=== PATIENT | female | born 1940 | race Caucasian/White ===

== ENCOUNTER → 2018-03-14 16:34 | Outpatient (CLI) | payer MEDICARE, OTHER, SELFPAY ==
[2017-04-19 11:37] VITALS: BMI 26.3
[2018-03-14 17:33] LABS: Absolute Lymphocyte Count 1.15 X10^3/ul (0.83-4.51); Absolute Neutrophil Count 3.1 X10^3/uL (2.0-7.7); Basophil# 0.03 X10^3/uL; Basophil% 0.6 % (0-1); Eosinophil# 0.11 X10^3/uL; Eosinophils% 2.2 % (0-5); Hematocrit 37.7 % (37-47); Hemoglobin 12.4 g/dl (12.0-15.0); Lymphocyte # 1.15 X10^3/ul (4.0); Lymphocyte % 23.4 % (19-41); Mean Corp Hgb Conc 32.9 g/gl (32-36); Mean Corpuscular Hgb 30.2 pg (27.0-32.0); Mean Platelet Vol. 11.5 fl (6.2-12.0); Monocyte# 0.55 X10^3/uL; Monocyte% 11.2 % (0-10); Neutrophil # 3.07 X10^3/uL (2.7-7.7); Neutrophil % 62.4 % (47-70); POSITIVE COUNT NO; POSITIVE DIFFERENTIAL NO; POSITIVE MORPHOLOGY NO; Platelet Count 125 K/mm3 (150-450); RBC Distribution Width CV 13.4 % (11.6-14.6); RBC Distribution Width SD 44.5 fl (35.1-43.9); White Blood Count 4.9 K/mm3 (4.4-11.0)
[2018-03-14 17:56] LABS: AST(SGOT) 29 U/L (15-37); Alanine Aminotransfer ALT/SGPT 36 U/L (13-56); Albumin, Serum 3.9 g/dL (3.2-5.0); Alkaline Phosphatase 84 U/L (45-117); Anion Gap 8 (5-15); BUN 11 mg/dL (7-18); BUN/Creat Ratio 14.7 RATIO (10-20); Calcium,Total 8.4 mg/dL (8.5-10.1); Chloride 108 mmol/L (98-107); Creatinine, Serum 0.75 mg/dL (0.55-1.02); EST Glomerular Filtration Rate 80 mL/min (>60); Est Glom Filt Rate - Afr Amer 97 mL/min (>60); Globulin 3.8 g/dL (2.2-4.2); Glucose 93 mg/dL (74-106); Protein, Total 7.7 g/dL (6.4-8.2); Sodium Level 140 mmol/L (136-145); Thyroid Stim Hormone (TSH) 2.11 uIU/mL (0.358-3.74)
[2018-03-14 17:57] LABS: Vitamin D,25 Hydroxy 23.1 ng/mL (29.95-100.01)
== END ==
PROVIDERS: Family Provider Family Medicine Geriatric Medicine; PCP Family Medicine Geriatric Medicine; Visit Provider Family Medicine Geriatric Medicine
DX: E11.9 Type 2 diabetes mellitus without complications (principal); E55.9 Vitamin D deficiency, unspecified; I10 Essential (primary) hypertension
CPT/HCPCS: 36415; 80053; 82306; 84443; 85025

== ENCOUNTER → 2018-04-03 14:08 | Outpatient (CLI) | payer MEDICARE, OTHER, SELFPAY ==
[2017-04-19 11:37] VITALS: BMI 26.3
--- NOTE | 2018-04-03 14:12 | BI_ITS ---
MAMMOGRAPHY - BILATERAL SCREENING REASON FOR EXAM: Female, 77 years old. Routine annual screening examination. PERTINENT HISTORY: Non-contributory. TECHNIQUE: Digital bilateral breast christy (3D mammographic acquisition) in the CC and MLO projections. 2-D mediolateral oblique (MLO) and craniocaudad (CC) views of both breasts were obtained. CAD: Full Field Digital Mammography with Computer Added Detection was performed. COMPARISON: Comparison is made with prior study dated January 23, 2017 and January 19, 2016. FINDINGS: Breast Composition: There are scattered areas of fibroglandular density. There are no dominant masses or suspicious calcifications. No other significant abnormalities are identified. There has been no significant change since the prior study. BI/SCREENING MAMM (CAD), BILAT IMPRESSION: Stable bilateral screening mammogram. Yearly follow-up mammogram recommended. (A) ASSESSMENT CATEGORY: BIRADS Category 1: Negative. A letter regarding these results will be sent to the patient by the facility within 30 days. Approximately 10% of breast cancers are not detected by mammography. A normal mammogram should not delay biopsy of a clinically suspicious abnormality. [id number] Electronically Signed: Asher Donato MD at 15:59 EDT Tel [phone], Service support ,
--- NOTE | 2018-04-03 14:40 | BD_ITS ---
STUDY: DUAL ENERGY X-RAY ABSORPTIOMETRY / DXA REASON FOR EXAM: Female, 77 years old. The patient is postmenopausal. Loss of height. TECHNIQUE: Bone Mineral Density (BMD) measurements of lumbar spine and bilateral hips were obtained. COMPARISON: Comparison is made with prior study dated January 19, 2016. FINDINGS: Lumbar Spine (L1-L4): g/cm2 (1.060) / T-score (-0.9) / Z-score (0.9) Findings are suggestive of normal bone density with a low fracture risk. Left Femur Total: g/cm2 (0.940) / T-score (-0.5) / Z-score (1.2) Left Femoral Neck: g/cm2 (0.888) / T-score (-1.1) / Z-score (0.9) Right Femur Total: g/cm2 (0.944) / T-score (-0.5) / Z-score (1.3) Right Femoral Neck: g/cm2 (0.909) / T-score (-0.9) / Z-score (1.0) The T-Scores on the most recent prior examination were: Lumbar Spine (L1-L4): There has been improvement of bone density since the previous examination. Left Femur Total: which represents a worsening of 5.0%. Right Femur Total: which represents an improvement of 0.7%. BD/Dexa Bone Density Study IMPRESSION: The patient is considered osteopenic as outlined below according to World Medardo Organization (WHO) criteria with a low fracture risk. There has been improvement of bone density since the previous examination. Reference Information: The T-score is the number of standard deviations above or below the standard which is normal for young adults at their peak bone mineral density. The World Health Organization (WHO) interprets the T-scores as follows: Above -1 Normal bone density Between -1 and -2.5 Osteopenia Equal to / or below -2.5 Osteoporosis As a practical clinical guideline, osteopenia may be graded as follows: Mild -1 through -1.5 Moderate -1.6 through -2.0 Severe -2.1 through -2.4 The Z-score is the number of standard deviations above or below age-matched controls. A Z-score of less than -1.5 would be considered abnormal. References: 1. NIH Osteoporosis and Related Bone Diseases http://www.osteo.org 2. International Society for Clinical Densitometry http://www.iscd.org 3. National Osteoporosis Foundation http://www.nof.org Electronically Signed: Asher Donato MD at 15:40 EDT Tel [phone], Service support ,
== END ==
PROVIDERS: Family Provider Family Medicine Geriatric Medicine; PCP Family Medicine Geriatric Medicine; Visit Provider Family Medicine Geriatric Medicine
DX: Z78.0 Asymptomatic menopausal state (principal); Z12.31 Encounter for screening mammogram for malignant neoplasm of breast
CPT/HCPCS: 77063; 77067; 77080

== ENCOUNTER 2018-06-07 08:25 | Observation (INO) | payer MEDICARE, OTHER, SELFPAY ==
[2017-04-19 11:37] VITALS: BMI 26.3
[2018-06-07] VITALS (12 sets, daily range): BP systolic 101–125; BP diastolic 58–79; PULSE 12–98; RESP 10–93; TEMP 36.7–37.4; O2SAT 94–96; BMI 28.6; BMI 27.8
--- NOTE | 2018-06-07 08:33 | EKG12_ITS ---
Test Reason : CHEST PAIN Blood Pressure : / mmHG Vent. Rate : 094 BPM Atrial Rate : 094 BPM P-R Int : 156 ms QRS Dur : 122 ms QT Int : 386 ms P-R-T Axes : 055 -63 044 degrees QTc Int : 482 ms Normal sinus rhythm Right bundle branch block Left anterior fascicular block Bifascicular block Abnormal ECG Confirmed by ALONDRA WAHL, LINDA ([id number]), senior technical editor BEN VALENTINO ([id number]) on 06/11/2018 2:24:40 PM Referred By: RU Confirmed By:LINDA CANTU MD
--- NOTE | 2018-06-07 08:33 | RAD_ITS ---
STUDY: X-RAY CHEST REASON FOR EXAM: Female, 77 years old. Chest pain TECHNIQUE: Single AP portable view of the chest. COMPARISON: 04/14/2017 FINDINGS: Subsegmental atelectases in the right and left lung bases. There is no demonstrated pleural abnormality. Normal size heart. Normal mediastinum and raul. Normal visualized pulmonary arteries. There is atherosclerotic calcification of the aortic arch with tortuosity. Normal visualized thoracic spine. There is degenerative osteoarthritis of the bilateral shoulders. There is no demonstrated abnormality of the visualized soft tissue structures of the upper abdomen. RAD/Chest 1 View (Portable) IMPRESSION: Degenerative changes, as described above. No demonstrated acute cardiopulmonary process. Electronically Signed: Meera Luna MD at 9:11 EDT Tel , Service support ,
--- NOTE | 2018-06-07 08:34 | ED.VISSUMM ---
- ER Visit Summary Date of Service: 06/07/18 Chief Complaint: [] Chest pain for a week History of Present Illness: The patient is a 77 F [] retention cardiac stent 1 year ago reports for about a week she has had chest pain left that is similar to the angina that necessitated her stent 1 year ago. Her cardiac condition and all of her general health issues have been very stable he gets chest discomfort has been persistent she was concerned when it did not improve despite the fact taking her medications she came in for evaluation. No fever no cough bowel and bladder habits of normal review systems are negative seen by Dr. Leach in the past Physical Examination: [] Vital signs are within normal range she is resting comfortably in the bed her vital signs are normal she points to the left chest pectoral area, lungs are clear heart tones are normal HEENT exam unremarkable the left chest to palpation is nontender the lungs sound clear the heart tones are regular the monitor shows a sinus rhythm the abdomen is soft nontender upper lower extremity unremarkable pulses symmetric neurologic she is awake alert moving all 4 Test Results: [] Emergency Department Course and Treatment: [] EKG shows a sinus rhythm no acute injury pattern appreciated she has a right bundle branch block and left anterior fascicular block that are old mother the patient's chest x-ray and all labs are generally unremarkable please see those reports on reevaluation is resting comforting the bed spoke with the hospitalist given all the above history of cardiac stent the chest pain will arrange for admission for further management Treatment Plan: [] Disposition: [] Stable admit Impression: [] Chest pain history of CAD cardiac stent This note was generated with [employer] dictation software. It may contain incorrect words, spelling, and punctuation that were not noted in review of the chart prior to signing ED Disposition - Plan for ED Patient: Chief Complaint: Chest Pain Referrals: Gokul Sanchez Chi, MD [Primary Care Provider] -
--- NOTE | 2018-06-07 08:40 | ED.DCSUM_ITS ---
- ER Visit Summary Date of Service: 06/07/18 Chief Complaint: [] Chest pain for a week History of Present Illness: The patient is a 77 F [] retention cardiac stent 1 year ago reports for about a week she has had chest pain left that is similar to the angina that necessitated her stent 1 year ago. Her cardiac condition and all of her general health issues have been very stable he gets chest discomfort has been persistent she was concerned when it did not improve despite the fact taking her medications she came in for evaluation. No fever no cough bowel and bladder habits of normal review systems are negative seen by Dr. Leach in the past Physical Examination: [] Vital signs are within normal range she is resting comfortably in the bed her vital signs are normal she points to the left chest pectoral area, lungs are clear heart tones are normal HEENT exam unremarkable t he left chest to palpation is nontender the lungs sound clear the heart tones are regular the monitor shows a sinus rhythm the abdomen is soft nontender upper lower extremity unremarkable pulses symmetric neurologic she is awake alert moving all 4 Test Results: [] Emergency Department Course and Treatment: [] EKG shows a sinus rhythm no acute injury pattern appreciated she has a right bundle branch block and left anterior fascicular block that are old mother the patient's chest x-ray and all labs are generally unremarkable please see those reports on reevaluation is resting comforting the bed spoke with the hospitalist given all the above history of cardiac stent the chest pain will arrange for admission for further management Treatment Plan: [] Disposition: [] Stable admit Impression: [] Chest pain history of CAD cardiac stent This note was generated with [employer] dictation software. It may contain incorrect words, spelling, and punctuation that were not noted in review of the chart prior to signing ED Disposition - Plan for ED Patient: Chief Complaint: Chest Pain Referrals: Gokul Sanchez Chi, MD [Primary Care Provider] -
[2018-06-07 08:47] LABS: Absolute Lymphocyte Count 0.94 X10^3/ul (0.83-4.51); Absolute Neutrophil Count 6.9 X10^3/uL (2.0-7.7); Basophil# 0.03 X10^3/uL; Basophil% 0.3 % (0-1); Eosinophil# 0.04 X10^3/uL; Eosinophils% 0.4 % (0-5); Hematocrit 36.9 % (37-47); Hemoglobin 12.5 g/dl (12.0-15.0); Lymphocyte # 0.94 X10^3/ul (4.0); Lymphocyte % 10.3 % (19-41); Mean Corp Hgb Conc 33.9 g/gl (32-36); Mean Corpuscular Hgb 30.6 pg (27.0-32.0); Mean Corpuscular Volume 90.2 fL (81-99); Mean Platelet Vol. 10.7 fl (6.2-12.0); Monocyte# 1.12 X10^3/uL; Monocyte% 12.3 % (0-10); Neutrophil # 6.94 X10^3/uL (2.7-7.7); Neutrophil % 76.4 % (47-70); POSITIVE COUNT NO; POSITIVE DIFFERENTIAL NO; POSITIVE MORPHOLOGY NO; Platelet Count 159 K/mm3 (150-450); RBC Distribution Width CV 13.2 % (11.6-14.6); RBC Distribution Width SD 43.4 fl (35.1-43.9); Red Blood Count 4.09 M/mm3 (4.2-5.4); White Blood Count 9.1 K/mm3 (4.4-11.0)
[2018-06-07] MEDS: Clopidogrel Bisulfate 300 MG Tablet 75 MG PO (08:49)
[2018-06-07] MEDS: Aspirin 81 MG TAB.CHEW 324 MG PO (08:49)
--- NOTE | 2018-06-07 08:52 | ED.RN ---
MEDICATIONS GIVEN BY MELISSA Le RN. PER PHYSICIAN VERBAL ORDER, 150 MG PO PLAVIX WAS GIVEN TO PT.
[2018-06-07 09:06] LABS: Anion Gap 9 (5-15); BUN 17 mg/dL (7-18); BUN/Creat Ratio 17.3 RATIO (10-20); Calcium,Total 8.9 mg/dL (8.5-10.1); Chloride 104 mmol/L (98-107); Creatinine, Serum 0.98 mg/dL (0.55-1.02); EST Glomerular Filtration Rate 58 mL/min (>60); Est Glom Filt Rate - Afr Amer 71 mL/min (>60); Estimated Creatinine Clearance 46.43 ml/min; Glucose 150 mg/dL (74-106); Sodium Level 136 mmol/L (136-145)
--- NOTE | 2018-06-07 11:44 | EKG12_ITS ---
Test Reason : Blood Pressure : / mmHG Vent. Rate : 080 BPM Atrial Rate : 080 BPM P-R Int : 168 ms QRS Dur : 122 ms QT Int : 408 ms P-R-T Axes : 053 -60 030 degrees QTc Int : 470 ms Normal sinus rhythm Right bundle branch block Left anterior fascicular block Bifascicular block Abnormal ECG When compared with ECG of 20-APR-2017 06:13, T wave inversion no longer evident in Inferior leads Confirmed by ALONDRA WAHL, LINDA ([id number]), editor publications BEN VALENTINO ([id number]) on 06/11/2018 3:57:21 PM Referred By: RENATA Confirmed By:LINDA CANTU MD
--- NOTE | 2018-06-07 11:48 | STEWCON_ITS ---
Reason For Study: Chest Pain Stress Results Protocol: Cyrus Protocol Maximum Predicted HR: 145 bpm Target HR: 123 bpm% Max imum Predicted HR: 84 % DurationHeart Rate Stage (mm:ss) (bpm) BPCom ment Baseline 88 108/72 5/10 Chest Pain; Definity Diluted 4 ML Given Cyrus Protocol Stage I 3:00 12 0 112/605/10 Chest Pain; Mild Dyspnea Cyrus Protocol Stage II 0:31 12 2 / 5/1 0 Chest Pain; Moderate Dyspnea Recovery 100 108/6 05/10 Chest Pain Stress Duration: 3:31 mm:ss Maximum Stress HR: 122 bpmM ETS: 5 Baseline Echocardiogram Findings The estimated ejection fraction is 65 %. Stress Echo Wall motion Data Resting WMIntermediate WMStress WM Resting Wall Motion Wall Motion Stress No regional wall motion No regional wall motion abnormalities noted. abnormalities noted. EKG Data The baseline ECG displays normal sinus rhythm. The patient exercised according to the regular Cyrus protocol for a total duration of 3:31. The maximum heart rate attained was 134 beats per minute. This was 92% of maximum predicted heart rate. The patient exercised into stage 2 of the Cyrus protocol. During stress, there were no ST or T wave changes noted to suggest ischemia. Interpretation Summary The estimated ejection fraction is 65 %. Normal, adequate, treadmill echocardiogram. Negative for ischemia by EKG and echocardiographic criteria. Patient had baseline 5 out of 10 chest pain prior to testing, which did not worsen during the test. Rare PVCs and ventricular couplets during exercise. Poor exercise capacity for age. Decreased sensitivity due to poor echo windows requiring Definity agent. Recommend clinical correlation or alternative mode of testing if coronary ischemia is strongly suspected. Test terminated due to dyspnea. Final LVEF is 75%. Ordering Physician: Gustavo Molina Referring Physician: Emigdio Ramos Performed By: Jordan Wills RCS
--- NOTE | 2018-06-07 16:36 | CHAPLAIN ---
Type of Pastoral Visit _x__ Initial Visit ___ Follow-up Visit ___ On-call Visit ___ General Patient Visit ___ Spiritual Assessment ___ Family Conference ___ Bereavement ___ Rapid Response ___ Code Blue ___ Other (describe below) Pastoral Care Referral From _x__ Patient ___ Family ___ Nurse ___ Physician ___ Interior Design Instructor ___ Nicker And Breaker ___ Other (describe below) Sacrament/Intervention _x__ Active listening ___ Anointing ___ Restorationist _x__ Bereavement ___ Communion ___ Kirsten exploration ___ _x__ Life review _x__ Prayer ___ Reconciliation ___ Sacrament of Sick ___ Supportive presence ___ Wedding ___ Other (describe below) Pastoral Comments patient tells about recent family and tensions that have caused added stress to life; pt is a devout [employer] and prays for the help of God
--- NOTE | 2018-06-07 17:29 | PCM.HP.STD ---
Problem List (1) Hypertension Status: Chronic Qualifiers: (2) Presence of stent in coronary artery Status: Chronic Comment: PTCA/DACIA to mid LAD w/FFR guidance 04/19/17 (3) Atherosclerotic heart disease of [place] coronary artery without angina pectoris Status: Chronic Qualifiers: Comment: PTCA/DACIA to mid LAD w/FFR guidance 04/19/17 (4) HLD (hyperlipidemia) Status: Chronic Qualifiers: (5) Chest pain on exertion Status: Acute History of Present Illness Date of Admission: 06/07/18 Chief Complaint: Chest Pain The patient is a 77 year old F with a PMH as above presenting with 7 days of non-radiating, left sided chest pain that began after a of a family member. The pain is similar to her previous cardiac pain which bought her a stent 1 year ago, its just not as intense. No lightheadedness or dizziness. No syncope. Exertion does not make the pain worse, and she can have the pain at rest if she moves in a particular fashion. In the ER her EKG was stable and her troponin was negative, but given her previous CAD with 100% occlusion of the RCA and the right system completely dependent on the left, she was admitted for chest pain r/o. 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 (Chronic) PTCA/DACIA to mid LAD w/FFR guidance 04/19/17 HLD (hyperlipidemia) (Chronic) Medical History: Medical History (Last Updated 03/13/18 @ 07:46 by Lalitha Gerard) Hypertension (Chronic) I10 Yari's thyroiditis (Chronic) E06.3 Atherosclerotic heart disease of [place] coronary artery without angina pectoris (Chronic) I25.10 PTCA/DACIA to mid LAD w/FFR guidance 04/19/17 HLD (hyperlipidemia) (Chronic) E78.5 Chest pain on exertion (Acute) R07.9 Osteoporosis M81.0 Allergies No Known Allergies Allergy (Verified 06/07/18 08:29) Home Medications: Ambulatory Orders Medication Instructions Recorded Aspirin [Aspirin, Baby] 81 mg PO DAILY@0800 10/23/13 Losartan Potassium [Cozaar] 100 mg PO DAILY 10/23/13 Simvastatin [Zocor] 40 mg PO QHS 10/23/13 Alendronate Sodium [Fosamax] 70 mg PO HAYES 04/18/17 Clopidogrel Bisulfate [Plavix] 75 mg PO DAILY 04/18/17 Multivitamins,Ther W-Minerals 1 tab PO DAILY 04/19/17 [Multivitamin With Minerals] metoprolol tartrate 25 mg tablet 25 mg PO BID #180 tab 11/10/17 ferrous sulfate 325 mg (65 mg 325 mg PO DAILY tab 03/13/18 iron) tablet levothyroxine 25 mcg tablet 25 mcg PO QDAY 03/13/18 Triamcinolone 0.025% Cream 1 applic TOPICAL BID 06/07/18 [Kenalog] Surgical History: Surgical History (Last Reviewed 03/27/18 @ 11:00 by Deepthi Tinajero) Presence of stent in coronary artery (Chronic) Onset Date: ~04/19/17 Z95.5 PTCA/DACIA to mid LAD w/FFR guidance 04/19/17 Postsurgical percutaneous transluminal coronary angioplasty (PTCA) status Onset Date: ~04/19/17 Z98.61 PTCA/DACIA to mid LAD w/FFR guidance 04/19/17 History of total hysterectomy Z90.710 Surgical History: hysterectomy - in Oct for fibroids and bladder prolapse, - Smoking Status: Never smoker Alcohol: None Drugs: None - *Family History Maternal Family History: Family History (Last Updated 03/27/18 @ 11:01 by Deepthi Tinajero) Mother Hypertension Heart disease Brother Cancer History Items: - - her mother when the pt was only 12YO of HTN and CHF Paternal Family History: Family History (Last Updated 03/27/18 @ 11:01 by Deepthi Tinajero) Mother Hypertension Heart disease Brother Cancer History Items: - - her father of some type of mouth cancer Sibling Family History: Family History (Last Updated 03/27/18 @ 11:01 by Deepthi Tinajero) Mother Hypertension Heart disease Brother Cancer History Items: - - She has a brother who was at the age of 50 with lung cancer and she has a sister who is still alive with rheumatoid arthritis and many other health problems. Review of Systems Constitutional: Denies: Chills, Fever, Weight Change HEENT: Denies: Head Aches, Sinus Congestion, Sinus Drainage Cardiovascular: Reports: Chest Pain. Denies: Chest Pressure, Chest Tightness, Edema, Heaviness, Palpitations, Syncope Respiratory: Denies: Cough, Shortness of breath at rest, Sputum production Gastrointestinal: Denies: Abdominal Pain, Nausea, Vomiting Genitourinary: Denies: Dysuria Musculoskeletal: Denies: Joint Pain, Joint Tenderness Skin: Denies: Rash, Wounds Neurological: Denies: Numbness, Tingling, Focal weakness Psychiatric: Denies: Anxiety, Depression Hematologic/ Lymphatic: Denies: Easy Bruising, Easy Bleeding VTE Information - Inpt Only VTE Present on Admission: No - Physical Exam General: Alert, Oriented x3, Cooperative, No apparent distress HEENT: Atraumatic, PERRLA, EOMI, Normocephalic Oral: Moist Mucosa Neck: Supple, No JVD Lungs: Clear to auscultation, Normal air movement, No rhonchi, No wheeze, No rales Cardiovascular: Regular rate, Regular Rhythm, Normal S1, Normal S2, No murmurs Abdomen: Soft, Non Tender, Non-Distended, No Hepato-splenomegaly Extremities: No edema, Capillary Refill Less than 3 Seconds Skin: No rashes, No breakdown Musculoskeletal: No Tenderness to Palpation of Joints or Extremities Neurological: Neuro grossly intact, Sensory exam intact to light touch and pain Psych/Mental Status: Normal Affect, Appropriate Vital Signs Temp Pulse Resp BP Pulse Ox 99.3 F H 96 16 104/58 L 94 06/07/18 17:00 06/07/18 17:00 06/07/18 17:00 06/07/18 17:00 06/07/18 17:00 Oxygen Delivery Method Room Air Weight: 172 lb 6.424 oz Body Mass Index (BMI) 27.8 Laboratory Tests Past 24 Hrs 06/07/18 06/07/18 06/07/18 08:30 08:30 12:00 WBC 9.1 RBC 4.09 L Hgb 12.5 Hct 36.9 L MCV 90.2 MCH 30.6 MCHC 33.9 RDW 13.2 RDW Differential 43.4 Plt Count 159 MPV 10.7 Immature Gran % (Auto) 0.300 Neut % (Auto) 76.4 H Lymph % (Auto) 10.3 L Creek % (Auto) 12.3 H Eos % (Auto) 0.4 Baso % (Auto) 0.3 Absolute Neuts (auto) 6.9 Absolute Lymphs (auto) 0.94 Total Counted Not Reportable Sodium 136 Potassium 4.0 Chloride 104 Carbon Dioxide 23.0 Anion Gap 9 BUN 17 Creatinine 0.98 Estim Creat Clear Calc 46.43 Est GFR (MDRD) Af Amer 71 Est GFR (MDRD) Non-Af 58 L BUN/Creatinine Ratio 17.3 Glucose 150 H Calcium 8.9 Troponin I < 0.015 < 0.015 06/07/18 14:35 WBC RBC Hgb Hct MCV MCH MCHC RDW RDW Differential Plt Count MPV Immature Gran % (Auto) Neut % (Auto) Lymph % (Auto) Creek % (Auto) Eos % (Auto) Baso % (Auto) Absolute Neuts (auto) Absolute Lymphs (auto) Total Counted Sodium Potassium Chloride Carbon Dioxide Anion Gap BUN Creatinine Estim Creat Clear Calc Est GFR (MDRD) Af Amer Est GFR (MDRD) Non-Af BUN/Creatinine Ratio Glucose Calcium Troponin I < 0.015 Assessment/Plan All Active Problems (Last Updated 03/13/18 @ 07:46 by Lalitha Gerard) Chest pain on exertion (Acute) 1. Chest pain/CAD s/p Stent/HTN - Stress echo today was technically difficult and had suboptimal echo windows - C/s to cardiology for possible cath in the am - Troponin neg x 2 - EKG with bifascicular block - No SOB, Wells score is 0-3 - c/w ASA and plavix - c/w statin - C/w losartan and metoprolol 2. Hypothyroidism - stable - c/w synthroid DVT: Heparin Diet: Cardiac Code Visit OBSV E&M: 41188 Initial observation care L3
--- NOTE | 2018-06-07 20:18 | CON.PCM_ITS ---
Problem List (1) Chest pain on exertion Status: Acute (2) Atherosclerotic heart disease of [place] coronary artery without angina pectoris Status: Chronic Qualifiers: Comment: PTCA/DACIA to mid LAD w/FFR guidance 04/19/17 (3) Presence of stent in coronary artery Status: Chronic Comment: PTCA/DACIA to mid LAD w/FFR guidance 04/19/17 (4) HLD (hyperlipidemia) Status: Chronic Qualifiers: (5) Hypertension Status: Chronic Qualifiers: Reason for Consult Date of Consultation: 06/07/18 History of Present Illness: The patient is a 77 year old white female with a past cardiovascular history wh ich is included underlying CAD, status post LAD PCI, hyperlipidemia, and hypertension who is referred for evaluation of ongoing chest discomfort with request for consideration for further evaluation with diagnostic cardiac catheterization. The patient states that for some time now she has been having left-sided chest discomfort. She notes that usually stays within her left chest area. It does not necessarily radiate out of her left chest. It may wax and wane somewhat with deep inspiration. It is not necessarily associated with ongoing nausea, emesis, or diaphoresis. She has denied episodes of palpitations, near syncope or syncope. She notes because of her ongoing discomfort in her previous cardiovascular history she presented to the hospital for further evaluation. This demonstrated negative cardiac enzymes. Her ECG demonstrated sinus rhythm with a left axis deviation, a right bundle branch block pattern, and a left anterior fascicular block. She did undergo evaluation with a stress echocardiogram. She was able to exercise on a Cyrus protocol for approximately 3 minutes and 30 seconds achieving 92% predicted maximal heart rate with a report of continued chest discomfort, no obvious ECG changes, and no definitive echocardiographic changes although the study was read as having decreased sensitivity due to poor echocardiographic windows quiring IV contrast enhancement. Her overall LVEF did appear to improve. There was a recommendation for its iteration of alternative diagnostic testing if concerns of coronary artery disease/ischemia persisted. Based upon her ongoing symptoms she was referred for cardiovascular consultation for consideration for diagnostic cardiac catheterization as no other etiology thus far has been present to explain her symptoms. She states that her chest discomfort does represent to some degree discomfort she had prior to her previous diagnosis and subsequent LAD PCI. She denies any orthopnea or PND or peripheral pitting edema. She has not undergone any other additional cardiovascular testing. [] Past Medical History Allergies/Adverse Reactions: Allergies aspartame Allergy (Verified 10/04/18 18:53) Food Allergy Home Medications: Ambulatory Orders Medication Instructions Recorded Aspirin [Aspirin, Baby] 81 mg PO DAILY@0800 10/23/13 Losartan Potassium [Cozaar] 100 mg PO DAILY 10/23/13 Simvastatin [Zocor] 40 mg PO QHS 10/23/13 Alendronate Sodium [Fosamax] 70 mg PO HAYES 04/18/17 Clopidogrel Bisulfate [Plavix] 75 mg PO DAILY 04/18/17 Multivitamins,Ther W-Minerals 1 tab PO DAILY 04/19/17 [Multivitamin With Minerals] metoprolol tartrate 25 mg tablet 25 mg PO BID #180 tab 11/10/17 ferrous sulfate 325 mg (65 mg 325 mg PO DAILY tab 03/13/18 iron) tablet levothyroxine 25 mcg tablet 25 mcg PO QDAY 03/13/18 Triamcinolone 0.025% Cream 1 applic TOPICAL BID 06/07/18 [Kenalog] Past Medical History (Chronic Problems): Chronic Problems (Last Updated 03/13/18 @ 07:46 by Lalitha Gerard) Hypertension (Chronic) Presence of stent in coronary artery (Chronic ~04/19/17) PTCA/DACIA to mid LAD w/FFR guidance 04/19/17 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 (Chronic) PTCA/DACIA to mid LAD w/FFR guidance 04/19/17 HLD (hyperlipidemia) (Chronic) Surgical History: angioplasty, hysterectomy - in Oct for fibroids and bladder prolapse, - - *Family History Maternal Family History: Family History (Last Updated 03/27/18 @ 11:01 by Deepthi Tinajero) Mother Hypertension Heart disease Brother Cancer History Items: - - her mother when the pt was only 12YO of HTN and CHF Paternal Family History: Family History (Last Updated 03/27/18 @ 11:01 by Deepthi Tinajero) Mother Hypertension Heart disease Brother Cancer History Items: - - her father of some type of mouth cancer Sibling Family History: Family History (Last Updated 03/27/18 @ 11:01 by Deepthi Tinajero) Mother Hypertension Heart disease Brother Cancer History Items: - - She has a brother who was at the age of 50 with lung cancer and she has a sister who is still alive with rheumatoid arthritis and many other health problems. Lives: Spouse/ Significant Other Smoking Status: Never smoker Alcohol: None Drugs: None Review of Systems - Review of Systems General: Denies: Fever, Night Sweats, Fatigue Cardiovascular: Reports: Chest Discomfort, Chest Discomfort at Rest, Chest Discomfort with Exertion. Denies: Shortness of Breath, Orthopnea, PND, Peripheral Edema, Palpitations, Lightheadedness, Dizziness, Near Syncope, Syncope Respiratory: Denies: Cough, Sputum Production, Hemoptysis Gastrointestinal: Denies: Hematemesis, Hematochezia, Melena Genitourinary: Denies: Dysuria, Hematuria Skin: Denies: Rash Subjectve: This is a 77-year-old white female who appears to be resting comfortably at the moment in no acute distress. Objective: Vital Signs Temp Pulse Resp BP Pulse Ox 99.3 F H 97 16 104/58 L 94 06/07/18 17:00 06/07/18 19:00 06/07/18 17:00 06/07/18 17:00 06/07/18 17:00 Oxygen Delivery Method Room Air Weight: 172 lb 6.424 oz Body Mass Index (BMI) 27.8 Intake and Output for Last 24 Hours 06/05/18 06/06/18 06/07/18 23:59 23:59 23:59 Intake Total 360 / 360 Balance 360 / 360 General: Awake, Alert, Oriented x 3, Cooperative, No Acute Distress HEENT: Atraumatic, Normocephalic, PERRL, EOMI, Sclera Non Icteric Oral: Moist Mucosa Neck: Supple, Good ROM, No JVD Lungs: Clear to auscultation Cardiovascular: Regular Rhythm, Normal S1, Normal S2 Murmur Murmur: Grade 2/6, Mid Systolic, LLSB, LVOT, Sternal Notch Vascular: Normal Femoral Pulses Abdomen: Bowel Sounds Present, Soft, Non Tender Extremities: No Cyanosis, No Clubbing, No edema Neurological: No Focal Motor or Sensory Deficit Psych/Mental Status: Appropriate, Normal Affect 06/07/18 08:30: WBC 9.1, RBC 4.09 L, Hgb 12.5, Hct 36.9 L, MCV 90.2, MCH 30.6, MCHC 33.9, RDW 13.2, RDW Differential 43.4, Plt Count 159, MPV 10.7, Immature Gran % (Auto) 0.300, Neut % (Auto) 76.4 H, Lymph % (Auto) 10.3 L, [place] % (Auto) 12.3 H, Eos % (Auto) 0.4, Baso % (Auto) 0.3, Absolute Neuts (auto) 6.9, Total Counted Not Reportable 06/07/18 08:30: Sodium 136, Potassium 4.0, Chloride 104, Carbon Dioxide 23.0, Anion Gap 9, BUN 17, Creatinine 0.98, Est GFR (MDRD) Af Amer 71, Est GFR (MDRD) Non-Af 58 L, BUN/Creatinine Ratio 17.3, Glucose 150 H, Calcium 8.9, Troponin I < 0.015 06/07/18 12:00: Troponin I < 0.015 06/07/18 14:35: Troponin I < 0.015 Rhythm: Sinus rhythm EKG: As noted above ECHO: 04/07/2017: Left ventricular regional wall motion abnormalities today's inferior basilar hypokinesis); LVEF 55%; mild mitral annular calcification with mild mitral valve stenosis and trivial MR; trivial TR; mild aortic valve stenosis; trivial TX; calcified aortic root Stress Test: As noted above Cardiac Cath: 04/19/2017: Normal left ventricular end-diastolic pressure; normal right heart pressures; normal pulmonary hemodynamics; no intracardiac shunting; preserved left ventricular systolic function with mild hypokinesis of the inferior basilar segment with overall LVEF of 65%; mild to moderate aortic valve calcification with aortic valve demonstrating sclerosis with no hemodynamically significant appearing stenosis; mild mitral annular calcification; coronary artery disease with the left main having distal 10-25% stenosis, the LAD having moderate calcification with eccentric 75% stenosis, the diagonal branch #1 having a ostial eccentric 75% stenosis, the LCx having mild luminal irregularities, and the RCA being occluded with proximal moderate calcification with the distal vessel filling from left to right collateral flow PCI: 04/19/2017: Successful PTCA/DACIA of the mid LAD X-ray: Preliminary evaluation: No acute cardiopulmonary disease process appreciated Assessment/Plan 1. Chest pain The patient continues with chest discomfort. It appears to be somewhat atypical, however, she states it is somewhat similar to discomfort she had prior to her diagnosis of CAD and subsequent LAD PCI. Her cardiovascular evaluation has been negative for evidence of acute coronary syndrome/HI. Her stress echocardiogram is as described above. Based upon the patient's ongoing symptoms/concerns, her diminished quality stress echocardiogram, no other obvious etiology to explain her symptoms, it was felt reasonable that she undergo reevaluation with cardiac catheterization laboratory. Depending upon the findings she may or may not need further cardiac versus noncardiac evaluation. In the interim she will continue cardiovascular medical management. 2. CAD status post LAD PCI She states she has been taking her medications. Again she has ongoing symptoms that are yet explained. She believes there are similar to previous symptoms. Her stress echocardiogram has demonstrated concerns of diminished quality. Thus she will proceed with further evaluation with diagnostic cardiac catheterization and depending upon the findings she may need further cardiac or noncardiac evaluation. 3. Hyperlipidemia She will continue lipid-lowering therapy. 4. Hypertension She will continue medical management with adjustment as needed. Comment: The above was discussed with the patient, her spouse, and Dr. Molina. This note was generated with [employer] dictation software. It may contain incorrect words, spelling, and punctuation that were not noted in checking the note before signing.
[2018-06-07] MEDS: Metoprolol Tartrate 25 MG Tablet PO (22:24)
[2018-06-07] MEDS: Heparin Injection (Vial) 5,000 UNIT/ML VIAL 5000 UNIT SC (22:25)
[2018-06-07] MEDS: Atorvastatin Calcium 20 MG Tablet PO (22:25)
[2018-06-08] VITALS (16 sets, daily range): BP systolic 93–115; BP diastolic 47–70; PULSE 67–83; RESP 14–18; TEMP 36.7–37; O2SAT 92–96
--- NOTE | 2018-06-08 05:55 | EKG12_ITS ---
Test Reason : AM EKG Blood Pressure : / mmHG Vent. Rate : 078 BPM Atrial Rate : 078 BPM P-R Int : 164 ms QRS Dur : 130 ms QT Int : 426 ms P-R-T Axes : -06 -64 031 degrees QTc Int : 485 ms Normal sinus rhythm Right bundle branch block Left anterior fascicular block Bifascicular block Abnormal ECG When compared with ECG of 07-JUN-2018 11:53, MANUAL COMPARISON REQUIRED, DATA IS UNCONFIRMED Confirmed by ALONDRA WAHL, LINDA ([id number]), assignment editor BEN VALENTINO ([id number]) on 06/13/2018 3:42:26 PM Referred By: JG Confirmed By:LINDA CANTU MD
[2018-06-08 06:18] LABS: Absolute Lymphocyte Count 1.18 X10^3/ul (0.83-4.51); Absolute Neutrophil Count 4.2 X10^3/uL (2.0-7.7); Basophil# 0.02 X10^3/uL; Basophil% 0.3 % (0-1); Eosinophil# 0.09 X10^3/uL; Eosinophils% 1.4 % (0-5); Hematocrit 34.4 % (37-47); Hemoglobin 11.6 g/dl (12.0-15.0); Lymphocyte # 1.18 X10^3/ul (4.0); Lymphocyte % 18.9 % (19-41); Mean Corp Hgb Conc 33.7 g/gl (32-36); Mean Corpuscular Hgb 30.3 pg (27.0-32.0); Mean Corpuscular Volume 89.8 fL (81-99); Mean Platelet Vol. 11.3 fl (6.2-12.0); Monocyte# 0.77 X10^3/uL; Monocyte% 12.3 % (0-10); Neutrophil # 4.15 X10^3/uL (2.7-7.7); Neutrophil % 66.6 % (47-70); Platelet Count 163 K/mm3 (150-450); Red Blood Count 3.83 M/mm3 (4.2-5.4); White Blood Count 6.2 K/mm3 (4.4-11.0)
[2018-06-08 06:20] LABS: POSITIVE COUNT NO; POSITIVE DIFFERENTIAL NO; POSITIVE MORPHOLOGY NO
[2018-06-08 06:29] LABS: International Normalized Ratio 1.2; Prothrombin Time (Protime)PT. 15.3 SECONDS (11.7-14.9)
[2018-06-08 06:30] LABS: Partial Thromboplast Time 29.6 Seconds (24.1-36.2)
[2018-06-08 06:34] LABS: Anion Gap 7 (5-15); BUN 17 mg/dL (7-18); BUN/Creat Ratio 19.8 RATIO (10-20); Calcium,Total 8.2 mg/dL (8.5-10.1); Chloride 104 mmol/L (98-107); Creatinine, Serum 0.86 mg/dL (0.55-1.02); EST Glomerular Filtration Rate 68 mL/min (>60); Est Glom Filt Rate - Afr Amer 83 mL/min (>60); Estimated Creatinine Clearance 52.91 ml/min; Glucose 115 mg/dL (74-106); Potassium 3.8 mmol/L (3.5-5.1); Sodium Level 135 mmol/L (136-145)
[2018-06-08] MEDS: Losartan Potassium 100 MG Tablet PO (06:48)
[2018-06-08] MEDS: Levothyroxine 25 MCG TABLET PO (06:48)
[2018-06-08] MEDS: Aspirin 81 MG TAB.CHEW PO (06:48)
[2018-06-08] MEDS: 0.9% Normal Saline 1,000 ML 15 ML IV (06:48)
[2018-06-08] MEDS: Clopidogrel Bisulfate 75 MG Tablet PO (06:48)
[2018-06-08] MEDS: Metoprolol Tartrate 25 MG Tablet PO (06:49)
[2018-06-08 06:58] LABS: Bacteria 0 SEEN /hpf (None Seen); Mucous, Urine 0 SEEN /hpf (<or=2+); Red Blood Cells-Urine 0 SEEN /hpf (0-5)
[2018-06-08 07:18] LABS: Color, Urine Yellow (Yellow); Glucose, Dipstick Normal (Normal); Ketone-Dipstick Negative (Negative); Leukocyte Esterase-Dipstick 500 /ul (Negative); Nitrite-Dipstick Negative (Negative); Occult Blood-Urine Negative /ul (Negative); Protein-Dipstick Negative (Negative); Specific Gravity, Urine 1.015 (1.002-1.030); Urine Bilirubin Dipstick Negative (Negative); Urine Clarity Clear (Clear); Urine Urobilinogen 1 mg/dl (Normal)
[2018-06-08 07:50] LABS: Squamous Epithelial Cells - UA 0-5 SEEN /hpf (5-10); White Blood Cells 5-10 SEEN /hpf (0-5)
--- NOTE | 2018-06-08 08:27 | PN.CARD_ITS ---
Subjectve: The patient is now status post diagnostic cardiac catheterization. She has no new acute complaints. In brief, her LAD stent is patent. She did not require additional revascularization therapy. Objective: Vital Signs Temp Pulse Resp BP Pulse Ox 98.2 F 82 18 95/64 93 06/08/18 06:44 06/08/18 06:49 06/08/18 06:44 06/08/18 06:44 06/08/18 06:44 Oxygen Delivery Method Room Air Weight: 172 lb 6.424 oz Body Mass Index (BMI) 27.8 Intake and Output for Last 24 Hours 06/06/18 06/07/18 06/08/18 23:59 23:59 23:59 Intake Total 360 / 360 Balance 360 / 360 General: Awake, Alert, Oriented x 3, Cooperative, No Acute Distress HEENT: Atraumatic, Normocephalic, PERRL, EOMI, Sclera Non Icteric Oral: Moist Mucosa Neck: Supple, Good ROM, No JVD Lungs: Clear to auscultation Cardiovascular: Regular Rhythm, Normal S1, Normal S2 Murmur Murmur: Grade 2/6, Mid Systolic, LLSB, LVOT, Sternal Notch Vascular: Normal Femoral Pulses Abdomen: Bowel Sounds Present, Soft, Non Tender Extremities: No Cyanosis, No Clubbing, No edema Neurological: No Focal Motor or Sensory Deficit Psych/Mental Status: Appropriate, Normal Affect 06/07/18 08:30: WBC 9.1, RBC 4.09 L, Hgb 12.5, Hct 36.9 L, MCV 90.2, MCH 30.6, MCHC 33.9, RDW 13.2, RDW Differential 43.4, Plt Count 159, MPV 10.7, Immature Gran % (Auto) 0.300, Neut % (Auto) 76.4 H, Lymph % (Auto) 10.3 L, [place] % (Auto) 12.3 H, Eos % (Auto) 0.4, Baso % (Auto) 0.3, Absolute Neuts (auto) 6.9, Total Counted Not Reportable 06/07/18 08:30: Sodium 136, Potassium 4.0, Chloride 104, Carbon Dioxide 23.0, Anion Gap 9, BUN 17, Creatinine 0.98, Est GFR (MDRD) Af Amer 71, Est GFR (MDRD) Non-Af 58 L, BUN/Creatinine Ratio 17.3, Glucose 150 H, Calcium 8.9, Troponin I < 0.015 06/07/18 12:00: Troponin I < 0.015 06/07/18 14:35: Troponin I < 0.015 06/08/18 05:20: Urine Color Yellow, Urine Clarity Clear, Urine pH 6.0, Ur Specific [place] 1.015, Urine Protein Negative, Urine Glucose (UA) Normal, Urine Ketones Negative, Urine Occult Blood Negative, Urine Nitrite Negative, Urine Bilirubin Negative, Urine Urobilinogen 1 H, Ur Leukocyte Esterase 500 H, Urine RBC 0 SEEN, Urine WBC 5-10 SEEN 06/08/18 05:40: WBC 6.2, RBC 3.83 L, Hgb 11.6 L, Hct 34.4 L, MCV 89.8, MCH 30.3, MCHC 33.7, RDW 13.0, RDW Differential 42.0, Plt Count 163, MPV 11.3, Immature Gran % (Auto) 0.500, Neut % (Auto) 66.6, Lymph % (Auto) 18.9 L, [place] % (Auto) 12.3 H, Eos % (Auto) 1.4, Baso % (Auto) 0.3, Absolute Neuts (auto) 4.2, Total Counted Not Reportable 06/08/18 05:40: PT 15.3 H, INR 1.2, APTT 29.6 06/08/18 05:40: Sodium 135 L, Potassium 3.8, Chloride 104, Carbon Dioxide 24.0, Anion Gap 7, BUN 17, Creatinine 0.86, Est GFR (MDRD) Af Amer 83, Est GFR (MDRD) Non-Af 68, BUN/Creatinine Ratio 19.8, Glucose 115 H, Calcium 8.2 L Rhythm: Sinus rhythm Cardiac Cath: Please see official report PCI: Medical Necessity - Tobacco Use Smoking Status: Never smoker Assessment/Plan 1. Chest pain The patient continues with chest discomfort. It appears to be somewhat atypical, however, she states it is somewhat similar to discomfort she had prior to her diagnosis of CAD and subsequent LAD PCI. Her cardiovascular evaluation has been negative for evidence of acute coronary syndrome/SD. Her stress echocardiogram is as previously described. Her diagnostic cardiac catheterization demonstrates her LAD stent to be patent. Otherwise her coronary anatomy appeared to be similar to her previous [facility] diagnostic cardiac catheterization of 04/19/2018. 2. CAD status post LAD PCI The patient will continue risk factor modification and medical management. 3. Hyperlipidemia She will continue lipid-lowering therapy. 4. Hypertension She will continue medical management with adjustment as needed. For all, the patient will need to continue medical therapy. She will need to continue outpatient cardiovascular follow-up. It was not felt she required additional cardiac diagnostic studies or therapeutic intervention at this time. She should be considered for further non-CAD evaluation of her chest discomfort. Comment: The above was discussed with the patient and her spouse. This note was generated with [employer] dictation software. It may contain incorrect words, spelling, and punctuation that were not noted in checking the note before signing.
[2018-06-08] MEDS: Ferrous Sulfate 325 MG Tablet PO (09:27)
--- NOTE | 2018-06-08 09:27 | DCINST_ITS ---
You will use the following diet at home:: Cardiac Your food should be the consistency of: Regular Your liquids should be the consistency of: Regular/Thin Discharge Activity: No Restrictions Call your doctor if you observe: Shortness of breath, Dizziness, Fainting spells, Chest pain, Increased palpitations (irregular heartbeat) Allergies/Adverse Reactions: Allergies aspartame Allergy (Verified 06/07/18 18:53) Food Allergy Medications to take at Discharge Aspirin [Aspirin, Baby] 81 mg PO DAILY@0800 10/23/13 Losartan Potassium [Cozaar] 100 mg PO DAILY 10/23/13 Simvastatin [Zocor] 40 mg PO QHS 10/23/13 Alendronate Sodium [Fosamax] 70 mg PO HAYES 04/18/17 Clopidogrel Bisulfate [Plavix] 75 mg PO DAILY 04/18/17 Multivitamins,Ther W-Minerals [Multivitamin With Minerals] 1 tab PO DAILY 04/19/17 metoprolol tartrate 25 mg tablet 25 mg PO BID #180 tab 11/10/17 ferrous sulfate 325 mg (65 mg iron) tablet 325 mg PO DAILY tab 03/13/18 levothyroxine 25 mcg tablet 25 mcg PO QDAY 03/13/18 Triamcinolone 0.025% Cream [Kenalog] 1 applic TOPICAL BID 06/07/18 Primary Care Physician: Gokul Sanchez Chi, MD [Primary Care Provider] - Please follow up with your Primary Care Physician in: in 3-5 days Test Results: Test results from this visit will be discussed in further detail at your follow- up appointment, if applicable.
--- NOTE | 2018-06-08 09:27 | PCM.DC.SUM ---
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 She did not require additional revascularization therapy., Stress test - Interpretation Summary The estimated ejection fraction is 65 %. Normal, adequate, treadmill echocardiogram. Negative for ischemia by EKG and echocardiographic criteria. Patient had baseline 5 out of 10 chest pain prior to testing, which did not worsen during the test. Rare PVCs and ventricular couplets during exercise. Poor exercise capacity for age. Decreased sensitivity due to poor echo windows requiring Definity agent. Recommend clinical correlation or alternative mode of testing if coronary ischemia is strongly suspected. Test terminated due to dyspnea. Final LVEF is 75%. Summary of Care Provided: HPI: The patient is a 77 year old F with a PMH as above presenting with 7 days of non-radiating, left sided chest pain that began after a of a family member. The pain is similar to her previous cardiac pain which bought her a stent 1 year ago, its just not as intense. No lightheadedness or dizziness. No syncope. Exertion does not make the pain worse, and she can have the pain at rest if she moves in a particular fashion. In the ER her EKG was stable and her troponin was negative, but given her previous CAD with 100% occlusion of the RCA and the right system completely dependent on the left, she was admitted for chest pain r/o. Vital Signs - 24 hr Temp Pulse Resp BP Pulse Ox 06/08/18 09:15 98.2 F 73 17 93/63 93 06/08/18 08:45 98.2 F 67 14 94/53 L 92 06/08/18 08:28 98.3 F 71 16 95/63 93 06/08/18 06:49 82 06/08/18 06:44 98.2 F 82 18 95/64 93 06/08/18 04:15 98.6 F 83 16 115/70 95 06/08/18 03:00 81 06/07/18 23:00 90 06/07/18 22:24 93 101/65 06/07/18 22:18 99.4 F H 93 16 101/65 94 06/07/18 19:00 97 06/07/18 17:00 99.3 F H 96 16 104/58 L 94 06/07/18 14:10 97 06/07/18 12:17 87 06/07/18 11:50 98.1 F 88 16 118/71 96 06/07/18 10:03 12 L 93 H 108/79 06/07/18 09:32 88 10 L 103/69 94 General: Alert, Oriented x3, Cooperative, No apparent distress HEENT: Atraumatic, PERRLA, EOMI, Normocephalic Oral: Moist Mucosa Neck: Supple, No JVD Lungs: Clear to auscultation, Normal air movement, No rhonchi, No wheeze, No rales Cardiovascular: Regular rate, Regular Rhythm, Normal S1, Normal S2, No murmurs Abdomen: Soft, Non Tender, Non-Distended, No Hepato-splenomegaly Extremities: No edema, Capillary Refill Less than 3 Seconds Skin: No rashes, No breakdown Musculoskeletal: No Tenderness to Palpation of Joints or Extremities Neurological: Neuro grossly intact, Sensory exam intact to light touch and pain Psych/Mental Status: Normal Affect, Appropriate Hospital Course: 1. Chest Pain/CAD sp Stent - Given her h/o cath last year and her atypical presentation, she was admitted for chest pain r/o. Troponins were negative but the exercise stress echo did not have great windows for perfect visualization so she was maintained overnight and underwent a cardiac cath on the morning of discharge which demonstrated a patent LAD stent. This was crucial as her RCA is 100% occluded so all cardiac blood flow is dependent on the left system. This am she states that her pain is resolved. Her Wells score is a 0 so the likelihood of a PE is negligible. Plan will be to discharge today with PCP f/u. No medication changes were made and no new medications were added. Discharge Activity: No Restrictions Call your doctor if your incision/area has: Sudden Increased Bleeding, Increased Pain/ Swelling, Increased Redness, Swelling at the incision site Call your doctor if you observe: Shortness of breath, Dizziness, Fainting spells, Chest pain, Increased palpitations (irregular heartbeat) Home Medications: Medications to take at Discharge Aspirin [Aspirin, Baby] 81 mg PO DAILY@0800 10/23/13 Losartan Potassium [Cozaar] 100 mg PO DAILY 10/23/13 Simvastatin [Zocor] 40 mg PO QHS 10/23/13 Alendronate Sodium [Fosamax] 70 mg PO HAYES 04/18/17 Clopidogrel Bisulfate [Plavix] 75 mg PO DAILY 04/18/17 Multivitamins,Ther W-Minerals [Multivitamin With Minerals] 1 tab PO DAILY 04/19/17 metoprolol tartrate 25 mg tablet 25 mg PO BID #180 tab 11/10/17 ferrous sulfate 325 mg (65 mg iron) tablet 325 mg PO DAILY tab 03/13/18 levothyroxine 25 mcg tablet 25 mcg PO QDAY 03/13/18 Triamcinolone 0.025% Cream [Kenalog] 1 applic TOPICAL BID 06/07/18 Primary Care Physician: Gokul Sanchez Chi, MD [Primary Care Provider] - Please follow up with your Primary Care Physician in: in 3-5 days Disposition: Home Minutes spent on discharge:: 35 Patient Condition:: Good Medical Necessity - Tobacco Use Smoking Status: Never smoker Meaningful Use Info Meaningful Use Diagnoses (Choose all that apply): None applicable Code Visit OBSV E&M: 62719 Observation care discharge
--- NOTE | 2018-06-08 17:42 | CL.D_ITS ---
Patient Name: ROEL WILLINGHAM Study Date: 06/08/2018 Performing: Gera Leach MD Ht: 66.14 inches 168 cm : 1940 Wt: 171.96 lbs 78 kg Age: 77 Gender: female BSA: 1.88 PROCEDURE(S) PERFORMED OD35-RCG/COR/LV CLINICAL PROFILE AND INDICATIONS Indications: Worsening Angina, Suspected CAD Heart Failure: None Stress/Imaging Stress Echocardiogram: Yes Result: Negative (diminished quality study)Stress Echoc ardiogram: Negative (diminished quality study) CAD Presentations: Other: chest pain (ongoing: otherwise unexplained) CONCLUSIONS Elevated Left Ventricular End Diastolic Pressure Normal LV size, wall motion,and systolic function LVEF: by LV gram 65 % [place] Multivessel CAD (LAD stent: patent) Aortic Valve Calcification- Mild to moderate Mitral Valve Annular Calcification Mild annular calcification RECOMMENDATIONS Risk factor modification Medical therapy DESCRIPTION OF PROCEDURE The patient arrived to the procedure lab. The risks and benefits of the procedure as well as a full d escription of our services here and current unavailability of surgical backup were fully explained to the patient and/or their significant other prior to the catheterization. The Timeout was completed, verifying the correct patient and procedure. The patient's procedural site was prepped and draped in the usual fashion. Local anesthetic was given subcutaneously to right groin region with Lidocaine 2%. Using a modified Seldinger technique, arterial access was obtained via the right femoral artery, a 4 Fr sheath was inserted Left Coronary Artery selective angiography was performed in multiple views us ing a 4 Fr. JL5 catheter. Right Coronary Artery selective angiography was then performed in multiple views using a 4 Fr. 3DRC catheter. Left Ventriculography was performed in PACK projection using a 4 Fr . Pigtail catheter. LV to AO pullback pressures were then recorded. CORONARY ANGIOGRAPHY DOMINANCE: Right Dominant LEFT HEART ASSESSMENT Left Ventricular Ejection Fraction: by LV Gram 65 % Normal LV wall motion Elevated Left Ventricular End Diastolic Pressure LVEDP: 16 mmHg LEFT MAIN: Mild calcification, Distal: Eccentric: 10-25 % Stenosis LEFT ANTERIOR DECENDING ARTERY: PROX LAD: Moderate calcification, Diffuse: Eccentric: 25 % Stenosis, Previously placed stent is paten t DIAGONAL 1: Ostial - Eccentric: Hazy: 75 % Stenosis (small caliber / tortuous vessel) CIRCUMFLEX ARTERY: Mild luminal irregularities RIGHT CORONARY ARTERY: OSTIAL RCA: is occluded PROX RCA: Moderate calcification DISTAL RCA: filling from left to right collateral flow COLLATERAL FLOW: Collateral flow from Left to Right VALVE FINDINGS: Aortic Valve Calcification - mild to moderate Mitral Valve Annular Calcification Mild AORTIC ROOT: Angiographically normal COMPLICATIONS No Complications PROCEDURE MEDICATIONS Versed 0.5 mg IV Versed 0.5 mg IV Oxygen: 2 L/min via nasal cannula IV Bolus: .9 NaCl 250 ml total 06/08/2018 07:56:49 SUMMARY OF HEMODYNAMIC DATA Time AIR REST ECG 07:16:03 AO 91/65 (79) SA 07:43:10 LV 121/-9, 16 07:53:33 LV 118/-11, 13 07:53:39 LV 114/-7, 18 07:54:37 LV 123/-7, 15 07:54:44 LVp 117/-16, 19 07:54:49 AOp 108/58 (79) 07:54:54 Signed By Gera Leach MD On 06/08/2018 08:14:17 Gera Leach MD
== END 2018-06-08 09:24 | disposition home or self-care (01) ==
LOC: ED 09:05 → PCU 10:58
PROVIDERS: Internal Medicine Cardiovascular Disease; Admitting Provider Family Medicine; Emergency Provider Emergency Medicine; Family Provider Family Medicine Geriatric Medicine; PCP Family Medicine Geriatric Medicine; Visit Provider Family Medicine
DX: R07.89 Other chest pain (principal); I25.10 Atherosclerotic heart disease of native coronary artery without angina pectoris; E78.5 Hyperlipidemia, unspecified; I10 Essential (primary) hypertension; Z23 Encounter for immunization; Z95.5 Presence of coronary angioplasty implant and graft; Z79.899 Other long term (current) drug therapy; Z79.02 Long term (current) use of antithrombotics/antiplatelets; Z79.82 Long term (current) use of aspirin; I45.2 Bifascicular block; E06.3 Autoimmune thyroiditis; I70.0 Atherosclerosis of aorta
CPT/HCPCS: 36415; 71045; 80048; 81001; 84484; 85025; 85610; 85730; 93005; 93017; 93350; 93458; 96372; 99152; 99153; 99218; 99283; G0008; J7030; Q9957; 90686; A4216; C1769; C1894; C8928; G0378; Q9967

== ENCOUNTER → 2018-09-12 12:40 | Outpatient (CLI) | payer MEDICARE, SELFPAY ==
[2017-04-19 11:37] VITALS: BMI 26.3
[2018-09-12 13:17] LABS: Absolute Lymphocyte Count 1.36 X10^3/ul (0.83-4.51); Absolute Neutrophil Count 4.7 X10^3/uL (2.0-7.7); Basophil# 0.04 X10^3/uL; Basophil% 0.6 % (0-1); Eosinophil# 0.07 X10^3/uL; Eosinophils% 1.1 % (0-5); Hemoglobin 12.8 g/dl (12.0-15.0); Lymphocyte # 1.36 X10^3/ul (4.0); Lymphocyte % 20.5 % (19-41); Mean Corpuscular Hgb 28.8 pg (27.0-32.0); Mean Corpuscular Volume 90.1 fL (81-99); Mean Platelet Vol. 11.4 fl (6.2-12.0); Monocyte# 0.43 X10^3/uL; Monocyte% 6.5 % (0-10); Neutrophil # 4.71 X10^3/uL (2.7-7.7); Neutrophil % 70.8 % (47-70); Platelet Count 200 K/mm3 (150-450); RBC Distribution Width CV 14.3 % (11.6-14.6); RBC Distribution Width SD 46.9 fl (35.1-43.9); Red Blood Count 4.44 M/mm3 (4.2-5.4); White Blood Count 6.6 K/mm3 (4.4-11.0)
[2018-09-12 13:21] LABS: POSITIVE COUNT NO; POSITIVE DIFFERENTIAL NO; POSITIVE MORPHOLOGY NO
[2018-09-12 14:00] LABS: BUN 12 mg/dL (7-18); Creatinine, Serum 0.82 mg/dL (0.55-1.02); EST Glomerular Filtration Rate 73 mL/min (>60); Glucose 87 mg/dL (74-106)
[2018-09-12 14:01] LABS: ALB/GLOB Ratio 0.9 RATIO (0.9-2.4); AST(SGOT) 23 U/L (15-37); Alanine Aminotransfer ALT/SGPT 30 U/L (13-56); Alkaline Phosphatase 86 U/L (45-117); Anion Gap 7 (5-15); BUN/Creat Ratio 14.7 RATIO (10-20); Calcium,Total 8.7 mg/dL (8.5-10.1); Chloride 108 mmol/L (98-107); Est Glom Filt Rate - Afr Amer 88 mL/min (>60); Globulin 4.4 g/dL (2.2-4.2); Potassium 4.4 mmol/L (3.5-5.1); Protein, Total 8.4 g/dL (6.4-8.2); Sodium Level 139 mmol/L (136-145); Thyroid Stim Hormone (TSH) 2.06 uIU/mL (0.358-3.74); Vitamin D,25 Hydroxy 27.6 ng/mL (29.95-100.01)
== END ==
PROVIDERS: Family Provider Family Medicine Geriatric Medicine; PCP Family Medicine Geriatric Medicine; Visit Provider Family Medicine Geriatric Medicine
DX: E11.9 Type 2 diabetes mellitus without complications (principal); E55.9 Vitamin D deficiency, unspecified; I10 Essential (primary) hypertension
CPT/HCPCS: 36415; 80053; 82306; 84443; 85025

== ENCOUNTER → 2018-09-18 16:01 | Outpatient (CLI) | payer MEDICARE, OTHER, SELFPAY ==
[2017-04-19 11:37] VITALS: BMI 26.3
[2018-06-07 11:51] VITALS: BMI 27.8
--- NOTE | 2018-09-18 17:02 | LES_PTH ---
PATIENT: ROEL WILLINGHAM LOC: [facility] U#:[id number] AGE/SX: 85/F ROOM: RE09/18/[address]: Dr. Gokul Sanchez MD : 1940 BED: DIS: SPEC #: [id number] RECD: 09/18/18 17:02 STATUS: DIANERico BRIDGES #: [id number] FLAVIO: 09/18/18 17:[address]: Gokul Sanchez Chi DEPT: SURGICAL PATHOLOGY RECD BY: Rick Rivas Tissues: Skin of chest Procedures: Surgery Specimen Level IV HEADER OPERATION: Not noted PRE-OP DIAGNOSIS: L98.9 TISSUE SUBMITTED: Right upper chest MICROSCOPIC DIAGNOSIS Right upper chest lesion, shave biopsy: Basal cell carcinoma. SJ:deandra 09/20/18 COMMENT Case has been reviewed in consultation with Dr. Cedeño who concurs with the above diagnosis. IDC:AM MICROSCOPIC DESCRIPTION Slides are reviewed. GROSS DESCRIPTION Received in fixative is one container labeled with the patient's name and designated chest. The specimen consists of a shave biopsy of yuen-white skin measuring 0.5 x 0.2 x 0.1 cm. The entire specimen is submitted in one cassette. / SJ:rg 09/19/18 TC:0 CPT: 91761 ADDENDUM ADDENDUM ADDENDUM ADDENDUM 09/21/2018 15:33 ADDENDUM 09/21/2018 15:33 ADDENDUM 09/21/2018 15:33 ADDENDUM 09/21/2018 15:33 ADDENDUM 09/21/2018 15:33 Carcinoma extends to the deep margins of this shave biopsy. This case was reviewed and diagnosis discussed with Dr. Sanchez on 09/21/18.
== END ==
PROVIDERS: Family Provider Family Medicine Geriatric Medicine; PCP Family Medicine Geriatric Medicine; Visit Provider Family Medicine Geriatric Medicine
DX: L98.9 Disorder of the skin and subcutaneous tissue, unspecified (principal)
CPT/HCPCS: 88305

== ENCOUNTER 2018-12-20 07:02 | Day surgery (SDC) | payer MEDICARE, OTHER, SELFPAY ==
[2017-04-19 11:37] VITALS: BMI 26.3
[2018-12-10 08:31] VITALS: BMI 28.0
--- NOTE | 2018-12-13 10:35 | HP_ITS ---
Intake Vital Signs 12/10/18 Body Mass Index (BMI) 28.0 Intake Visit Reasons: Recheck Perianal Lesion & Discuss C-Scope Senior [employer] Required: No Is patient in pain?: No Allergies aspartame Allergy (Verified 12/10/18 08:29) Food Allergy Medications Aspirin [Aspirin, Baby] 81 mg PO DAILY@0800 10/23/13 [History Confirmed 12/10/18] Losartan Potassium [Cozaar] 100 mg PO DAILY 10/23/13 [History Confirmed 12/10/18] Simvastatin [Zocor] 40 mg PO QHS 10/23/13 [History Confirmed 12/10/18] Alendronate Sodium [Fosamax] 70 mg PO HAYES 04/18/17 [History Confirmed 12/10/18] Clopidogrel Bisulfate [Plavix] 75 mg PO DAILY 04/18/17 [History Confirmed 12/10/18] Multivitamins,Ther W-Minerals [Multivitamin With Minerals] 1 tab PO DAILY 04/19/17 [History Confirmed 12/10/18] levothyroxine 25 mcg tablet 25 mcg PO QDAY 03/13/18 [History Confirmed 12/10/18] metoprolol tartrate 25 mg tablet 25 mg PO DAILY #90 tab 11/20/18 [Rx Confirmed 12/10/18] calcium carbonate 500 mg calcium (1,250 mg) tablet 500 mg PO BID tab 12/10/18 [History Confirmed 12/10/18] PFSH Medical History Hypertension (Chronic) Yari's thyroiditis (Chronic) Atherosclerotic heart disease of [place] coronary artery without angina pectoris (Chronic) HLD (hyperlipidemia) (Chronic) Chest pain on exertion (Acute) Osteoporosis (Chronic) Surgical History Presence of stent in coronary artery (Chronic ~04/19/17) Postsurgical percutaneous transluminal coronary angioplasty (PTCA) status (Chronic ~04/19/17) History of partial thyroidectomy (Resolved ~1969) History of total hysterectomy (Resolved) Family History Mother , Age 34 Hypertension Heart disease Brother Cancer Father Cancer tongue Social History Smoking Status: Never smoker alcohol intake: never substance use type: does not use caffeine: No HPI HPI HPI: ROEL WILLINGHAM, is a 78 F who presents to the office today for HPI HPI Surgical H&P: Yes HPI: ROEL WILLINGHAM, is a 78 F who presents to the office today for follow-up for perianal lesion, possible lichen as well as hard stools. Patient states for the last 3 months she has had large hard stools and may have some bleeding about 1-2 times a week due to possible questionable tearing with the large bowel movement. Patient states she is currently taking stool softeners but tries not to take them daily. In April 13, 2017 patient did have a cardiac stent placed and has been on aspirin and Plavix since then. Patient denies pain with normal bowel movements and denies any itching. Patient's last colonoscopy was in 2011 which she states was negative. Patient denies any family history of colon cancer. ROS General General: No weight change or fatigue Gastro Gastrointestinal: No abdominal pain, No nausea or vomiting, No diarrhea, Yes constipation, No acid reflux, No hemorrhoids, No ulcers, No gallbladder problem, No black,tarry stools Exam Const General: cooperative, comfortable, no acute distress Resp Effort & Inspection: normal respiratory effort Cardio Rate: regular rate GI Inspection: non-distended Palpation: soft, no guarding, nontender Other: GENESIS: Perianal skin appears like lichen about the same as previous. No masses appreciated on exam, no gross blood, normal sphincter tone Assessment & Plan Problems 1. Hard stool R19.5 2. Perianal lesion K62.9 Plan Recommend continuing stool softeners, also recommended checking amount of fiber in her diet. To give the patient a list of high-fiber foods. I have discussed the above with the patient. Okay to stay on aspirin and Plavix as she had a heart stent in April 2017 patient is aware we will plan only do smaller biopsies and if she would need a larger biopsy she may need to come back after she has been off Plavix. I have offered the patient colonoscopy for evaluation for the perianal lesion/irritation to rule out any inflammatory disease. I have explained the risks/benefits of the procedure and described the procedure. I have discussed the risks with the patient, including but not limited to: infection, bleeding, perforation of the GI tract requiring emergency surgery, inability to complete the procedure, injury to any internal organs, complications of anesthesia, etc. - the patient understands and agrees to proceed. I have answered all the patient's questions to the patient's satisfaction and the patient has no further questions. The patient has been given instructions for the colon cleansing preparation. 1 day of clears, MiraLAX Dulcolax split prep. Orly Heck M.D. Pager: [phone] [facility] [address] [place] [address], [address] [place] [address] Office: [phone] Plan Detail Follow Up We will schedule colonoscopy. Coding Level of Care Code Off vis,est,level 3 Diagnoses Hard stool R19.5 Perianal lesion K62.9 Addendum: 12/20/2018 8:12 AM Patient seen and examined no changes noted.
[2018-12-20] VITALS (7 sets, daily range): BP systolic 95–115; BP diastolic 62–77; PULSE 66–72; RESP 16; TEMP 36.2–36.6; O2SAT 92–97; BMI 27.2
--- NOTE | 2018-12-20 | COLBX_PTH ---
PATIENT: ROEL WILLINGHAM LOC: EN U#:[id number] AGE/SX: 78/F ROOM: RE12/20/[address]: Dr. Orly Heck MD : 1940 BED: DIS: 12/20/2018 SPEC #: [id number] RECD: 12/20/18 14:24 STATUS: KAL REJohnnie #: [id number] FLAVIO: 12/20/18 00:[address]: Orly Heck DEPT: SURGICAL PATHOLOGY RECD BY: Ifeanyi Plaza ENTERED: 12/20/18 14:24 SP TYPE: COLON BX OTHR DR: Dr. Gokul Sanchez MD Tissues: Cecum, NOS Procedures: Surgery Specimen Level IV HEADER OPERATION: Colonoscopy (MAC) PRE-OP DIAGNOSIS: Hard stools, perianal lesion TISSUE SUBMITTED: Cecal nodularity biopsies MICROSCOPIC DIAGNOSIS Cecal nodularity, biopsy: Fragments of colonic mucosa with prominent lymphoid aggregates, favor benign. Negative for malignancy. SJ:deandra 12/21/18 MICROSCOPIC DESCRIPTION Slides are reviewed. GROSS DESCRIPTION Received in fixative is one container labeled with the patient's name and designated cecal nodularity biopsy. The specimen consists of two irregular fragments of light yuen soft tissue that in aggregate measure 0.6 x 0.1 x 0.1 cm. The specimen is totally submitted in one cassette. / ANNALISA:deandra 12/20/18 TC:5 CPT: 82832
--- NOTE | 2018-12-20 08:52 | OP.ENDO_ITS ---
12/20/2018 Gokul Sanchez MD [address] [place] [address] Re : Colonoscopy procedure for Kassidy Chin Dear Dr. Sanchez This procedure was performed on December. My impressions and recommendations are as follows: Impressions : - Lichen like perianal skin changes. found on perianal exam. - Diverticulosis in the sigmoid colon. - The examination was otherwise normal on direct and retroflexion views. - mild nodular mucosa in cecum, biopsy taken for histology. Recommendations : - Discharge patient to home. - Repeat colonoscopy in 10 years for screening purposes- depending on overall health at that time. - Continue present medications. My findings are described in the full procedure note, which is enclosed. If I can be of further assistance, please feel free to contact me at Doctor phone number(s): , Work: . Sincerely, MD Orly Jeong MD 12/20/2018 8:51:36 AM This report has been signed electronically.
== END 2018-12-20 09:35 | disposition home or self-care (01) ==
LOC: EN 07:02 → AC 07:04
PROVIDERS: Family Provider Family Medicine Geriatric Medicine; PCP Family Medicine Geriatric Medicine; Referring Provider Surgery; Visit Provider Surgery
PROC: 0DJD8ZZ Inspection of Lower Intestinal Tract, Via Natural or Artificial Opening Endoscopic (ICD-10-PCS; CPT 45378; principal; 2018-12-20 08:10)
DX: K57.30 Diverticulosis of large intestine without perforation or abscess without bleeding (principal); D12.0 Benign neoplasm of cecum; K62.89 Other specified diseases of anus and rectum; R19.5 Other fecal abnormalities; I10 Essential (primary) hypertension; I45.10 Unspecified right bundle-branch block; E06.3 Autoimmune thyroiditis; I25.10 Atherosclerotic heart disease of native coronary artery without angina pectoris; E78.5 Hyperlipidemia, unspecified; M18.0 Bilateral primary osteoarthritis of first carpometacarpal joints; Z95.5 Presence of coronary angioplasty implant and graft; Z79.01 Long term (current) use of anticoagulants; Z79.82 Long term (current) use of aspirin; Z79.899 Other long term (current) drug therapy
CPT/HCPCS: 45380; 88305; J7120

== ENCOUNTER → 2019-01-21 09:04 | Outpatient (CLI) | payer MEDICARE, OTHER, SELFPAY ==
[2017-04-19 11:37] VITALS: BMI 26.3
[2018-12-20 07:23] VITALS: BMI 27.2
[2019-01-21 10:53] LABS: AST(SGOT) 29 U/L (15-37); Alanine Aminotransfer ALT/SGPT 34 U/L (13-56); Albumin, Serum 3.8 g/dL (3.2-5.0); Alkaline Phosphatase 70 U/L (45-117); Bilirubin, Direct 0.18 mg/dL (0.00-0.30); Cholesterol 102 mg/dL (200); Globulin 4.4 g/dL (2.2-4.2); High Density Lipoprotein 25 mg/dL; Protein, Total 8.2 g/dL (6.4-8.2); Triglycerides 120 mg/dL; Very Low Density Lipoprotein 24 mg/dL (5-40)
== END ==
PROVIDERS: Family Provider Family Medicine Geriatric Medicine; PCP Family Medicine Geriatric Medicine; Referring Provider Nurse Practitioner Family; Visit Provider Nurse Practitioner Family
DX: I25.10 Atherosclerotic heart disease of native coronary artery without angina pectoris (principal); I10 Essential (primary) hypertension; E78.5 Hyperlipidemia, unspecified
CPT/HCPCS: 36415; 80061; 80076

== ENCOUNTER → 2019-03-19 09:01 | Outpatient (CLI) | payer MEDICARE, OTHER, SELFPAY ==
[2017-04-19 11:37] VITALS: BMI 26.3
[2018-12-20 07:23] VITALS: BMI 27.2
[2019-03-19 12:49] LABS: Absolute Lymphocyte Count 0.97 X10^3/uL (0.83-4.51); Absolute Neutrophil Count 4.1 X10^3/uL (2.0-7.7); Basophil# 0.05 X10^3/uL; Basophil% 0.9 % (0-1); Eosinophil# 0.11 X10^3/uL; Eosinophils% 1.9 % (0-5); Hematocrit 40.2 % (37-47); Lymphocyte # 0.97 X10^3/ul (4.0); Lymphocyte % 16.5 % (19-41); Mean Corp Hgb Conc 32.3 g/dL (32-36); Mean Corpuscular Hgb 29.5 pg (27.0-32.0); Mean Corpuscular Volume 91.4 fL (81-99); Mean Platelet Vol. 12.7 fl (6.2-12.0); Monocyte# 0.63 X10^3/uL; Monocyte% 10.7 % (0-10); NRBC Flagged by Analyzer 0 % (0-5); Neutrophil # 4.08 X10^3/uL (2.7-7.7); Neutrophil % 69.5 % (47-70); Platelet Count 166 K/mm3 (150-450); RBC Distribution Width CV 14.5 % (11.6-14.6); RBC Distribution Width SD 48.5 fl (35.1-43.9); White Blood Count 5.9 K/mm3 (4.4-11.0)
[2019-03-19 13:27] LABS: AST(SGOT) 31 U/L (15-37); Alanine Aminotransfer ALT/SGPT 39 U/L (13-56); Albumin, Serum 3.9 g/dL (3.2-5.0); Alkaline Phosphatase 78 U/L (45-117); Anion Gap 6 (5-15); BUN 15 mg/dL (7-18); BUN/Creat Ratio 16.8 RATIO (10-20); Calcium,Total 8.7 mg/dL (8.5-10.1); Chloride 106 mmol/L (98-107); Creatinine, Serum 0.89 mg/dL (0.55-1.02); EST Glomerular Filtration Rate 65 mL/min (>60); Est Glom Filt Rate - Afr Amer 79 mL/min (>60); Globulin 3.9 g/dL (2.2-4.2); Glucose 101 mg/dL (74-106); Potassium 4.4 mmol/L (3.5-5.1); Protein, Total 7.8 g/dL (6.4-8.2); Sodium Level 139 mmol/L (136-145); Thyroid Stim Hormone (TSH) 2.66 uIU/mL (0.358-3.74)
== END ==
PROVIDERS: Family Provider Family Medicine Geriatric Medicine; PCP Family Medicine Geriatric Medicine; Visit Provider Family Medicine Geriatric Medicine
DX: I10 Essential (primary) hypertension (principal); E55.9 Vitamin D deficiency, unspecified
CPT/HCPCS: 36415; 80053; 82306; 84443; 85025

== ENCOUNTER → 2019-04-08 09:41 | Outpatient (CLI) | payer MEDICARE, OTHER, SELFPAY ==
[2017-04-19 11:37] VITALS: BMI 26.3
[2018-12-20 07:23] VITALS: BMI 27.2
--- NOTE | 2019-04-08 09:45 | BI_ITS ---
MAMMOGRAPHY - BILATERAL SCREENING REASON FOR EXAM: Female, 78 years old. Routine annual screening examination. PERTINENT HISTORY: Non-contributory. TECHNIQUE: Digital bilateral breast arlette (3D mammographic acquisition) in the CC and MLO projections. 2-D mediolateral oblique (MLO) and craniocaudad (CC) views of both breasts were obtained. CAD: Full Field Digital Mammography with Computer Added Detection was performed. COMPARISON: Comparison is made with prior examination dated April 03, 2014 and January 23, 2017. FINDINGS: Breast Composition: There are scattered areas of fibroglandular density. There are no dominant masses or suspicious calcifications. No other significant abnormalities are identified. There has been no significant change since the prior study. BI/SCREEN MAMM (CAD) W/ARLETTE BILAT IMPRESSION: Stable bilateral screening mammogram. Yearly follow-up mammogram recommended. (A) ASSESSMENT CATEGORY: BIRADS Category 1: Negative. A letter regarding these results will be sent to the patient by the facility within 30 days. Approximately 10% of breast cancers are not detected by mammography. A normal mammogram should not delay biopsy of a clinically suspicious abnormality. [id number] Electronically Signed: Asher Donato, at 11:02 EDT , Service support ,
== END ==
PROVIDERS: Family Provider Family Medicine Geriatric Medicine; PCP Family Medicine Geriatric Medicine; Referring Provider Obstetrics & Gynecology; Visit Provider Obstetrics & Gynecology
DX: Z12.31 Encounter for screening mammogram for malignant neoplasm of breast (principal)
CPT/HCPCS: 77063; 77067

== ENCOUNTER → 2019-06-04 16:55 | Outpatient (CLI) | payer MEDICARE, OTHER, SELFPAY ==
[2017-04-19 11:37] VITALS: BMI 26.3
[2018-12-20 07:23] VITALS: BMI 27.2
--- NOTE | 2019-06-04 17:00 | RAD_ITS ---
STUDY: X-RAY - LUMBAR SPINE REASON FOR EXAM: Female, 78 years old. Low back pain. TECHNIQUE: 3 view(s) of the lumbar spine were obtained. COMPARISON: None FINDINGS: Normal lumbar lordosis. There is no substantial scoliosis. There is a normal alignment of the vertebrae. There is multilevel endplate spondylosis of the lumbar vertebrae. There is multi-level degenerative disc disease with multi-level disc space narrowing. There is no demonstrated fracture. There is atherosclerotic calcification of the abdominal aorta without a demonstrated aneurysm. RAD/Lumbar Spine 2 or 3 Views IMPRESSION: Degenerative changes of the spine, as detailed above. Electronically Signed: Elia Chauhan MD at 18:26 EDT , Service support ,
== END ==
PROVIDERS: Family Provider Family Medicine Geriatric Medicine; PCP Family Medicine Geriatric Medicine; Referring Provider Family Medicine Geriatric Medicine; Visit Provider Family Medicine Geriatric Medicine
DX: M47.896 Other spondylosis, lumbar region (principal); M51.36 Other intervertebral disc degeneration, lumbar region; M48.061 Spinal stenosis, lumbar region without neurogenic claudication
CPT/HCPCS: 72100

== ENCOUNTER 2019-07-17 13:00 | Outpatient (RCR) | payer MEDICARE, OTHER, SELFPAY ==
[2017-04-19 11:37] VITALS: BMI 26.3
[2018-12-20 07:23] VITALS: BMI 27.2
[2019-06-28 10:39] VITALS: BMI 27.6
--- NOTE | 2019-07-01 16:21 | HP.PTEVAL ---
Patient's Visit Information ROEL WILLINGHAM is a 78 year old F referred to Physical Therapy by Gokul Sanchez MD with a diagnosis of LUMBAR DISC LESION. Date of Evaluation: 07/01/19 Physical Therapist: Kiah Gallardo PT, Cert MDT - Visit Plan Frequency: 2x /Week Duration: 2-4 Weeks Plan: POSTURE CORRECTION/STRENGTHENING, INSTRUCTION IN APPROPRIATE BODY MECHANICS AND ACTIVITY MODIFICATIONS. DLS STARTING WITH A NEUTRAL SPINE PROGRESSING ROM TOLERATED. KARO LE ROM, STRETCHING AND STRENGTHENING. HEP INSTRUCTION. - Subjective Findings: GOES BY [employer]. Work/Leisure: RETIRED. Disability: NO. Present symptoms: RIGHT LOW BACK PAIN. NO LE SX'S. Present since: JUN 01 2019. Pain Scale: WORST 3/10, LEAST 0/10. Currently: 0/10. Commenced as a result of: NO APPARENT REASON. Symptoms at onset: RIGHT LOW BACK. Worse: STANDING. Better: PRENISONE AND MUSCLE RELAXERS (SOME BY INJECTION). Disturbed sleep: NO. Previous history/Previous treatment: UNREMARKABLE. Coughing/sneezing/straining: NEGATIVE. Gait: NORMAL. Difficulty initiating urinatin: NO. Accidents: NO. Unexplained weight loss: NO. Imaging: RECENT LUMBAR X-RAY - Normal lumbar lordosis. There is no substantial scoliosis. There is a normal alignment of the vertebrae. There is multilevel endplate spondylosis of the lumbar vertebrae. There is. multi-level degenerative disc disease with multi-level disc space. narrowing. There is no demonstrated fracture. OTHER: STATES THAT BEFORE ONSET SHE WAS BUSY THAN NORMAL WITH HER SON VISITING FROM OUT OF STATES. - Objective Sitting/Standing Posture: FAIR. Lordosis: REDUCED. Lateral shift: NO. Relevant shift: N/A. Active Correction of posture: NE. Other Observations: INDEP GAIT AND TRANSFERS. Motor deficit: KARO LE'S 5/5 WITH MMT'ING EXCEPT HIPS 4/5. Sensory deficit: NO. ROM deficit: KARO LE'S WFL. Reflexes: 2/3 KARO LE'S. Dural Signs: NEGATIVE KAOR LE'S. Lumbar mvmt loss: flex - NIL. ext - BRUCE. R SG - MOD. L SG - MOD. Core strength: POOR. Palpation: NO ACUTE TENDERNESS. OTHER: DECREASED HEALTHY BACK KNOWLEDGE - Goals Goal 1:: DECREASE C/O LOW BACK PAIN Goal Time Frame: 4-6 Weeks Goal 2:: IMPROVE STANDING FUNCTION Goal Time Frame: 4-6 Weeks Goal 3:: INSTRUCT IN PROPHYLAXIS Goal Time Frame: 4-6 Weeks - Rehabilitation Potential Rehabilitation Potential: Fair - Anticipated Interventions Patient/Client Instruction: Educate patient on: Condition, Plan of Care, Risk Factors, Benefits of Fitness Program For the Purpose of:: To improve self management Therapeutic Exercise to Include: Strength training, Body mechanics, Postural training, Dynamic Lumbar Stabilization For the Purpose of:: To decrease pain, To improve muscle performance and motor function, To increase tolerance to activity/condition/position, To improve ability of physical actions for home/community/work/leisure Thank you for the opportunity to evaluate your patient. For Medicare and Medicare HMO plans, please review the plan of care and approve it. It will need to be FAXED BACK to us at [phone] for Medicare purposes. For Medicare only, by signing this I certify the plan of care. Please let me know if there are questions or concerns regarding this plan of care. Physician Signature: Date:
--- NOTE | 2019-07-17 13:40 | HP.PTDCSUM ---
HP - PT D/C Summary It has been my pleasure to treat ROEL WILLINGHAM under orders from Gokul Sanchez MD, for the diagnosis of LUMBAR DISC LESION for a total of 5 visit(s). Discharge Date: Please see the following information for a summary of their discharge status. - Subjective Subjective: PATIENT REPORTS SHE DOESN'T HAVE ANY PAIN ANYMORE AND SHE IS REALLY THANKFUL FOR THAT. PATIENT IS EXPRESSING APPRECIATION FOR THE HELP SHE HAS BEEN GIVEN. - Overall Improvement % Improvement: 100 - Objective Objective/Function: ALL GOALS MET. PATIENT IS PAINFREE AND INDEP WITH A HEP. UPON EXAM TODAY: KARO LE'S 5/5 WITH MMT'ING EXCEPT HIPS 4/5. Sensory deficit: NO. ROM deficit: KARO LE'S WFL. Dural Signs: NEGATIVE KARO LE'S. Lumbar mvmt loss: flex - NIL. ext - BRUCE. R SG - MOD. L SG - MOD. NO C/O PAIN WITH TESTING. CORE STRENGTH IS STILL POOR SHE IS TOLERATING THE EX'S WELL AND ABLE TO PERFORM CORRECTLY - Goals Goal 1:: DECREASE C/O LOW BACK PAIN Goal Progress: Goal Met Goal 2:: IMPROVE STANDING FUNCTION Goal Progress: Goal Met Goal 3:: INSTRUCT IN PROPHYLAXIS Goal Progress: Goal Met - Plan Plan: D/C TO INDEP HEP. PATIENT IS AGREEABLE - D/C Information If there are questions or concerns regarding this patient's physical therapy, please feel free to call me at [phone]. Thank you for the referral of this patient. Sincerely, Kiah Gallardo, PT, Cert MDT
== END 2019-07-17 19:00 | disposition home or self-care (01) ==
LOC: PT 13:00
PROVIDERS: Family Provider Family Medicine Geriatric Medicine; PCP Family Medicine Geriatric Medicine; Visit Provider Family Medicine Geriatric Medicine
DX: M51.86 Other intervertebral disc disorders, lumbar region (principal)
CPT/HCPCS: 97110; 97161; 97530

== ENCOUNTER → 2019-09-17 10:57 | Outpatient (CLI) | payer MEDICARE, OTHER, SELFPAY ==
[2017-04-19 11:37] VITALS: BMI 26.3
[2019-06-28 10:39] VITALS: BMI 27.6
[2019-09-17 12:51] LABS: Absolute Lymphocyte Count 1.04 X10^3/uL (0.83-4.51); Absolute Neutrophil Count 3.6 X10^3/uL (2.0-7.7); Basophil# 0.04 X10^3/uL; Basophil% 0.7 % (0-1); Eosinophils% 1.9 % (0-5); Hematocrit 41.3 % (37-47); Hemoglobin 13.3 g/dL (12.0-15.0); Lymphocyte # 1.04 X10^3/ul (4.0); Lymphocyte % 19.5 % (19-41); Mean Corp Hgb Conc 32.2 g/dL (32-36); Mean Corpuscular Hgb 30.3 pg (27.0-32.0); Mean Corpuscular Volume 94.1 fL (81-99); Mean Platelet Vol. 12.6 fl (6.2-12.0); Monocyte# 0.54 X10^3/uL; Monocyte% 10.1 % (0-10); NRBC Flagged by Analyzer 0 % (0-5); Neutrophil # 3.59 X10^3/uL (2.7-7.7); Neutrophil % 67.2 % (47-70); Platelet Count 170 K/mm3 (150-450); RBC Distribution Width CV 13.2 % (11.6-14.6); RBC Distribution Width SD 45.5 fl (35.1-43.9); Red Blood Count 4.39 M/mm3 (4.2-5.4); White Blood Count 5.3 K/mm3 (4.4-11.0)
[2019-09-17 13:01] LABS: Vitamin D,25 Hydroxy 34.5 ng/mL (29.95-100.01)
[2019-09-17 13:03] LABS: ALB/GLOB Ratio 0.8 RATIO (0.9-2.4); AST(SGOT) 64 U/L (15-37); Alanine Aminotransfer ALT/SGPT 72 U/L (13-56); Albumin, Serum 3.7 g/dL (3.2-5.0); Alkaline Phosphatase 104 U/L (45-117); Anion Gap 6 (5-15); BUN 13 mg/dL (7-18); BUN/Creat Ratio 13.5 RATIO (10-20); Calcium,Total 9.1 mg/dL (8.5-10.1); Chloride 105 mmol/L (98-107); Creatinine, Serum 0.96 mg/dL (0.55-1.02); EST Glomerular Filtration Rate 60 mL/min (>60); Est Glom Filt Rate - Afr Amer 72 mL/min (>60); Globulin 4.8 g/dL (2.2-4.2); Glucose 158 mg/dL (74-106); Potassium 4.2 mmol/L (3.5-5.1); Protein, Total 8.5 g/dL (6.4-8.2); Sodium Level 137 mmol/L (136-145); Thyroid Stim Hormone (TSH) 2.55 uIU/mL (0.358-3.74)
== END ==
PROVIDERS: Family Provider Family Medicine Geriatric Medicine; PCP Family Medicine Geriatric Medicine; Visit Provider Family Medicine Geriatric Medicine
DX: E11.9 Type 2 diabetes mellitus without complications (principal); E55.9 Vitamin D deficiency, unspecified; I10 Essential (primary) hypertension
CPT/HCPCS: 36415; 80053; 82306; 84443; 85025

== ENCOUNTER → 2019-10-01 11:54 | Outpatient (CLI) | payer MEDICARE, OTHER, SELFPAY ==
[2017-04-19 11:37] VITALS: BMI 26.3
[2019-06-28 10:39] VITALS: BMI 27.6
[2019-10-01 12:29] LABS: Absolute Lymphocyte Count 1.16 X10^3/uL (0.83-4.51); Absolute Neutrophil Count 4.1 X10^3/uL (2.0-7.7); Basophil# 0.04 X10^3/uL; Basophil% 0.7 % (0-1); Eosinophil# 0.13 X10^3/uL; Eosinophils% 2.2 % (0-5); Hematocrit 39.9 % (37-47); Hemoglobin 12.8 g/dL (12.0-15.0); Lymphocyte # 1.16 X10^3/ul (4.0); Lymphocyte % 19.5 % (19-41); Mean Corp Hgb Conc 32.1 g/dL (32-36); Mean Corpuscular Hgb 29.5 pg (27.0-32.0); Mean Corpuscular Volume 91.9 fL (81-99); Mean Platelet Vol. 11.6 fl (6.2-12.0); Monocyte# 0.55 X10^3/uL; Monocyte% 9.2 % (0-10); NRBC Flagged by Analyzer 0 % (0-5); Neutrophil # 4.05 X10^3/uL (2.7-7.7); Neutrophil % 67.9 % (47-70); Platelet Count 182 K/mm3 (150-450); RBC Distribution Width CV 13.2 % (11.6-14.6); RBC Distribution Width SD 44.9 fl (35.1-43.9); Red Blood Count 4.34 M/mm3 (4.2-5.4)
== END ==
PROVIDERS: PCP Family Medicine Geriatric Medicine; Visit Provider Family Medicine Geriatric Medicine
DX: K92.1 Melena (principal)
CPT/HCPCS: 36415; 82274; 85025

== ENCOUNTER → 2020-03-24 11:07 | Outpatient (CLI) | payer MEDICARE, OTHER, SELFPAY ==
[2017-04-19 11:37] VITALS: BMI 26.3
[2020-02-12 08:37] VITALS: BMI 25.7
[2020-03-24 12:44] LABS: Absolute Neutrophil Count 3.6 X10^3/uL (2.0-7.7); Basophil# 0.04 X10^3/uL; Basophil% 0.7 % (0-1); Eosinophil# 0.14 X10^3/uL; Eosinophils% 2.5 % (0-5); Hemoglobin 12.5 g/dL (12.0-15.0); Lymphocyte % 22.9 % (19-41); Mean Corp Hgb Conc 32.1 g/dL (32-36); Mean Corpuscular Hgb 30.3 pg (27.0-32.0); Mean Corpuscular Volume 94.4 fL (81-99); Monocyte# 0.56 X10^3/uL; Monocyte% 9.9 % (0-10); NRBC Flagged by Analyzer 0 % (0-5); Neutrophil # 3.61 X10^3/uL (2.7-7.7); Neutrophil % 63.6 % (47-70); Platelet Count 153 K/mm3 (150-450); RBC Distribution Width CV 13.7 % (11.6-14.6); Red Blood Count 4.13 M/mm3 (4.2-5.4); White Blood Count 5.7 K/mm3 (4.4-11.0)
[2020-03-24 12:58] LABS: ALB/GLOB Ratio 0.5 RATIO (0.9-2.4); AST(SGOT) 68 U/L (15-37); Alanine Aminotransfer ALT/SGPT 57 U/L (13-56); Albumin, Serum 3.3 g/dL (3.2-5.0); Alkaline Phosphatase 156 U/L (45-117); Anion Gap 3 (5-15); BUN 13 mg/dL (7-18); BUN/Creat Ratio 15.3 RATIO (10-20); Calcium,Total 8.6 mg/dL (8.5-10.1); Chloride 106 mmol/L (98-107); Creatinine, Serum 0.85 mg/dL (0.55-1.02); EST Glomerular Filtration Rate 69 mL/min (>60); Est Glom Filt Rate - Afr Amer 83 mL/min (>60); Globulin 6.2 g/dL (2.2-4.2); Glucose 114 mg/dL (74-106); Potassium 4.3 mmol/L (3.5-5.1); Protein, Total 9.5 g/dL (6.4-8.2); Sodium Level 138 mmol/L (136-145); Thyroid Stim Hormone (TSH) 2.56 uIU/mL (0.358-3.74)
[2020-03-25 13:41] LABS: Vitamin D,25 Hydroxy 34.6 ng/mL
== END ==
PROVIDERS: PCP Family Medicine Geriatric Medicine; Visit Provider Family Medicine Geriatric Medicine
DX: E11.9 Type 2 diabetes mellitus without complications (principal); E55.9 Vitamin D deficiency, unspecified; I11.0 Hypertensive heart disease with heart failure
CPT/HCPCS: 36415; 80053; 82306; 84443; 85025

== ENCOUNTER → 2020-04-04 09:24 | Outpatient (CLI) | payer MEDICARE, OTHER, SELFPAY ==
[2017-04-19 11:37] VITALS: BMI 26.3
[2020-02-12 08:37] VITALS: BMI 25.7
--- NOTE | 2020-04-04 09:28 | US_ITS ---
STUDY: ABDOMINAL ULTRASOUND - RIGHT UPPER QUADRANT REASON FOR VISIT: Female, 79 years old. Elevated liver enzymes TECHNIQUE: Ultrasound evaluation of the right upper quadrant was performed with real-time and static britton-scale imaging. TECHNICAL QUALITY: Adequate. COMPARISON: None. FINDINGS: Liver: The liver measures 16.2 cm. There is elevated echogenicity of the liver. The bile ducts are within normal limits. There is hepatic color flow. The direction of portal flow is hepatopetal. There is no demonstrated mass lesion. Gallbladder: Normal distended gallbladder. The gallbladder wall measures 2.5 mm. There is a negative sonographic Rodrigues''s sign. There is no pericholecystic fluid. There are multiple gallstones Common Bile Duct (C.B.D.): The common bile duct measures 5 mm. Pancreas: Normal head of the pancreas with nonvisualization of the tail. There is normal echogenicity of the pancreas. There is no demonstrated pancreatic mass or cyst. Right Kidney: Normal size of the right kidney. The right kidney measures 11.7 x 5.0 x 5.0 cm. Normal renal cortex. The right cortex measures 2.1 cm. There is no demonstrated renal mass or cyst. There is no right hydronephrosis. US/Abdomen Limited IMPRESSION: Hepatic steatosis. Hepatology referral is advised. Electronically Signed: Kathryn Stephenson, at 18:50 EDT Tel , Service support ,
== END ==
PROVIDERS: PCP Family Medicine Geriatric Medicine; Visit Provider Family Medicine Geriatric Medicine
DX: R74.8 Abnormal levels of other serum enzymes (principal); K76.0 Fatty (change of) liver, not elsewhere classified
CPT/HCPCS: 76705

== ENCOUNTER → 2020-05-19 | Outpatient (CLI) | payer MEDICARE, OTHER, SELFPAY ==
[2017-04-19 11:37] VITALS: BMI 26.3
[2020-02-12 08:37] VITALS: BMI 25.7
--- NOTE | 2020-05-19 14:30 | VUL_PTH ---
PATIENT: ROEL WILLINGHAM [facility] U#:[id number] AGE/SX: 79/F ROOM: RE05/19/[address]: Dr. Mike Shah MD : 1940 BED: DIS: 05/19/2020 SPEC #: [id number] RECD: 05/20/20 11:33 STATUS: KAL REJohnnie #: [id number] FLAVIO: 05/19/20 14:[address]: Mike Shah DEPT: SURGICAL PATHOLOGY RECD BY: Brigido Lu ENTERED: 05/20/20 11:34 SP TYPE: VULVA BX OTHR DR: Dr. Gokul Sanchez MD Tissues: Vulva, NOS Procedures: Surgery Specimen Level IV HEADER OPERATION: Left vulvar biopsy PRE-OP DIAGNOSIS: N90.4 TISSUE SUBMITTED: Left vulvar biopsy MICROSCOPIC DIAGNOSIS Left vulva, biopsy: Hyperkeratosis Superficial dermal chronic inflammation with mild hyalinization. See comment. AM:deandra 05/21/20 COMMENT The findings are suggestive of lichen sclerosus. Clinical correlation is suggested. Reference is made to the patient's previous vulvar biopsy from 2013 ([id number]) in which changes of lichen sclerosus were identified. Case has been reviewed in consultation with Dr. Bray who concurs with the above diagnosis. IDC:ANNALISA MICROSCOPIC DESCRIPTION Slides are reviewed. GROSS DESCRIPTION Received in fixative is one container labeled with the patient's name and designated left vulvar biopsy. The specimen consists of a punch biopsy of yuen-white skin measuring 0.2 cm in diameter and 0.2 cm in length. The specimen is totally submitted in one cassette. / ANNALISA:deandra 05/20/20 TC:3 CPT: 85406
== END | disposition home or self-care (01) ==
LOC: LABSPEC 05-20 09:25
PROVIDERS: PCP Family Medicine Geriatric Medicine; Visit Provider Obstetrics & Gynecology
DX: N90.4 Leukoplakia of vulva (principal)
CPT/HCPCS: 88305

== ENCOUNTER → 2020-09-22 10:48 | Outpatient (CLI) | payer MEDICARE, OTHER, SELFPAY ==
[2017-04-19 11:37] VITALS: BMI 26.3
[2020-02-12 08:37] VITALS: BMI 25.7
[2020-09-22 12:48] LABS: Absolute Lymphocyte Count 1.68 X10^3/uL (0.83-4.51); Absolute Neutrophil Count 3.2 X10^3/uL (2.0-7.7); Basophil# 0.05 X10^3/uL; Basophil% 0.9 % (0-1); Eosinophils% 1.8 % (0-5); Hematocrit 40.9 % (37-47); Hemoglobin 13.4 g/dL (12.0-15.0); Lymphocyte # 1.68 X10^3/ul (4.0); Lymphocyte % 29.4 % (19-41); Mean Corp Hgb Conc 32.8 g/dL (32-36); Mean Corpuscular Hgb 30.2 pg (27.0-32.0); Mean Corpuscular Volume 92.1 fL (81-99); Monocyte% 10.5 % (0-10); NRBC Flagged by Analyzer 0 % (0-5); Neutrophil # 3.24 X10^3/uL (2.7-7.7); Neutrophil % 56.7 % (47-70); Platelet Count 130 K/mm3 (150-450); RBC Distribution Width CV 13.4 % (11.6-14.6); RBC Distribution Width SD 45.2 fl (35.1-43.9); Red Blood Count 4.44 M/mm3 (4.2-5.4); White Blood Count 5.7 K/mm3 (4.4-11.0)
[2020-09-22 13:26] LABS: ALB/GLOB Ratio 0.8 RATIO (0.9-2.4); AST(SGOT) 29 U/L (15-37); Alanine Aminotransfer ALT/SGPT 28 U/L (13-56); Albumin, Serum 3.8 g/dL (3.2-5.0); Alkaline Phosphatase 104 U/L (45-117); Anion Gap 5 (5-15); BUN 14 mg/dL (7-18); Chloride 105 mmol/L (98-107); Creatinine, Serum 0.87 mg/dL (0.55-1.02); EST Glomerular Filtration Rate 67 mL/min (>60); Est Glom Filt Rate - Afr Amer 81 mL/min (>60); Globulin 4.6 g/dL (2.2-4.2); Glucose 116 mg/dL (74-106); Protein, Total 8.4 g/dL (6.4-8.2); Sodium Level 138 mmol/L (136-145); Thyroid Stim Hormone (TSH) 5.16 uIU/mL (0.358-3.74)
== END ==
PROVIDERS: PCP Family Medicine Geriatric Medicine; Visit Provider Family Medicine Geriatric Medicine
DX: I10 Essential (primary) hypertension (principal); E11.9 Type 2 diabetes mellitus without complications; E55.9 Vitamin D deficiency, unspecified
CPT/HCPCS: 36415; 80053; 82306; 84443; 85025

== ENCOUNTER → 2020-09-28 07:52 | Outpatient (CLI) | payer MEDICARE, OTHER, SELFPAY ==
[2017-04-19 11:37] VITALS: BMI 26.3
[2020-02-12 08:37] VITALS: BMI 25.7
--- NOTE | 2020-09-28 07:54 | US_ITS ---
STUDY: ABDOMINAL ULTRASOUND - RIGHT UPPER QUADRANT REASON FOR VISIT: Female, 80 years old fatty liver TECHNIQUE: Ultrasound evaluation of the right upper quadrant was performed with real-time and static britton-scale imaging. TECHNICAL QUALITY: Adequate. COMPARISON: Comparison is made with prior study dated 04/04/2020. FINDINGS: Liver: The liver measures 17.4 cm. There is increased echogenicity consistent with fatty infiltration. The bile ducts are within normal limits. There is hepatic color flow. The direction of portal flow is hepatopetal. There is no demonstrated mass lesion. Gallbladder: Normal distended gallbladder. The gallbladder wall measures 3 mm. There is a negative sonographic Rodrigues''s sign. There is no pericholecystic fluid. There are multiple echogenic structures within the gallbladder, consistent with multiple gallstones. Sludge is seen within the gallbladder lumen. Common Bile Duct (C.B.D.): The common bile duct measures 5 mm. Pancreas: Normal size of the head, body and tail of the pancreas. There is normal echogenicity of the pancreas. There is no demonstrated pancreatic mass or cyst. Right Kidney: Normal size of the right kidney. The right kidney measures 11.4 cm x 6.2 cm x 4.9 cm. Normal renal cortex. The right cortex measures 1.4 cm. There is no demonstrated renal mass or cyst. There is no right hydronephrosis. IMPRESSION: Fatty infiltration of the liver. Gallstones and sludge within the gallbladder lumen. Electronically Signed: Asher Donato MD at 12:33 EST , Service support , STUDY: ABDOMINAL ULTRASOUND - ELASTOGRAPHY REASON FOR VISIT: Female, 80 years old. Fatty infiltration of the liver. TECHNIQUE: Liver stiffness measurements were obtained on a [employer] Hargreaves 85 ultrasound machine using a CA 1-7 probe following the SRU guidelines. 3 measurements were obtained using a 2-D-SWE method. The IQR/M was 16% suggesting a quality data set. TECHNICAL QUALITY: Adequate. COMPARISON: Comparison is made with prior examination done earlier today. FINDINGS: Liver: Fatty infiltration liver. Median liver stiffness measured 7.6 kPa. US/Abdomen Limited IMPRESSION: Liver stiffness measures 7.6 kPa compatible with F2 -- F 3 Metavir score. Electronically Signed: Asher Donato MD at 12:35 EST , Service support ,
== END ==
PROVIDERS: PCP Family Medicine Geriatric Medicine; Referring Provider Family Medicine Geriatric Medicine; Visit Provider Family Medicine Geriatric Medicine
DX: K76.0 Fatty (change of) liver, not elsewhere classified (principal)
CPT/HCPCS: 76705; 76981

== ENCOUNTER → 2020-11-11 10:26 | Outpatient (CLI) | payer MEDICARE, OTHER, SELFPAY ==
[2017-04-19 11:37] VITALS: BMI 26.3
[2020-02-12 08:37] VITALS: BMI 25.7
[2020-11-11 12:05] LABS: Thyroid Stim Hormone (TSH) 1.91 uIU/mL (0.358-3.74)
== END ==
PROVIDERS: PCP Family Medicine Geriatric Medicine; Visit Provider Family Medicine Geriatric Medicine
DX: E03.9 Hypothyroidism, unspecified (principal)
CPT/HCPCS: 36415; 84443

== ENCOUNTER → 2020-12-01 08:55 | Outpatient (CLI) | payer MEDICARE, OTHER, SELFPAY ==
[2017-04-19 11:37] VITALS: BMI 26.3
[2020-11-11 11:02] VITALS: BMI 26.5
--- NOTE | 2020-12-01 08:58 | AAVD_ITS ---
Reason For Study: Abdominal bruit Aorta Measurements Aorta Doppler Measurements Proximal aorta measures1.67 x 1.69cm. in cross- Peak systolic flow velocities within the proximal sectional axis. aorta measure 88.8 cm/sec. Proximal aorta measures1.65cm. in longitudinal Peak systolic flow velocities within the mid aorta axis. measure 116.2 cm/sec. Mid aorta measures1.61 x 1.61cm. in cross- Peak systolic flow velocities within the distal sectional axis. aorta measure 110.7 cm/sec. Mid aorta measures1.59cm. in longitudinal axis. Distal aorta measures1.61 x 1.57cm. in cross- sectional axis. Distal aorta measures1.58cm. in longitudinal axis. Left Iliac Artery Left iliac artery measures 1.30 x 1.25 cm. in the cross-sectional axis. Left iliac artery measures 1.37 cm. in the longitudinal axis. Peak systolic velocity in the left iliac artery measures 64.4 cm/sec. Right Iliac Artery Right iliac artery measures 1.22 x 1.25 cm. in the cross-sectional axis. Right iliac artery measures 1.20 cm. in the longitudinal axis. Peak systolic velocity in the right iliac artery measures 57.8 cm/sec. Procedure Aorta IVC Iliac vasculature or bypass grafts 06906. Exam performed in department. VL/Abd Aortic/IVC Duplex scan Interpretation Summary No aortoiliac stenosis or aneurysm. Ordering Physician: Gera eLach Referring Physician: Gokul Sanchez Chi Performed By: Cailin Mcfarland RVT
--- NOTE | 2020-12-01 08:58 | ECHOCS_ITS ---
Reason For Study: CAD/ASHD Procedure This was a 2D Doppler, Color Flow transthoracic echocardiogram. The study was technically difficult. Contrast injection was performed. Exam performed in department. Left Ventricle Normal LV size. Left ventricular systolic function is normal. The estimated ejection fraction is 65 %. No evidence for diastolic dysfunction. No regional wall motion abnormalities noted. Right Ventricle Normal RV size. Normal systolic function. Atria Normal left atrium. Normal right atrium. No doppler evidence for ASD. Mitral Valve There is mild mitral annular calcification. Mild diffuse mitral valve thickening. Mild mitral valve stenosis. Trivial mitral valve insufficiency. Tricuspid Valve Normal tricuspid valve. Trivial tricuspid valve insufficiency. Unable to estimate RV systolic pressure/pulmonary artery pressure due to technically difficult study. Aortic Valve Trisinus/trileaflet aortic valve. Mild diffuse aortic valve thickening. Moderate diffuse aortic valve calcification. Moderate aortic stenosis. Pulmonic Valve The pulmonic valve is not well visualized. Great Vessels Mildly dilated aortic root. Pericardium/Pleural No pericardial effusion. Medication 22 gauge I.V. with prn adaptor inserted into right arm. Diluted definity 2.5ml given slow IV push to enhance endocardial definition. MMode/2D Measurements & Calculations LVIDd: 3.8 cm IVSd: 1.3 cm LVOT diam: 2.0 cm LVIDs: 2.3 cm LVPWd: 1.2 cm RVDd: 3.0 cm FS: 39.5 % LVOT area: 3.1 cm2 Ao root diam: 4.2 cm LAV(MOD-bp): 49.7 ml LA A4 area: 17.2 cm2 LA dimension: 3.2 cm LAV(MOD-bp) Indexed: 27.1 ml/m2 LAV(MOD-sp2): 47.6 ml LAV(MOD-sp4): 49.7 ml RA A4 area: 10.9 cm2 Time Measurements MV dec time: 0.31 sec Doppler Measurements & Calculations MV E max johnny: 83.1 cm/sec Lat Peak E' Johnny: 7.0 cm/sec Med Peak E' Johnny: 4.7 cm/sec MV A max johnny: 109.4 cm/sec E/E' lat: 11.8 E/E' med: 17.6 MV E/A: 0.76 MV V2 max: 105.0 cm/sec MV P1/2t max johnny: 89.6 cm/sec Ao V2 max: 251.0 cm/sec MV max P.4 mmHg MV P1/2t: 105.0 msec Ao max P.2 mmHg MV V2 mean: 57.0 cm/sec MV dec slope: 249.9 cm/sec2 Ao V2 mean: 179.3 cm/sec MV mean P.5 mmHg Ao mean P.3 mmHg MV V2 VTI: 31.3 cm MVA(P1/2t): 2.1 cm2 Ao V2 VTI: 59.8 cm MVA(VTI): 1.8 cm2 ITALO(I,D): 0.93 cm2 ITALO(V,D): 0.94 cm2 LV V1 max: 77.0 cm/sec SV(LVOT): 55.4 ml PA V2 max: 71.3 cm/sec LV V1 max P.4 mmHg LV V1 mean P.99 mmHg LV V1 mean: 45.5 cm/sec LV V1 VTI: 18.0 cm ECHO/Echo Complete W/ Contrast Interpretation Summary The study was technically difficult. Contrast injection was performed. Left ventricular systolic function is normal. The estimated ejection fraction is 65 %. There is mild mitral annular calcification. Mild diffuse mitral valve thickening. Mild mitral valve stenosis. Trivial mitral valve insufficiency. Trivial tricuspid valve insufficiency. Moderate aortic stenosis. Mildly dilated aortic root. Unable to estimate RV systolic pressure/pulmonary artery pressure due to techni antonieta difficult study. No evidence for diastolic dysfunction. Ordering Physician: Gera Leach Referring Physician: Gokul Sanchez Chi Performed By: Jordan Wills RCS
== END ==
PROVIDERS: PCP Family Medicine Geriatric Medicine; Referring Provider Internal Medicine Cardiovascular Disease; Visit Provider Internal Medicine Cardiovascular Disease
DX: I25.10 Atherosclerotic heart disease of native coronary artery without angina pectoris (principal); I35.0 Nonrheumatic aortic (valve) stenosis; I10 Essential (primary) hypertension; E78.5 Hyperlipidemia, unspecified; R09.89 Other specified symptoms and signs involving the circulatory and respiratory systems; Z95.5 Presence of coronary angioplasty implant and graft
CPT/HCPCS: 93306; 93978; Q9957; A4216; C8929

== ENCOUNTER → 2021-03-30 09:40 | Outpatient (CLI) | payer MEDICARE, OTHER, SELFPAY ==
[2017-04-19 11:37] VITALS: BMI 26.3
[2020-11-11 11:02] VITALS: BMI 26.5
[2021-03-30 12:35] LABS: Absolute Lymphocyte Count 1.22 X10^3/uL (0.83-4.51); Absolute Neutrophil Count 2.9 X10^3/uL (2.0-7.7); Basophil# 0.05 X10^3/uL; Basophil% 1.1 % (0-1); Eosinophil# 0.08 X10^3/uL; Eosinophils% 1.7 % (0-5); Hematocrit 41.1 % (37-47); Hemoglobin 13.4 g/dL (12.0-15.0); Lymphocyte # 1.22 X10^3/ul (0.83-4.51); Lymphocyte % 26.1 % (19-41); Mean Corp Hgb Conc 32.6 g/dL (32-36); Mean Corpuscular Hgb 29.7 pg (27.0-32.0); Mean Corpuscular Volume 91.1 fL (81-99); Mean Platelet Vol. 12.6 fl (6.2-12.0); Monocyte# 0.43 X10^3/uL; Monocyte% 9.2 % (0-10); NRBC Flagged by Analyzer 0 % (0-5); Neutrophil # 2.88 X10^3/uL (2.7-7.7); Neutrophil % 61.5 % (47-70); Platelet Count 141 K/mm3 (150-450); RBC Distribution Width CV 13.2 % (11.6-14.6); RBC Distribution Width SD 44.3 fl (35.1-43.9); Red Blood Count 4.51 M/mm3 (4.2-5.4); White Blood Count 4.7 K/mm3 (4.4-11.0)
[2021-03-30 13:25] LABS: AST(SGOT) 26 U/L (15-37); Alanine Aminotransfer ALT/SGPT 33 U/L (13-56); Albumin, Serum 3.8 g/dL (3.2-5.0); Alkaline Phosphatase 98 U/L (45-117); Anion Gap 8 (5-15); BUN 14 mg/dL (7-18); BUN/Creat Ratio 17.1 RATIO (10-20); Calcium,Total 8.8 mg/dL (8.5-10.1); Chloride 106 mmol/L (98-107); Creatinine, Serum 0.82 mg/dL (0.55-1.02); EST Glomerular Filtration Rate 72 mL/min (>60); Est Glom Filt Rate - Afr Amer 87 mL/min (>60); Globulin 3.9 g/dL (2.2-4.2); Glucose 125 mg/dL (74-106); Potassium 4.2 mmol/L (3.5-5.1); Protein, Total 7.7 g/dL (6.4-8.2); Sodium Level 139 mmol/L (136-145); Thyroid Stim Hormone (TSH) 2.02 uIU/mL (0.358-3.74)
== END ==
PROVIDERS: PCP Family Medicine Geriatric Medicine; Visit Provider Family Medicine Geriatric Medicine
DX: E11.9 Type 2 diabetes mellitus without complications (principal); E55.9 Vitamin D deficiency, unspecified; I10 Essential (primary) hypertension
CPT/HCPCS: 36415; 80053; 82306; 84443; 85025

== ENCOUNTER → 2021-04-08 14:57 | Outpatient (CLI) | payer MEDICARE, OTHER, SELFPAY ==
[2017-04-19 11:37] VITALS: BMI 26.3
[2020-11-11 11:02] VITALS: BMI 26.5
--- NOTE | 2021-04-08 15:00 | BI_ITS ---
MAMMOGRAPHY - BILATERAL SCREENING REASON FOR EXAM: Female, 80 years old. Routine annual screening examination. PERTINENT HISTORY: Screening TECHNIQUE: Digital bilateral breast arlette (3D mammographic acquisition) in the CC and MLO projections. 2-D mediolateral oblique (MLO) and craniocaudad (CC) views of both breasts were obtained. CAD: Full Field Digital Mammography with Computer Added Detection was performed. COMPARISON: Previous mammogram obtained on 04/08/2019 FINDINGS: Breast Composition: Scattered There are no dominant masses or suspicious calcifications. No other significant abnormalities are identified. BI/SCRN MAMM (CAD)W/ARLETTE BILAT IMPRESSION: Stable bilateral screening mammogram. Yearly follow-up mammogram recommended. (A) ASSESSMENT CATEGORY: BIRADS Category 1: Negative. A letter regarding these results will be sent to the patient by the facility within 30 days. BR1 Approximately 10% of breast cancers are not detected by mammography. A normal mammogram should not delay biopsy of a clinically suspicious abnormality. [id number] Electronically Signed: Mike Lehman DO at 13:32 EDT Tel , Service support ,
== END ==
PROVIDERS: PCP Family Medicine Geriatric Medicine; Visit Provider Obstetrics & Gynecology
DX: Z12.31 Encounter for screening mammogram for malignant neoplasm of breast (principal)
CPT/HCPCS: 77063; 77067

== ENCOUNTER 2021-09-28 10:03 | Outpatient (CLI) | payer MEDICARE, OTHER, SELFPAY ==
[2017-04-19 11:37] VITALS: BMI 26.3
[2021-09-28 11:06] LABS: Absolute Lymphocyte Count 0.97 X10^3/uL (0.83-4.51); Absolute Neutrophil Count 2.2 X10^3/uL (2.0-7.7); Basophil# 0.02 X10^3/uL; Basophil% 0.5 % (0-1); Eosinophil# 0.13 X10^3/uL; Eosinophils% 3.4 % (0-5); Hematocrit 37.1 % (37-47); Hemoglobin 12.4 g/dL (12.0-15.0); Lymphocyte # 0.97 X10^3/ul (0.83-4.51); Lymphocyte % 25.4 % (19-41); Mean Corp Hgb Conc 33.4 g/dL (32-36); Mean Corpuscular Hgb 29.7 pg (27.0-32.0); Mean Platelet Vol. 11.1 fl (6.2-12.0); Monocyte% 13.1 % (0-10); NRBC Flagged by Analyzer 0 % (0-5); Neutrophil # 2.19 X10^3/uL (2.7-7.7); Neutrophil % 57.3 % (47-70); Platelet Count 147 K/mm3 (150-450); RBC Distribution Width CV 13.9 % (11.6-14.6); RBC Distribution Width SD 44.9 fl (35.1-43.9); Red Blood Count 4.17 M/mm3 (4.2-5.4); White Blood Count 3.8 K/mm3 (4.4-11.0)
[2021-09-28 11:40] LABS: Vitamin D,25 Hydroxy 41.9 ng/mL
[2021-09-28 11:48] LABS: ALB/GLOB Ratio 0.6 RATIO (0.9-2.4); AST(SGOT) 53 U/L (15-37); Alanine Aminotransfer ALT/SGPT 56 U/L (13-56); Albumin, Serum 3.5 g/dL (3.2-5.0); Alkaline Phosphatase 110 U/L (45-117); Anion Gap 8 (5-15); BUN 22 mg/dL (7-18); BUN/Creat Ratio 22.1 RATIO (10-20); Calcium,Total 8.5 mg/dL (8.5-10.1); Chloride 106 mmol/L (98-107); EST Glomerular Filtration Rate 57 mL/min (>60); Est Glom Filt Rate - Afr Amer 69 mL/min (>60); Globulin 5.4 g/dL (2.2-4.2); Glucose 108 mg/dL (74-106); Protein, Total 8.9 g/dL (6.4-8.2); Sodium Level 138 mmol/L (136-145); Thyroid Stim Hormone (TSH) 2.61 uIU/mL (0.358-3.74)
== END 2021-09-28 23:59 | disposition short-term general hospital (02) ==
PROVIDERS: PCP Family Medicine Geriatric Medicine; Visit Provider Family Medicine Geriatric Medicine
DX: I10 Essential (primary) hypertension (principal); E11.9 Type 2 diabetes mellitus without complications; E55.9 Vitamin D deficiency, unspecified
CPT/HCPCS: 36415; 80053; 82306; 84443; 85025

== ENCOUNTER → 2022-01-24 | Outpatient (CLI) | payer MEDICARE, OTHER, SELFPAY ==
[2017-04-19 11:37] VITALS: BMI 26.3
== END | disposition home or self-care (01) ==
LOC: LABSPEC 15:28
PROVIDERS: PCP Family Medicine Geriatric Medicine; Visit Provider Family Medicine Geriatric Medicine
DX: N39.0 Urinary tract infection, site not specified (principal)
CPT/HCPCS: 87077; 87086; 87088; 87186

== ENCOUNTER → 2022-02-17 | Outpatient (CLI) | payer MEDICARE, OTHER, SELFPAY ==
[2017-04-19 11:37] VITALS: BMI 26.3
[2022-02-17 16:25] LABS: M R Staph aureus DNA By PCR Negative (Negative); Probe Check PASS; Staph aureus DNA By PCR NEGATIVE (Negative)
== END | disposition home or self-care (01) ==
LOC: LABSPEC 14:49
PROVIDERS: PCP Family Medicine Geriatric Medicine; Visit Provider Family Medicine Geriatric Medicine
DX: B37.3 Candidiasis of vulva and vagina (principal)
CPT/HCPCS: 87070; 87077; 87186; 87205; 87640

== ENCOUNTER → 2022-03-30 | Outpatient (CLI) | payer MEDICARE, OTHER, SELFPAY ==
[2017-04-19 11:37] VITALS: BMI 26.3
--- NOTE | 2022-03-30 13:57 | ECHOCS_ITS ---
Reason For Study: Murmur Procedure This was a 2D Doppler, Color Flow transthoracic echocardiogram. The study was technically difficult. Contrast injection was performed. Exam performed in department. Left Ventricle Normal LV size. Left ventricular systolic function is normal. The estimated ejection fraction is 65 %. No evidence for diastolic dysfunction. No regional wall motion abnormalities noted. Right Ventricle Normal RV size. Normal systolic function. Atria Normal left atrium. Normal right atrium. No doppler evidence for ASD. Mitral Valve There is mild mitral annular calcification. Extension of the mitral annular calcification on base of the posterior mitral valve leaflet. Mild mitral valve stenosis. Trivial mitral valve insufficiency. Tricuspid Valve Normal tricuspid valve. Trivial tricuspid valve insufficiency. Unable to estimate RV systolic pressure due to insufficient tricuspid regurgitant envelope. Aortic Valve Trisinus/trileaflet aortic valve. Moderate diffuse aortic valve calcification. Moderate aortic stenosis. Pulmonic Valve The pulmonic valve is not well visualized. Trivial pulmonic valve insufficiency. Great Vessels Borderline enlarged aortic root. Calcified aortic root. Pericardium/Pleural No pericardial effusion. Medication 22 gauge I.V. with prn adaptor inserted into right arm. Diluted definity 2ml given slow IV push to enhance endocardial definition. MMode/2D Measurements & Calculations LVIDd: 3.6 cm IVSd: 1.4 cm LVOT diam: 2.0 cm LVIDs: 2.2 cm LVPWd: 0.85 cm RVDd: 3.1 cm FS: 39.4 % LVOT area: 3.3 cm2 Ao root diam: 3.7 cm LAV(MOD-bp): 42.5 ml LVAd ap4: 29.3 cm2 LAV(MOD-bp) Indexed: 24.4 ml/m2 LVLd ap4: 8.0 cm LAV(MOD-sp2): 49.7 ml EDV(MOD-sp4): 84.6 ml LAV(MOD-sp4): 35.0 ml EDV(sp4-el): 90.3 ml LVAs ap4: 13.9 cm2 LVLs ap4: 6.0 cm ESV(MOD-sp4): 26.1 ml ESV(sp4-el): 27.4 ml EF(MOD-sp4): 69.2 % EF(sp4-el): 69.7 % LVAd ap2: 26.6 cm2 SV(MOD-sp4): 58.5 ml SV(MOD-sp2): 45.2 ml LVLd ap2: 7.6 cm EDV(MOD-sp2): 75.9 ml EDV(sp2-el): 79.3 ml LVAs ap2: 16.0 cm2 LVLs ap2: 6.8 cm ESV(MOD-sp2): 30.7 ml ESV(sp2-el): 31.7 ml EF(MOD-sp2): 59.6 % SV(sp4-el): 62.9 ml LA dimension(2D): 3.5 cm LA A4 area: 14.4 cm2 RA A4 area: 10.3 cm2 Time Measurements MV dec time: 0.40 sec Doppler Measurements & Calculations MV E max johnny: 84.4 cm/sec Lat Peak E' Johnny: 8.5 cm/sec Med Peak E' Johnny: 7.3 cm/sec MV A max johnny: 104.4 cm/sec E/E' lat: 10.0 E/E' med: 11.5 MV E/A: 0.81 MV V2 max: 98.5 cm/sec MV P1/2t max johnny: 77.9 cm/sec Ao V2 max: 277.3 cm/sec MV max P.9 mmHg MV P1/2t: 106.9 msec Ao max P.8 mmHg MV V2 mean: 55.6 cm/sec Ao V2 mean: 205.3 cm/sec MV mean P.4 mmHg MV dec slope: 213.3 cm/sec2 Ao mean P.4 mmHg MV V2 VTI: 37.6 cm MVA(P1/2t): 2.1 cm2 Ao V2 VTI: 60.1 cm MVA(VTI): 1.4 cm2 ITALO(I,D): 0.89 cm2 ITALO(V,D): 1.0 cm2 LV V1 max: 86.4 cm/sec SV(LVOT): 53.3 ml PA V2 max: 74.8 cm/sec LV V1 max P.0 mmHg LV V1 mean P.3 mmHg LV V1 mean: 53.8 cm/sec LV V1 VTI: 16.2 cm ECHO/Echo Complete W/ Contrast Interpretation Summary The study was technically difficult. Contrast injection was performed. Left ventricular systolic function is normal. The estimated ejection fraction is 65 %. There is mild mitral annular calcification. Extension of the mitral annular calcification on base of the posterior mitral v alve leaflet. Mild mitral valve stenosis. Trivial mitral valve insufficiency. Trivial tricuspid valve insufficiency. Moderate aortic stenosis. Trivial pulmonic valve insufficiency. Borderline enlarged aortic root. Calcified aortic root. Unable to estimate RV systolic pressure due to insufficient tricuspid regurgita nt envelope. No evidence for diastolic dysfunction. Ordering Physician: Lalitha Ruiz/Gera Leach Referring Physician: Gokul Sanchez Chi Performed By: Maude Nunez, TJ
== END | disposition home or self-care (01) ==
LOC: CVS 13:55
PROVIDERS: PCP Family Medicine Geriatric Medicine; Referring Provider Physician Assistant Medical; Visit Provider Physician Assistant Medical
DX: I25.10 Atherosclerotic heart disease of native coronary artery without angina pectoris (principal); R01.1 Cardiac murmur, unspecified
CPT/HCPCS: 93306; Q9957; A4216; C8929

== ENCOUNTER → 2022-04-21 | Outpatient (CLI) | payer MEDICARE, OTHER, SELFPAY ==
[2017-04-19 11:37] VITALS: BMI 26.3
[2022-04-21 12:37] LABS: Absolute Lymphocyte Count 1.04 X10^3/uL (0.83-4.51); Absolute Neutrophil Count 3.8 X10^3/uL (2.0-7.7); Basophil# 0.05 X10^3/uL; Basophil% 0.9 % (0-1); Eosinophil# 0.11 X10^3/uL; Eosinophils% 1.9 % (0-5); Hematocrit 35.5 % (37-47); Hemoglobin 11.7 g/dL (12.0-15.0); Lymphocyte # 1.04 X10^3/ul (0.83-4.51); Lymphocyte % 18.4 % (19-41); Mean Corpuscular Hgb 30.1 pg (27.0-32.0); Mean Corpuscular Volume 91.3 fL (81-99); Mean Platelet Vol. 11.8 fl (6.2-12.0); Monocyte# 0.62 X10^3/uL; NRBC Flagged by Analyzer 0 % (0-5); Neutrophil % 67.3 % (47-70); Platelet Count 203 K/mm3 (150-450); RBC Distribution Width CV 15.7 % (11.6-14.6); RBC Distribution Width SD 51.6 fl (35.1-43.9); Red Blood Count 3.89 M/mm3 (4.2-5.4); White Blood Count 5.7 K/mm3 (4.4-11.0)
[2022-04-21 12:48] LABS: Vitamin D,25 Hydroxy 42.5 ng/mL
[2022-04-21 13:02] LABS: ALB/GLOB Ratio 0.4 RATIO (0.9-2.4); AST(SGOT) 162 U/L (15-37); Alanine Aminotransfer ALT/SGPT 81 U/L (13-56); Albumin, Serum 2.9 g/dL (3.2-5.0); Alkaline Phosphatase 461 U/L (45-117); Anion Gap 4 (5-15); BUN 16 mg/dL (7-18); BUN/Creat Ratio 13.4 RATIO (10-20); Calcium,Total 8.9 mg/dL (8.5-10.1); Chloride 107 mmol/L (98-107); Creatinine, Serum 1.19 mg/dL (0.55-1.02); EST Glomerular Filtration Rate 46 mL/min (>60); Est Glom Filt Rate - Afr Amer 56 mL/min (>60); Globulin 6.8 g/dL (2.2-4.2); Glucose 110 mg/dL (74-106); Potassium 4.3 mmol/L (3.5-5.1); Protein, Total 9.7 g/dL (6.4-8.2); Sodium Level 137 mmol/L (136-145); Thyroid Stim Hormone (TSH) 1.39 uIU/mL (0.358-3.74)
== END | disposition home or self-care (01) ==
LOC: POLAB3 10:20
PROVIDERS: PCP Family Medicine Geriatric Medicine; Visit Provider Family Medicine Geriatric Medicine
DX: E55.9 Vitamin D deficiency, unspecified (principal); I10 Essential (primary) hypertension
CPT/HCPCS: 36415; 80053; 82306; 84443; 85025

== ENCOUNTER → 2022-04-28 | Outpatient (CLI) | payer MEDICARE, OTHER, SELFPAY ==
[2017-04-19 11:37] VITALS: BMI 26.3
[2022-04-28 16:55] LABS: Absolute Lymphocyte Count 0.96 X10^3/uL (0.83-4.51); Absolute Neutrophil Count 4.7 X10^3/uL (2.0-7.7); Basophil# 0.04 X10^3/uL; Basophil% 0.6 % (0-1); Eosinophil# 0.07 X10^3/uL; Eosinophils% 1.1 % (0-5); Hematocrit 33.7 % (37-47); Hemoglobin 11.1 g/dL (12.0-15.0); Lymphocyte # 0.96 X10^3/ul (0.83-4.51); Lymphocyte % 14.9 % (19-41); Mean Corp Hgb Conc 32.9 g/dL (32-36); Mean Corpuscular Hgb 29.9 pg (27.0-32.0); Mean Corpuscular Volume 90.8 fL (81-99); Mean Platelet Vol. 12.9 fl (6.2-12.0); Monocyte# 0.67 X10^3/uL; Monocyte% 10.4 % (0-10); NRBC Flagged by Analyzer 0 % (0-5); Neutrophil # 4.67 X10^3/uL (2.7-7.7); Neutrophil % 72.5 % (47-70); Platelet Count 182 K/mm3 (150-450); RBC Distribution Width CV 15.5 % (11.6-14.6); RBC Distribution Width SD 50.9 fl (35.1-43.9); Red Blood Count 3.71 M/mm3 (4.2-5.4); White Blood Count 6.4 K/mm3 (4.4-11.0)
[2022-04-28 17:14] LABS: ALB/GLOB Ratio 0.4 RATIO (0.9-2.4); AST(SGOT) 212 U/L (15-37); Alanine Aminotransfer ALT/SGPT 92 U/L (13-56); Albumin, Serum 2.8 g/dL (3.2-5.0); Alkaline Phosphatase 522 U/L (45-117); Anion Gap 5 (5-15); BUN 26 mg/dL (7-18); BUN/Creat Ratio 19.4 RATIO (10-20); Calcium,Total 8.4 mg/dL (8.5-10.1); Chloride 106 mmol/L (98-107); Creatinine, Serum 1.34 mg/dL (0.55-1.02); EST Glomerular Filtration Rate 41 mL/min (>60); Est Glom Filt Rate - Afr Amer 49 mL/min (>60); Glucose 110 mg/dL (74-106); Potassium 4.1 mmol/L (3.5-5.1); Protein, Total 9.8 g/dL (6.4-8.2); Sodium Level 136 mmol/L (136-145)
[2022-04-29 11:25] LABS: Hepatitis B Surface Antibody Non-Reactive; Hepatitis C Antibody Non-Reactive (Nonreactive)
[2022-04-30 07:32] LABS: Hepatitis A AB, Total Positive (Negative)
== END | disposition home or self-care (01) ==
LOC: POLAB3 14:21
PROVIDERS: PCP Family Medicine Geriatric Medicine; Visit Provider Family Medicine Geriatric Medicine
DX: R74.8 Abnormal levels of other serum enzymes (principal)
CPT/HCPCS: 36415; 80053; 85025; 86706; 86708; 86803

== ENCOUNTER → 2022-05-06 | Outpatient (CLI) | payer MEDICARE, OTHER, SELFPAY ==
[2017-04-19 11:37] VITALS: BMI 26.3
--- NOTE | 2022-05-06 08:03 | US_ITS ---
STUDY: ABDOMINAL ULTRASOUND - RIGHT UPPER QUADRANT REASON FOR VISIT: Female, 81 years old ABN ENZYMES TECHNIQUE: Ultrasound evaluation of the right upper quadrant was performed with real-time and static britton-scale imaging. TECHNICAL QUALITY: Adequate. COMPARISON: Comparison is made with prior study dated 03/28/2021. FINDINGS: Liver: The liver measures 16.8 cm. There is increased echogenicity consistent with fatty infiltration. The bile ducts are within normal limits. There is hepatic color flow. The direction of portal flow is hepatopetal. There is no demonstrated mass lesion. Gallbladder: Normal distended gallbladder. The gallbladder wall measures 2.0 mm. There is a negative sonographic Rodrigues''s sign. There is no pericholecystic fluid. There are multiple echogenic structures within the gallbladder, consistent with multiple gallstones. Common Bile Duct (C.B.D.): The common bile duct measures 6.9 mm. Pancreas: Normal size of the head, body and tail of the pancreas. There is normal echogenicity of the pancreas. There is no demonstrated pancreatic mass or cyst. Right Kidney: Normal size of the right kidney. The right kidney measures 11.8 cm x 6 cm x 4.3 cm. Normal renal cortex. The right cortex measures 1.1 cm. There is no demonstrated renal mass or cyst. There is no right hydronephrosis. US/Abdomen Limited IMPRESSION: Diffuse fatty infiltration of the liver. Multiple gallstones. Electronically Signed: Asher Donato MD at 12:32 EDT ,
--- NOTE | 2022-05-06 08:34 | BI_ITS ---
MAMMOGRAPHY - BILATERAL SCREENING REASON FOR EXAM: Female, 81 years old. Routine annual screening examination. PERTINENT HISTORY: Non-contributory. TECHNIQUE: Digital bilateral breast arlette (3D mammographic acquisition) in the CC and MLO projections. 2-D mediolateral oblique (MLO) and craniocaudad (CC) views of both breasts were obtained. CAD: Full Field Digital Mammography with Computer Added Detection was performed. COMPARISON: Comparison is made with prior study dated 04/08/2021 and 04/08/2019. FINDINGS: Breast Composition: There are scattered areas of fibroglandular density. There are no dominant masses or suspicious calcifications. Stable bilateral secretory calcifications. Stable small left axillary lymph node. No other significant abnormalities are identified. There has been no significant change since the prior study. BI/SCRN MAMM (CAD)W/ARLETTE BILAT IMPRESSION: Stable bilateral screening mammogram. Yearly follow-up mammogram recommended. (A) ASSESSMENT CATEGORY: BIRADS Category 2: Benign. A letter regarding these results will be sent to the patient by the facility within 30 days. Approximately 10% of breast cancers are not detected by mammography. A normal mammogram should not delay biopsy of a clinically suspicious abnormality. [id number] Electronically Signed: Asher Donato MD at 10:44 EDT ,
== END | disposition home or self-care (01) ==
LOC: US 08:01
PROVIDERS: PCP Family Medicine Geriatric Medicine; Referring Provider Family Medicine Geriatric Medicine; Visit Provider Family Medicine Geriatric Medicine
DX: Z12.31 Encounter for screening mammogram for malignant neoplasm of breast (principal); R74.8 Abnormal levels of other serum enzymes
CPT/HCPCS: 76705; 77063; 77067

== ENCOUNTER → 2022-05-10 | Outpatient (CLI) | payer MEDICARE, OTHER, SELFPAY ==
[2017-04-19 11:37] VITALS: BMI 26.3
[2022-05-10 17:28] LABS: ALB/GLOB Ratio 0.4 RATIO (0.9-2.4); AST(SGOT) 179 U/L (15-37); Alanine Aminotransfer ALT/SGPT 84 U/L (13-56); Albumin, Serum 2.8 g/dL (3.2-5.0); Alkaline Phosphatase 505 U/L (45-117); Anion Gap 8 (5-15); BUN 18 mg/dL (7-18); Calcium,Total 8.6 mg/dL (8.5-10.1); Chloride 102 mmol/L (98-107); Creatinine, Serum 0.95 mg/dL (0.55-1.02); EST Glomerular Filtration Rate 60 mL/min (>60); Est Glom Filt Rate - Afr Amer 73 mL/min (>60); Glucose 84 mg/dL (74-106); Potassium 4.4 mmol/L (3.5-5.1); Protein, Total 9.8 g/dL (6.4-8.2); Sodium Level 135 mmol/L (136-145)
[2022-05-12 16:31] LABS: Hepatitis A IgM Antibody Negative (Negative)
== END | disposition home or self-care (01) ==
LOC: POLAB3 13:31
PROVIDERS: PCP Family Medicine Geriatric Medicine; Visit Provider Family Medicine Geriatric Medicine
DX: R74.8 Abnormal levels of other serum enzymes (principal)
CPT/HCPCS: 36415; 80053; 86709

== ENCOUNTER → 2022-05-12 | Outpatient (CLI) | payer MEDICARE, OTHER, SELFPAY ==
[2017-04-19 11:37] VITALS: BMI 26.3
--- NOTE | 2022-05-12 07:21 | US_ITS ---
STUDY: ABDOMINAL ULTRASOUND - ELASTOGRAPHY REASON FOR VISIT: Female, 81 years old. Fatty infiltration of the liver. TECHNIQUE: Liver stiffness measurements were obtained on a [employer] RS 85 ultrasound machine using a CA 1-7 probe following the SRU guidelines. 3 measurements were obtained using a 2-D-SWE method. The IQR/M was 15% suggesting a quality data set. TECHNICAL QUALITY: Adequate. COMPARISON: Comparison is made with prior sonogram dated 05/06/2022. FINDINGS: Liver: Fatty infiltration of the liver. Median liver stiffness measured 14 kPa. US/Elastography Parenchyma/Organ IMPRESSION: Liver stiffness measures 14 kPa compatible with F3-F4 (Moderate to severe liver fibrosis) Metavir score. Electronically Signed: Asher Donato MD at 13:30 EDT ,
== END | disposition home or self-care (01) ==
PROVIDERS: PCP Family Medicine Geriatric Medicine; Referring Provider Family Medicine Geriatric Medicine; Visit Provider Family Medicine Geriatric Medicine
DX: K76.0 Fatty (change of) liver, not elsewhere classified (principal)
CPT/HCPCS: 76981

== ENCOUNTER → 2022-05-19 | Outpatient (CLI) | payer MEDICARE, OTHER, SELFPAY ==
[2017-04-19 11:37] VITALS: BMI 26.3
[2022-05-19 17:32] LABS: ALB/GLOB Ratio 0.4 RATIO (0.9-2.4); AST(SGOT) 146 U/L (15-37); Alanine Aminotransfer ALT/SGPT 74 U/L (13-56); Albumin, Serum 2.7 g/dL (3.2-5.0); Alkaline Phosphatase 472 U/L (45-117); Anion Gap 8 (5-15); BUN 15 mg/dL (7-18); BUN/Creat Ratio 14.9 RATIO (10-20); Calcium,Total 8.5 mg/dL (8.5-10.1); Chloride 104 mmol/L (98-107); Creatinine, Serum 1.01 mg/dL (0.55-1.02); EST Glomerular Filtration Rate 56 mL/min (>60); Est Glom Filt Rate - Afr Amer 68 mL/min (>60); Globulin 7.1 g/dL (2.2-4.2); Glucose 86 mg/dL (74-106); Potassium 4.2 mmol/L (3.5-5.1); Protein, Total 9.8 g/dL (6.4-8.2); Sodium Level 135 mmol/L (136-145)
== END | disposition home or self-care (01) ==
LOC: POLAB3 13:26
PROVIDERS: PCP Family Medicine Geriatric Medicine; Visit Provider Family Medicine Geriatric Medicine
DX: K76.9 Liver disease, unspecified (principal)
CPT/HCPCS: 36415; 80053

== ENCOUNTER → 2022-05-23 | Outpatient (CLI) | payer MEDICARE, OTHER, SELFPAY ==
[2017-04-19 11:37] VITALS: BMI 26.3
[2022-05-23 11:30] LABS: Absolute Lymphocyte Count 0.74 X10^3/uL (0.83-4.51); Absolute Neutrophil Count 3.5 X10^3/uL (2.0-7.7); Basophil# 0.06 X10^3/uL; Basophil% 1.2 % (0-1); Eosinophil# 0.08 X10^3/uL; Eosinophils% 1.6 % (0-5); Hematocrit 33.6 % (37-47); Hemoglobin 10.9 g/dL (12.0-15.0); Lymphocyte # 0.74 X10^3/ul (0.83-4.51); Lymphocyte % 15.2 % (19-41); Mean Corp Hgb Conc 32.4 g/dL (32-36); Mean Corpuscular Volume 95.5 fL (81-99); Mean Platelet Vol. 11.6 fl (6.2-12.0); Monocyte# 0.45 X10^3/uL; Monocyte% 9.2 % (0-10); NRBC Flagged by Analyzer 0 % (0-5); Neutrophil # 3.52 X10^3/uL (2.7-7.7); Neutrophil % 72.4 % (47-70); Platelet Count 233 K/mm3 (150-450); RBC Distribution Width CV 16.3 % (11.6-14.6); RBC Distribution Width SD 58.2 fl (35.1-43.9); Red Blood Count 3.52 M/mm3 (4.2-5.4); White Blood Count 4.9 K/mm3 (4.4-11.0)
== END | disposition home or self-care (01) ==
LOC: POLAB3 10:50
PROVIDERS: PCP Family Medicine Geriatric Medicine; Visit Provider Family Medicine Geriatric Medicine
DX: D64.9 Anemia, unspecified (principal)
CPT/HCPCS: 36415; 85025

== ENCOUNTER → 2022-05-24 | Outpatient (CLI) | payer MEDICARE, OTHER, SELFPAY ==
[2017-04-19 11:37] VITALS: BMI 26.3
--- NOTE | 2022-05-24 08:25 | CT_ITS ---
INDICATION: ABN LEVELS OF SERUM ENZYMES EXAMINATION: CT ABDOMEN AND PELVIS WITH CONTRAST - CT Abdomen And Pelvis W/ Contrast Injection TECHNIQUE: Helically acquired images were obtained of the abdomen and pelvis following IV contrast. A radiation dose optimization technique was used for this scan. IV Contrast dosage and agent: 100 mL of ISOVUE-300. Oral contrast: Oral contrast was administered.. COMPARISON: None. FINDINGS: LOWER CHEST: Lung bases are clear. No cardiomegaly or pericardial effusion. LIVER: Homogeneous. No focal mass. GALLBLADDER AND BILIARY TREE: Multiple layering calcified gallstones. Mild gallbladder distension, mild thickening of the gallbladder wall is visualized. No evidence of pericholecystic fluid is seen. No intra- or extrahepatic biliary ductal dilation. PANCREAS: No focal cystic or solid mass. SPLEEN: Normal size without focal cystic or solid mass. ADRENAL GLANDS: No nodules. KIDNEYS AND URETERS: Normal renal size and position. No hydronephrosis. PERITONEUM: Subtle fluid visualized in the left lateral pelvis. BOWEL: Small type I hiatus hernia is seen. Abundance of stool is visualized in the large bowel. Focal areas of for small bowel wall thickening visualized but no evidence of stranding of the adjacent fat planes. No evidence of acute appendicitis. No stomach or bowel distension. No focal inflammatory change. LYMPH NODES: Scattered peritoneal lymphadenopathy visualized, most prominently retroperitoneal. Well-circumscribed low-attenuation masses visualized in the hilum of the liver seen on axial series 2 image 29, coronal series 601 image 52 measuring 4.3 x 2.4 x 2.4 cm VESSELS: Atherosclerotic calcifications visualized in the abdominal vessels, no evidence of aneurysmal dilatation or arterial dissection is seen. URINARY BLADDER: Unremarkable. REPRODUCTIVE ORGANS: No pelvic masses. ABDOMINAL WALL: No discrete abdominal or pelvic wall hernia. BONES: Exaggeration of the lordosis of the columns of the lumbar spine is seen. Extensive degenerative changes visualized in the facet joints, Degenerative bone changes visualized, a focal sclerotic area is visualized along the left posterolateral aspect of the T11 vertebral body adjacent to the pedicle, demonstrates circumferential sclerosis best visualized on coronal series [address]/Abdomen/Pelvis WITH Contrast IMPRESSION: Distended gallbladder with multiple stones but no evidence of acute cholecystitis. No evidence of hepatic masses is seen. Scattered peritoneal and retroperitoneal lymphadenopathy. 4.3 cm lymph node/mass is visualized in the hilum of the liver. Electronically Signed: Bashir Estrada MD at 9:48 EDT ,
[2022-05-24 12:38] LABS: ALB/GLOB Ratio 0.4 RATIO (0.9-2.4); AST(SGOT) 159 U/L (15-37); Alanine Aminotransfer ALT/SGPT 67 U/L (13-56); Albumin, Serum 2.8 g/dL (3.2-5.0); Alkaline Phosphatase 532 U/L (45-117); Anion Gap 9 (5-15); BUN 15 mg/dL (7-18); Calcium,Total 9.1 mg/dL (8.5-10.1); Chloride 102 mmol/L (98-107); Creatinine, Serum 0.94 mg/dL (0.55-1.02); EST Glomerular Filtration Rate 61 mL/min (>60); Est Glom Filt Rate - Afr Amer 74 mL/min (>60); Globulin 7.2 g/dL (2.2-4.2); Glucose 105 mg/dL (74-106); Potassium 4.4 mmol/L (3.5-5.1); Sodium Level 134 mmol/L (136-145)
== END | disposition home or self-care (01) ==
LOC: CT 08:21
PROVIDERS: PCP Family Medicine Geriatric Medicine; Referring Provider Family Medicine Geriatric Medicine; Visit Provider Family Medicine Geriatric Medicine
DX: K80.20 Calculus of gallbladder without cholecystitis without obstruction (principal); R16.0 Hepatomegaly, not elsewhere classified; R59.0 Localized enlarged lymph nodes; R74.8 Abnormal levels of other serum enzymes
CPT/HCPCS: 36415; 74177; 80053; Q9967

== ENCOUNTER → 2022-06-07 | Outpatient (CLI) | payer MEDICARE, OTHER, SELFPAY ==
[2017-04-19 11:37] VITALS: BMI 26.3
--- NOTE | 2022-06-07 06:55 | MRI_ITS ---
HISTORY: ABDOMINAL MASS/LEG WEAKNESS. TECHNIQUE: Multiplanar and multisequence MR images of the brain were obtained before and after the intravenous administration of 13 mL Clariscan. 662 images. COMPARISON: None. FINDINGS: BRAIN PARENCHYMA: No enhancing mass in the brain parenchyma. Very mildly increased T2 FLAIR signal in the bilateral periventricular white matter. No abnormal focus of restricted diffusion. No acute intracranial hemorrhage identified. CSF SPACES: Mild generalized volume loss. No significant midline shift or other mass effect.No extra-axial fluid collection. VASCULAR SYSTEM: Major intracranial flow voids are maintained. PARANASAL SINUSES AND MASTOID AIR CELLS: No significant air fluid levels. ORBITS: Symmetric contents. MRI/Brain W/WO Contrast IMPRESSION: No evidence for enhancing intracranial mass. Mild involutional and chronic white matter changes. No evidence for acute infarct. Electronically Signed: Gerda Crockett MD at 9:43 EDT ,
--- NOTE | 2022-06-07 06:55 | MRI_ITS ---
STUDY: MRI ABDOMEN WITH AND WITHOUT CONTRAST REASON FOR EXAM: Female, 81 years old. ABDOMINAL MASS, follow-up to CT. TECHNIQUE: Standardized fat and water weighted pulse sequences were obtained in all 3 orthogonal planes post contrast administration. IV Clariscan 13ml was administered for the contrast portion of the examination. COMPARISON: CT of the chest dated 02/13/2015, CT of the abdomen dated 05/24/2022 and PET/CT dated 06/01/2022 FINDINGS: The visualized lung bases are unremarkable. The visualized portions of the heart are within normal limits. Motion artifact degrades anatomic detail. Normal liver. There are gallstones within the gallbladder. Normal spleen. Normal pancreas. There is a 1.8 x 2.2 cm lymph node within the portal caval space that has not significantly increased in size since February 2015. Normal bilateral adrenal glands. Normal right kidney. There is a stable left extrarenal pelvis. There is a small hiatal hernia. Normal small intestine. Normal colon. There is non-visualization of the appendix. Normal abdominal aorta. Normal inferior vena cava. Normal retroperitoneum. Normal abdominal wall. There are diffuse degenerative changes of the visualized lumbar spine. MRI/MRI Abd WITH and W/O Contrast IMPRESSION: Cholelithiasis. Hiatal hernia. Enlarged right upper quadrant lymph node, grossly stable since February 2015. Degenerative changes of the lumbar spine. Electronically Signed: Ingrid Siddiqi MD at 9:33 EDT ,
== END | disposition home or self-care (01) ==
LOC: MRI 06:55
PROVIDERS: PCP Family Medicine Geriatric Medicine; Referring Provider Internal Medicine Medical Oncology; Visit Provider Internal Medicine Medical Oncology
DX: R19.00 Intra-abdominal and pelvic swelling, mass and lump, unspecified site (principal); K80.20 Calculus of gallbladder without cholecystitis without obstruction; K44.9 Diaphragmatic hernia without obstruction or gangrene; M51.36 Other intervertebral disc degeneration, lumbar region; M62.81 Muscle weakness (generalized)
CPT/HCPCS: 70553; 74183; A9575; J7050; A4216

== ENCOUNTER → 2022-06-08 | Outpatient (CLI) | payer MEDICARE, OTHER, SELFPAY ==
[2017-04-19 11:37] VITALS: BMI 26.3
[2022-06-08 17:57] LABS: ALB/GLOB Ratio 0.4 RATIO (0.9-2.4); AST(SGOT) 118 U/L (15-37); Alanine Aminotransfer ALT/SGPT 54 U/L (13-56); Albumin, Serum 2.7 g/dL (3.2-5.0); Alkaline Phosphatase 449 U/L (45-117); Anion Gap 7 (5-15); BUN 18 mg/dL (7-18); Calcium,Total 8.6 mg/dL (8.5-10.1); Chloride 106 mmol/L (98-107); EST Glomerular Filtration Rate 64 mL/min (>60); Est Glom Filt Rate - Afr Amer 78 mL/min (>60); Globulin 6.8 g/dL (2.2-4.2); Glucose 114 mg/dL (74-106); Potassium 3.8 mmol/L (3.5-5.1); Protein, Total 9.5 g/dL (6.4-8.2); Sodium Level 137 mmol/L (136-145)
[2022-06-09 10:35] LABS: GGTP 613 U/L (5-55)
== END | disposition home or self-care (01) ==
LOC: POLAB3 16:29
PROVIDERS: Internal Medicine Medical Oncology; PCP Family Medicine Geriatric Medicine; Visit Provider Family Medicine Geriatric Medicine
DX: R74.8 Abnormal levels of other serum enzymes (principal)
CPT/HCPCS: 36415; 80053; 82977

== ENCOUNTER → 2022-06-28 | Outpatient (CLI) | payer MEDICARE, OTHER, SELFPAY ==
[2017-04-19 11:37] VITALS: BMI 26.3
--- NOTE | 2022-06-28 10:13 | NM_ITS ---
CLINICAL: 81-year-old female with history of unexplained weight loss, liver mass formation. WHOLE BODY 99m Tc MDP RADIONUCLIDE BONE SCINTIGRAPHY COMPARISON: FDG PET/CT study dated 06/01/2022 FINDINGS: Following the intravenous administration of 20.5 mCi of 99m Tc MDP, whole body bone images reveal: 1. Enhanced tracer concentration is defined in the lower cervical spine posteriorly on the left, the 11th thoracic vertebra posteriorly on the left, the 12th thoracic vertebra posteriorly on the right, acromioclavicular and sternoclavicular compartments of both shoulders, the bilateral posterior sacrum, knees bilaterally, the right ankle articulation, the right hip. 2. The remaining skeletal structures are scintigraphically unremarkable the bilateral renal images and urinary bladder activity identified. The left kidney collecting system is prominent in size. Normal tracheal Facilitated radiopharmaceutical is noted in the greater lesser trochanteric aspects of the bilateral proximal femurs consistent with trochanteric bursitis and/or periostitis. NM/Bone Scan Whole Body IMPRESSION: 1. The increase in tracer concentration defined in the cervical and thoracic spine, the sacrum, both shoulders, the knees bilaterally, the right ankle and left hip consistent with the presence of degenerative arthrosis. 2. There is no definitive scintigraphic evidence of skeletal metastatic disease on the current examination. Electronically Signed: Casey Bunn, at 21:52 EDT ,
== END | disposition home or self-care (01) ==
LOC: NM 10:08
PROVIDERS: PCP Family Medicine Geriatric Medicine; Referring Provider Family Medicine Geriatric Medicine; Visit Provider Family Medicine Geriatric Medicine
DX: R74.8 Abnormal levels of other serum enzymes (principal)
CPT/HCPCS: 78306; A9503

== ENCOUNTER → 2022-07-14 | Outpatient (CLI) | payer MEDICARE, OTHER, SELFPAY ==
[2017-04-19 11:37] VITALS: BMI 26.3
--- NOTE | 2022-07-14 09:38 | NM_ITS ---
CLINICAL: 82-year-old female with history of abdominal pain. RADIONUCLIDE HEPATOBILIARY SCINTIGRAPHY COMPARISON: CT of the abdomen-pelvis 05/24/2022 FINDINGS: Following the intravenous administration of 5.3 mCi of 99m Tc Mebrofenin, hepatobiliary images reveal: 1. Relatively homogeneous radiopharmaceutical concentration is noted by a normal sized liver. No parenchymal defects are identified. 2. Gallbladder activity is not identified during 90 minutes of sequential imaging. 3. Small intestinal tract is observed at 75 minutes post radiopharmaceutical administration. 4. Washout of the radiopharmaceutical by the hepatic parenchyma appears qualitatively delayed. NM/Hepatobilliary Img w/Pharm Int IMPRESSION: 1. ABNORMAL 99m Tc Mebrofenin hepatobiliary imaging examination. A. Nonvisualization of the gallbladder at 90 minutes post radiopharmaceutical administration in the nonacute setting is consistent with a high probability of chronic cholecystitis in patients with intermediate to high pretest probabilities of hepatobiliary disease and who have fasted for more than 4 and less than 24 hours. (Jyothi et al, Nucl Med [employer] Press pg. 35, 1980). Electronically Signed: Casey Bunn, at 21:10 EST ,
== END | disposition home or self-care (01) ==
LOC: NM 09:37
PROVIDERS: PCP Family Medicine Geriatric Medicine; Visit Provider Family Medicine Geriatric Medicine
DX: K80.20 Calculus of gallbladder without cholecystitis without obstruction (principal)
CPT/HCPCS: 78227; A9537; J2805

== ENCOUNTER 2022-08-26 07:01 | Day surgery (SDC) | payer MEDICARE, OTHER, SELFPAY ==
[2017-04-19 11:37] VITALS: BMI 26.3
[2022-08-26] VITALS (7 sets, daily range): BP systolic 74–97; BP diastolic 48–70; PULSE 68–82; RESP 12–18; TEMP 36.4–36.9; O2SAT 94–96; BMI 21.9
--- NOTE | 2022-08-26 | GASB_PTH ---
PATIENT: ROEL WILLINGHAM LOC: EN U#:[id number] AGE/SX: 82/F ROOM: RE08/26/[address]: Dr. Werner Gilliam MD : 1940 BED: DIS: 08/26/2022 SPEC #: [id number] RECD: 08/26/22 14:01 STATUS: KAL REJohnnie #: [id number] FLAVIO: 08/26/22 00:[address]: Werner Gilliam DEPT: SURGICAL PATHOLOGY RECD BY: Ifeanyi Plaza ENTERED: 08/26/22 14:02 SP TYPE: Gastric Bx OTHR DR: Dr. Gokul Sanchez MD Tissues: A - Gastric mucous membrane B - Esophageal mucous membrane Procedures: Special Stain Group II Surgery Specimen Level IV Alcian Blue/PAS (control) HEADER OPERATION: EGD ([facility] [place]) with biopsies PRE-OP DIAGNOSIS: Abnormal biliary HIDA scan TISSUE SUBMITTED: A ? Antrum biopsy for H. pylori and path, B ? Distal esophagus biopsy MICROSCOPIC DIAGNOSIS A. Antrum, biopsy: Moderate to marked chronic active gastritis. See comment. B. Distal esophagus, biopsy: Fragments of gastroesophageal mucosa with chronic inflammation. Intestinal metaplasia (goblet cell metaplasia) not identified. See comment. SJ:rg 08/30/2022 COMMENT A. The results of immunohistochemistry for Helicobacter pylori will be reported separately ([id number]). B. Alcian blue/PAS stain with matched control is used in the evaluation of the specimen. MICROSCOPIC DESCRIPTION Slides are reviewed. GROSS DESCRIPTION A - Received in fixative is one container labeled with the patient's name and designated antrum biopsy. The specimen consists of one irregular fragment of light yuen soft tissue that measures 0.4 x 0.3 x 0.1 cm. The specimen is totally submitted in one cassette. B - Received in fixative is one container labeled with the patient's name and designated distal esophagus biopsy. The specimen consists of multiple irregular fragments of light yuen soft tissue that in aggregate measure 1 x 0.3 x 0.1 cm. The specimen is totally submitted in one cassette. / Prashanth 08/26/2022 TC:3 CPT: 83597 x2, 82220
--- NOTE | 2022-08-26 07:25 | HP.PCM_ITS ---
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 Is patient in pain?: No Allergies aspartame Allergy (Verified 08/02/22 13:55) Food Allergy Medications aspirin 81 mg chewable tablet 81 mg PO DAILY@0800 10/23/13 [History Confirmed 08/02/22] alendronate 70 mg tablet 70 mg PO HAYES OSTEOPOROSIS 04/18/17 [History Confirmed 08/02/22] calcium carbonate 500 mg calcium (1,250 mg) tablet (Calcium 500) 500 mg PO DAILY PRN SUPPLEMENT 06/28/19 [History Confirmed 08/02/22] ferrous gluconate 236 mg (27 mg iron) tablet 236 mg PO QWEEK 11/11/20 [History Confirmed 08/02/22] levothyroxine 50 mcg tablet 50 mcg PO DAILY 11/11/20 [History Confirmed 08/02/22] multivitamin 1 tab PO QWEEK 11/11/20 [History Confirmed 08/02/22] omega-3 fatty acids 1,000 mg capsule (Fish Oil Concentrate) 1,000 mg PO DAILY 11/11/20 [History Confirmed 08/02/22] metoprolol tartrate 25 mg tablet 25 mg PO DAILY BP #90 tabs 01/18/22 [Rx Confirmed 08/02/22] mecobalamin (vitamin B12) 1,000 mcg disintegrating tablet,sublingual 1,500 mcg sublingual DAILY 05/27/22 [History Confirmed 08/02/22] losartan 50 mg tablet 100 mg PO QHS BP 08/02/22 [History] PFS Medical History?(Updated 08/02/22 @ 13:52 by Cesia Bernard) Atherosclerotic heart disease of [place] coronary artery without angina pectoris Basal cell carcinoma (BCC) Chest pain on exertion Essential hypertension Gall stones Yari's thyroiditis Hepatic fibrosis HLD (hyperlipidemia) Liver mass Non-alcoholic fatty liver disease Non-rheumatic mitral valve stenosis Nonrheumatic aortic (valve) stenosis Osteoporosis Retroperitoneal lymphadenopathy Surgical History? History of partial thyroidectomy (~1970) History of total hysterectomy Postsurgical percutaneous transluminal coronary angioplasty (PTCA) status (~04/19/17) Presence of stent in coronary artery (~04/19/17) Family History? Mother?? ,? Age 34 Hypertension Heart diseaseBrother Cancer ?? ? lung ?? ?Father Cancer ?? ? tongue Social History? Smoking Status:? Never smoker alcohol intake:? never substance use type:? does not use caffeine:? No HPI HPI HPI: Patient is a very complicated 82-year-old female is being referred by Dr. Gokul Sanchez for surgical consultation regarding an abnormal hepatobiliary scan.? A written copy of my surgical consult and recommendations will return to him.? The patient was seen by oncologist Dr. Adrián Moss May 31, 2022 because of an abdominal mass.? She had had a CT scan on May 24, 2022 showing upper abdominal and periportal mass associated with liver function test abnormalities.? PET and CT was requested and referred for further evaluation.? Her laboratory as of May 31, 2022 showed a white blood cell count of 5.2 with a hemoglobin 10.9 and hematocrit of 33.7 and a platelet count of 197,000.? Iron level was 53 with a TIBC of 256 and a ferritin of 357.? Total bilirubin was 1.1.? It is of note that on June 08, 2022 total bilirubin was 1.1 and AST was slightly elevated 118 and ALT was 54 and alkaline phosphatase was elevated at 449 total protein was 9.5 which is elevated albumin is 2.7 which is low globulin is elevated at 6.8.? IgG is elevated at 4068 and IgA is 253 and IgM is elevated at 573.? Free kappa LC, quant is 236.5 elevated, free lambda LC, quant elevated at 135.2, free kappa/lambda ratio is 1.75 which is elevated.? A PET CT scan of June 01, 2022 demonstrated focal localized uptake within the left ventricle.? No obvious malignancy identified however it is stated that a well differentiated primary and or metastatic hepatic neoplasm may have false results on PET/CT.? As of June 07, 2022 an MRI with and without contrast demonstrates cholelithiasis and hiatal hernia and enlarged right upper quadrant lymph node felt to be stable since February 2015 and degenerative changes of the lumbar spine.? Brain CT showed no intracranial mass.? The reason for the patient's hypergammaglobulinemia acute but unspecified in etiology not clear with follow- up laboratory recommended at 3 months.? Similarly the right upper quadrant mass is indeterminate.? On July 14, 2022 she had a hepatobiliary scan.? Normal- sized liver.? Gallbladder activity is not identified.? Small intestine deserves a 75 minutes.? Findings are felt to be consistent with chronic cholecystitis. Patient states that she has had a long-term chronic iron deficiency anemia.? This is not a new finding.? The patient states that several months ago she simply had a diminishment in appetite and according to both the patient and her she has dropped back to eating approximately half the volume.? It is of note though that this is not secondary to pain.? She has no abdominal complaints whatsoever.? No epigastric pain no burping or belching no cramping no bright red blood per rectum or melena no right upper quadrant pain no back pain. The patient's previously had a colonoscopy per Dr. Heck on December 20, 2018.? There was some slight nodularity of the cecum which was biopsied and simply showed some prominent lymphoid aggregates favor benign. ROS General General: Yes weight change; No appetite, fatigue, colon cancer, breast cancer or weakness Additional Details: weight loss approx 40lbs in 6 months HEENT HEENT: No difficulty swallowing, eye injury, eye surgery, swollen glands or hoarseness Endo Endocrine: Yes thyroid disease; No diabetes mellitus, thyroid cancer, Hair loss, heat intolerance or cold intolerance Skin Skin: No rash or changing moles Breast Breast: No left breast lump, right breast lump, nipple discharge, breast pain, abnormal mammogram, abnormal US or breast enlargement Musc Musculoskeletal: No back problems, arthritis, rheumatoid arthritis, gout or joint pain Cardio Cardiovascular: Yes heart disease, high blood pressure and heart stent; No murmur, pacemaker, atrial fibrillation, heart attack, palpitations, shortness of breat with exertion or chest pain Resp Respiratory: No shortness of breath, No sleep apnea, No cough, No COPD, No asthma, No emphysema and No wheezing Gastro Gastrointestinal: No abdominal pain, No nausea or vomiting, No diarrhea, No constipation, No blood in stool, No acid reflux, No hemorrhoids, No ulcers, Yes gallbladder problem and No black,tarry stools [place] Hematologic: Yes blood thinners, No blood disorders, No bleeding, Yes anemia and No blood clots Neuro Neurologic: No weakness Exam Const General: cooperative, comfortable and no acute distress Nutritional Appearance: average body habitus [facility] Head: normal to inspection Eyes General: appearance normal, both eyes and all related structures Neck Neck: normal visual inspection Chest Chest palpation & inspection: normal inspection of the chest Resp Effort & Inspection: normal respiratory effort Auscultation: clear to auscultation bilaterally Cardio Rate: regular rate Rhythm: regular rhythm GI Inspection: normal to inspection Palpation: soft and no hepatosplenomegaly Skin General: no rashes or lesions noted Neuro General: patient alert, patient awake and patient oriented x3 Extrem General: no calf tenderness Psych Appearance: grossly normal Assessment and Plan Assessment and Plan (1) Abnormal biliary HIDA scan: ?Status:?Acute ?Plan: I have had the opportunity to discuss this patient's care with Dr. Adrián Moss.? The standout features include the hypergammaglobulinemia and abnormal liver function tests.? The patient has had weight loss secondary to simple loss of appetite of undetermined etiology.? Whether the patient has primary liver disease driving the process is not clear. Although the patient has nonfilling of the gallbladder on hepatobiliary scan she is not demonstrating any chronic or acute gallbladder symptoms.? Moreover she does have a mass or lymph node based upon MRI in the portal area adjacent to the gallbladder which could significantly complicate surgical treatment. I do not believe that the patient's gallbladder gallstones or abnormal imaging explains her 40 pound weight loss.? I am more concerned about her liver function tests and hypergammaglobulinemia. I do recommend that the patient a esophagogastroduodenoscopy to assess whether there is some primary gastric source that is diminishing her appetite.? I will defer whether she would benefit from additional liver studies with possible liver biopsy to Dr. Sanchez and Dr Moss At this time the patient and her are aware that I am not anticipating proceeding with surgical treatment of her gallbladder at least not until further investigation as to a potential source for her weight loss continues to be pursued.? It is not likely that an asymptomatic gallbladder would be driving this process. The patient states actually that since she was seen in the office that she is been eating better. Perhaps from encouragement from her . She denies any changes in her health or wellness. She states that she thinks she has gained a pound or 2. We will proceed with the upper endoscopy as scheduled. Copy: Dr. Gokul Sanchez and Dr. Adrián Gilliam M.D., F.A.C.S
[2022-08-26] MEDS: Lactated Ringers 1,000 ML 15 ML IV (07:47)
--- NOTE | 2022-08-26 08:30 | IMM_PTH ---
PATIENT: ROEL WILLINGHAM LOC: EN U#:[id number] AGE/SX: 82/F ROOM: RE08/26/[address]: Dr. Werner Gilliam MD : 1940 BED: DIS: 08/26/2022 SPEC #: [id number] RECD: 08/26/22 14:21 STATUS: KAL REQ #: [id number] FLAVIO: 08/26/22 08:[address]: Werner Gilliam DEPT: IMMUNOHISTOCHEMISTRY RECD BY: Arlene Barajas ENTERED: 08/26/22 14:22 SP TYPE: IMMUNO OTHR DR: Dr. Gokul Sanchez MD Tissues: A - Stomach, NOS Procedures: H Pylori (initial) PHYSICIAN & INSTITUTION [place] [id number] SPECIMEN INFORMATION: Tissue Source: A ? Antrum biopsy Clinical Info: Abnormal biliary HIDA scan Specimen Number: [id number] CPT code: 16920 METHODOLOGY: Deparaffinized sections of prefer/formalin-fixed tissue or PAP/DQ stained slides are incubated with monoclonal/polyclonal antibodies/oligonucleotide probes. Localization is made via biotin free immunoperoxidase method. Appropriate controls are performed and reacted as expected. Results on target cell population are indicated in the following table: RESULTS: ANTIBODY / CLONE RESULT Block A H Pylori (polyclonal) negative These tests were developed and their performance characteristics determined by [facility]. They may not have been cleared or approved by the U.S. Food and Drug Administration. The FDA has determined that such clearance or approval is not necessary. The above immunohistochemical/dualISH markers are ordered and reviewed by the Pathologist. INTERPRETATION: A. Antrum, biopsy: Negative for Helicobacter pylori organisms. SJ:deandra 08/30/2022
--- NOTE | 2022-08-26 09:02 | OP.EGD_ITS ---
Patient Name: Kassidy Chin Procedure Date: 08/26/2022 8:41 AM Date of : 1940 Age: 82 Procedure: Upper GI endoscopy Indications: Weight loss Providers: Werner Gilliam MD Medicines: See the Anesthesia note for documentation of the administered medications Complications: No immediate complications. Procedure: Pre-Anesthesia Assessment: - Prior to the procedure, a History and Physical was performed, and patient medications and allergies were reviewed. The patient's tolerance of previous anesthesia was also reviewed. The risks and benefits of the procedure and the sedation options and risks were discussed with the patient. All questions were answered, and informed consent was obtained. Prior Anticoagulants: The patient has taken no previous anticoagulant or antiplatelet agents. ASA Grade Assessment: II - A patient with mild systemic disease. After reviewing the risks and benefits, the patient was deemed in satisfactory condition to undergo the procedure. After obtaining informed consent, the endoscope was passed under direct vision. Throughout the procedure, the patient's blood pressure, pulse, and oxygen saturations were monitored continuously. The Endoscope was introduced through the mouth, and advanced to the second part of duodenum. The upper GI endoscopy was accomplished without difficulty. The patient tolerated the procedure well. Scope In: 8:50:13 AM Scope Out: 8:56:26 AM Total Procedure Duration Time 0 hours 6 minutes 13 seconds Findings: Esophagitis with no bleeding was found 40 cm from the incisors. Biopsies were taken with a cold forceps for histology. A small hiatal hernia was present. Diffuse mildly erythematous mucosa without bleeding was found in the gastric antrum. Biopsies were taken with a cold forceps for histology. The examined duodenum was normal. Impression: - Reflux esophagitis. Biopsied. Very minimal changes - Small hiatal hernia. - Erythematous mucosa in the antrum. Biopsied. - Normal examined duodenum. Recommendation: - Discharge patient to home. - Resume previous diet. - Continue present medications. - Telephone my office for pathology results in 1 week. Findings to explain weight loss and loss of appetite however by patient report her appetite and weight both improving Procedure Code(s): --- Professional --- 07400, Esophagogastroduodenoscopy, flexible, transoral; with biopsy, single or multiple Diagnosis Code(s): --- Professional --- K21.0, Gastro-esophageal reflux disease with esophagitis K44.9, Diaphragmatic hernia without obstruction or gangrene K31.89, Other diseases of stomach and duodenum R63.4, Abnormal weight loss CPT copyright 2017 [employer]. All rights reserved. The codes documented in this report are preliminary and upon barrel raiser review may be revised to meet current compliance requirements. Werner Gilliam MD 08/26/2022 9:02:29 AM This report has been signed electronically. Number of Addenda: 0 Note Initiated On: 08/26/2022 8:41 AM
--- NOTE | 2022-08-26 09:02 | OP.CCLET_ITS ---
08/26/2022 Gokul Sanchez MD [id number] [place] [address] Re : Upper GI endoscopy procedure for Kassidy Chin Dear Dr. Sanchez This procedure was performed on Friday, August 26, 2022. My impressions and recommendations are as follows: Impressions : - Reflux esophagitis. Biopsied. Very minimal changes - Small hiatal hernia. - Erythematous mucosa in the antrum. Biopsied. - Normal examined duodenum. Recommendations : - Discharge patient to home. - Resume previous diet. - Continue present medications. - Telephone my office for pathology results in 1 week. Findings to explain weight loss and loss of appetite however by patient report her appetite and weight both improving My findings are described in the full procedure note, which is enclosed. If I can be of further assistance, please feel free to contact me at Doctor phone number(s): Work: . Sincerely, Werner Gilliam MD 08/26/2022 9:02:29 AM This report has been signed electronically.
== END 2022-08-26 10:03 | disposition home or self-care (01) ==
LOC: EN 07:04 → AC 07:05
PROVIDERS: PCP Family Medicine Geriatric Medicine; Referring Provider Family Medicine Geriatric Medicine; Visit Provider Surgery
PROC: 0DJ08ZZ Inspection of Upper Intestinal Tract, Via Natural or Artificial Opening Endoscopic (ICD-10-PCS; CPT 43235; principal; 2022-08-26 08:25)
DX: K21.00 Gastro-esophageal reflux disease with esophagitis, without bleeding (principal); K44.9 Diaphragmatic hernia without obstruction or gangrene; K29.50 Unspecified chronic gastritis without bleeding; K31.89 Other diseases of stomach and duodenum; K76.0 Fatty (change of) liver, not elsewhere classified; D89.2 Hypergammaglobulinemia, unspecified; R63.4 Abnormal weight loss; I25.10 Atherosclerotic heart disease of native coronary artery without angina pectoris; I34.2 Nonrheumatic mitral (valve) stenosis; I35.0 Nonrheumatic aortic (valve) stenosis; I10 Essential (primary) hypertension; E78.5 Hyperlipidemia, unspecified; E06.3 Autoimmune thyroiditis; E03.9 Hypothyroidism, unspecified; M81.0 Age-related osteoporosis without current pathological fracture; Z68.21 Body mass index [BMI] 21.0-21.9, adult; Z95.5 Presence of coronary angioplasty implant and graft; Z79.82 Long term (current) use of aspirin; Z79.899 Other long term (current) drug therapy
CPT/HCPCS: 43239; 88305; 88313; 88342; J7120; J2405

== ENCOUNTER → 2022-08-31 | Outpatient (CLI) | payer MEDICARE, OTHER, SELFPAY ==
[2017-04-19 11:37] VITALS: BMI 26.3
[2022-08-31 16:32] LABS: Absolute Lymphocyte Count 1.39 X10^3/uL (0.83-4.51); Absolute Neutrophil Count 3.8 X10^3/uL (2.0-7.7); Basophil# 0.07 X10^3/uL; Basophil% 1.2 % (0-1); Eosinophil# 0.09 X10^3/uL; Eosinophils% 1.5 % (0-5); Hemoglobin 10.7 g/dL (12.0-15.0); Lymphocyte # 1.39 X10^3/ul (0.83-4.51); Mean Corp Hgb Conc 33.4 g/dL (32-36); Mean Corpuscular Hgb 31.8 pg (27.0-32.0); Monocyte# 0.66 X10^3/uL; Monocyte% 10.9 % (0-10); NRBC Flagged by Analyzer 0 % (0-5); Neutrophil # 3.77 X10^3/uL (2.7-7.7); Neutrophil % 62.2 % (47-70); Platelet Count 225 K/mm3 (150-450); RBC Distribution Width CV 15.2 % (11.6-14.6); RBC Distribution Width SD 52.8 fl (35.1-43.9); RET-HE 32.5 pg (30-35); Red Blood Count 3.37 M/mm3 (4.2-5.4); White Blood Count 6.1 K/mm3 (4.4-11.0)
[2022-08-31 16:38] LABS: Erythrocyte Sedimentation Rate 61 mm/hr (0-30)
[2022-08-31 17:00] LABS: ALB/GLOB Ratio 0.3 RATIO (0.9-2.4); AST(SGOT) 139 U/L (15-37); Alanine Aminotransfer ALT/SGPT 69 U/L (13-56); Albumin, Serum 2.6 g/dL (3.2-5.0); Alkaline Phosphatase 526 U/L (45-117); Anion Gap 4 (5-15); BUN 25 mg/dL (7-18); BUN/Creat Ratio 24.5 RATIO (10-20); Calcium,Total 8.4 mg/dL (8.5-10.1); Chloride 104 mmol/L (98-107); Creatinine, Serum 1.02 mg/dL (0.55-1.02); EST Glomerular Filtration Rate 55 mL/min (>60); Est Glom Filt Rate - Afr Amer 67 mL/min (>60); Globulin 7.6 g/dL (2.2-4.2); Glucose 113 mg/dL (74-106); LDH 167 U/L (84-246); Potassium 4.5 mmol/L (3.5-5.1); Protein, Total 10.2 g/dL (6.4-8.2); Sodium Level 134 mmol/L (136-145)
[2022-09-02 16:08] LABS: Albumin 2.8 g/dL (2.9-4.4); Alpha-1-Globulins 0.4 g/dL (0.0-0.4); Alpha-2-Globulins 0.9 g/dL (0.4-1.0); Free Kappa Light Chains 318.8 mg/L (3.3-19.4); Gamma Globulin 4.4 g/dL (0.4-1.8); Immunoglobulin A 299 mg/dL (64-422); Immunoglobulin G 4661 mg/dL (586-1602); Immunoglobulin M 604 mg/dL (26-217); PROEL- TOTAL PROTEIN 9.6 g/dL (6.0-8.5)
== END | disposition home or self-care (01) ==
LOC: LAB 16:02
PROVIDERS: PCP Family Medicine Geriatric Medicine; Visit Provider Internal Medicine Medical Oncology
DX: R94.5 Abnormal results of liver function studies (principal); D89.2 Hypergammaglobulinemia, unspecified
CPT/HCPCS: 36415; 80053; 82784; 83615; 83883; 84165; 85025; 85045; 85652; 86334

== ENCOUNTER → 2022-09-19 | Outpatient (CLI) | payer MEDICARE, OTHER, SELFPAY ==
[2017-04-19 11:37] VITALS: BMI 26.3
--- NOTE | 2022-09-19 08:50 | ECHOD_ITS ---
Reason For Study: MURMUR Procedure This was a 2D Doppler, Color Flow transthoracic echocardiogram. The exam was of adequate technical quality. Exam performed in department. Left Ventricle Normal LV size. Sigmoid septum. Left ventricular systolic function is normal. The estimated ejection fraction is 65 %. Diastolic function is indeterminate. No regional wall motion abnormalities noted. Right Ventricle Normal RV size. Normal systolic function. Atria The left atrium is mildly enlarged. Normal right atrium. No doppler evidence for ASD. Mitral Valve There is mild mitral annular calcification. Extension of the mitral annular calcification onto the base of the posterior mitral valve leaflet. The mitral valve chordae are thickened and/or calcified. Mild-Moderate mitral valve stenosis. Trivial mitral valve insufficiency. Tricuspid Valve Normal tricuspid valve. Trivial tricuspid valve insufficiency. Unable to estimate RV systolic pressure due to insufficient tricuspid regurgitant envelope. Aortic Valve Trisinus/trileaflet aortic valve. Severe focal aortic valve calcification. Moderate to severe calcific aortic valve stenosis. Pulmonic Valve The pulmonic valve is not well visualized. Pericardium/Pleural No pericardial effusion. MMode/2D Measurements & Calculations RVDd: 3.2 cm LVOT diam: 2.0 cm LAV(MOD-sp4): 55.9 ml LVOT area: 3.1 cm2 LVAd ap4: 21.1 cm2 SV(MOD-sp4): 30.3 ml SV(sp4-el): 34.9 ml LVLd ap4: 7.3 cm EDV(MOD-sp4): 47.9 ml EDV(sp4-el): 51.8 ml LVAs ap4: 11.1 cm2 LVLs ap4: 6.2 cm ESV(MOD-sp4): 17.6 ml ESV(sp4-el): 16.9 ml EF(MOD-sp4): 63.3 % EF(sp4-el): 67.4 % LA A4 area: 18.0 cm2 RA A4 area: 9.3 cm2 Time Measurements MV dec time: 0.20 sec Doppler Measurements & Calculations MV E max johnny: 70.7 cm/sec Lat Peak E' Johnny: 8.5 cm/sec Med Peak E' Johnny: 5.0 cm/sec MV A max johnny: 112.4 cm/sec E/E' lat: 8.3 E/E' med: 14.0 MV E/A: 0.63 MV V2 max: 115.5 cm/sec Ao V2 max: 288.1 cm/sec MV max P.3 mmHg MV dec slope: 351.3 cm/sec2 Ao max P.3 mmHg MV V2 mean: 65.2 cm/sec Ao V2 mean: 217.3 cm/sec MV mean P.0 mmHg Ao mean P.0 mmHg MV V2 VTI: 37.5 cm Ao V2 VTI: 62.6 cm AV (velocity ratio): 0.20 MVA(VTI): 1.0 cm2 ITALO(I,D): 0.62 cm2 ITALO(V,D): 0.86 cm2 LV V1 max: 80.7 cm/sec SV(LVOT): 38.6 ml LV V1 max P.6 mmHg LV V1 mean P.6 mmHg LV V1 mean: 58.9 cm/sec LV V1 VTI: 12.6 cm ECHO/Echo Complete Interpretation Summary Left ventricular systolic function is normal. The estimated ejection fraction is 65 %. Sigmoid septum. The left atrium is mildly enlarged. There is mild mitral annular calcification. Extension of the mitral annular calcification onto the base of the posterior mi tral valve leaflet. The mitral valve chordae are thickened and/or calcified. Mild-Moderate mitral valve stenosis. Trivial mitral valve insufficiency. Trivial tricuspid valve insufficiency. Moderate to severe calcific aortic valve stenosis. Unable to estimate RV systolic pressure due to insufficient tricuspid regurgita nt envelope. Diastolic function is indeterminate. Ordering Physician: Lalitha Ruiz Referring Physician: Gokul Sanchez Chi Performed By: Norma Moss RCS
== END | disposition home or self-care (01) ==
LOC: CVS 08:48
PROVIDERS: PCP Family Medicine Geriatric Medicine; Visit Provider Physician Assistant Medical
DX: R01.1 Cardiac murmur, unspecified (principal); I25.10 Atherosclerotic heart disease of native coronary artery without angina pectoris; I35.0 Nonrheumatic aortic (valve) stenosis
CPT/HCPCS: 93306

== ENCOUNTER → 2022-10-20 | Outpatient (CLI) | payer MEDICARE, OTHER, SELFPAY ==
[2017-04-19 11:37] VITALS: BMI 26.3
[2022-10-20 12:33] LABS: Absolute Lymphocyte Count 0.81 X10^3/uL (0.83-4.51); Absolute Neutrophil Count 2.8 X10^3/uL (2.0-7.7); Basophil# 0.04 X10^3/uL; Eosinophil# 0.05 X10^3/uL; Eosinophils% 1.2 % (0-5); Hematocrit 31.5 % (37-47); Hemoglobin 10.2 g/dL (12.0-15.0); Lymphocyte # 0.81 X10^3/ul (0.83-4.51); Lymphocyte % 19.7 % (19-41); Mean Corp Hgb Conc 32.4 g/dL (32-36); Mean Corpuscular Hgb 30.5 pg (27.0-32.0); Mean Corpuscular Volume 94.3 fL (81-99); Mean Platelet Vol. 12.3 fl (6.2-12.0); Monocyte# 0.36 X10^3/uL; Monocyte% 8.8 % (0-10); NRBC Flagged by Analyzer 0 % (0-5); Neutrophil # 2.82 X10^3/uL (2.7-7.7); Neutrophil % 68.6 % (47-70); Platelet Count 151 K/mm3 (150-450); RBC Distribution Width CV 15.9 % (11.6-14.6); RBC Distribution Width SD 55.2 fl (35.1-43.9); Red Blood Count 3.34 M/mm3 (4.2-5.4); White Blood Count 4.1 K/mm3 (4.4-11.0)
[2022-10-20 12:59] LABS: Vitamin D,25 Hydroxy 41.8 ng/mL
[2022-10-20 13:18] LABS: ALB/GLOB Ratio 0.3 RATIO (0.9-2.4); AST(SGOT) 136 U/L (15-37); Alanine Aminotransfer ALT/SGPT 76 U/L (13-56); Albumin, Serum 2.3 g/dL (3.2-5.0); Alkaline Phosphatase 514 U/L (45-117); Anion Gap 6 (5-15); BUN 20 mg/dL (7-18); BUN/Creat Ratio 23.8 RATIO (10-20); Calcium,Total 8.4 mg/dL (8.5-10.1); Chloride 106 mmol/L (98-107); Creatinine, Serum 0.84 mg/dL (0.55-1.02); EST Glomerular Filtration Rate 69 mL/min (>60); Est Glom Filt Rate - Afr Amer 84 mL/min (>60); Globulin 7.7 g/dL (2.2-4.2); Glucose 146 mg/dL (74-106); Potassium 4.1 mmol/L (3.5-5.1); Sodium Level 137 mmol/L (136-145); Thyroid Stim Hormone (TSH) 1.98 uIU/mL (0.358-3.74)
== END | disposition home or self-care (01) ==
LOC: POLAB3 10:41
PROVIDERS: PCP Family Medicine Geriatric Medicine; Visit Provider Family Medicine Geriatric Medicine
DX: E55.9 Vitamin D deficiency, unspecified (principal); E11.9 Type 2 diabetes mellitus without complications; I10 Essential (primary) hypertension
CPT/HCPCS: 36415; 80053; 82306; 84443; 85025

== ENCOUNTER 2022-11-08 08:45 | Day surgery (SDC) | payer MEDICARE, OTHER, SELFPAY ==
[2017-04-19 11:37] VITALS: BMI 26.3
[2022-11-02 09:32] LABS: International Normalized Ratio 1.2
[2022-11-07 08:56] VITALS: BMI 21.6
--- NOTE | 2022-11-07 17:39 | PCM.HP.BLA ---
History and Physical Date of Admission: 11/08/22 [facility] [address] [place], [place] [address] Name:KASSIDY ROMEO : 1940 Age/Sex:? 82/F HPI HPI History of Present Illness Details: Kassidy Chin is an 82-year-old white female who presents today for outpatient cardiovascular follow-up regarding her history of underlying CAD status post PTCA/DACIA (Promus Synergy stent) to the mid LAD in April 2017 superimposed on hyperlipidemia and hypertension.? She also has a history of moderate aortic stenosis. She has lost 30 lbs since last year.? She was evaluated for possible cancer, all her test were negative. She tries to ride her bike twice a day for 30 minutes at a time.? At time of her last visit she stated she had been doing well from a cardiovascular standpoint with no acute cardiovascular symptoms and/or adverse events. However, since the patient's last evaluation she apparently has become concerned of exertional chest discomfort, exertional dyspnea, as well as progressive fatigue. She describes no obvious orthopnea or PND or peripheral pitting edema. There has been no near-syncope or syncope. She had been asked undergo further evaluation of her cardiac anatomy and physiology with a transthoracic echocardiogram. The results are noted below. Intake Vital Signs ? 03/09/2209:36 09/07/2312:57 09/12/2309:03 Height 5 ft 6 in 5 ft 6 in 5 ft 6 in Weight: ? ? 134 lb BMI ? ? 21.6 BP ? ? 108/67 Blood Pressure Location ? ? Lt brachial Position ? ? Sitting Respiration ? ? 18 Pulse ? ? 58 L Pulse Source ? ? Monitor Pulse Oximetry (%) ? ? 96 Intake Visit Reasons:?6 M FU [place] Blower Required: No Is patient in pain?: No Allergies aspartame Allergy (Verified 09/12/22 10:03) Food Allergy Medications aspirin 81 mg chewable tablet 81 mg PO DAILY@0800 10/23/13 [History Confirmed 09/12/22] alendronate 70 mg tablet 70 mg PO HAYES OSTEOPOROSIS 04/18/17 [History Confirmed 09/12/22] calcium carbonate 500 mg calcium (1,250 mg) tablet (Calcium 500) 500 mg PO DAILY PRN SUPPLEMENT 06/28/19 [History Confirmed 09/12/22] ferrous gluconate 236 mg (27 mg iron) tablet 236 mg PO TUTH 11/11/20 [History Confirmed 09/12/22] levothyroxine 50 mcg tablet 50 mcg PO DAILY 11/11/20 [History Confirmed 09/12/22] multivitamin 1 tab PO QWEEK 11/11/20 [History Confirmed 09/12/22] omega-3 fatty acids 1,000 mg capsule (Fish Oil Concentrate) 1,000 mg PO DAILY 11/11/20 [History Confirmed 09/12/22] metoprolol tartrate 25 mg tablet 25 mg PO DAILY BP #90 tabs 01/18/22 [Rx Confirmed 09/12/22] losartan 50 mg tablet 100 mg PO QHS BP 08/02/22 [History Confirmed 09/12/22] omeprazole 20 mg capsule,delayed release 20 mg PO DAILY #90 caps 08/30/22 [Rx Confirmed 09/12/22] PFSH Medical History? Atherosclerotic heart disease of [place] coronary artery without angina pectoris Basal cell carcinoma (BCC) Cardiology follow-up encounter Chest pain on exertion Essential hypertension Gall stones Yari's thyroiditis Hepatic fibrosis History of echocardiogram History of stress test HLD (hyperlipidemia) Liver mass Low iron Non-alcoholic fatty liver disease Non-rheumatic mitral valve stenosis Non-smoker Nonrheumatic aortic (valve) stenosis Osteoporosis Retroperitoneal lymphadenopathy Thyroid disease Wears contact lenses Wears dentures Wears glasses Surgical History? History of cardiac catheterization History of partial thyroidectomy (~1970) History of total hysterectomy Postsurgical percutaneous transluminal coronary angioplasty (PTCA) status (~04/19/17) Presence of stent in coronary artery (~04/19/17) Family History? Mother?? ,? Age 34 Hypertension Heart diseaseBrother Cancer ?? ? lung ?? ?Father Cancer ?? ? tongue Social History? Smoking Status:? Never smoker alcohol intake:? never substance use type:? does not use caffeine:? No ROS Const Const: Negative for fatigue, weakness, headache(s), frequent falls, excessive sweating, weight gain or weight loss Eyes Eyes: Negative for blind spots, loss of peripheral vision, transient loss of vision, blurry vision, change in vision or double vision ENT ENT: Negative for headache(s), dizziness, tinnitus, Nosebleed/epistaxis or balance problems Cardio Chest Pain: No Palpitations: No Edema: None Muscle aches with walking: None Resp Respiratory: Negative for SOB with activity, SOB at rest, SOB orthopnea\SOB lying down or Cough GI GI: Negative nausea, vomiting, heartburn, bloating, vomiting blood/hematemesis, bright, red blood in stools or black,tarry stools : Negative for hematuria Musc Musc: Negative for muscle aches/ myalgia, muscle weakness, joint pain or balance problems Skin Skin: Negative rash or wounds Neuro Neuro: Negative for dizziness, lightheadedness, near syncope, syncope, orthostatic symptoms, frequent falls, headache(s), weakness, confusion, memory loss, restless legs, blurry vision or double vision [place] Hematologic/Lymphatic: Negative for easy bleeding or easy bruising Endo Endo: Negative for fatigue, cold intolerance, heat intolerance or excessive sweating Psych Psych: Negative for anxiety or depression Allergy Allergy/Immunology: Negative for rash Cardiology Exam Const Appearance: cooperative, healthy appearing, comfortable, no acute distress, well developed and well groomed Nutritional Appearance: overweight Orientation: alert, awake and oriented x3 Head Head: normal to inspection, normocephalic and atraumatic Ears: hearing grossly normal bilaterally Nose: external nose normal Face and Sinus: face symmetric Eyes Eyelids: eyelids normal Conjunctivae: conjunctivae normal Pupils: PERRL EOM: EOM intact bilaterally Neck Neck: normal visual inspection and full ROM Carotids: normal carotid upstroke Chest Chest inspection: normal inspection of the chest, symmetric chest movement and normal respiratory effort Auscultation: Bilateral: Clear to Auscultation Cardio Palpation: normal PMI Rate: regular rate Rhythm: regular rhythm Heart sounds: S1 normal, S2 normal and murmur Murmur: Grade 2/6, soft, mid systolic, LLSB, LVOT and sternal notch GI GI: normal to inspection, soft, bowel sounds present and abdominal bruit Neuro General: patient alert, patient awake, patient oriented x3 and moves all extremities Skin Skin: no rashes or lesions noted Extremities Pulses: Normal: Right Radial Pulse and Left Radial Pulse Lower Extremity Edema: None: Bilateral Psych Psychological: normal affect Supplemental Info Supplemental Information Echocardiogram 03/30/2022: Left ventricular systolic function is normal. The estimated ejection fraction is 65 %. There is mild mitral annular calcification. Extension of the mitral annular calcification on base of the posterior mitral valve leaflet. Mild mitral valve stenosis. Trivial mitral valve insufficiency. Trivial tricuspid valve insufficiency. Moderate aortic stenosis. Trivial pulmonic valve insufficiency. Borderline enlarged aortic root. Calcified aortic root. Unable to estimate RV systolic pressure due to insufficient tricuspid regurgitant envelope. No evidence for diastolic dysfunction. Echocardiogram: 12-01-2020 Interpretation Summary The study was technically difficult. Contrast injection was performed. ? Left ventricular systolic function is normal. The estimated ejection fraction is 65 %. There is mild mitral annular calcification. Mild diffuse mitral valve thickening. Mild mitral valve stenosis. Trivial mitral valve insufficiency. Trivial tricuspid valve insufficiency. Moderate aortic stenosis. Mildly dilated aortic root. Unable to estimate RV systolic pressure/pulmonary artery pressure due to technically difficult study. No evidence for diastolic dysfunction. ? Exercise stress test from May 2017 was a technically adequate exercise tolerance test with peak excess ECG with continued right IVCD pattern with no obvious ECG changes, rare PVC during exercise, and decreased functional capacity. Stress echo: 06/07/2018 Interpretation Summary The estimated ejection fraction is 65 %. Normal, adequate, treadmill echocardiogram. Negative for ischemia by EKG and echocardiographic criteria. Patient had baseline 5 out of 10 chest pain prior to testing, which did not worsen during the test. Rare PVCs and ventricular couplets during exercise. Poor exercise capacity for age. Decreased sensitivity due to poor echo windows requiring Definity agent. Recommend clinical correlation or alternative mode of testing if coronary ischemia is strongly suspected. Test terminated due to dyspnea. Final LVEF is 75%. Heart catheterization from June 2018 LV ejection fraction of 65%, normal LV wall motion, LVEDP of 16 mmHg, left main with mild calcification and 10-25% stenosis, proximal LAD with moderate calcification and 25% stenosis with previous placed stent as patent, diagonal 1 with 75% stenosis (small caliber/tortuous vessel), LCx with mild luminal irregularities, ostial RCA as occluded, proximal RCA with moderate calcification, distal RCA filling from left to right collateral flow, mild to moderate aortic valve calcification, mild mitral valve annular calcification, and aortic root as angiographically normal. PCI: 04-19-2017 Mid LAD: DACIA: 3.0x16 Promus Synergy stent Aortoiliac ultrasound: 12-01-2020 Interpretation Summary No aortoiliac stenosis or aneurysm. ? Labs: ?? ? LDL Cholesterol 53 mg/dL (0-130) ?? ? HDL Cholesterol 25 mg/dL (40-) L ?? ? Triglycerides 120 mg/dL (-199) ?? ? VLDL Cholesterol 24 mg/dL (5-40) Diagnostics: ?? ? Electrocardiogram ? Echocardiogram ? Stress Echocardiogram ? Stress Test NM ? Stress Test ? Cardiac Catheterization ? Abdomen US ? Chest X-Ray ? Pulmonary: ?? ? No Data to Display Assessment and Plan Assessment and Plan (1) Atherosclerotic heart disease of [place] coronary artery without angina pectoris: ?Status:?Chronic ?Qualifiers: ?[place] vs. transplanted heart:?[place] heart? Qualified Code(s):?I25.10 - Atherosclerotic heart disease of [place] coronary artery without angina pectoris ?Comment: PTCA/DACIA to mid LAD w/FFR guidance 04/19/17 ?Plan: Based upon her concerns/symptoms there would be concern of possible progression of underlying CAD. She will continue with her aspirin, losartan and metoprolol.? She is also on a high dose of statin.? This is managed by primary care doctor. She will proceed with additional noninvasive and invasive studies as deemed appropriate. (2) Presence of stent in coronary artery: ?Status:?Chronic ?Comment: PTCA/DACIA to mid LAD w/FFR guidance 04/19/17 (3) Nonrheumatic aortic (valve) stenosis: ?Status:?Acute ?Plan: Patient does have moderate aortic stenosis.? Will repeat this prior to her next OV to evaluate stability. (4) Non-rheumatic mitral valve stenosis: ?Status:?Acute (5) HLD (hyperlipidemia): ?Status:?Chronic ?Qualifiers: ?Hyperlipidemia type:?unspecified? Qualified Code(s):?E78.5 - Hyperlipidemia, unspecified ?Plan: This is managed by primary care doctor.? She will continue with high high intensity statin. (6) Essential hypertension: ?Status:?Chronic ?Plan: Controlled on current medications will not make any adjustments. ? ? ? Orders: Orders Echo Complete 05/05/23 I25.10 - Atherosclerotic heart disease of [place] coronary artery without angina pectoris, I35.0 - Nonrheumatic aortic (valve) stenosis ? Plan Details Additional Comments: Thank you for allowing me to participate in the care of your patient.? Please don't hesitate to call if any issues arise. This note was generated using a voice recognition system and there may be incorrect words, spelling or punctuation that were not noted when reviewing the office note prior to saving. Follow Up: ? ? 09/12/22 (Keep as is) Coding Level of Care Code Off vis,est,level 3 Diagnoses Atherosclerotic heart disease of [place] coronary artery without angina pectoris? I25.10 ? ? ? [place] vs. transplanted heart: [place] heart Presence of stent in coronary artery? Z95.5 Nonrheumatic aortic (valve) stenosis? I35.0 Non-rheumatic mitral valve stenosis? I34.2 HLD (hyperlipidemia)? E78.5 ? ? ? Hyperlipidemia type: unspecified Essential hypertension? I10 Coding Level of Care Code Off vis,est,level 3 Diagnoses Atherosclerotic heart disease of [place] coronary artery without angina pectoris? I25.10 ? ? ? [place] vs. transplanted heart: [place] heart Presence of stent in coronary artery? Z95.5 Nonrheumatic aortic (valve) stenosis? I35.0 Non-rheumatic mitral valve stenosis? I34.2 HLD (hyperlipidemia)? E78.5 ? ? ? Hyperlipidemia type: unspecified Essential hypertension? I10 cc: Gokul Sanchez MD ~ Assessment & Plan Addt'l Comments Addendum: 11-08-2022 I have examined the patient the following changes are noted: The patient has undergone further evaluation with a transthoracic echocardiogram. This was performed on 09-19-2022. The results are noted below. Reason For Study: MURMUR Procedure This was a 2D Doppler, Color Flow transthoracic echocardiogram. The exam was of adequate technical quality. Exam performed in department. Left Ventricle Normal LV size. Sigmoid septum. Left ventricular systolic function is normal. The estimated ejection fraction is 65 %. Diastolic function is indeterminate. No regional wall motion abnormalities noted. Right Ventricle Normal RV size. Normal systolic function. Atria The left atrium is mildly enlarged. Normal right atrium. No doppler evidence for ASD. Mitral Valve There is mild mitral annular calcification. Extension of the mitral annular calcification onto the base of the posterior mitral valve leaflet. The mitral valve chordae are thickened and/or calcified. Mild-Moderate mitral valve stenosis. Trivial mitral valve insufficiency. Tricuspid Valve Normal tricuspid valve. Trivial tricuspid valve insufficiency. Unable to estimate RV systolic pressure due to insufficient tricuspid regurgitant envelope. Aortic Valve Trisinus/trileaflet aortic valve. Severe focal aortic valve calcification. Moderate to severe calcific aortic valve stenosis. Pulmonic Valve The pulmonic valve is not well visualized. Pericardium/Pleural No pericardial effusion. MMode/2D Measurements & Calculations RVDd: 3.2 cm? LVOT diam: 2.0 cm ? LAV(MOD-sp4): 55.9 ml ? LVOT area: 3.1 cm2 ? LVAd ap4: 21.1 cm2? SV(MOD-sp4): 30.3 ml? SV(sp4-el): 34.9 ml LVLd ap4: 7.3 cm EDV(MOD-sp4): 47.9 ml EDV(sp4-el): 51.8 ml LVAs ap4: 11.1 cm2 LVLs ap4: 6.2 cm ESV(MOD-sp4): 17.6 ml ESV(sp4-el): 16.9 ml EF(MOD-sp4): 63.3 % EF(sp4-el): 67.4 % ? LA A4 area: 18.0 cm2? RA A4 area: 9.3 cm2 Time Measurements MV dec time: 0.20 sec Doppler Measurements & Calculations MV E max johnny: 70.7 cm/sec? Lat Peak E' Johnny: 8.5 cm/sec? ? ? Med Peak E' Johnny: 5.0 cm/sec MV A max johnny: 112.4 cm/sec ? ? ? E/E' lat: 8.3? E/E' med: 14.0 MV E/A: 0.63 ? MV V2 max: 115.5 cm/sec ? Ao V2 max: 288.1 cm/sec MV max P.3 mmHg? MV dec slope: 351.3 cm/sec2? ? ? Ao max P.3 mmHg MV V2 mean: 65.2 cm/sec ? Ao V2 mean: 217.3 cm/sec MV mean P.0 mmHg? Ao mean P.0 mmHg MV V2 VTI: 37.5 cm? Ao V2 VTI: 62.6 cm ? AV (velocity ratio): 0.20 MVA(VTI): 1.0 cm2 ? ITALO(I,D): 0.62 cm2 ? ITALO(V,D): 0.86 cm2 ? LV V1 max: 80.7 cm/sec ? SV(LVOT): 38.6 ml LV V1 max P.6 mmHg LV V1 mean P.6 mmHg LV V1 mean: 58.9 cm/sec LV V1 VTI: 12.6 cm ECHO/Echo Complete Interpretation Summary Left ventricular systolic function is normal. The estimated ejection fraction is 65 %. Sigmoid septum. The left atrium is mildly enlarged. There is mild mitral annular calcification. Extension of the mitral annular calcification onto the base of the posterior mitral valve leaflet. The mitral valve chordae are thickened and/or calcified. Mild-Moderate mitral valve stenosis. Trivial mitral valve insufficiency. Trivial tricuspid valve insufficiency. Moderate to severe calcific aortic valve stenosis. Unable to estimate RV systolic pressure due to insufficient tricuspid regurgitant envelope. Diastolic function is indeterminate. Based upon the patient's clinical course and concerns and the results of her transthoracic echocardiogram it was recommended the patient be considered for further evaluation with diagnostic cardiac catheterization. The procedure and risk were discussed with the patient. She was agreeable to this approach. This note was generated using a voice recognition system and there may be incorrect words, spelling or punctuation that were not noted when reviewing the office note prior to saving.
--- NOTE | 2022-11-08 09:00 | RAD_ITS ---
STUDY: X-RAY CHEST REASON FOR EXAM: Female, 82 years old. Chest pain. Precatheterization. TECHNIQUE: Frontal and lateral views of the chest. COMPARISON: June 2018. FINDINGS: Stable hyperinflation. There is no demonstrated pleural abnormality. Normal size heart. Normal mediastinum and raul. Normal visualized pulmonary arteries. Aortic tortuosity with calcification Diffuse moderate thoracic spondylosis with increased kyphosis Normal visualized ribs, clavicles, and shoulders. There is no demonstrated abnormality of the visualized soft tissue structures of the upper abdomen. RAD/Chest PA and Lateral IMPRESSION: Stable cardiomegaly with hyperinflation and no acute or active cardiopulmonary disease. Electronically Signed: Bharathi Abdul, at 9:37 EST ,
[2022-11-08 10:26] LABS: Base Excess -2 mmol/L (-2 to +2); Blood Gas Specimen Type ART; PO2 69 mmHG (75-100); SO2 94 % (95-99); Total Carbon Dioxide 24 mmol/L; pCO2 35.7 mmHg (35-45); pH 7.42 (7.35-7.45)
[2022-11-08 10:45] LABS: Blood Gas Specimen Type VEN; VBG BASE EXCESS -1 mmol/L (-1.0-3.5); VBG Bicarbonate 24 mmol/L (22-26); VBG PO2 37 mmHg (25-40); VBG SO2 69 % (50-70); VBG TCO2 26 mmol/L (23-33); VBG pCO2 41.1 mmHg (41-51); VBG pH 7.38 (7.32-7.42)
[2022-11-08 10:45] LABS: Blood Gas Specimen Type VEN; VBG BASE EXCESS -1 mmol/L (-1.0-3.5); VBG Bicarbonate 24 mmol/L (22-26); VBG PO2 35 mmHg (25-40); VBG SO2 65 % (50-70); VBG TCO2 25 mmol/L (23-33); VBG pCO2 40.8 mmHg (41-51); VBG pH 7.38 (7.32-7.42)
[2022-11-08 10:56] LABS: Blood Gas Specimen Type VEN; VBG BASE EXCESS -1 mmol/L (-1.0-3.5); VBG Bicarbonate 24 mmol/L (22-26); VBG PO2 37 mmHg (25-40); VBG SO2 68 % (50-70); VBG TCO2 26 mmol/L (23-33); VBG pCO2 42.3 mmHg (41-51); VBG pH 7.37 (7.32-7.42)
--- NOTE | 2022-11-08 11:47 | CL.D_ITS ---
Patient Name: ROEL WILLINGHAM Study Date: 11/08/2022 Performing: Gera Leach MD Ht: 66 inches 167.64 cm : 1940 Wt: 134 lbs 60.78 kg Age: 82 Gender: female BSA: 1.69 PROCEDURE(S) PERFORMED [id number])RHC/LHC/COR CLINICAL PROFILE AND INDICATIONS Indications: Suspected CAD, Valvular Disease Heart Failure: None Stress/Imaging Stress/Image Study Performed: No Angina Classification Anginal Classification w/in 2 Weeks: Anginal Equivalent Dyspnea CAD Presentations: Other: chest pain; dyspnea on exertion; fatigue CONCLUSIONS Right heart pressures - Normal Intracardiac shunting: None Normal Left Ventricular End Diastolic Pressure [place] Multivessel CAD LAD: stent: patent Aortic Valve Calcification- Moderate - Severe Aortic Valve Stenosis- Moderate Aortic Root Calcified RECOMMENDATIONS Risk factor modification Medical therapy Surgery consult for coronary revascularization Surgery consult for valvular disease DESCRIPTION OF PROCEDURE The patient arrived to the procedure lab. The risks and benefits of the procedure as well as a full description of our services here and current unavailability of surgical backup were fully explained to the patient and/or their significant other prior to the catheterization. The Timeout was completed, verifying the correct patient and procedure. The patient's procedural site was prepped and draped in the usual fashion. Local anesthetic was given subcutaneously to right brachial region with Lidocaine 2%. Using a modified Seldinger technique, arterial access was obtained via the right radial artery, a 6Fr sheath was inserted. Venous access was obtained via the right brachiocephalic vein, a 7Fr sheath was inserted. A 7Fr thermal dilution catheter was inserted and right heart pressures were recorded, it was then advanced to PA position for cardiac outputs. Thermal dilution cardiac outputs were then recorded. O2 saturations were then obtained. LV to AO pullback pressures were then recorded. The Thermal dilution catheter was then removed. Left Coronary Artery selective angiography was performed in multiple views using a 5 Fr. 4.0 Sharon catheter. DATE PITTER Right Coronary Artery selective angiography was then performed in multiple views using a 6 Fr. JR 4 catheter.The arterial sheath was pulled and a TR Band was applied for hemostasis. The venous sheath was then pulled and manual compression applied until hemostasis achieved CORONARY ANGIOGRAPHY DOMINANCE: Right Dominant LEFT HEART ASSESSMENT Left Ventricular Ejection Fraction: Not assessed Normal Left Ventricular End Diastolic Pressure LVEDP: 9 mmHg RIGHT HEART ASSESSMENT Thermal CO: 4 Thermal CI: 2.37 PW: 9/7 5 PA: 19/6 12 RV: 20/0 4 RA: 5/5 3 PVR: 140 SVR: 1460 Aortic Valve Area: 0.92 Aortic Valve Index: 0.55 Aortic Valve Mean Gradient: [id number] Right Heart pressures - normal Intracardiac shunting: None LEFT MAIN: Moderate calcification, Mild luminal irregularities, distal: eccentric: 25 % Stenosis LEFT ANTERIOR DESCENDING ARTERY: PROX LAD: Previously placed stent is patent with mild luminal irregularities MID LAD: Mild luminal irregularities CIRCUMFLEX ARTERY: Mild luminal irregularities less than 30% RIGHT CORONARY ARTERY: Severe calcification mid to distal RCA: filling from left to right collateral flow OSTIAL RCA: is occluded PROX RCA: fills faintling from bridging collaterals DISTAL RCA: filling from left to right collateral flow VALVE FINDINGS: Aortic Valve Calcification - moderate - severe Aortic Valve Stenosis - moderate AORTIC ROOT: Calcified COMPLICATIONS No Complications PROCEDURE MEDICATIONS Versed 1 mg IV Fentanyl 50 mcg IV SUMMARY OF HEMODYNAMIC DATA Time AIR REST ECG 09:37:32 RA 5/5 (3) SV 10:37:32 RV 20/0, 4 10:38:01 PW 9/7 (5) PV 10:38:23 PA 19/6 (12) PA 10:38:41 LV 116/-1, 7 10:46:51 PW 14/10 (6) 10:46:51 LV 117/1, 9 10:46:58 PW 8/6 (6) 10:46:58 LVp 114/1, 8 10:47:55 AOp 105/18 (68) 10:48:00 PA 18/6 (11) 10:49:00 RV 20/1, 5 10:49:12 RA 7/6 (4) 10:49:27 AO 104/53 (76) SA 10:52:43 Valve Area (c P-P/ms Time AIR REST Aortic 0.92 17.8 mn/322 ms 9.0 pk/322 ms 10:47:55 Type SV CO (l/m) CI (l/m/ HR Time AIR REST Thermal 42.10 4.00 2.37 95 09:37:32 Label % O2 Pres/Loc Time AIR REST PA 65 PA 10:54:24 AO 93 PV 10:54:37 SVC 67 10:54:56 RA 68 SV 10:55:05 Signed By Gera Leach MD On 11/08/2022 11:46:28 Gera Leach MD
== END 2022-11-08 14:00 | disposition home or self-care (01) ==
LOC: CLSP 08:46
PROVIDERS: Physician Assistant Medical; PCP Family Medicine Geriatric Medicine; Referring Provider Internal Medicine Cardiovascular Disease; Visit Provider Internal Medicine Cardiovascular Disease
DX: I25.118 Atherosclerotic heart disease of native coronary artery with other forms of angina pectoris (principal); R53.83 Other fatigue; R06.09 Other forms of dyspnea; I35.0 Nonrheumatic aortic (valve) stenosis; I10 Essential (primary) hypertension; K76.0 Fatty (change of) liver, not elsewhere classified; Z95.5 Presence of coronary angioplasty implant and graft; Z79.82 Long term (current) use of aspirin; Z79.899 Other long term (current) drug therapy
CPT/HCPCS: 36415; 71046; 82803; 85610; 93005; 93456; 99152; 99153; J7040; C1751; C1769; C1887; C1894; Q9967

== ENCOUNTER → 2023-01-05 | Outpatient (CLI) | payer MEDICARE, OTHER, SELFPAY ==
[2017-04-19 11:37] VITALS: BMI 26.3
--- NOTE | 2023-01-05 15:20 | RAD_ITS ---
STUDY: X-RAY - LEFT KNEE REASON FOR EXAM: Female, 82 years old. PAIN TECHNIQUE: 3 view(s) of the knee. COMPARISON: None. FINDINGS: Normal visualized distal femur. Normal visualized proximal tibia and fibula. Normal proximal tibiofibular articulation. Narrowed medial femorotibial compartment. Normal lateral femorotibial compartment. Normal patellofemoral articulation. The soft tissue structures are unremarkable. RAD/Knee 3 Views IMPRESSION: Mild degenerative changes. No acute fracture or other significant bony pathology. Electronically Signed: Adrian Liao MD at 22:32 EDT ,
--- NOTE | 2023-01-05 15:20 | RAD_ITS ---
STUDY: X-RAY - RIGHT KNEE REASON FOR EXAM: Female, 82 years old. PAIN TECHNIQUE: 3 view(s) of the knee. COMPARISON: None. FINDINGS: Normal visualized distal femur. Normal visualized proximal tibia and fibula. Normal proximal tibiofibular articulation. Severely narrowed medial femorotibial compartment. Valgus deformity Normal lateral femorotibial compartment. Narrowed patellofemoral articulation. The soft tissue structures are unremarkable. RAD/Knee 3 Views IMPRESSION: Moderate to advanced osteoarthritic changes Electronically Signed: Adrian Liao MD at 22:33 EDT ,
[2023-01-05 16:36] LABS: Absolute Lymphocyte Count 1.24 X10^3/uL (0.83-4.51); Absolute Neutrophil Count 3.5 X10^3/uL (2.0-7.7); Basophil# 0.02 X10^3/uL; Basophil% 0.4 % (0-1); Eosinophil# 0.05 X10^3/uL; Eosinophils% 0.9 % (0-5); Hematocrit 34.5 % (37-47); Hemoglobin 10.7 g/dL (12.0-15.0); Lymphocyte # 1.24 X10^3/ul (0.83-4.51); Lymphocyte % 23.2 % (19-41); Mean Corpuscular Hgb 27.9 pg (27.0-32.0); Mean Corpuscular Volume 90.1 fL (81-99); Mean Platelet Vol. 12.1 fl (6.2-12.0); Monocyte# 0.48 X10^3/uL; NRBC Flagged by Analyzer 0 % (0-5); Neutrophil # 3.53 X10^3/uL (2.7-7.7); Neutrophil % 66.1 % (47-70); Platelet Count 201 K/mm3 (150-450); RBC Distribution Width CV 17.4 % (11.6-14.6); RBC Distribution Width SD 57.4 fl (35.1-43.9); Red Blood Count 3.83 M/mm3 (4.2-5.4); White Blood Count 5.3 K/mm3 (4.4-11.0)
[2023-01-05 16:50] LABS: Erythrocyte Sedimentation Rate 74 mm/hr (0-30)
[2023-01-05 18:00] LABS: ALB/GLOB Ratio 0.3 RATIO (0.9-2.4); AST(SGOT) 87 U/L (15-37); Alanine Aminotransfer ALT/SGPT 35 U/L (13-56); Albumin, Serum 2.3 g/dL (3.2-5.0); Alkaline Phosphatase 312 U/L (45-117); Anion Gap 6 (5-15); BUN 18 mg/dL (7-18); BUN/Creat Ratio 18.8 RATIO (10-20); Calcium,Total 8.5 mg/dL (8.5-10.1); Chloride 105 mmol/L (98-107); Creatinine, Serum 0.96 mg/dL (0.55-1.02); EST Glomerular Filtration Rate 60 mL/min (>60); Est Glom Filt Rate - Afr Amer 72 mL/min (>60); Glucose 130 mg/dL (74-106); Potassium 4.2 mmol/L (3.5-5.1); Protein, Total 10.3 g/dL (6.4-8.2); Sodium Level 136 mmol/L (136-145)
[2023-01-09 13:08] LABS: ANTINUCLEAR ANTIBODIES DIRECT Positive (Negative)
== END | disposition home or self-care (01) ==
LOC: RAD 15:17
PROVIDERS: PCP Family Medicine Geriatric Medicine; Referring Provider Family Medicine Geriatric Medicine; Visit Provider Family Medicine Geriatric Medicine
DX: M17.0 Bilateral primary osteoarthritis of knee (principal); R22.0 Localized swelling, mass and lump, head
CPT/HCPCS: 36415; 73562; 80053; 85025; 85652; 86038; 86140; 86431

== ENCOUNTER → 2023-01-09 | Outpatient (CLI) | payer MEDICARE, OTHER, SELFPAY ==
[2017-04-19 11:37] VITALS: BMI 26.3
[2023-01-09 14:49] LABS: Probe Check PASS; Specimen Processing Control PASS
== END | disposition home or self-care (01) ==
LOC: PSN 08:10
PROVIDERS: PCP Family Medicine Geriatric Medicine; Referring Provider Family Medicine Geriatric Medicine; Visit Provider Family Medicine Geriatric Medicine
DX: R68.83 Chills (without fever) (principal)
CPT/HCPCS: 87635; 87804; 87807; C9803; U0003; U0005

== ENCOUNTER → 2023-01-10 | Outpatient (CLI) | payer MEDICARE, OTHER, SELFPAY ==
[2017-04-19 11:37] VITALS: BMI 26.3
[2023-01-12 15:09] LABS: PROEL- A/G Ratio 0.4 (0.7-1.7); PROEL- Albumin 2.6 g/dL (2.9-4.4); PROEL- Alpha-1 Globulin 0.4 g/dL (0.0-0.4); PROEL- Alpha-2 Globulin 0.9 g/dL (0.4-1.0); PROEL- Beta Globulin 1.1 g/dL (0.7-1.3); PROEL- Gamma Globulin 4.3 g/dL (0.4-1.8); PROEL- Globulin, Total 6.8 g/dL (2.2-3.9); PROEL- TOTAL PROTEIN 9.4 g/dL (6.0-8.5)
== END | disposition home or self-care (01) ==
PROVIDERS: PCP Family Medicine Geriatric Medicine; Visit Provider Family Medicine Geriatric Medicine
DX: Z01.89 Encounter for other specified special examinations (principal); E87.1 Hypo-osmolality and hyponatremia
CPT/HCPCS: 36415; 84165

== ENCOUNTER → 2023-01-12 | Outpatient (CLI) | payer MEDICARE, OTHER, SELFPAY ==
[2017-04-19 11:37] VITALS: BMI 26.3
[2023-01-12 10:22] LABS: International Normalized Ratio 1.2; Prothrombin Time (Protime)PT. 15.2 SECONDS (11.7-14.9)
[2023-01-12 10:47] LABS: GGTP 339 U/L (5-55); LDH 206 U/L (84-246)
[2023-01-13 14:09] LABS: Anti-Mitochondrial AB <20.0 Units (0.0-20.0); Anti-Smooth Muscle ABS 182 Units (0-19); IgG, Quant 3758 mg/dL (586-1602); Immunoglobulin G, Subclass 1 2863 mg/dL (248-810); Immunoglobulin G, Subclass 2 82 mg/dL (130-555); Immunoglobulin G, Subclass 3 159 mg/dL (15-102); Immunoglobulin G, Subclass 4 19 mg/dL (2-96)
== END | disposition home or self-care (01) ==
PROVIDERS: PCP Family Medicine Geriatric Medicine; Visit Provider Nurse Practitioner Adult Health
DX: K74.00 Hepatic fibrosis, unspecified (principal); E78.5 Hyperlipidemia, unspecified; I35.0 Nonrheumatic aortic (valve) stenosis
CPT/HCPCS: 36415; 82784; 82787; 82977; 83516; 83615; 85610

== ENCOUNTER → 2023-02-13 | Outpatient (CLI) | payer MEDICARE, OTHER, SELFPAY ==
[2017-04-19 11:37] VITALS: BMI 26.3
[2023-02-13] VITALS (11 sets, daily range): BP systolic 96–137; BP diastolic 60–91; PULSE 71–85; RESP 10–21; TEMP 36.2; O2SAT 94–100; BMI 21.4
--- NOTE | 2023-02-13 | LIVB_PTH ---
PATIENT: ROEL WILLINGHAM LOC: [place] U#:[id number] AGE/SX: 82/F ROOM: RE02/13/[address]: EMILIA Thompson : 1940 BED: DIS: 02/13/2023 SPEC #: [id number] RECD: 02/13/23 10:30 STATUS: KAL REJohnnie #: [id number] FLAVIO: 02/13/23 00:[address]: Kathia Rainey NP DEPT: SURGICAL PATHOLOGY RECD BY: Brigido Lu ENTERED: 02/13/23 12:04 SP TYPE: LIVER BX OTHR DR: Dr. Gokul Sanchez MD Tissues: Liver, NOS Procedures: PAS with Diastase (control) Trichrome (control) Special Stain Group II PAS Stain (control) Surgery Specimen Level V Retic (control) Iron Stain (control) HEADER OPERATION: Liver biopsy PRE-OP DIAGNOSIS: Liver fibrosis TISSUE SUBMITTED: Liver 18-gauge x3 MICROSCOPIC DIAGNOSIS Liver, core biopsy: Consistent with cirrhosis. See microscopic description and comment. SJ:deandra 02/14/2023 COMMENT Correlation with clinical, radiologic, laboratory findings and appropriate follow up are necessary. MICROSCOPIC DESCRIPTION Slides are reviewed. The specimen shows liver parenchymal tissue with distortion of normal lobular architecture into multiple nodules divided by fibrous septae. Hepatocytes in the nodules show reactive changes. Significant fatty changes are not seen. Mild chronic inflammation is noted in the nodules. Fibrous septae shows moderate to marked chronic inflammatory cell infiltrate consisting of lymphocytes and plasma cells. Interface inflammation is also noted. Reticulin and trichrome stains highlight the fibrous septae in between the hepatocyte nodules. Iron stain shows absent iron. PAS stain with and without diastase do not show any abnormal accumulation of protein. All stains are performed with appropriate matched controls. GROSS DESCRIPTION Received is one container labeled with the patient's name and not further designated. The specimen consists of multiple elongated fragments of yuen soft tissue that in aggregate measure 1.0 x 0.5 x 0.1 cm. The specimen is totally submitted in one cassette. / ANNALISA:deandra 02/13/2023 TC:5 CPT: 14574, 04663 x5
--- NOTE | 2023-02-13 08:58 | CT_ITS ---
PROCEDURE: CT DIRECTED CORE LIVER BIOPSY INDICATION: Female, 82 years old. Liver Fibrosis PHYSICIAN: Dr. Kinga Angulo CONSENT: Written informed consent was obtained having explained the risks, benefits and alternatives in detail with the patient who accepted the risks and agreed to proceed. Laboratory review and clinical assessment was performed. CONSCIOUS SEDATION PROTOCOL: The Drugs used were: 2 mg Versed, IV., and 50 mcg Fentanyl, IV. The sedation time was: 18 minutes. Conscious sedation was started at 10:03 AM and terminated at 10:21 AM. The conscious sedation protocol was independently monitored. RADIATION DOSAGE (If Supplied By Facility): CTDIvol = ( 15.5 ) mGy, DLP = ( 240.64 ) mGycm Individualized dose optimization techniques were used for this CT. TECHNIQUE: Using CT image guidance with image documentation, a suitable location in the left lobe of the liver was identified. Using an anterior approach, puncture of the liver was uneventful with an 18-gauge core needle system. 3, 18-gauge core samples were obtained, and submitted in formalin to the pathologist for further assessment. Followup CT scan revealed no distinct sequelae. CT/Biopsy/Inj or Needle Placement IMPRESSION: 1. CT directed core needle biopsy of the liver, using CT image guidance with image documentation as described. 2. Conscious Sedation protocol utilized with independent monitoring. Electronically Signed: Asher Donato MD at 11:04 EDT ,
[2023-02-13 09:08] LABS: Platelet Count 137 K/mm3 (150-450)
[2023-02-13 09:15] LABS: Partial Thromboplast Time 31.2 Seconds (24.1-36.2)
[2023-02-13 09:20] LABS: International Normalized Ratio 1.2; Prothrombin Time (Protime)PT. 15.1 SECONDS (11.7-14.9)
[2023-02-13] MEDS: Midazolam 2 MG/2 ML Syringe IV ×2 (10:03→10:15)
[2023-02-13] MEDS: fentaNYL 100 MCG/2 ML Ampul IV ×2 (10:05→10:17)
[2023-02-13] MEDS: Lidocaine 2% (20 ml mdv) 20 ML Vial INFILT (10:15)
== END | disposition home or self-care (01) ==
PROVIDERS: PCP Family Medicine Geriatric Medicine; Referring Provider Nurse Practitioner Adult Health; Visit Provider Nurse Practitioner Adult Health
DX: Z01.818 Encounter for other preprocedural examination (principal); K74.60 Unspecified cirrhosis of liver; K74.00 Hepatic fibrosis, unspecified
CPT/HCPCS: 47000; 36415; 77012; 85049; 85610; 85730; 88307; 88313; 99156; J7050; A4216

== ENCOUNTER → 2023-03-28 | Outpatient (CLI) | payer MEDICARE, OTHER, SELFPAY ==
[2017-04-19 11:37] VITALS: BMI 26.3
[2023-03-28 10:13] LABS: Absolute Lymphocyte Count 1.35 X10^3/uL (0.83-4.51); Absolute Neutrophil Count 7.2 X10^3/uL (2.0-7.7); Basophil# 0.05 X10^3/uL; Basophil% 0.5 % (0-1); Eosinophil# 0.07 X10^3/uL; Eosinophils% 0.7 % (0-5); Hematocrit 36.8 % (37-47); Hemoglobin 11.6 g/dL (12.0-15.0); Lymphocyte # 1.35 X10^3/ul (0.83-4.51); Lymphocyte % 14.1 % (19-41); Mean Corp Hgb Conc 31.5 g/dL (32-36); Mean Corpuscular Hgb 28.2 pg (27.0-32.0); Mean Corpuscular Volume 89.5 fL (81-99); Mean Platelet Vol. 11.6 fl (6.2-12.0); Monocyte# 0.67 X10^3/uL; NRBC Flagged by Analyzer 0 % (0-5); Neutrophil # 7.21 X10^3/uL (2.7-7.7); Neutrophil % 75.4 % (47-70); Platelet Count 153 K/mm3 (150-450); RBC Distribution Width CV 17.2 % (11.6-14.6); RBC Distribution Width SD 56.3 fl (35.1-43.9); Red Blood Count 4.11 M/mm3 (4.2-5.4); White Blood Count 9.6 K/mm3 (4.4-11.0)
[2023-03-28 11:01] LABS: ALB/GLOB Ratio 0.4 RATIO (0.9-2.4); AST(SGOT) 42 U/L (15-37); Alanine Aminotransfer ALT/SGPT 47 U/L (13-56); Albumin, Serum 2.4 g/dL (3.2-5.0); Alkaline Phosphatase 272 U/L (45-117); Anion Gap 3 (5-15); BUN 10 mg/dL (7-18); BUN/Creat Ratio 13.6 RATIO (10-20); Chloride 108 mmol/L (98-107); Creatinine, Serum 0.74 mg/dL (0.55-1.02); EST Glomerular Filtration Rate 80 mL/min (>60); Est Glom Filt Rate - Afr Amer 97 mL/min (>60); Globulin 5.6 g/dL (2.2-4.2); Glucose 115 mg/dL (74-106); Potassium 3.9 mmol/L (3.5-5.1); Sodium Level 137 mmol/L (136-145)
== END | disposition home or self-care (01) ==
PROVIDERS: PCP Family Medicine Geriatric Medicine; Referring Provider Internal Medicine Gastroenterology; Visit Provider Internal Medicine Gastroenterology
DX: K75.4 Autoimmune hepatitis (principal); I25.10 Atherosclerotic heart disease of native coronary artery without angina pectoris
CPT/HCPCS: 36415; 80053; 85025

== ENCOUNTER 2023-04-07 22:53 | Inpatient (IN) | payer MEDICARE, OTHER, SELFPAY ==
[2017-04-19 11:37] VITALS: BMI 26.3
--- NOTE | 2023-04-07 | RAD_ITS ---
INDICATION: fever EXAMINATION/TECHNIQUE: X-RAY - XR Chest 1 View COMPARISON: 11/08/2022 FINDINGS: LINES/DEVICES: None. LUNGS: There is ill-defined groundglass opacity in the right lung base suggesting pneumonia. MEDIASTINUM AND CARDIOVASCULAR STRUCTURES: Cardiac silhouette not enlarged. Central airways and mediastinal contour are unremarkable. BONES AND SOFT TISSUES: Unremarkable. RAD/Chest 1 View (Portable) IMPRESSION: Right lower lobe pneumonia. Electronically Signed: Meera Luna MD at 0:47 EDT ,
[2023-04-07 22:54] VITALS: BP 106/65; PULSE 111; RESP 18; TEMP 38.4; O2SAT 95; BMI 24.3
--- NOTE | 2023-04-07 23:00 | ED.RN ---
1L NS given by EMS via IV.
[2023-04-07] MEDS: 0.9% Normal Saline 1,000 ML 999 ML IV (23:49)
[2023-04-07] MEDS: Acetaminophen 500 MG Tablet 1000 MG PO (23:49)
[2023-04-07 23:50] VITALS: BP 103/64; PULSE 110; RESP 16; O2SAT 94
[2023-04-07 23:57] VITALS: BP 103/64; PULSE 102; RESP 18; TEMP 38.3; O2SAT 94
[2023-04-08] VITALS (26 sets, daily range): BP systolic 72–112; BP diastolic 49–76; PULSE 74–110; RESP 14–24; TEMP 35.7–38.8; O2SAT 93–99; BMI 21.5
[2023-04-08 00:03] LABS: Mucous, Urine 0 SEEN /hpf (<or=2+); Red Blood Cells-Urine 0 SEEN /hpf (0-5); Squamous Epithelial Cells - UA 0 SEEN /hpf (5-10)
[2023-04-08 00:07] LABS: Hematocrit 34.3 % (37-47); Hemoglobin 11.5 g/dL (12.0-15.0); Mean Corp Hgb Conc 33.5 g/dL (32-36); Mean Corpuscular Volume 86.4 fL (81-99); Mean Platelet Vol. 11.6 fl (6.2-12.0); POSITIVE COUNT YES; POSITIVE MORPHOLOGY YES; Platelet Count 125 K/mm3 (150-450); RBC Distribution Width CV 17.3 % (11.6-14.6); RBC Distribution Width SD 54.1 fl (35.1-43.9); Red Blood Count 3.97 M/mm3 (4.2-5.4); White Blood Count 14.7 K/mm3 (4.4-11.0)
[2023-04-08 00:12] LABS: Differential Indicated MANUAL DIFF
[2023-04-08 00:13] LABS: Color, Urine Amber (Yellow); Glucose, Dipstick Normal (Normal); Ketone-Dipstick 5 mg/dl (Negative); Leukocyte Esterase-Dipstick 25 /ul (Negative); Nitrite-Dipstick Positive (Negative); Occult Blood-Urine 25 /ul (Negative); Protein-Dipstick 30 mg/dl (Negative); Urine Clarity Clear (Clear); Urine Urobilinogen 1 mg/dl (Normal)
[2023-04-08 00:18] LABS: Urine Bilirubin Dipstick 1 mg/dL (Negative)
[2023-04-08 00:26] LABS: International Normalized Ratio 1.4; Prothrombin Time (Protime)PT. 17.4 SECONDS (11.7-14.9)
[2023-04-08 00:27] LABS: Lymphocyte 10 % (19-41); Monocyte 3 % (0-10); Neutrophil-Band 9 % (0-5); Neutrophil-Segmented 78 % (47-70); Total Cells Counted 100 (MANUAL DIFF)
[2023-04-08 00:28] LABS: Absolute Lymphocyte Count 1.47 X10^3/uL (0.83-4.51); Absolute Neutrophil Count 12.8 X10^3/uL (2.0-7.7); Lymphocyte # 1.47 X10^3/ul (0.83-4.51); Neutrophil # 12.78 X10^3/uL (2.7-7.7); Platelet Estimate ADEQUATE (ADEQ); Red Cell Morphology NORM C+C NORMAL (NORM C&C)
[2023-04-08 00:29] LABS: Vacuolated Cells 1+
[2023-04-08 00:32] LABS: White Blood Cells 0-5 SEEN /hpf (0-5)
[2023-04-08 00:33] LABS: Bacteria 3+ /hpf (None Seen)
[2023-04-08 00:39] LABS: AST(SGOT) 48 U/L (15-37); Alanine Aminotransfer ALT/SGPT 38 U/L (13-56); Albumin, Serum 1.9 g/dL (3.2-5.0); Alkaline Phosphatase 215 U/L (45-117); Anion Gap 7 (5-15); BUN 13 mg/dL (7-18); BUN/Creat Ratio 14.6 RATIO (10-20); Bilirubin, Direct 0.62 mg/dL (0.00-0.30); Calcium,Total 7.4 mg/dL (8.5-10.1); Chloride 102 mmol/L (98-107); Creatinine, Serum 0.89 mg/dL (0.55-1.02); EST Glomerular Filtration Rate 65 mL/min (>60); Est Glom Filt Rate - Afr Amer 78 mL/min (>60); Estimated Creatinine Clearance 45.37 ml/min; Globulin 5.2 g/dL (2.2-4.2); Glucose 198 mg/dL (74-106); Magnesium 1.6 mg/dL (1.6-2.6); Potassium 4.5 mmol/L (3.5-5.1); Protein, Total 7.1 g/dL (6.4-8.2); Sodium Level 129 mmol/L (136-145); Thyroid Stim Hormone (TSH) 0.97 uIU/mL (0.358-3.74)
[2023-04-08 00:41] LABS: Lactic Acid 2.3 mmol/L (0.4-1.9)
--- NOTE | 2023-04-08 01:23 | EDS_ITS ---
HPI History of Present Illness Chief Complaint: General Illness Informant: patient, spouse/S.O. 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 She states that night into Monday morning she awoke not feeling well and had excessive fatigue and had difficulty walking secondary to it. She states that she felt she had to use the restroom and reports that she had difficulty controlling her urination. Throughout the day on Monday she is persisted with fatigue sleeping multiple hours and having poor appetite. With concern for dehydration based on her symptoms and the fact that she has had persistent fatigue EMS was called and patient was brought in for evaluation [facility] Medical History (Updated 04/08/23 @ 02:[address] Lázaro Carranza, ) Atherosclerotic heart disease of [place] coronary artery without angina pectoris Basal cell carcinoma (BCC) CAD (coronary artery disease) Cardiology follow-up encounter Chest pain on exertion Chronic cholecystitis Essential hypertension Fatty liver Gall stones Yari's thyroiditis Hepatic fibrosis History of echocardiogram History of stress test HLD (hyperlipidemia) Liver mass Loss of appetite Low iron Non-alcoholic fatty liver disease Non-rheumatic mitral valve stenosis Non-smoker Nonrheumatic aortic (valve) stenosis Osteoporosis Retroperitoneal lymphadenopathy Thyroid disease Wears contact lenses Wears dentures Wears glasses Weight loss Home Medications levothyroxine 50 mcg tablet 50 mcg PO DAILY 11/11/20 [History Last Taken Unknown] metoprolol tartrate 25 mg tablet 25 mg PO DAILY BP #90 tabs 12/26/22 [Rx Last Taken Unknown] prednisone 20 mg tablet 20 mg PO DAILY #60 tabs 02/27/23 [Rx Last Taken Unknown] azathioprine 50 mg tablet 50 mg PO DAILY #90 tabs 02/28/23 [Rx Last Taken Unknown] Allergy/AdvReac Type Severity Reaction Status Date / Time aspartame Allergy Food Verified 04/07/23 22:54 Allergy Family History (Reviewed 01/12/23 @ 08:51 by Kathia Rainey EMPLOYEE WELLNESS/FITNESS COORDINATOR, EMPLOYEE WELLNESS/FITNESS COORDINATOR-C) Mother , Age 34 Hypertension Heart disease Brother Cancer lung Father Cancer tongue Surgical History History of cardiac catheterization History of partial thyroidectomy (~1969) History of right and left heart catheterization (LHC) (~11/08/22) History of total hysterectomy Postsurgical percutaneous transluminal coronary angioplasty (PTCA) status (~04/19/17) Presence of stent in coronary artery (~04/19/17) Social History (Reviewed 01/12/23 @ 08:51 by Kathia Rainey EMPLOYEE WELLNESS/FITNESS COORDINATOR, EMPLOYEE WELLNESS/FITNESS COORDINATOR-C) Smoking Status: Never smoker alcohol intake: never substance use type: does not use caffeine: No ROS ROS ED Constitutional Constitutional ED: Reports chills, fever(s) and subjective Eyes Eyes: Denies change in vision ENT ENT ED: Denies sore throat Cardiovascular Cardiovascular: Denies chest pain Respiratory/Chest Respiratory/Chest: Denies cough or dyspnea Gastrointestinal Gastrointestinal: Denies abdominal pain, diarrhea, nausea or vomiting Genitourinary Genitourinary ED: Reports urinary frequency; Denies dysuria Musculoskeletal Musculoskeletal: Reports myalgias Integumentary Denies rash Neurologic Neurologic: Reports weakness; Denies headache(s) Hematologic/Lymphatic Hematologic/Lymphatic: Denies easy bleeding or easy bruising EXAM Physical Exam Const Vital Signs: 04/07/23 22:54 04/07/23 22:57 04/07/23 23:50 Temperature 101.2 F H Temperature Source Oral Pulse Rate 111 H 110 H Respiratory Rate 18 16 Respiratory Effort Normal Non-Labored Respiratory Pattern Normal Blood Pressure 106/65 103/64 Blood Pressure Mean 78 77 Pulse Ox 95 94 Oxygen Delivery Method Room Air Room Air 04/07/23 23:57 04/08/23 00:52 04/08/23 01:00 Temperature 101 F H 100 F H Temperature Source Oral Oral Pulse Rate 102 H 110 H 98 Respiratory Rate 18 20 H 20 H Respiratory Effort Respiratory Pattern Blood Pressure 103/64 106/56 L 100/58 L Blood Pressure Mean 77 72 72 Pulse Ox 94 93 93 Oxygen Delivery Method Room Air Room Air Room Air 04/08/23 01:13 Temperature 100 F H Temperature Source Oral Pulse Rate 95 Respiratory Rate 20 H Respiratory Effort Respiratory Pattern Blood Pressure 95/74 Blood Pressure Mean 81 Pulse Ox 94 Oxygen Delivery Method Room Air Positive well nourished and well developed General Appearance ED: well developed HEENT HEENT Narrative: Mucous membranes are dry and tacky. No secondary changes in the posterior pharynx to suggest infection Eyes PERRL and EOMs intact bilaterally General Eye ED: Negative for scleral icterus Neck supple and no JVD Neck Narrative: No nuchal rigidity or meningeal signs Resp normal respiratory effort and clear to auscultation bilaterally Resp Narrative: No nasal flaring retractions tachypnea or accessory muscle use Cardio regular rhythm Rate: tachycardic and other Other Details: Radial and carotid pulses are plus 2 out of 4 bilaterally are equal and symmetric GI normal to inspection, nondistended, normoactive bowel sounds, non-tender and non-distended GI Narrative: No voluntary guarding or rigidity. No pulsatile mass or fluid wave. No physical exam findings to suggest spontaneous bacterial peritonitis Auscultation: normoactive bowel sounds Palpation: soft Extremity normal to inspection Extremity Narrative: No asymmetric edema no pitting edema negative Homans' sign bilaterally Neuro oriented x3 and CN's II-XII intact bilaterally Sensorium / Orientation: alert Motor Exam: strength 5/5 throughout Psych mental status grossly normal Skin Skin Narrative: Patient has petechial lesions across the bilateral lower legs which family states is chronic in nature MDM MDM MDM Narrative Medical decision making narrative: Patient presented to the ER febrile 101 and was tachycardia consistent with this. Despite the elevated temperature blood pressure was stable at 106/65. Patient had viral-like symptoms with generalized fatigue and muscle ache and sensation of weakness. There was concern for UTI as patient had difficulty controlling her bladder but there was no reported dysuria. Based on differential diagnosis of potential UTI versus viral infection such as COVID or influenza versus pneumonia versus acute kidney injury or severe electrolyte derangement basic blood work was obtained as well as chest x-ray. Chest x-ray showed groundglass opacities concerning for pneumonia in the right lower lung. Patient has not been coughing however and is not hypoxic satting in the mid 90s on room air but is still a possibility for her underlying symptoms. Urine showed +3 bacteria without white cells but with her recent difficulty controlling her bladder this is also a possibility of the cause of her symptoms. Her white count was elevated approximately 15 and she did have lactic acidosis and this coupled with her fever does place her into mild sepsis. Patient was given Tylenol for fever control which did reduce it to 98.6. She was given a total of 3 L of normal saline. The patient reportedly received 1 L by EMS and was given 2 more liters in the ER. Blood cultures and urine cultures were obtained and she was started on Rocephin and Zithromax which will cover both urine and lung. Her COVID and influenza test are negative. At this time she is having improvement of her temperature and reports feeling better but his laboratory studies are concerning for sepsis secondary to UTI and pneumonia medicine was contacted and they do agree to accept the patient at this time. History & Record Review Discussion w/independent historian: EMS personnel, Patient, Family and Significant other Lab Data Attestation: I reviewed the patient's lab results. Labs: Laboratory Results - last 24 hr 04/07/23 04/07/23 23:50 23:58 WBC 14.7 H RBC 3.97 L Hgb 11.5 L Hct 34.3 L MCV 86.4 MCH 29.0 MCHC 33.5 RDW Std Deviation 54.1 H RDW Coeff of Nabil 17.3 H Plt Count 125 L MPV 11.6 Neut % (Auto) Not Reportable Absolute Neuts (auto) 12.8 H Absolute Lymphs (auto) 1.47 Total Counted 100 Neutrophils % (Manual) 78 H Band Neutrophils % 9 H Lymphocytes % (Manual) 10 L Monocytes % (Manual) 3 Toxic Vacuolation 1+ Platelet Estimate ADEQUATE RBC Morphology NORM C+C PT 17.4 H INR 1.4 APTT 28.0 Sodium 129 L Potassium 4.5 Chloride 102 Carbon Dioxide 20.0 L Anion Gap 7 BUN 13 Creatinine 0.89 Estim Creat Clear Calc 45.37 Est GFR (MDRD) Af Amer 78 Est GFR (MDRD) Non-Af 65 BUN/Creatinine Ratio 14.6 Glucose 198 H Lactic Acid 2.3 H* Calcium 7.4 L Magnesium 1.6 Total Bilirubin 1.50 H Direct Bilirubin 0.62 H AST 48 H ALT 38 Alkaline Phosphatase 215 H Total Protein 7.1 Albumin 1.9 L Globulin 5.2 H TSH 0.97 Urine Color Madelyn Urine Clarity Clear Urine pH 5.0 Ur Specific [place] 1.020 Urine Protein 30 H Urine Glucose (UA) Normal Urine Ketones 5 H Urine Occult Blood 25 H Urine Nitrite Positive H Urine Bilirubin 1 H Urine Urobilinogen 1 H Ur Leukocyte Esterase 25 H Urine RBC 0 SEEN Urine WBC 0-5 SEEN Ur Squamous Epith Cells 0 SEEN Urine Bacteria 3+ Urine Mucus 0 SEEN Radiography Diagnostic Testing: Clinical Impression(s) from Imaging Studies Chest X-Ray 04/07/23 00:00 IMPRESSION: Right lower lobe pneumonia. Electronically Signed: Meera Luna MD at 0:47 EDT , Chest x-ray as interpreted by the emergency medicine physician shows groundglass opacities in right lower lung concerning for potential pneumonia Management Discussion w/another healthcare provider: Hospitalist Discharge Plan Dx/Rx/DC Orders Clinical Impression: UTI (urinary tract infection), Pyrexia, Cirrhosis, Hyponatremia, Pneumonia Disposition Disposition: Acute Care Hospital [facility]
--- NOTE | 2023-04-08 01:34 | HP.PCM.HOS_ITS ---
HPI - General General Date of Admission: 04/08/23 HPI Narrative ROEL WILLINGHAM, is a 82 F who presents to the hospital with fevers and chills and feeling weak which started yesterday morning. She fell back onto the bed today because of feeling weak which woke up her necessitating her coming in. Throughout the day yesterday she had increasing weakness and daughter states that she could not get up from the bathroom. She has a slight cough and has been having episodes of feeling febrile with sweats. In the ER she was found to have a right lower lobe pneumonia on chest x-ray but her UA is also appearing contaminated though there is no white blood cells but 3+ bacteria. S he does have a leukocytosis and SIRS criteria with source sepsis. [facility]LY [facility], [facility] Medical History (Updated 04/08/23 @ 02:[address] Lázaro Carranza, ) Atherosclerotic heart disease of [place] coronary artery without angina pectoris Basal cell carcinoma (BCC) CAD (coronary artery disease) Cardiology follow-up encounter Chest pain on exertion Chronic cholecystitis Essential hypertension Fatty liver Gall stones Yari's thyroiditis Hepatic fibrosis History of echocardiogram History of stress test HLD (hyperlipidemia) Liver mass Loss of appetite Low iron Non-alcoholic fatty liver disease Non-rheumatic mitral valve stenosis Non-smoker Nonrheumatic aortic (valve) stenosis Osteoporosis Retroperitoneal lymphadenopathy Thyroid disease Wears contact lenses Wears dentures Wears glasses Weight loss Home Medications levothyroxine 50 mcg tablet 50 mcg PO DAILY 11/11/20 [History Last Taken Unknown] metoprolol tartrate 25 mg tablet 25 mg PO DAILY BP #90 tabs 12/26/22 [Rx Last Taken Unknown] prednisone 20 mg tablet 20 mg PO DAILY #60 tabs 02/27/23 [Rx Last Taken Unknown] azathioprine 50 mg tablet 50 mg PO DAILY #90 tabs 02/28/23 [Rx Last Taken Unknown] Allergy/AdvReac Type Severity Reaction Status Date / Time aspartame Allergy Food Verified 04/07/23 22:54 Allergy Family History Mother , Age 34 Hypertension Heart disease Brother Cancer lung Father Cancer tongue Surgical History History of cardiac catheterization History of partial thyroidectomy (~1969) History of right and left heart catheterization (LHC) (~11/08/22) History of total hysterectomy Postsurgical percutaneous transluminal coronary angioplasty (PTCA) status (~04/19/17) Presence of stent in coronary artery (~04/19/17) Social History Smoking Status: Never smoker alcohol intake: never substance use type: does not use caffeine: No ROS Constitutional Constitutional: Reports chills, fever(s) and weakness; Denies fatigue or malaise Eyes Eyes: Denies blurry vision ENT HEENT: Denies headache(s) or nasal discharge Cardiovascular Cardiovascular: Denies chest pain, dyspnea on exertion or syncope Respiratory/Chest Respiratory/Chest: Reports cough; Denies shortness of breath at rest or shortness of breath with exertion Gastrointestinal Gastrointestinal: Denies constipation, diarrhea, nausea or vomiting Genitourinary Genitourinary: Denies dysuria Neurologic Neurologic: Denies focal weakness, numbness or tremor(s) Psychiatric Psychiatric: Denies anxiety or depression Vital Signs Vital Signs Vital Signs: 04/07/23 22:54 04/07/23 22:57 04/07/23 23:50 Temperature 101.2 F H Temperature Source Oral Pulse Rate 111 H 110 H Respiratory Rate 18 16 Respiratory Effort Normal Non-Labored Respiratory Pattern Normal Blood Pressure 106/65 103/64 Blood Pressure Mean 78 77 Pulse Ox 95 94 Oxygen Delivery Method Room Air Room Air 04/07/23 23:57 04/08/23 00:52 04/08/23 01:00 Temperature 101 F H 100 F H Temperature Source Oral Oral Pulse Rate 102 H 110 H 98 Respiratory Rate 18 20 H 20 H Respiratory Effort Respiratory Pattern Blood Pressure 103/64 106/56 L 100/58 L Blood Pressure Mean 77 72 72 Pulse Ox 94 93 93 Oxygen Delivery Method Room Air Room Air Room Air 04/08/23 01:13 Temperature 100 F H Temperature Source Oral Pulse Rate 95 Respiratory Rate 20 H Respiratory Effort Respiratory Pattern Blood Pressure 95/74 Blood Pressure Mean 81 Pulse Ox 94 Oxygen Delivery Method Room Air Weight Weight: 146 lb 6.191 oz Body Mass Index (BMI) 24.3 Physical Exam Narrative General: Alert, Oriented x3, Cooperative, No apparent distress, diaphoretic HEENT: Atraumatic, PERRLA, EOMI, Normocephalic Oral: Moist Mucosa Neck: Supple, No JVD Lungs: Diminished right base greater than left, Normal air movement, No rhonchi, No wheeze, No rales Cardiovascular: Tachycardic, Regular Rhythm, Normal S1, Normal S2, No murmurs Abdomen: Soft, Non Tender, Non-Distended, No Hepato-splenomegaly Extremities: No edema, Capillary Refill Less than 3 Seconds Skin: No rashes, No breakdown Musculoskeletal: No Tenderness to Palpation of Joints or Extremities Neurological: Cranial nerves II-XII grossly intact, Motor Exam 5/5 strength throughout, Sensory exam intact to light touch and pain Psych/Mental Status: Normal Affect, Appropriate Results Lab / Micro Data 04/08/23 04:35 04/08/23 04:35 Labs: Laboratory Results - last 24 hr 04/07/23 23:50: WBC 14.7 H, RBC 3.97 L, Hgb 11.5 L, Hct 34.3 L, MCV 86.4, MCH 29.0, MCHC 33.5, RDW Std Deviation 54.1 H, RDW Coeff of Nabil 17.3 H, Plt Count 125 L, MPV 11.6, Neut % (Auto) Not Reportable, Absolute Neuts (auto) 12.8 H, Absolute Lymphs (auto) 1.47, Total Counted 100, Neutrophils % (Manual) 78 H, Band Neutrophils % 9 H, Lymphocytes % (Manual) 10 L, Monocytes % (Manual) 3, Toxic Vacuolation 1+, Platelet Estimate ADEQUATE, RBC Morphology NORM C+C, PT 17.4 H, INR 1.4, APTT 28.0, Sodium 129 L, Potassium 4.5, Chloride 102, Carbon Dioxide 20.0 L, Anion Gap 7, BUN 13, Creatinine 0.89, Estim Creat Clear Calc 45 .37, Est GFR (MDRD) Af Amer 78, Est GFR (MDRD) Non-Af 65, BUN/Creatinine Ratio 14.6, Glucose 198 H, Lactic Acid 2.3 H*, Calcium 7.4 L, Magnesium 1.6, Total Bilirubin 1.50 H, Direct Bilirubin 0.62 H, AST 48 H, ALT 38, Alkaline Phosphatase 215 H, Total Protein 7.1, Albumin 1.9 L, Globulin 5.2 H, TSH 0.97 04/07/23 23:58: Urine Color Madelyn, Urine Clarity Clear, Urine pH 5.0, Ur Specific [place] 1.020, Urine Protein 30 H, Urine Glucose (UA) Normal, Urine Ketones 5 H, Urine Occult Blood 25 H, Urine Nitrite Positive H, Urine Bilirubin 1 H, Urine Urobilinogen 1 H, Ur Leukocyte Esterase 25 H, Urine RBC 0 SEEN, Urine WBC 0-5 SEEN, Ur Squamous Epith Cells 0 SEEN, Urine Bacteria 3+, Urine Mucus 0 SEEN Micro: Microbiology 04/07/23 23:58 Nasal Secretion SARS-CoV-2 & FLU Antigen (Rapid) - Final Radiology Impression Chest X-Ray 04/07/23 00:00 IMPRESSION: Right lower lobe pneumonia. Electronically Signed: Meera Luna MD at 0:47 EDT Reading Location ID and State: [facility] / [place] Tel , Service support , Assessment & Plan Assessment/Plan (1) Sepsis: PLAN: Plan 1. Sepsis secondary to UTI and pneumonia ? Continue with Rocephin and azithromycin ? She does have a stage II diastolic dysfunction based on echo from [facility] therefore we will provide her with a lower fluid rate for resuscitation ? Blood, urine, and sputum cultures are pending ? She has multiple SIRS criteria and given that she is a Medicare part A and B, she qualifies for sepsis given the source is either UTI or pneumonia 2. HTN/HLD/CAD status post stent/chronic diastolic CHF ? We will hold her metoprolol given her hypotension 3. Hypothyroidism ? Stable ? Continue with Synthroid 4. Cirrhosis/hypergammaglobulinemia ? Possibly due to fatty liver though she is following up with gastroenterology as an outpatient ? She did have a positive ZACK and RF factor with family history of rheumatoid arthritis she also had a positive hepatitis A antibody and April 2022 ? She does follow with oncology as an outpatient for her hypergammaglobulinemia with unclear etiology at the moment DVT: Heparin Charges/Coding Visit Charges Inpatient E&M: 79503 Init Hosp L3
[2023-04-08] MEDS: Ceftriaxone 1 GM/50 ML BAG IV ×2 (01:38→21:19)
[2023-04-08] MEDS: 0.9% Normal Saline 1,000 ML 999 ML IV (01:43)
--- NOTE | 2023-04-08 01:50 | ED.RN ---
bp 85/55, fluids and antibiotcs infusing. Dr. Carranza notified. Continue with NS bolus and review BP after 500cc have infused.
--- NOTE | 2023-04-08 02:24 | ED.RN ---
son called and left message that patient was being moved to [facility]
[2023-04-08] MEDS: 0.9% Saline Lock 10 ML Syringe IV ×2 (03:29→21:19)
[2023-04-08] MEDS: 0.9% Normal Saline 1,000 ML 100 ML IV ×3 (03:29→21:39)
[2023-04-08 03:58] LABS: Reflex Lactate? Y
[2023-04-08 04:48] LABS: Absolute Lymphocyte Count 0.72 X10^3/uL (0.83-4.51); Absolute Neutrophil Count 8.5 X10^3/uL (2.0-7.7); Basophil# 0.02 X10^3/uL; Basophil% 0.2 % (0-1); Eosinophil# 0.01 X10^3/uL; Eosinophils% 0.1 % (0-5); Hematocrit 30.1 % (37-47); Hemoglobin 9.7 g/dL (12.0-15.0); Lymphocyte # 0.72 X10^3/ul (0.83-4.51); Lymphocyte % 7.2 % (19-41); Mean Corp Hgb Conc 32.2 g/dL (32-36); Mean Corpuscular Hgb 28.3 pg (27.0-32.0); Mean Corpuscular Volume 87.8 fL (81-99); Mean Platelet Vol. 11.2 fl (6.2-12.0); Monocyte# 0.53 X10^3/uL; Monocyte% 5.3 % (0-10); NRBC Flagged by Analyzer 0 % (0-5); Neutrophil # 8.52 X10^3/uL (2.7-7.7); Neutrophil % 85.1 % (47-70); Platelet Count 109 K/mm3 (150-450); RBC Distribution Width CV 17.3 % (11.6-14.6); RBC Distribution Width SD 55.6 fl (35.1-43.9); Red Blood Count 3.43 M/mm3 (4.2-5.4)
[2023-04-08 05:07] LABS: Anion Gap 7 (5-15); BUN 11 mg/dL (7-18); BUN/Creat Ratio 15.1 RATIO (10-20); Calcium,Total 6.8 mg/dL (8.5-10.1); Chloride 108 mmol/L (98-107); Creatinine, Serum 0.73 mg/dL (0.55-1.02); EST Glomerular Filtration Rate 81 mL/min (>60); Est Glom Filt Rate - Afr Amer 99 mL/min (>60); Estimated Creatinine Clearance 43.63 ml/min; Glucose 241 mg/dL (74-106); Potassium 3.3 mmol/L (3.5-5.1); Sodium Level 136 mmol/L (136-145)
[2023-04-08] MEDS: Levothyroxine 50 MCG Tablet PO (05:08)
[2023-04-08 05:11] LABS: Lactic Acid 1.3 mmol/L (0.4-1.9)
[2023-04-08 07:02] LABS: Phosphorus 3.5 mg/dL (2.5-4.9)
[2023-04-08] MEDS: Potassium Chloride Oral Tablet 20 MEQ 40 MEQ PO (07:10)
[2023-04-08] MEDS: azaTHIOprine 50 MG Tablet PO (07:59)
[2023-04-08] MEDS: Heparin Injection (Vial) 5,000 UNIT/ML VIAL 5000 UNIT SC ×2 (08:14→21:38)
--- NOTE | 2023-04-08 08:23 | PN.HOSP_ITS ---
Reason for Visit Reason for Visit: Diagnoses Sepsis, unspecified organism (04/08/23) Subjective Subjective Feels ok. No new complaints. Objective Data Objective Data Vital Signs: Vital Signs Temp Pulse Resp BP Pulse Ox O2 Del Method O2 Flow Rate 36.1 C L 76 20 H 84/51 L 96 Nasal Cannula 2 04/08/23 07:48 04/08/23 07:48 04/08/23 07:48 04/08/23 07:48 04/08/23 07:48 04/08/23 07:48 04/08/23 07:48 Oxygen Flow Rate (L/min) 2 Oxygen Delivery Method Nasal Cannula Weight: 62.5 kg Body Mass Index (BMI) 21.5 Intake & Output: Intake and Output for Last 24 Hours 04/06/23 04/07/23 04/08/23 23:59 23:59 23:59 Intake Total 2335 / 2335 Balance 2335 / 2335 Lab / Micro Data 04/08/23 04:35 04/08/23 04:35 Labs: Laboratory Results - last 24 hr 04/07/23 23:50: WBC 14.7 H, RBC 3.97 L, Hgb 11.5 L, Hct 34.3 L, MCV 86.4, MCH 29.0, MCHC 33.5, RDW Std Deviation 54.1 H, RDW Coeff of Nabil 17.3 H, Plt Count 1 25 L, MPV 11.6, Neut % (Auto) Not Reportable, Absolute Neuts (auto) 12.8 H, Absolute Lymphs (auto) 1.47, Total Counted 100, Neutrophils % (Manual) 78 H, Band Neutrophils % 9 H, Lymphocytes % (Manual) 10 L, Monocytes % (Manual) 3, Toxic Vacuolation 1+, Platelet Estimate ADEQUATE, RBC Morphology NORM C+C, PT 17.4 H, INR 1.4, APTT 28.0, Sodium 129 L, Potassium 4.5, Chloride 102, Carbon Dioxide 20.0 L, Anion Gap 7, BUN 13, Creatinine 0.89, Estim Creat Clear Calc 45.37, Est GFR (MDRD) Af Amer 78, Est GFR (MDRD) Non-Af 65, BUN/Creatinine Ratio 14.6, Glucose 198 H, Lactic Acid 2.3 H*, Calcium 7.4 L, Magnesium 1.6, Total Bilirubin 1.50 H, Direct Bilirubin 0.62 H, AST 48 H, ALT 38, Alkaline Phosphatase 215 H, Total Protein 7.1, Albumin 1.9 L, Globulin 5.2 H, TSH 0.97 04/07/23 23:58: Urine Color Madelyn, Urine Clarity Clear, Urine pH 5.0, Ur Specific [place] 1.020, Urine Protein 30 H, Urine Glucose (UA) Normal, Urine Ketones 5 H, Urine Occult Blood 25 H, Urine Nitrite Positive H, Urine Bilirubin 1 H, Urine Urobilinogen 1 H, Ur Leukocyte Esterase 25 H, Urine RBC 0 SEEN, Urine WBC 0-5 SEEN, Ur Squamous Epith Cells 0 SEEN, Urine Bacteria 3+, Urine Mucus 0 SEEN 04/08/23 04:35: WBC 10.0, RBC 3.43 L, Hgb 9.7 L, Hct 30.1 L, MCV 87.8, MCH 28.3, MCHC 32.2, RDW Std Deviation 55.6 H, RDW Coeff of Nabil 17.3 H, Plt Count 109 L, MPV 11.2, Immature Gran % (Auto) 2.100 H, Neut % (Auto) 85.1 H, Lymph % (Auto) 7.2 L, [place] % (Auto) 5.3, Eos % (Auto) 0.1, Baso % (Auto) 0.2, Absolute Neuts (auto) 8.5 H, Absolute Lymphs (auto) 0.72 L, Nucleated RBC % 0, Sodium 136, Potassium 3.3 L, Chloride 108 H, Carbon Dioxide 21.0, Anion Gap 7, BUN 11, Creatinine 0.73, Estim Creat Clear Calc 43.63, Est GFR (MDRD) Af Amer 99, Est GFR (MDRD) Non-Af 81, BUN/Creatinine Ratio 15.1, Glucose 241 H, Lactic Acid 1.3, Calcium 6.8 L, Phosphorus 3.5, Magnesium 2.0 Micro: Microbiology 04/07/23 23:58 Nasal Secretion SARS-CoV-2 & FLU Antigen (Rapid) - Final Radiography Diagnostic Testing: Radiology Impression Chest X-Ray 04/07/23 00:00 IMPRESSION: Right lower lobe pneumonia. Electronically Signed: Meera Luna MD at 0:47 EDT , Physical Exam Const alert and no apparent distress HEENT head/scalp atraumatic and moist oral mucous membranes Resp Resp Narrative: bibasilar crackles. Cardio regular rate, regular rhythm, S1 normal heart sound and S2 normal heart sound GI normal to inspection, nondistended, normoactive bowel sounds, soft to palpation and non-tender Extremity normal to inspection Neuro Sensorium / Orientation: awake and alert Assessment & Plan Assessment/Plan (1) Sepsis: QUALIFIERS: Sepsis acute organ dysfunction status: without acute organ dysfunction Sepsis type: sepsis due to unspecified organism Qualified Code(s): A41.9 - Sepsis, unspecified organism PLAN: Sepsis secondary pneumonia. Doubt UTI given bland UA (WBCs 0-5) Continue with Rocephin and azithromycin She does have a stage II diastolic dysfunction based on echo from [facility] therefore we will provide her with a lower fluid rate for resuscitation Blood, urine, and sputum cultures are pending. Rapid COVID 19 and influenza negative SIRS upon admission was 3. qSOFA of 1 for SBP <100. PLAN: Plan Chronic conditions: * HTN/HLD/CAD status post stent/chronic diastolic CHF? We will hold her metoprolol given her hypotension * Hypothyroidism? Continue with Synthroid * Cirrhosis/hypergammaglobulinemia? Possibly due to fatty liver though she is following up with gastroenterology as an outpatient? She did have a positive ZACK and RF factor with family history of rheumatoid arthritis she also had a positive hepatitis A antibody and April 2022? 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 )
--- NOTE | 2023-04-08 11:20 | CASEMGMT ---
RN EDDI Face to Face with patient for initial transition planning/care coordination assessment. RN CM introduced self and role at [facility]. Patient lying in bed, alert and oriented, at bedside. Patient willing to participate in assessment and is able to answer all questions appropriately. Care providers, pharmacy, and demographics verified. Patient wishes to discharge home, denies need for home health at this time. Patient states she has no further needs or concerns at this time. CM to follow for discharge planning needs that may arise. PCP: Daniel Specialists: Friend, ELGIN appt Monday Preferred [facility]acy: [facility] Insurance: [facility], [place] Prescription Benefit: yes Living Will/HPOA: yes, Gaurav Herrera LNOK: , son Living Arrangements: Patient lives with in a 1.5 story home with bed and bath on first floor. Patient states she is independent at home. Transportation: self, DME/HHC: Patient has shower chair, raised toilet, walker at home. No previous HHC or SNF. Will monitor for home oxygen, patient prefers [employer] for DME. Disposition Plan: Patient to discharge home with family support and follow-up plans in place. Cailin MAURICIO, RN, CM
[2023-04-08] MEDS: Ondansetron 4 MG/2 ML Vial IV (14:29)
[2023-04-08] MEDS: Acetaminophen 325 MG Tablet 650 MG PO (16:16)
[2023-04-09 03:40] VITALS: BP 123/75; PULSE 86; RESP 17; TEMP 36.8; O2SAT 95
[2023-04-09 03:42] VITALS: BP 123/75; PULSE 86; RESP 17; TEMP 36.8; O2SAT 95
[2023-04-09 05:33] LABS: Absolute Lymphocyte Count 0.52 X10^3/uL (0.83-4.51); Absolute Neutrophil Count 4.6 X10^3/uL (2.0-7.7); Basophil# 0.02 X10^3/uL; Basophil% 0.4 % (0-1); Eosinophil# 0.04 X10^3/uL; Eosinophils% 0.7 % (0-5); Hematocrit 33.6 % (37-47); Hemoglobin 10.5 g/dL (12.0-15.0); Lymphocyte # 0.52 X10^3/ul (0.83-4.51); Lymphocyte % 9.4 % (19-41); Mean Corp Hgb Conc 31.3 g/dL (32-36); Mean Corpuscular Hgb 28.1 pg (27.0-32.0); Mean Corpuscular Volume 89.8 fL (81-99); Mean Platelet Vol. 11.7 fl (6.2-12.0); Monocyte# 0.27 X10^3/uL; Monocyte% 4.9 % (0-10); NRBC Flagged by Analyzer 0 % (0-5); Neutrophil # 4.58 X10^3/uL (2.7-7.7); Neutrophil % 82.8 % (47-70); POSITIVE COUNT YES; POSITIVE DIFFERENTIAL YES; Platelet Count 87 K/mm3 (150-450); RBC Distribution Width CV 17.3 % (11.6-14.6); RBC Distribution Width SD 56.9 fl (35.1-43.9); Red Blood Count 3.74 M/mm3 (4.2-5.4); White Blood Count 5.5 K/mm3 (4.4-11.0)
[2023-04-09 05:39] LABS: Differential Indicated SCAN CRITERIA MET
[2023-04-09] MEDS: Levothyroxine 50 MCG Tablet PO (05:40)
[2023-04-09 06:02] LABS: Anion Gap 5 (5-15); BUN 8 mg/dL (7-18); BUN/Creat Ratio 13.4 RATIO (10-20); Calcium,Total 7.2 mg/dL (8.5-10.1); Chloride 108 mmol/L (98-107); EST Glomerular Filtration Rate 102 mL/min (>60); Est Glom Filt Rate - Afr Amer 124 mL/min (>60); Estimated Creatinine Clearance 43.63 ml/min; Glucose 138 mg/dL (74-106); Potassium 3.8 mmol/L (3.5-5.1); Sodium Level 135 mmol/L (136-145)
[2023-04-09] MEDS: 0.9% Normal Saline 1,000 ML 100 ML IV ×2 (06:19→18:22)
[2023-04-09 06:20] LABS: Differential Comment SCANNED; Platelet Estimate SLT DEC (ADEQ)
--- NOTE | 2023-04-09 08:06 | PN.HOSP_ITS ---
Reason for Visit Reason for Visit: Diagnoses Sepsis, unspecified organism (04/08/23) Subjective Subjective Continued to have fevers yesterday. Feeling better today. Up ambulating to bathroom w/o difficulty. Objective Data Objective Data Vital Signs: Vital Signs Temp Pulse Resp BP Pulse Ox O2 Del Method O2 Flow Rate 36.8 C 86 17 123/75 H 95 Room Air 2 04/09/23 03:42 04/09/23 03:42 04/09/23 03:42 04/09/23 03:42 04/09/23 03:42 04/09/23 07:30 04/08/23 12:00 Oxygen Flow Rate (L/min) 2 Oxygen Delivery Method Room Air Weight: 62.5 kg Body Mass Index (BMI) 21.5 Intake & Output: Intake and Output for Last 24 Hours 04/07/23 04/08/23 04/09/23 23:59 23:59 23:59 Intake Total 4456.66 / 4456.66 866.67 / 866.67 Output Total 280 / 280 Balance 4176.66 / 4176.66 866.67 / 866.67 Lab / Micro Data 04/09/23 05:00 04/09/23 05:00 Labs: Laboratory Results - last 24 hr 04/09/23 05:00: WBC 5.5, RBC 3.74 L, Hgb 10.5 L, Hct 33.6 L, MCV 89.8, MCH 28.1, MCHC 31.3 L, RDW Std Deviation 56.9 H, RDW Coeff of Nabil 17.3 H, Plt Count 87 L, MPV 11.7, Immature Gran % (Auto) 1.800 H, Neut % (Auto) 82.8 H, Lymph % (Auto) 9.4 L, [place] % (Auto) 4.9, Eos % (Auto) 0.7, Baso % (Auto) 0.4, Absolute Neuts (auto) 4.6, Absolute Lymphs (auto) 0.52 L, Nucleated RBC % 0, Differential Comment SCANNED, Platelet Estimate SLT DEC, Sodium 135 L, Potassium 3.8, Chloride 108 H, Carbon Dioxide 22.0, Anion Gap 5, BUN 8, Creatinine 0.60, Estim Creat Clear Calc 43.63, Est GFR (MDRD) Af Amer 124, Est GFR (MDRD) Non-Af 102, BUN/Creatinine Ratio 13.4, Glucose 138 H, Calcium 7.2 L Micro: Microbiology 04/07/23 23:58 Nasal Secretion SARS-CoV-2 & FLU Antigen (Rapid) - Final Physical Exam Const alert and no apparent distress HEENT head/scalp atraumatic and moist oral mucous membranes Resp normal respiratory effort, no retractions and no use of accessory muscles Cardio regular rate, regular rhythm, S1 normal heart sound and S2 normal heart sound GI normal to inspection, nondistended, normoactive bowel sounds, soft to palpation, non-tender and non-distended Extremity normal to inspection Assessment & Plan Assessment/Plan (1) Sepsis: QUALIFIERS: Sepsis acute organ dysfunction status: without acute organ dysfunction Sepsis type: sepsis due to unspecified organism Qualified Code(s): A41.9 - Sepsis, unspecified organism PLAN: Sepsis secondary pneumonia. Doubt UTI given bland UA (WBCs 0-5) Continue with Rocephin and azithromycin She does have a stage II diastolic dysfunction based on echo from [facility] therefore we will provide her with a lower fluid rate for resuscitation Blood, urine, and sputum cultures are pending. Rapid COVID 19 and influenza negative. Check strep and legionella antigens. SIRS upon admission was 3. qSOFA of 1 for SBP <100. PLAN: Plan Chronic conditions: * HTN/HLD/CAD status post stent/chronic diastolic CHF? We will hold her metoprolol given her hypotension * Hypothyroidism? Continue with Synthroid * Cirrhosis/hypergammaglobulinemia? Possibly due to fatty liver though she is following up with gastroenterology as an outpatient? She did have a positive ZACK and RF factor with family history of rheumatoid arthritis she also had a positive hepatitis A antibody and April 2022? 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 Charges/Coding Visit Charges Inpatient E&M: 68724 Subs Hosp L2
[2023-04-09 08:57] VITALS: BP 91/59; PULSE 86; RESP 16; TEMP 36.8; O2SAT 95
[2023-04-09] MEDS: Heparin Injection (Vial) 5,000 UNIT/ML VIAL 5000 UNIT SC ×2 (09:02→22:11)
[2023-04-09] MEDS: azaTHIOprine 50 MG Tablet PO (09:02)
[2023-04-09 14:50] VITALS: BP 104/74; PULSE 94; RESP 16; TEMP 36.2; O2SAT 95
[2023-04-09] MEDS: Acetaminophen 325 MG Tablet 650 MG PO (14:53)
[2023-04-09 21:00] VITALS: BP 121/72; PULSE 96; RESP 18; TEMP 37.2; O2SAT 92
[2023-04-09] MEDS: Ceftriaxone 1 GM/50 ML BAG IV (23:10)
[2023-04-10 03:00] VITALS: BP 118/78; PULSE 92; RESP 16; TEMP 36.8; O2SAT 92
[2023-04-10] MEDS: 0.9% Normal Saline 1,000 ML 100 ML IV (03:04)
[2023-04-10] MEDS: Levothyroxine 50 MCG Tablet PO (04:59)
[2023-04-10 05:16] LABS: Absolute Lymphocyte Count 0.53 X10^3/uL (0.83-4.51); Absolute Neutrophil Count 5.4 X10^3/uL (2.0-7.7); Basophil# 0.02 X10^3/uL; Basophil% 0.3 % (0-1); Eosinophil# 0.05 X10^3/uL; Eosinophils% 0.8 % (0-5); Hematocrit 31.5 % (37-47); Hemoglobin 10.4 g/dL (12.0-15.0); Lymphocyte # 0.53 X10^3/ul (0.83-4.51); Lymphocyte % 8.3 % (19-41); Mean Corpuscular Hgb 28.2 pg (27.0-32.0); Mean Corpuscular Volume 85.4 fL (81-99); Mean Platelet Vol. 10.9 fl (6.2-12.0); Monocyte# 0.33 X10^3/uL; Monocyte% 5.2 % (0-10); NRBC Flagged by Analyzer 0 % (0-5); Neutrophil # 5.36 X10^3/uL (2.7-7.7); Neutrophil % 84.3 % (47-70); POSITIVE DIFFERENTIAL YES; Platelet Count 109 K/mm3 (150-450); RBC Distribution Width CV 17.1 % (11.6-14.6); RBC Distribution Width SD 53.1 fl (35.1-43.9); Red Blood Count 3.69 M/mm3 (4.2-5.4); White Blood Count 6.4 K/mm3 (4.4-11.0)
[2023-04-10 05:24] LABS: Differential Indicated SCAN CRITERIA MET
[2023-04-10 05:44] LABS: Anion Gap 7 (5-15); BUN 9 mg/dL (7-18); BUN/Creat Ratio 16.6 RATIO (10-20); Calcium,Total 7.3 mg/dL (8.5-10.1); Chloride 107 mmol/L (98-107); Creatinine, Serum 0.54 mg/dL (0.55-1.02); EST Glomerular Filtration Rate 115 mL/min (>60); Est Glom Filt Rate - Afr Amer 139 mL/min (>60); Estimated Creatinine Clearance 43.63 ml/min; Glucose 139 mg/dL (74-106); Potassium 3.7 mmol/L (3.5-5.1); Sodium Level 134 mmol/L (136-145)
[2023-04-10 06:48] LABS: Anisocytosis 1+; Platelet Estimate SLT DEC (ADEQ)
[2023-04-10 09:00] VITALS: BP 106/75; PULSE 92; RESP 16; TEMP 36.6; O2SAT 97
[2023-04-10 09:41] VITALS: O2SAT 96
[2023-04-10 09:48] VITALS: O2SAT 97
[2023-04-10] MEDS: Heparin Injection (Vial) 5,000 UNIT/ML VIAL 5000 UNIT SC (10:03)
[2023-04-10] MEDS: 0.9% Saline Lock 10 ML Syringe IV (10:04)
[2023-04-10] MEDS: azaTHIOprine 50 MG Tablet PO (10:04)
[2023-04-10] MEDS: Acetaminophen 325 MG Tablet 650 MG PO (13:40)
[2023-04-10 15:00] VITALS: BP 106/75; PULSE 92; RESP 16; TEMP 36.6; O2SAT 97
--- NOTE | 2023-04-10 15:16 | PCM.DC.SUM ---
Providers Date of Admission: 04/08/23 Date of Discharge: 04/10/23 Primary Care Physician: Dr. Gokul Sanchez MD Reason For Visit: SEPSIS UTI VS PNA Diagnosis Discharge Diagnosis (1) Sepsis: Status: Acute Code(s): A41.9 - Sepsis, unspecified organism Qualifiers: Sepsis type: sepsis due to unspecified organism Sepsis acute organ dysfunction status: without acute organ dysfunction Qualified Code(s): A41.9 - Sepsis, unspecified organism Medications at Discharge Home Medications levothyroxine 50 mcg tablet 50 mcg PO DAILY 11/11/20 metoprolol tartrate 25 mg tablet 25 mg PO DAILY BP #90 tabs 12/26/22 prednisone 20 mg tablet 20 mg PO DAILY #60 tabs 02/27/23 azathioprine 50 mg tablet 50 mg PO DAILY #90 tabs 02/28/23 levofloxacin 750 mg tablet 750 mg PO Q24H #7 tabs 04/10/23 Hospital Course Procedures - (CXR) Summary of Care Provided Minutes Spent on Discharge: 37 Hospital Course: Mrs. Herrera is an 82-year-old white female who presented to the emergency department at [facility] on 04/08/2023 with fevers and chills along with generalized weakness and feeling fatigued that started the day prior to presentation. On the day of presentation she fell back into bed because of feeling so weak at which time she awakened her and told him she needed to come to the emergency department. She became so weak she was not even able to get up to go to the bathroom. Patient reported episodes of feeling febrile with sweats. In the emergency department her chest x-ray showed a right upper lobe pneumonia and her UA was consistent with infection. She did meet criteria for sepsis at the time of admission per Medicare guidelines with SIRS criteria and a source. She was admitted to the medical floor and placed on antibiotics with azithromycin and ceftriaxone. Cultures were obtained prior to admission. Blood cultures were negative. E. coli was found in the urine at greater than 100,000 CFU per mL and was pansensitive. Strep pneumo Legionella antigen was negative however her Legionella antigen was positive. She was maintained on azithromycin and ceftriaxone throughout her hospital course. She was feeling 80% better by the a.m. of 04/10/2023 and we did have physical and Occupational Therapy evaluate the patient. Physical therapy thought that she could have ongoing outpatient physical therapy versus home health care. The patient felt that she would be able to go out of her house and ambulate to go shopping so outpatient physical therapy was prescribed for the patient. Given her urine culture and Legionella diagnosis we felt that Levaquin would be an appropriate antibiotic to complete her course. She was sent with 7 more days which should more than cover her UTI and complete treatment for her Legionella pneumonia. We did discuss the possible source for Legionella pneumonia. She denies any recent travel or exposure to excessive air conditioning. She does not wear CPAP so it is unclear where she picked up Legionella. She is immunosuppressed with azathioprine and prednisone. We will hold her prednisone at discharge until she completes her Levaquin at which time she may reinitiate her prednisone. She will continue her azathioprine. She is to follow-up with her primary care physician within the next 2 weeks. Ambulatory pulse ox was performed prior to discharge and patient was satting at 97% at rest and with exertion on room air patient was discharged home in stable condition on 04/10/2023. Discharge diagnoses: Sepsis E. coli UTI Legionella pneumonia Hyponatremia secondary to Legionella pneumonia Chronic anemia Leukocytosis-resolved CAD Hypothyroidism HEDRICK Aortic valve stenosis Physical Exam Const alert, oriented x3, no apparent distress, no limitations and well nourished Constitutional Narrative: Elderly, white female, sitting up in a chair next to the bed, appears comfortable and nontoxic, very pleasant, watching television General Appearance: cooperative, comfortable, well kempt and well developed Orientation / Consciousness: awake, oriented to person, oriented to place and oriented to time Exam Limitations: no limitations HEENT normocephalic, head/scalp atraumatic and moist oral mucous membranes; Negative for hearing grossly normal bilaterally HEENT Narrative: Mild hearing loss, Mallampati 2, no thrush Eyes PERRL, EOMs intact bilaterally and conjunctivae normal Eyes Narrative: No scleral icterus Neck no lymphadenopathy and supple Neck Narrative: Trachea midline, thyroid enlargement Resp normal respiratory effort, no retractions and no use of accessory muscles Resp Narrative: Coarse breath sounds right base, otherwise clear Auscultation: crackles; Negative for rhonchi or wheezes Cardio regular rate, regular rhythm, S1 normal heart sound, S2 normal heart sound, no rub, no gallops and no clicks; Negative for no murmurs Cardio Narrative: 3 out of 6 systolic murmur loudest at right upper sternal border GI normal to inspection, nondistended, normoactive bowel sounds, soft to palpation and non-tender Extremity no clubbing, cyanosis or edema Extremity Narrative: Pedal pulses are 2+, radial pulses are 2+ Skin no rashes or lesions noted, no wounds, skin turgor normal and no jaundice Neuro oriented x3, CN's II-XII intact bilaterally, moves all extremities and no focal motor deficits Neuro Narrative: Mild generalized weakness noted Speech: speech normal Psych affect normal Psych Narrative: Very pleasant, interacts appropriately Weight / BMI Weight Weight: 62.5 kg Body Mass Index (BMI) 21.5 ABG / Lab / Microbiology Data 04/10/23 04:50 04/10/23 04:50 Laboratory: Laboratory Results - last 24 hr 04/10/23 04:50: WBC 6.4, RBC 3.69 L, Hgb 10.4 L, Hct 31.5 L, MCV 85.4, MCH 28.2, MCHC 33.0 D, RDW Std Deviation 53.1 H, RDW Coeff of Nabil 17.1 H, Plt Count 109 L, MPV 10.9, Immature Gran % (Auto) 1.100 H, Neut % (Auto) 84.3 H, Lymph % (Auto) 8.3 L, [place] % (Auto) 5.2, Eos % (Auto) 0.8, Baso % (Auto) 0.3, Absolute Neuts (auto) 5.4, Absolute Lymphs (auto) 0.53 L, Nucleated RBC % 0, Platelet Estimate SLT DEC, Anisocytosis 1+, Sodium 134 L, Potassium 3.7, Chloride 107, Carbon Dioxide 20.0 L, Anion Gap 7, BUN 9, Creatinine 0.54 L, Estim Creat Clear Calc 43.63, Est GFR (MDRD) Af Amer 139, Est GFR (MDRD) Non-Af 115, BUN/Creatinine Ratio 16.6, Glucose 139 H, Calcium 7.3 L Microbiology: Microbiology 04/08/23 01:35 Blood Culture (Wb) - Right Forearm Blood Culture - Preliminary No growth in 48 hours. 04/08/23 01:30 Blood Culture (Wb) - Anticubital Left Blood Culture - Preliminary No growth in 48 hours. 04/08/23 00:00 Urine, Catheterized Urine Culture - Final Presumptive E. coli 04/09/23 18:20 Urine, Clean Catch Legionella Antigen - Final Legionella Antigen 04/09/23 18:20 Urine, Clean Catch Streptococcus pneumoniae Antigen (M - Final 04/07/23 23:58 Nasal Secretion SARS-CoV-2 & FLU Antigen (Rapid) - Final D/C Instructions Discharge Diet: Low fat / Low cholesterol Discharge Activity: Return to Normal Activity Meaningful Use Info Meaningful Use Diagnoses (Choose all that apply): None applicable Discharge Plan Admission Admit Date/Time: 04/08/23 01:31 Primary Reason for Your Visit: fatigue/Generalized weakness Attending Provider: Mindi Macias Primary Care Provider: Gokul Sanchez Chi Consulting Providers: Gustavo Molina Eric Discharge Orders/Prescriptions Prescriptions: New levofloxacin 750 mg tablet 750 mg PO Q24H Qty: 7 0RF Continued levothyroxine 50 mcg tablet 50 mcg PO DAILY metoprolol tartrate 25 mg tablet 25 mg PO DAILY Qty: 90 3RF azathioprine 50 mg tablet 50 mg PO DAILY Qty: 90 0RF Held prednisone 20 mg tablet 20 mg PO DAILY Qty: 60 2RF Hold Instructions: Until Levaquin is completed Referrals / Follow Up: Gokul Sanchez Chi, MD [Primary Care Provider] - Within 2 Weeks Disposition Disposition (needs filled in before D/C Order can be placed): Home, Self Care Charges/Coding Visit Charges Inpatient E&M: 69092 Disch Hosp >30min
--- NOTE | 2023-04-10 15:29 | CASEMGMT ---
Therapy recommending HHC at discharge. RN CM in to discuss needs at discharge. Patient states she will not be home bound at discharge and would prefer outpatient PT. Hospitalist updated, script received. Patient would like [facility] to schedule appt at [facility]. [facility] called [facility] and scheduled PT appt for 04/12 at 1430. RN CM send order to [facility] and updated discharge plan. Patient had no further questions or concerns.
--- NOTE | 2023-04-10 15:49 | PHA.DC_ITS ---
Pharmacy [facility] Pharm[facility] Service has performed discharge medication reconciliation and counseling for this patient. 1. LEVOFLOXACIN 750MG PO DAILY X 7 DAYS The patient's discharge medication list was reviewed for discrepancies and discrepancies were resolved. The patient was counseled on the following discharge medications and changes in medications for homegoing were reviewed. The Reason for Use, instructions for use, and potential side effects were reviewed for all new medications. The patient's questions regarding all of their medications were answered. The patient was able to verbally demonstrate an understanding of their discharge medications. Patient counseled by cert pharmacy techYuli. Medications at Discharge Home Medications levothyroxine 50 mcg tablet 50 mcg PO DAILY 11/11/20 metoprolol tartrate 25 mg tablet 25 mg PO DAILY BP #90 tabs 12/26/22 prednisone 20 mg tablet 20 mg PO DAILY #60 tabs 02/27/23 azathioprine 50 mg tablet 50 mg PO DAILY #90 tabs 02/28/23 levofloxacin 750 mg tablet 750 mg PO Q24H #7 tabs 04/10/23
--- NOTE | 2023-04-10 15:51 | CHAPLAIN ---
Type of Pastoral Visit _x__ Initial Visit ___ Follow-up Visit ___ On-call Visit ___ General Patient Visit ___ Spiritual Assessment ___ Family Conference ___ Bereavement ___ Rapid Response ___ Code Blue ___ Other (describe below) Pastoral Care Referral From _x__ Patient ___ Family ___ Nurse ___ Physician ___ Entertainment Manager ___ Trials Manager ___ Other (describe below) Sacrament/Intervention _x__ Active listening ___ Anointing ___ Sikhism ___ Bereavement ___ Communion _x__ Kirsten exploration ___ _x__ Life review _x__ Prayer ___ Reconciliation ___ Sacrament of Sick ___ Supportive presence ___ Wedding ___ Other (describe below) Pastoral Comments patient is very welcoming and eager to talk about her kirsten and her family; pt has been 64 years and very active in her christianity; pt goal is to go home today if possible; pt thankful for good care and support; pt welcomes time to talk and prayer
== END 2023-04-10 17:10 | disposition home or self-care (01) | DRG 871 ==
LOC: ED 04-08 01:24 → MS3 04-08 01:37 → PCU 04-08 02:42
PROVIDERS: Admitting Provider Family Medicine; Emergency Provider Emergency Medicine; PCP Family Medicine Geriatric Medicine; Visit Provider Internal Medicine
DX: A41.9 Sepsis, unspecified organism (principal); A48.1 Legionnaires' disease; E87.20 Acidosis, unspecified; E87.1 Hypo-osmolality and hyponatremia; N39.0 Urinary tract infection, site not specified; I50.32 Chronic diastolic (congestive) heart failure; D89.2 Hypergammaglobulinemia, unspecified; B96.20 Unspecified Escherichia coli [E. coli] as the cause of diseases classified elsewhere; I11.0 Hypertensive heart disease with heart failure; E78.5 Hyperlipidemia, unspecified; E06.3 Autoimmune thyroiditis; I25.10 Atherosclerotic heart disease of native coronary artery without angina pectoris; I35.0 Nonrheumatic aortic (valve) stenosis; D64.9 Anemia, unspecified; K75.81 Nonalcoholic steatohepatitis (NASH); Z95.5 Presence of coronary angioplasty implant and graft; Z79.899 Other long term (current) drug therapy
CPT/HCPCS: 36415; 71045; 80048; 80076; 81001; 83605; 83735; 84100; 84443; 85025; 85610; 85730; 87040; 87086; 87088; 87186; 87428; 87449; 97162; 97166; 97802; 99285; J7030; J7050; A4216; J2405

== ENCOUNTER → 2023-04-24 | Outpatient (CLI) | payer MEDICARE, OTHER, SELFPAY ==
[2017-04-19 11:37] VITALS: BMI 26.3
[2023-04-24 12:03] LABS: Absolute Lymphocyte Count 0.77 X10^3/uL (0.83-4.51); Absolute Neutrophil Count 7.9 X10^3/uL (2.0-7.7); Basophil# 0.04 X10^3/uL; Basophil% 0.4 % (0-1); Eosinophil# 0.04 X10^3/uL; Eosinophils% 0.4 % (0-5); Hematocrit 37.4 % (37-47); Lymphocyte # 0.77 X10^3/ul (0.83-4.51); Mean Corp Hgb Conc 32.1 g/dL (32-36); Mean Corpuscular Hgb 28.6 pg (27.0-32.0); Mean Corpuscular Volume 89.3 fL (81-99); Mean Platelet Vol. 12.4 fl (6.2-12.0); Monocyte# 0.64 X10^3/uL; Monocyte% 6.7 % (0-10); NRBC Flagged by Analyzer 0 % (0-5); Neutrophil # 7.94 X10^3/uL (2.7-7.7); Neutrophil % 82.6 % (47-70); Platelet Count 280 K/mm3 (150-450); RBC Distribution Width SD 58.9 fl (35.1-43.9); Red Blood Count 4.19 M/mm3 (4.2-5.4); White Blood Count 9.6 K/mm3 (4.4-11.0)
[2023-04-24 12:20] LABS: Vitamin D,25 Hydroxy 32.2 ng/mL
[2023-04-24 12:29] LABS: ALB/GLOB Ratio 0.5 RATIO (0.9-2.4); AST(SGOT) 81 U/L (15-37); Alanine Aminotransfer ALT/SGPT 70 U/L (13-56); Albumin, Serum 2.8 g/dL (3.2-5.0); Alkaline Phosphatase 667 U/L (45-117); Anion Gap 5 (5-15); BUN 20 mg/dL (7-18); BUN/Creat Ratio 22.4 RATIO (10-20); Calcium,Total 8.8 mg/dL (8.5-10.1); Chloride 102 mmol/L (98-107); Creatinine, Serum 0.89 mg/dL (0.55-1.02); EST Glomerular Filtration Rate 65 mL/min (>60); Est Glom Filt Rate - Afr Amer 78 mL/min (>60); Globulin 5.7 g/dL (2.2-4.2); Glucose 142 mg/dL (74-106); Potassium 4.1 mmol/L (3.5-5.1); Protein, Total 8.5 g/dL (6.4-8.2); Sodium Level 133 mmol/L (136-145); Thyroid Stim Hormone (TSH) 3.24 uIU/mL (0.358-3.74)
== END | disposition home or self-care (01) ==
PROVIDERS: PCP Family Medicine Geriatric Medicine; Visit Provider Family Medicine Geriatric Medicine
DX: E11.65 Type 2 diabetes mellitus with hyperglycemia (principal); I10 Essential (primary) hypertension; E55.9 Vitamin D deficiency, unspecified
CPT/HCPCS: 36415; 80053; 82306; 84443; 85025

== ENCOUNTER 2023-04-25 11:22 | Outpatient (RCR) | payer MEDICARE, OTHER, SELFPAY ==
[2017-04-19 11:37] VITALS: BMI 26.3
[2023-04-25 12:12] LABS: Erythrocyte Sedimentation Rate 44 mm/hr (0-30)
[2023-04-25 12:15] LABS: Absolute Lymphocyte Count 0.49 X10^3/uL (0.83-4.51); Absolute Neutrophil Count 7.7 X10^3/uL (2.0-7.7); Basophil# 0.01 X10^3/uL; Basophil% 0.1 % (0-1); Eosinophil# 0.01 X10^3/uL; Eosinophils% 0.1 % (0-5); Hematocrit 35.3 % (37-47); Hemoglobin 11.5 g/dL (12.0-15.0); Lymphocyte # 0.49 X10^3/ul (0.83-4.51); Lymphocyte % 5.7 % (19-41); Mean Corp Hgb Conc 32.6 g/dL (32-36); Mean Corpuscular Hgb 29.7 pg (27.0-32.0); Mean Corpuscular Volume 91.2 fL (81-99); Mean Platelet Vol. 11.3 fl (6.2-12.0); Monocyte# 0.33 X10^3/uL; Monocyte% 3.8 % (0-10); NRBC Flagged by Analyzer 0 % (0-5); Neutrophil # 7.65 X10^3/uL (2.7-7.7); Neutrophil % 88.7 % (47-70); POSITIVE DIFFERENTIAL YES; Platelet Count 205 K/mm3 (150-450); RBC Distribution Width CV 18.1 % (11.6-14.6); RBC Distribution Width SD 59.7 fl (35.1-43.9); Red Blood Count 3.87 M/mm3 (4.2-5.4); White Blood Count 8.6 K/mm3 (4.4-11.0)
[2023-04-25 12:19] LABS: Differential Indicated SCAN CRITERIA MET
[2023-04-25 12:22] LABS: International Normalized Ratio 1.2; Prothrombin Time (Protime)PT. 15.3 SECONDS (11.7-14.9)
[2023-04-25 12:34] LABS: ALB/GLOB Ratio 0.5 RATIO (0.9-2.4); AST(SGOT) 109 U/L (15-37); Alanine Aminotransfer ALT/SGPT 71 U/L (13-56); Albumin, Serum 2.7 g/dL (3.2-5.0); Alkaline Phosphatase 689 U/L (45-117); Anion Gap 8 (5-15); BUN 16 mg/dL (7-18); BUN/Creat Ratio 19.2 RATIO (10-20); Calcium,Total 8.8 mg/dL (8.5-10.1); Chloride 103 mmol/L (98-107); Creatinine, Serum 0.83 mg/dL (0.55-1.02); EST Glomerular Filtration Rate 70 mL/min (>60); Est Glom Filt Rate - Afr Amer 84 mL/min (>60); Globulin 5.4 g/dL (2.2-4.2); Glucose 200 mg/dL (74-106); LDH 153 U/L (84-246); Potassium 4.4 mmol/L (3.5-5.1); Protein, Total 8.1 g/dL (6.4-8.2); Sodium Level 138 mmol/L (136-145)
[2023-04-25 12:42] LABS: Differential Comment SCANNED
== END 2023-04-25 18:00 | disposition home or self-care (01) ==
LOC: LAB 11:22
PROVIDERS: PCP Family Medicine Geriatric Medicine; Referring Provider Internal Medicine Gastroenterology; Visit Provider Internal Medicine Gastroenterology
DX: K74.00 Hepatic fibrosis, unspecified (principal)
CPT/HCPCS: 36415; 80053; 82140; 83615; 85025; 85610; 85652; 86140

== ENCOUNTER 2023-05-11 15:30 | Outpatient (RCR) | payer MEDICARE, OTHER, SELFPAY ==
[2017-04-19 11:37] VITALS: BMI 26.3
--- NOTE | 2023-04-12 15:31 | HP.PTEVAL ---
Patient's Visit Information Visit Information Visit Information: ROEL WILLINGHAM is a 82 year old F referred to Physical Therapy by Dr. Gokul Sanchez MD with a diagnosis of PNUMONIA ,SEPSIS , WEAKNESS. Date of Evaluation: 04/12/23 Physical Therapist: Raghav Carrasco, PT, Cert MDT, OCS Visit Plan Frequency: 2x /Week Duration: 4 Weeks Plan: PT INTERVETIONS PROGRESSIVE BALANCE PROGRAM ,STRENGTHENING ENDURANCE PROGRAM AND FUNCTIONAL STRENGTHENING Subjective Subjective: This 82 y/o female presents to physical therapy with weakness. Patient went to [facility] on April 07 via ambulance with inability to weak and weakness. Patient was diagnosed with pneumonia ,sepsis and UTI. Patient was hospitalized for 3 days. Prior to admit and developed weakness ambulated with no device. Patient has no pain. Denies paresthesia/tingling -. Patient lives alone. Patient daughter may live with patient . Patient 2 story home no steps . Patient currently stays on 1st floor no steps . Patient has walk in shower with seat and grab bars. Patient is able to dress self and bath. Spouse helps out with cooking and cleaning. Patient has no falls. Patient condition affects QOL and function. SOCIAL: VOCATION: retired Objective Objective: POSTURE: mild forward posture hip/knees flexed GAIT: ambulates with reciprocal pattern slow karri mild forward posture NEURO: denies paresthesia/tingling ,reflexes L3-4,L4-L5 ,L5-S1 1/3 BALANCE: fair + with no device STAIRS: one step at a time with rails MMT: quads/hams 4/5 ,hip flexion ,hip abduction 4-/5 ,ankle 5/5 Balance/Special Test Scores Functional Gait Assessment Score: 14 % Disability: 53.3400 CATSIB Score (Max score 120 seconds): 60 Lower Extremity Functional Score: 27 30 Second Chair Rise Test Seconds: 6 Goals Goal 1:: I with HEP for balance/strengthening. Goal Time Frame: 4-6 Weeks Goal 2:: Patient to improve LFES score by 5-10 points to improve QOL and function Goal Time Frame: 4-6 Weeks Goal 3:: Patient to improve CATSIBE by 5 points to improve balance Goal Time Frame: 4-6 Weeks Goal 4:: Patient to improve functional gait assessment score by 5 points to improve gait Goal Time Frame: 4-6 Weeks Goal 5:: Patient to ambulate with no device community distance Goal Time Frame: 4-6 Weeks Goal 6:: Patient to demonstrate 60% improvement with endurance and function. Goal Time Frame: 4-6 Weeks Rehabilitation Potential Physical Therapy Diagnosis: This patient has multiple comorbities that contribute to weakness with decrease gait ,balance using rollator and decrease endurance thus benefit from skilled PT Rehabilitation Potential: Good Anticipated Interventions Patient/Client Instruction: Educate patient on: Condition and Plan of Care For the Purpose of:: To decrease pain, To improve muscle performance and motor function, To improve ability to perform ADL's, To increase tolerance to activity/condition/position, To improve ability of physical actions for home/community/work/leisure, To improve gait and locomotor functions, To increase flexibility/ROM, To improve endurance, To improve balance, To improve safety with gait and To improve tolerance to ADL's Therapeutic Exercise to Include: Strength training, Endurance training, Balance training and Gait and locomotor training Comment: BLE For the Purpose of:: To improve muscle performance and motor function, To improve ability to perform ADL's, To increase tolerance to activity/condition/position, To improve ability of physical actions for home/community/work/leisure, To improve gait and locomotor functions, To improve endurance, To improve balance, To improve safety with gait and To reduce risk of recurrence Text: Thank you for the opportunity to evaluate your patient. For Medicare and Medicare HMO plans, please review the plan of care and approve it. It will need to be FAXED BACK to us at [phone] for Medicare purposes. For Medicare only, by signing this I certify the plan of care. Please let me know if there are questions or concerns regarding this plan of care. Physician Signature: Date:
--- NOTE | 2023-05-11 15:55 | HP.PTDCSUM ---
Discharge Summary D/C summary: It has been my pleasure to treat ROEL WILLINGHAM referred by Dr. Gokul Sanchez MD, with the diagnosis of PNUEMONIA ,SEPSIS , WEAKNESS for a total of 9 visit(s). Discharge Date: 05/11/23 Please see the following information for a summary of their discharge status. Subjective Subjective: Patient doing well .. ready for d/c . Overall Improvement % Improvement: 90 Objective Objective/Function: Objective: POSTURE: mild forward posture hip/knees flexed GAIT: ambulates with reciprocal pattern slow karri mild forward posture NEURO: denies paresthesia/tingling ,reflexes L3-4,L4-L5 ,L5-S1 1/3 BALANCE: good STAIRS: alternating MMT: quads/hams 4/5 ,hip flexion ,hip abduction 4-/5 ,ankle 5/5 Goals Goal 1:: I with HEP for balance/strengthening. Goal Progress: Goal Met Goal 2:: Patient to improve LFES score by 5-10 points to improve QOL and function Goal Progress: Goal Met Goal 3:: Patient to improve CATSIBE by 5 points to improve balance Goal 4:: Patient to improve functional gait assessment score by 5 points to improve gait Goal Progress: Goal Met Goal 5:: Patient to ambulate with no device community distance Goal Progress: Goal Met Goal 6:: Patient to demonstrate 60% improvement with endurance and function. Goal Progress: Goal Met Plan Plan: D/C D/C Information Discharge Comments: HEP d/c sentence: If there are questions or concerns regarding this patient's physical therapy, please feel free to call me at [phone]. Thank you for the referral of this patient. Sincerely, Raghav Carrasco, PT, Cert MDT, OCS Balance/Gait/Functional tests Balance/Special Test Scores Functional Gait Assessment Score: 30 % Disability: 0 CATSIB Score (Max score 120 seconds): 120 Lower Extremity Functional Score: 68 30 Second Chair Rise Test Seconds: 9 Improvement % Improvement: 90
== END 2023-05-11 19:00 | disposition home or self-care (01) ==
LOC: PT 15:30
PROVIDERS: PCP Family Medicine Geriatric Medicine; Referring Provider Internal Medicine; Visit Provider Family Medicine Geriatric Medicine
DX: A41.9 Sepsis, unspecified organism (principal); J18.9 Pneumonia, unspecified organism; R53.1 Weakness
CPT/HCPCS: 97110; 97162; 97530

== ENCOUNTER → 2023-05-12 | Outpatient (CLI) | payer MEDICARE, OTHER, SELFPAY ==
[2017-04-19 11:37] VITALS: BMI 26.3
[2023-05-12 11:10] LABS: Absolute Lymphocyte Count 0.96 X10^3/uL (0.83-4.51); Absolute Neutrophil Count 7.5 X10^3/uL (2.0-7.7); Basophil# 0.05 X10^3/uL; Basophil% 0.5 % (0-1); Eosinophil# 0.05 X10^3/uL; Eosinophils% 0.5 % (0-5); Hematocrit 37.1 % (37-47); Hemoglobin 11.9 g/dL (12.0-15.0); Lymphocyte # 0.96 X10^3/ul (0.83-4.51); Lymphocyte % 10.3 % (19-41); Mean Corp Hgb Conc 32.1 g/dL (32-36); Mean Corpuscular Hgb 29.2 pg (27.0-32.0); Mean Corpuscular Volume 91.2 fL (81-99); Monocyte# 0.42 X10^3/uL; Monocyte% 4.5 % (0-10); NRBC Flagged by Analyzer 0 % (0-5); Neutrophil # 7.48 X10^3/uL (2.7-7.7); Neutrophil % 80.5 % (47-70); Platelet Count 182 K/mm3 (150-450); RBC Distribution Width CV 18.7 % (11.6-14.6); RBC Distribution Width SD 61.7 fl (35.1-43.9); Red Blood Count 4.07 M/mm3 (4.2-5.4); White Blood Count 9.3 K/mm3 (4.4-11.0)
[2023-05-12 11:32] LABS: ALB/GLOB Ratio 0.5 RATIO (0.9-2.4); AST(SGOT) 98 U/L (15-37); Alanine Aminotransfer ALT/SGPT 99 U/L (13-56); Albumin, Serum 2.6 g/dL (3.2-5.0); Alkaline Phosphatase 642 U/L (45-117); Anion Gap 6 (5-15); BUN 19 mg/dL (7-18); BUN/Creat Ratio 19.9 RATIO (10-20); Calcium,Total 8.6 mg/dL (8.5-10.1); Chloride 102 mmol/L (98-107); Creatinine, Serum 0.96 mg/dL (0.55-1.02); EST Glomerular Filtration Rate 60 mL/min (>60); Est Glom Filt Rate - Afr Amer 72 mL/min (>60); Globulin 5.5 g/dL (2.2-4.2); Glucose 191 mg/dL (74-106); Protein, Total 8.1 g/dL (6.4-8.2); Sodium Level 133 mmol/L (136-145); Thyroid Stim Hormone (TSH) 2.57 uIU/mL (0.358-3.74)
== END | disposition home or self-care (01) ==
LOC: POLAB3 10:46
PROVIDERS: PCP Family Medicine Geriatric Medicine; Visit Provider Family Medicine Geriatric Medicine
DX: E11.65 Type 2 diabetes mellitus with hyperglycemia (principal)
CPT/HCPCS: 36415; 80053; 84443; 85025

== ENCOUNTER → 2023-05-16 | Outpatient (CLI) | payer MEDICARE, OTHER, SELFPAY ==
[2017-04-19 11:37] VITALS: BMI 26.3
--- NOTE | 2023-05-16 08:56 | BI_ITS ---
MAMMOGRAPHY - BILATERAL SCREENING REASON FOR EXAM: Female, 82 years old. Routine annual screening examination. PERTINENT HISTORY: Non-contributory. TECHNIQUE: Digital bilateral breast arlette (3D mammographic acquisition) in the CC and MLO projections. 2-D mediolateral oblique (MLO) and craniocaudad (CC) views of both breasts were obtained. CAD: Full Field Digital Mammography with Computer Added Detection was performed. COMPARISON: Comparison is made with prior study May 06, 2022 and April 08, 2021. FINDINGS: Breast Composition: There are scattered areas of fibroglandular density. There are no dominant masses or suspicious calcifications. Stable bilateral secretory calcifications No other significant abnormalities are identified. There has been no significant change since the prior study. BI/SCRN MAMM (CAD)W/ARLETTE BILAT IMPRESSION: Stable bilateral screening mammogram. Yearly follow-up mammogram recommended. (A) ASSESSMENT CATEGORY: BIRADS Category 2: Benign. A letter regarding these results will be sent to the patient by the facility within 30 days. Approximately 10% of breast cancers are not detected by mammography. A normal mammogram should not delay biopsy of a clinically suspicious abnormality. [id number] Electronically Signed: Asher Donato MD at 10:00 EDT ,
== END | disposition home or self-care (01) ==
LOC: OPBI 08:54
PROVIDERS: PCP Family Medicine Geriatric Medicine; Referring Provider Nurse Practitioner Women's Health; Visit Provider Nurse Practitioner Women's Health
DX: Z12.31 Encounter for screening mammogram for malignant neoplasm of breast (principal)
CPT/HCPCS: 77063; 77067

== ENCOUNTER 2023-05-22 09:47 | Outpatient (RCR) | payer MEDICARE, OTHER, SELFPAY ==
[2017-04-19 11:37] VITALS: BMI 26.3
[2023-05-11 16:24] LABS: Absolute Lymphocyte Count 1.43 X10^3/uL (0.83-4.51); Absolute Neutrophil Count 5.8 X10^3/uL (2.0-7.7); Basophil# 0.05 X10^3/uL; Basophil% 0.6 % (0-1); Eosinophil# 0.09 X10^3/uL; Eosinophils% 1.1 % (0-5); Hemoglobin 11.5 g/dL (12.0-15.0); Lymphocyte # 1.43 X10^3/ul (0.83-4.51); Lymphocyte % 17.5 % (19-41); Mean Corp Hgb Conc 31.1 g/dL (32-36); Mean Corpuscular Hgb 28.3 pg (27.0-32.0); Mean Corpuscular Volume 91.1 fL (81-99); Mean Platelet Vol. 10.5 fl (6.2-12.0); Monocyte# 0.57 X10^3/uL; NRBC Flagged by Analyzer 0 % (0-5); Neutrophil # 5.75 X10^3/uL (2.7-7.7); Neutrophil % 70.5 % (47-70); Platelet Count 176 K/mm3 (150-450); RBC Distribution Width CV 18.6 % (11.6-14.6); RBC Distribution Width SD 61.4 fl (35.1-43.9); Red Blood Count 4.06 M/mm3 (4.2-5.4); White Blood Count 8.2 K/mm3 (4.4-11.0)
[2023-05-11 16:37] LABS: International Normalized Ratio 1.1; Prothrombin Time (Protime)PT. 14.6 SECONDS (11.7-14.9)
[2023-05-11 16:45] LABS: Ammonia < 10.0 umol/L (11-32)
[2023-05-11 16:46] LABS: ALB/GLOB Ratio 0.5 RATIO (0.9-2.4); AST(SGOT) 103 U/L (15-37); Alanine Aminotransfer ALT/SGPT 102 U/L (13-56); Albumin, Serum 2.7 g/dL (3.2-5.0); Alkaline Phosphatase 625 U/L (45-117); Anion Gap 5 (5-15); BUN 21 mg/dL (7-18); Calcium,Total 8.8 mg/dL (8.5-10.1); Chloride 105 mmol/L (98-107); Creatinine, Serum 0.96 mg/dL (0.55-1.02); EST Glomerular Filtration Rate 60 mL/min (>60); Est Glom Filt Rate - Afr Amer 72 mL/min (>60); Globulin 5.4 g/dL (2.2-4.2); Glucose 163 mg/dL (74-106); LDH 154 U/L (84-246); Potassium 3.9 mmol/L (3.5-5.1); Protein, Total 8.1 g/dL (6.4-8.2); Sodium Level 135 mmol/L (136-145)
[2023-05-11 17:02] LABS: Erythrocyte Sedimentation Rate 72 mm/hr (0-30)
[2023-05-22 10:09] LABS: Absolute Lymphocyte Count 0.95 X10^3/uL (0.83-4.51); Absolute Neutrophil Count 7.1 X10^3/uL (2.0-7.7); Basophil# 0.07 X10^3/uL; Basophil% 0.8 % (0-1); Eosinophil# 0.07 X10^3/uL; Eosinophils% 0.8 % (0-5); Hematocrit 35.8 % (37-47); Hemoglobin 11.1 g/dL (12.0-15.0); Lymphocyte # 0.95 X10^3/ul (0.83-4.51); Lymphocyte % 10.5 % (19-41); Mean Corpuscular Volume 93.5 fL (81-99); Mean Platelet Vol. 10.9 fl (6.2-12.0); Monocyte# 0.66 X10^3/uL; Monocyte% 7.3 % (0-10); NRBC Flagged by Analyzer 0 % (0-5); Neutrophil # 7.06 X10^3/uL (2.7-7.7); Neutrophil % 78.4 % (47-70); Platelet Count 172 K/mm3 (150-450); RBC Distribution Width CV 18.5 % (11.6-14.6); RBC Distribution Width SD 63.1 fl (35.1-43.9); Red Blood Count 3.83 M/mm3 (4.2-5.4)
[2023-05-22 10:11] LABS: Erythrocyte Sedimentation Rate 71 mm/hr (0-30)
[2023-05-22 10:17] LABS: International Normalized Ratio 1.1; Prothrombin Time (Protime)PT. 14.2 SECONDS (11.7-14.9)
[2023-05-22 10:50] LABS: ALB/GLOB Ratio 0.5 RATIO (0.9-2.4); AST(SGOT) 80 U/L (15-37); Alanine Aminotransfer ALT/SGPT 78 U/L (13-56); Albumin, Serum 2.7 g/dL (3.2-5.0); Alkaline Phosphatase 531 U/L (45-117); Anion Gap 6 (5-15); BUN 15 mg/dL (7-18); BUN/Creat Ratio 17.6 RATIO (10-20); Calcium,Total 8.5 mg/dL (8.5-10.1); Chloride 105 mmol/L (98-107); Creatinine, Serum 0.85 mg/dL (0.55-1.02); EST Glomerular Filtration Rate 68 mL/min (>60); Est Glom Filt Rate - Afr Amer 83 mL/min (>60); Glucose 255 mg/dL (74-106); LDH 144 U/L (84-246); Protein, Total 7.7 g/dL (6.4-8.2); Sodium Level 138 mmol/L (136-145)
== END 2023-05-22 18:00 | disposition home or self-care (01) ==
LOC: LAB 09:47
PROVIDERS: PCP Family Medicine Geriatric Medicine; Referring Provider Internal Medicine Gastroenterology; Visit Provider Internal Medicine Gastroenterology
DX: K74.00 Hepatic fibrosis, unspecified (principal)
CPT/HCPCS: 36415; 80053; 82140; 83615; 85025; 85610; 85652; 86140

== ENCOUNTER → 2023-06-05 | Outpatient (CLI) | payer MEDICARE, OTHER, SELFPAY ==
[2017-04-19 11:37] VITALS: BMI 26.3
--- NOTE | 2023-06-05 14:54 | MRI_ITS ---
EXAM: MR ABDOMEN WITHOUT INTRAVENOUS CONTRAST, MRCP PROTOCOL CLINICAL INDICATION: Cholestasis, hepatitis and jaundice TECHNIQUE: Multiplanar and multisequence MR images of the abdomen without intravenous contrast obtained with MRCP sequence. Three-dimensional post-processing reconstructions were performed. COMPARISON: MR MRCP dated 06/07/2022 FINDINGS: LOWER THORAX: Normal. No pleural effusion. LIVER: Normal. Normal morphology. GALLBLADDER AND BILE DUCTS: Multiple small stones again noted within the gallbladder. No gallbladder wall thickening or pericholecystic fluid. 4 mm filling defect noted within the distal common bile duct on the coronal T2-weighted series on image 15 indicative of a common bile duct stone. Common bile duct is normal in caliber measuring 5.6 mm in maximum diameter. PANCREAS: Normal. No focal cystic mass. No pancreatic duct dilation. SPLEEN: Normal. Non-enlarged. ADRENALS: Normal. No nodules. KIDNEYS AND URETERS: Stable distended left extrarenal pelvis. Normal renal size and position. No hydronephrosis. STOMACH AND BOWEL: 2.3 cm duodenal diverticulum is noted. INTRAPERITONEAL SPACE: Normal. No ascites or other fluid collection. VASCULATURE: Normal. Abdominal aorta is non-dilated. LYMPH NODES: Stable 2 cm lymph node along the hepatoduodenal ligament. MRI/MRCP Abdomen without Contrast IMPRESSION: 1. 4 mm distal common bile duct stone. 2. Cholelithiasis. Electronically Signed: Dane Rosales MD at 9:21 EDT ,
== END | disposition home or self-care (01) ==
LOC: MRI 14:48
PROVIDERS: PCP Family Medicine Geriatric Medicine; Referring Provider Internal Medicine Gastroenterology; Visit Provider Internal Medicine Gastroenterology
DX: K74.60 Unspecified cirrhosis of liver (principal); K75.4 Autoimmune hepatitis
CPT/HCPCS: 74181

== ENCOUNTER 2023-08-15 10:32 | Day surgery (SDC) | payer MEDICARE, OTHER, SELFPAY ==
[2017-04-19 11:37] VITALS: BMI 26.3
[2023-08-15] VITALS (8 sets, daily range): BP systolic 90–123; BP diastolic 55–79; PULSE 79–85; RESP 12–16; TEMP 36.1–36.6; O2SAT 82–98; BMI 22.3
[2023-08-15] MEDS: Lactated Ringers 1,000 ML 15 ML IV ×2 (11:06→13:04)
--- NOTE | 2023-08-15 11:09 | EKG12_ITS ---
Test Reason : PRE-OP Blood Pressure : / mmHG Vent. Rate : 085 BPM Atrial Rate : 085 BPM P-R Int : 146 ms QRS Dur : 118 ms QT Int : 398 ms P-R-T Axes : 046 -60 024 degrees QTc Int : 473 ms Normal sinus rhythm Left anterior fascicular block Left ventricular hypertrophy with QRS widening Abnormal ECG When compared with ECG of 08-NOV-2022 09:19, Premature atrial complexes are no longer Present Confirmed by ALONDRA WALH, LINDA ([id number]), scientific publications editor MARINA ARGUELLO ([id number]) on 08/23/2023 6:00:42 AM Referred By: Gokul Sanchez Confirmed By:LINDA CANTU MD
--- NOTE | 2023-08-15 11:36 | PCM.HP.BLA ---
History and Physical Date of Admission: 08/15/23 82 F who presents to the office today for WSA established previously for weight loss. ? Colonoscopy 12.20.18 diverticulosis; lichen like perianal skin changes; nodular mucosa of cecum, lymphoid aggregates. ? EGD 08.26.22 esophagitis; small hiatal hernia; duodenitis; gastritis. No path changes PCP workup: CT abd/pel 05.24.22 multiple gallstones with mild distention and wall thickening; small hiatal hernia; large fecal burden; scattered lymphadenopathy; [id number] low-attenuation masses of hepatic hilum WCC established for weight loss and abnormal biochemical/CT findings. ? PET 06.01.22 left ventricular myocardium uptake. ? MRI abd 06.07.22 normal liver; gallstones; stable lymph node 1.8x2.2cm of portal caval space; small hiatal hernia PCP workup: ? HIDA 07.14.22 high probability of chronic cholecystitis. *BGI established 01.12.23 unintentional weight loss of 50lbs over the last year without appetite loss, but notes food doesn?t take as good. Liver biopsy 02.13.23 cirrhosis without significant fatty changes; fibrous septae with moderate/marked chronic inflammatory infiltration of lymphocytes and plasma cells with interface inflammation. Start Azathioprine 50mg QD [facility] [place] hospitalization 04.08.23-8 for sepsis management with pneumonia and UTI. OV 05.22.23 reports she is doing well at this time. Daughter has recently moved into her/their home for long-term support. Reports ? MELD? ESR/CRP plt/INR?? AST-ALT-AP? Ammonia 04.21.22 --? --/--? 203/--??? 162-81-461? FIB4 7, Globulin H6.8, hepatitis A ab +. Vit D25, TSH WNL. ?? --? --/--? 233/--??? 153-67-532? FIB4 6.34, globulin H7.2, B12 H1479, Ridott light chain +, IgG H4068, IgM H573.? IgAE, CA19-9, folate --? 74/34.5 201/1.2 87-35-312? FIB4 5.78, globulin H8, GGT H339, ZACK+, RF +, IgG H3758, IgG1 H2863, IgG2 L82, IgG3 H159, ASM H182, 5nucleotide H26. AMA, IgG4, LDH WNL 03.28.23 --? --/--? 153/--??? 42-47-272? globulin H5.2TPMT WNL, genotype *1 04.25.23 8? 44/22.5 205/1.2 109-36-199 ROS Const Constitutional: Positive for fatigue, weakness and weight change (weight loss); No fever(s), frequent falls or headache(s) ENT ENT: No headache(s) or difficulty swallowing Cardio Cardiology: No leg pain with exertion Gastro GI: No abdominal pain, bloating, change in bowel habits, constipation, diarrhea, heartburn, difficulty swallowing, Vomiting blood/hematemesis, Blood in stool, nausea/dyspepsia or vomiting Musc Musculoskeletal: Positive for muscle weakness; No abnormal gait, joint pain, back pain, joint swelling, muscle cramps, numbness, stiffness, tingling, Arthritis, sciatica, leg pain at night or leg pain with exertion Skin Skin: No dry skin, lesions, itchy eyes or rash Neuro Neurology: Positive for weakness; No abnormal gait, dizziness, frequent falls, headache(s), numbness, tingling, tremor(s), Increased tone in limbs, paralysis or seizures Psych Psychiatric: No anxiety, No depression, No paranoia, No Behavioral Problems, No Compulsive Behavior, No hyperactivity, No inattentiveness, No obsessions/compulsions, No Temper Tantrums and No suicidal ideation Endo Endocrine: Positive for fatigue and weight change (weight loss) Aller/Imm Allergy/Immunologic: No itchy eyes Colton/Lymp Hematologic/Lymphatic: No easy bleeding or easy bruising Exam Const General: cooperative, healthy appearing and comfortable Orientation: alert, awake and oriented x3 HENMT Head: normal to inspection Eyes Sclera: sclerae normal Resp Effort & Inspection: normal respiratory effort GI Inspection: normal to inspection Palpation: soft, no hepatosplenomegaly, no masses and nontender Skin General: no rashes or lesions noted and no jaundice Neuro Speech: speech normal Gait: normal gait Psych Mood: euthymic mood Quality Reporting Tobacco Screening ([facility] 138) Smoking Status: Never smoker Assessment and Plan Assessment and Plan (1) Autoimmune hepatitis: Status: Chronic (2) Cirrhosis: Status: Chronic Plan: 82-year-old with history of fatty liver disease, Yari's thyroiditis, HEDRICK who had worsening LFTs consistent with cholestatic jaundice. Her imaging with MRCP did show a stone in the distal common bile duct. Ultrasound and CT scan did not show any signs of hepatic masses. Antimitochondrial antibody was negative, ANCA negative, anti-smooth muscle positive, ZACK positive. We ordered a liver biopsy and it showed a plasma cells with interface hepatitis along with multiple lymphocytes consistent with autoimmune hepatitis. She was started on prednisone and azathioprine. She is doing well without any side effects of the medicine. She has had some improvement in her LFTs. CBC has been normal. We will have her get repeat labs today. She will be scheduled for an ERCP tomorrow.. She was explained alternatives, risk, benefits including bleeding, infection. She will have an ASA of 3. Medications: Discontinued levofloxacin Discontinued Reason: Order Completed 750 mg PO Q24H 7 tabs 0RF
--- NOTE | 2023-08-15 11:53 | RAD_ITS ---
EXAM: FL FLUOROSCOPY < 1 HOUR CLINICAL INDICATION: ERCP TECHNIQUE: Fluoroscopic images performed in multiple projections. Fluoroscopic guidance was provided by a physician. The fluoroscopy time was 96 seconds. COMPARISON: MRCP of 06/05/2023. FINDINGS: Endoscopy and cannulation were carried out by the referring physician. Common bile duct was cannulated. Common bile duct stent is seen on the last image. Gallstones are seen. A total of 11 fluoroscopic images were obtained. RAD/ERCP Biliary/Pancreas IMPRESSION: ERCP as described above with common bile duct stent placement. Electronically Signed: Bart Cuellar MD at 12:52 EST ,
--- NOTE | 2023-08-15 12:41 | OP.CCLET_ITS ---
08/15/2023 Gokul Sanchez MD [address] [place] [address] Re : ERCP procedure for Kassidy Giuseppe Dear Dr. Sanchez This procedure was performed on Tuesday, August 15, 2023. My impressions and recommendations are as follows: Impressions : - The entire main bile duct was moderately dilated, with a stone causing an obstruction. - Choledocholithiasis was found. Complete removal was accomplished by biliary sphincterotomy and balloon extraction. - A biliary sphincterotomy was performed. - The biliary tree was swept. - The hepatic duct bifurcation was successfully dilated. - One temporary stent was placed into the common bile duct. Recommendations : Consider cholecystectomy My findings are described in the full procedure note, which is enclosed. If I can be of further assistance, please feel free to contact me at . Sincerely, Darwin Newby, 08/15/2023 12:41:07 PM This report has been signed electronically.
--- NOTE | 2023-08-15 12:41 | OP.ERCP_ITS ---
Patient Name: Kassidy Chin Procedure Date: 08/15/2023 11:45 AM Date of : 1940 Age: 83 Procedure: ERCP Indications: Bile duct stone(s) Providers: Darwin Newby DO Medicines: Monitored Anesthesia Care Patient Profile: This is an 83 year old female. Refer to note in patient chart for documentation of history and physical. Patient has symptoms of acute right upper quadrant abdominal pain and acute jaundice. Complications: No immediate complications. Procedure: Pre-Anesthesia Assessment: - Prior to the procedure, a History and Physical was performed, and patient medications and allergies were reviewed. The patient is competent. The risks and benefits of the procedure and the sedation options and risks were discussed with the patient. All questions were answered and informed consent was obtained. Patient identification and proposed procedure were verified by the physician in the pre-procedure area. Mental Status Examination: alert and oriented. Airway Examination: normal oropharyngeal airway and neck mobility. Respiratory Examination: clear to auscultation. CV Examination: normal. Prophylactic Antibiotics: The patient requires prophylactic antibiotics for the planned performance of ERCP in an obstructed bile duct. Prior Anticoagulants: The patient has taken no anticoagulant or antiplatelet agents. ASA Grade Assessment: II - A patient with mild systemic disease. After reviewing the risks and benefits, the patient was deemed in satisfactory condition to undergo the procedure. The anesthesia plan was to use general anesthesia. Immediately prior to administration of medications, the patient was re-assessed for adequacy to receive sedatives. The heart rate, respiratory rate, oxygen saturations, blood pressure, adequacy of pulmonary ventilation, and response to care were monitored throughout the procedure. The physical status of the patient was re-assessed after the procedure. After obtaining informed consent, the scope was passed under direct vision. Throughout the procedure, the patient's blood pressure, pulse, and oxygen saturations were monitored continuously. The Duodenoscope was introduced through the mouth, and advanced to the duodenum and used to inject contrast into the bile duct. The ERCP was accomplished without difficulty. The patient tolerated the procedure well. Scope In: 12:10:16 PM Scope Out: 12:29:17 PM Total Procedure Duration Time 0 hours 19 minutes 1 second Findings: The game programer film was normal. The esophagus was successfully intubated under direct vision. The scope was advanced to a normal major papilla in the descending duodenum without detailed examination of the pharynx, larynx and associated structures, and upper GI tract. The upper GI tract was grossly normal. A straight Roadrunner wire was passed into the biliary tree. The short-nosed traction sphincterotome was passed over the guidewire and the bile duct was then deeply cannulated. Contrast was injected. I personally interpreted the bile duct images. There was brisk flow of contrast through the ducts. Image quality was excellent. Contrast extended to the entire biliary tree. Opacification of the entire opacified area was successful. The maximum diameter of the ducts was 10 mm. The lower third of the main bile duct contained two stones, the largest of which was 6 mm in diameter. The main bile duct was moderately dilated, with a stone causing an obstruction. The largest diameter was 10 mm. A 5 mm biliary sphincterotomy was made with a braided traction (standard) sphincterotome using ERBE electrocautery. The sphincterotomy oozed blood. To discover objects, the biliary tree was swept with a 12 mm balloon starting at the bifurcation. Sludge was swept from the duct. All stones were removed. Dilation of the hepatic duct bifurcation with 5-7-8.5 Fr catheter dilator was successful. One 10 Fr by 5 cm temporary stent was placed 5 cm into the common bile duct. Bile flowed through the stent. The stent was in good position. Impression: - The entire main bile duct was moderately dilated, with a stone causing an obstruction. - Choledocholithiasis was found. Complete removal was accomplished by biliary sphincterotomy and balloon extraction. - A biliary sphincterotomy was performed. - The biliary tree was swept. - The hepatic duct bifurcation was successfully dilated. - One temporary stent was placed into the common bile duct. Recommendation: Consider cholecystectomy Procedure Code(s): --- Professional --- 18477, Endoscopic retrograde cholangiopancreatography (ERCP); with placement of endoscopic stent into biliary or pancreatic duct, including pre- and post-dilation and guide wire passage, when performed, including sphincterotomy, when performed, each stent [id number], Endoscopic retrograde cholangiopancreatography (ERCP); with removal of calculi/debris from biliary/pancreatic duct(s) 94520, 26, Endoscopic catheterization of the biliary ductal system, radiological supervision and interpretation 04265, Unlisted procedure, biliary tract CPT copyright 2021 [employer] [employer]. All rights reserved. The codes documented in this report are preliminary and upon gold leaf gilder review may be revised to meet current compliance requirements. Darwin Newby DO 08/15/2023 12:41:07 PM This report has been signed electronically. Number of Addenda: 0 Note Initiated On: 08/15/2023 11:45 AM
== END 2023-08-15 14:03 | disposition home or self-care (01) ==
LOC: EN 10:32 → AC 10:34
PROVIDERS: PCP Family Medicine Geriatric Medicine; Referring Provider Family Medicine Geriatric Medicine; Visit Provider Internal Medicine Gastroenterology
PROC: (CPT 43260; principal; 2023-08-15 11:10)
DX: K80.51 Calculus of bile duct without cholangitis or cholecystitis with obstruction (principal); K74.60 Unspecified cirrhosis of liver; K75.4 Autoimmune hepatitis; K75.81 Nonalcoholic steatohepatitis (NASH); I25.10 Atherosclerotic heart disease of native coronary artery without angina pectoris; I08.0 Rheumatic disorders of both mitral and aortic valves; I10 Essential (primary) hypertension; E78.5 Hyperlipidemia, unspecified; E06.3 Autoimmune thyroiditis; Z95.5 Presence of coronary angioplasty implant and graft; Z79.82 Long term (current) use of aspirin; Z79.899 Other long term (current) drug therapy
CPT/HCPCS: 43264; 43274; 74330; 76000; 93005; J7120; J2405

== ENCOUNTER 2023-08-30 12:40 | Inpatient (IN) | payer MEDICARE, OTHER, SELFPAY ==
[2017-04-19 11:37] VITALS: BMI 26.3
[2023-08-30] VITALS (9 sets, daily range): BP systolic 84–127; BP diastolic 45–76; PULSE 82–85; RESP 16; TEMP 36.4–36.8; O2SAT 88–98; BMI 23.3; BMI 24.5
--- NOTE | 2023-08-30 14:13 | CT_ITS ---
EXAM: CT ABDOMEN AND PELVIS WITH INTRAVENOUS CONTRAST CLINICAL INDICATION: Epigastric pain. Dropping hemoglobin levels. TECHNIQUE: Helically acquired images were obtained of the abdomen and pelvis with intravenous contrast. This CT exam was performed using one or more of the following dose reduction techniques: automated exposure control, adjustment of the mA and/or kV according to patient size, and/or use of iterative reconstruction technique. CONTRAST: IV 100mL Isovue-300 RADIATION DOSE: CTDIvol = 12.85 mGy, DLP = 636.42 mGy-cm COMPARISON: MRCP of the abdomen without contrast 06/05/2023. MRI abdomen with and without contrast 06/07/2022. Whole body PET/CT fusion scan 06/01/2022. FINDINGS: LOWER THORAX: Prominent hiatal hernia. Lung bases are clear. No cardiomegaly. No significant pericardial effusion. ABDOMEN: LIVER: Mild hepatomegaly measuring 18.4 cm long. GALLBLADDER AND BILE DUCTS: Small multiple calcified gallstones inside dilated gallbladder and suspicious pericholecystic fluid. No intrahepatic or extrahepatic biliary ductal dilatation. PANCREAS: Unremarkable. No focal cystic or solid mass. SPLEEN: Mild splenomegaly measuring at least 14.56 cm long. ADRENALS: Unremarkable. No nodules. KIDNEYS AND URETERS: Unremarkable. Normal renal size and position. No hydronephrosis. STOMACH AND BOWEL: Unremarkable. No stomach or bowel distention. No focal inflammatory change. PELVIS: APPENDIX: Normal. BLADDER: Unremarkable. REPRODUCTIVE: Unremarkable as visualized. No mass. ABDOMEN and PELVIS: INTRAPERITONEAL SPACE: Unremarkable. No ascites or other fluid collection. No free air. BONES/JOINTS: Mild degenerative anterolisthesis of L4 on L5 and L5 on S1 are unchanged. Minimal anterior wedging of T12 superior endplate is presumably from remote injury and unchanged. Sclerotic left posterior T11 vertebral body is unchanged. This is a metabolically active on PET CT fusion scan. SOFT TISSUES: Unremarkable. No discrete abdominal or pelvic wall hernia. VASCULATURE: Tubular calcifications of the splenic artery, celiac artery, SMA, common iliac arteries, external iliac arteries, internal iliac arteries and common femoral arteries. Suspicious 50% stenosis of both renal arteries due to calcified plaques. Abdominal aorta is non-dilated. LYMPH NODES: Unremarkable. No enlarged lymph nodes. CT/Abdomen/Pelvis W IV Cont ONLY IMPRESSION: 1. Abnormal dilated gallbladder containing small calcified gallstones with suspicious pericholecystic fluid. Acute cholecystitis is worrisome. 2. Mild hepatomegaly. 3. Prominent hiatal hernia. 4. Minimal anterior wedging of T12 superior endplate is presumably from remote injury. 5. Benign sclerotic lesion in the left posterior T11 vertebral body. This is not metabolically active on whole body PET/CT fusion scan of 06/01/2022. 6. Mild splenomegaly. Electronically Signed: Shayan Tenorio MD at 15:50 EST ,
--- NOTE | 2023-08-30 14:21 | EDS_ITS ---
HPI History of Present Illness Chief Complaint: Abd Pain Informant: patient Narrative Narrative: Patient presents secondary to upper abdominal pain with internal bleeding. She had an ERCP performed on August [address] Newby. A gallstone was reportedly removed from the duct and a stent was placed. Patient states since that time she has had intermittent dark stools. She is undergoing workup for valve replacement at [facility] in early September. They noted her hemoglobin levels have been dropping. On 29 August her hemoglobin it was 9.0. On the it was 9.5 and on June 21 it was 11.3. [facility] Medical History Abnormal biliary HIDA scan Atherosclerotic heart disease of [place] coronary artery without angina pectoris Basal cell carcinoma (BCC) CAD (coronary artery disease) Cardiology follow-up encounter Chest pain on exertion Chronic cholecystitis Essential hypertension Gall stones Yari's thyroiditis Hepatic fibrosis History of echocardiogram History of stress test HLD (hyperlipidemia) Hyponatremia Liver fibrosis Liver mass Loss of appetite Low iron Non-alcoholic fatty liver disease Non-rheumatic mitral valve stenosis Non-smoker Nonrheumatic aortic (valve) stenosis Osteoporosis Pneumonia Retroperitoneal lymphadenopathy Thyroid disease UTI (urinary tract infection) Wears contact lenses Wears dentures Wears glasses Weight loss Home Medications levothyroxine 50 mcg tablet 50 mcg PO DAILY 11/11/20 [History Last Taken Unknown] metoprolol tartrate 25 mg tablet 25 mg PO DAILY BP #90 tabs 12/26/22 [Rx Last Taken 08/14/23] aspirin 81 mg tablet,delayed release (Adult Low Dose Aspirin) 81 mg PO DAILY 06/05/23 [History Last Taken 08/11/23] ferrous gluconate 236 mg (27 mg iron) tablet 236 mg PO DAILY 06/05/23 [History Last Taken Unknown] azathioprine 75 mg tablet 75 mg PO DAILY #30 tabs 08/23/23 [Rx Last Taken Unknown] dicyclomine 20 mg tablet 20 mg PO TID PRN abdominal pain SPASM #30 tabs 08/23/23 [Rx Last Taken Unknown] prednisone 5 mg tablet 10 mg (2 x 5 mg) PO DAILY #30 tabs 08/23/23 [Rx Last Taken Unknown] ferrous sulfate 325 mg (65 mg iron) tablet (Feosol) 325 mg PO DAILY 08/30/23 [History Last Taken Unknown] Allergy/AdvReac Type Severity Reaction Status Date / Time aspartame Allergy Food Verified 08/30/23 12:41 Allergy Family History Mother , Age 34 Hypertension Heart disease Brother Cancer lung Father Cancer tongue Surgical History History of cardiac catheterization History of colonoscopy History of coronary artery stent placement History of partial thyroidectomy (~1969) History of right and left heart catheterization (LHC) (~11/08/22) History of total hysterectomy Postsurgical percutaneous transluminal coronary angioplasty (PTCA) status (~04/19/17) Presence of stent in coronary artery (~04/19/17) Social History Smoking Status: Never smoker alcohol intake: never substance use type: does not use caffeine: No ROS ROS ED Constitutional Constitutional ED: Denies chills or fever(s) Eyes Eyes: Denies change in vision or discharge from eye(s) ENT ENT ED: Denies discharge from eye(s), rhinorrhea or sore throat Cardiovascular Cardiovascular: Denies chest pain or palpitations Respiratory/Chest Respiratory/Chest: Denies cough or dyspnea Gastrointestinal Gastrointestinal: Reports abdominal pain and melena; Denies diarrhea, nausea or vomiting Genitourinary Genitourinary ED: Denies dysuria Musculoskeletal Musculoskeletal: Denies back pain or extremity pain Integumentary Denies Abrasions or rash Neurologic Neurologic: Denies headache(s) or weakness Psychiatric Psychiatric: Denies anxiety or depression Allergic/Immunologic Allergic/Immunologic ED: Denies lip swelling or urticaria EXAM Physical Exam Const Vital Signs: 08/30/23 12:41 08/30/23 16:05 Temperature 97.5 F L Temperature Source Temporal Pulse Rate 85 Respiratory Rate 16 Blood Pressure 95/69 Blood Pressure Mean 77 Pulse Ox 98 88 Oxygen Delivery Method Room Air Nasal Cannula Oxygen Flow Rate (L/min) 3 Positive well nourished and well developed General Appearance ED: well developed HEENT Reports moist mucous membranes Eyes EOMs intact bilaterally Chest Wall inspection of chest normal and palpation of chest normal Resp normal respiratory effort and clear to auscultation bilaterally Cardio regular rate and regular rhythm GI GI Narrative: Diffuse abdominal tenderness, worse in the right upper quadrant. No guarding or rebound. Active bowel sounds are noted. Extremity normal to inspection Neuro oriented x3 and no sensory deficits noted Sensory Exam: sensory level loss detected Psych mental status grossly normal Skin no rashes or lesions noted MDM MDM MDM Narrative Medical decision making narrative: Blood work from outside facility is reviewed. IV line established. Labwork obtained to evaluate for leukocytosis, anemia, and electrolyte derangement. CT scan with IV contrast obtained of the abdomen and pelvis. Stool guaiac will be obtained. Patient typed and screened. History & Record Review Discussion w/independent historian: Patient and Family Additional record(s) reviewed:: Prior inpatient record, Prior outpatient record, Prior ED visit and Prior labs Lab Data Attestation: I reviewed the patient's lab results. Labs: Laboratory Results - last 24 hr 08/30/23 14:25 WBC 19.7 H RBC 3.69 L Hgb 9.9 L Hct 32.2 L MCV 87.3 MCH 26.8 L MCHC 30.7 L RDW Std Deviation 54.5 H RDW Coeff of Nabil 17.3 H Plt Count 212 MPV 12.1 H Immature Gran % (Auto) 0.900 Neut % (Auto) 91.9 H Lymph % (Auto) 3.2 L [place] % (Auto) 3.8 Eos % (Auto) 0.0 Baso % (Auto) 0.2 Absolute Neuts (auto) 18.1 H Absolute Lymphs (auto) 0.64 L Nucleated RBC % 0 PT 16.8 H INR 1.4 APTT 28.0 Sodium 132 L Potassium 4.6 Chloride 99 Carbon Dioxide 23.0 Anion Gap 10 BUN 18 Creatinine 1.23 H Estim Creat Clear Calc 33.58 Est GFR (MDRD) Af Amer 54 L Est GFR (MDRD) Non-Af 45 L BUN/Creatinine Ratio 14.6 Glucose 291 H Calcium 9.0 Total Bilirubin 1.70 H Direct Bilirubin 0.79 H AST 57 H ALT 38 Alkaline Phosphatase 225 H Total Protein 8.1 Albumin 2.8 L Globulin 5.3 H Lipase 36 Blood Type O POSITIVE Antibody Screen NEGATIVE Radiography Diagnostic Testing: Clinical Impression(s) from Imaging Studies Abdomen/Pelvis CT 08/30/23 14:13 IMPRESSION: 1. Abnormal dilated gallbladder containing small calcified gallstones with suspicious pericholecystic fluid. Acute cholecystitis is worrisome. 2. Mild hepatomegaly. 3. Prominent hiatal hernia. 4. Minimal anterior wedging of T12 superior endplate is presumably from remote injury. 5. Benign sclerotic lesion in the left posterior T11 vertebral body. This is not metabolically active on whole body PET/CT fusion scan of 06/01/2022. 6. Mild splenomegaly. Electronically Signed: Shayan Tenorio MD at 15:50 EST Reading Location ID and State: [facility] / [place] , Service support , Treatment and Re-Evaluation :: Stool guaiac does return positive. No gross blood noted. CBC reveals a white count of 19.7 with 91% neutrophils. Hemoglobin today is 9.9 with hematocrit of 32.2. INR is 1.4. Chemistry studies reveal a sodium of 132 with a creatinine of 1.23. Glucose is 291. Total bilirubin is 1.7 with a direct bilirubin 0.79. AST is 57, ALT 38, alk phos 225. These values are all improving when compared to recent labs. CT scan of the abdomen pelvis with IV contrast obtained. There is abnormal dilated gallbladder containing small calcified gallstones with suspicious pericholecystic fluid. Acute cholecystitis is worrisome. Prominent hiatal hernia noted. Minimal anterior wedging of T12 presumably from a remote injury. After receiving small dose of fentanyl patient's O2 sats did drop. She is stable on nasal cannula alert and talkative. Dr. Chakraborty did present to the emergency room and advised that if this patient needs surgery she would be too high risk and would need to be transferred. I spoke with Dr. Newby as he had recently done an ERCP and a stent. He reviewed her labs as well as her imaging studies. He does feel that he can care for this patient here. He did asked that we get blood cultures and give her a dose of Zosyn. I will also give her a dose of Protonix. I will speak with the hospitalist. Discharge Plan Triage Chief Complaint: Abd Pain ED Provider: Wanda Macias Dx/Rx/DC Orders Clinical Impression: GI bleed, Leukocytosis, Cholecystitis, chronic Prescriptions: No Action levothyroxine 50 mcg tablet 50 mcg PO DAILY aspirin [Adult Low Dose Aspirin] 81 mg tablet,delayed release (DR/EC) 81 mg PO DAILY ferrous gluconate 236 mg (27 mg iron) tablet 236 mg PO DAILY dicyclomine 20 mg tablet 20 mg PO TID PRN (Reason: abdominal pain SPASM) Qty: 30 1RF azathioprine 75 mg tablet 75 mg PO DAILY Qty: 30 2RF prednisone 5 mg tablet 10 mg PO DAILY Qty: 30 2RF Patient Comments: started 10mg last monday Rx Instructions: Take 10 mg, (2 tabs) for 10 days, then 5 mg daily from 09/03/2023 to continue ferrous sulfate [Feosol] 325 mg (65 mg iron) tablet 325 mg PO DAILY metoprolol tartrate 25 mg tablet 25 mg PO DAILY Qty: 90 3RF Primary Care Provider: Gokul Sanchez Chi Referrals: Gokul Sanchez Chi, MD [Primary Care Provider] - Disposition Disposition: Acute Care Hospital [facility]
[2023-08-30 14:42] LABS: Absolute Lymphocyte Count 0.64 X10^3/uL (0.83-4.51); Absolute Neutrophil Count 18.1 X10^3/uL (2.0-7.7); Basophil# 0.04 X10^3/uL; Basophil% 0.2 % (0-1); Hematocrit 32.2 % (37-47); Hemoglobin 9.9 g/dL (12.0-15.0); Lymphocyte # 0.64 X10^3/ul (0.83-4.51); Lymphocyte % 3.2 % (19-41); Mean Corp Hgb Conc 30.7 g/dL (32-36); Mean Corpuscular Hgb 26.8 pg (27.0-32.0); Mean Corpuscular Volume 87.3 fL (81-99); Mean Platelet Vol. 12.1 fl (6.2-12.0); Monocyte# 0.75 X10^3/uL; Monocyte% 3.8 % (0-10); NRBC Flagged by Analyzer 0 % (0-5); Neutrophil # 18.12 X10^3/uL (2.7-7.7); Neutrophil % 91.9 % (47-70); Platelet Count 212 K/mm3 (150-450); RBC Distribution Width CV 17.3 % (11.6-14.6); RBC Distribution Width SD 54.5 fl (35.1-43.9); Red Blood Count 3.69 M/mm3 (4.2-5.4); White Blood Count 19.7 K/mm3 (4.4-11.0)
[2023-08-30 14:53] LABS: International Normalized Ratio 1.4; Prothrombin Time (Protime)PT. 16.8 SECONDS (11.7-14.9)
[2023-08-30 14:55] LABS: AST(SGOT) 57 U/L (15-37); Alanine Aminotransfer ALT/SGPT 38 U/L (13-56); Albumin, Serum 2.8 g/dL (3.2-5.0); Alkaline Phosphatase 225 U/L (45-117); Anion Gap 10 (5-15); BUN 18 mg/dL (7-18); BUN/Creat Ratio 14.6 RATIO (10-20); Bilirubin, Direct 0.79 mg/dL (0.00-0.30); Chloride 99 mmol/L (98-107); Creatinine, Serum 1.23 mg/dL (0.55-1.02); EST Glomerular Filtration Rate 45 mL/min (>60); Est Glom Filt Rate - Afr Amer 54 mL/min (>60); Estimated Creatinine Clearance 33.58 ml/min; Globulin 5.3 g/dL (2.2-4.2); Glucose 291 mg/dL (74-106); Lipase 36 U/L (13-75); Potassium 4.6 mmol/L (3.5-5.1); Protein, Total 8.1 g/dL (6.4-8.2); Sodium Level 132 mmol/L (136-145)
[2023-08-30] MEDS: fentaNYL 100 MCG/2 ML Ampul 25 MCG IV (15:45)
[2023-08-30] MEDS: Ondansetron 4 MG/2 ML Vial IV (15:45)
[2023-08-30] MEDS: 0.9% Normal Saline (1000mL) 1,000 ML 1000 ML IV (15:45)
--- NOTE | 2023-08-30 17:09 | HP.PCM.HOS_ITS ---
HPI - General General Date of Admission: 08/30/23 Date of Service: 08/30/23 Chief Complaint: Abdominal pain, intermittent dark stools. HPI Narrative The patient is an 83 y/o F w/ PMHx: CKD stage II per GFR trending, HFpEF, CAD s/p PCI, Yari's thyroiditis w/ Hypothyroidism, HTN, HLD, NAFLD/Autoimmune hepatitis w/ Cirrhosis (per GI recent MELD 10, Child Hilton A) with recent 08/15/23 evidence choledocholithasis with biliary sphincterotomy and balloon extraction with successful hepatic duct bifurcation with temporary stent placed in the common bile duct who presents to the [facility] ED on 08/30/23 with history of upper epigastric and right upper quadrant abdominal pain worse over the last 24 hours, increased with deep inspiratory effort or any activity where she has to take deep breaths or palpation of that region with no recent fevers or chills but she has reported since her recent ERCP ongoing intermittent dark appearing stools prompting ED presentation. Upon ED evaluation she currently rates her pain 3-4 out of 10 in severity, worse with palpation given she is at rest but at its worst pain can certainly be rated 8-10 out of 10 in severity. She notes the pain is more sharp and severe with palpation but throbbing and aching baseline underlying. Workup in the ED included T97.5, heart 85, BP initially 95/69 however did decrease in the ED down to 85/53 transiently, respiratory rate 16, initially 98% on room air however decreased to 88% on 3 L following fentanyl pain regimen but improved to 97% on room air following this, CBC with WBC 19.7, hemoglobin 9.9, platelets 212 with left shift and lymphopenia, coags with PT 16. 8 otherwise not marked appearing, CMP with sodium 132, BUN/creatinine 18/1.23, glucose 291, T. bili 1.70, T. bili 0.79, AST/ALT is 57/38, alk phos 225, lipase 36, type and cross initiated per ED physician, culture x 2 pending per ED physician, positive stool guaiac, CT abdomen and pelvis with abnormally dilated gallbladder containing small calcified gallstones with suspicious pericholecystic fluid worrisome for acute cholecystitis, mild hepatomegaly, prominent hiatal hernia, minimal anterior wedging T12 superior endplate presumably from remote injury, benign sclerotic lesion the left posterior T11 vertebral body, mild splenomegaly. ED discussed case with Dr. Ramos who noted that patient was not an appropriate surgical candidate but following discussions with hospital service was agreeable to cholecystostomy tube and Dr. Newby who recommended continued antibiotic therapy and treatment of GI bleed. In the ED patient administered Zosyn, Protonix bolus 40 mg IV x 1, Zofran 4 mg IV x 1, maintenance IV fluid, fentanyl 25 mcg IV x 1 and a 1 L normal saline bolus. [facility] Medical History (Updated 08/30/23 @ 19:[address] Nallely Porras MD) (HFpEF) heart failure with preserved ejection fraction Atherosclerotic heart disease of the [place] coronary artery without angina pectoris Autoimmune hepatitis Basal cell carcinoma (BCC) CAD (coronary artery disease) Chronic cholecystitis Essential hypertension Yari's thyroiditis Hepatic fibrosis History of echocardiogram History of stress test HLD (hyperlipidemia) Hypergammaglobulinemia, unspecified Low iron Non-alcoholic fatty liver disease Non-rheumatic mitral valve stenosis Non-smoker Nonrheumatic aortic (valve) stenosis Osteoporosis Thyroid disease Wears contact lenses Wears dentures Wears glasses Weight loss Home Medications levothyroxine 50 mcg tablet 50 mcg PO DAILY 11/11/20 [History Last Taken Unknown] metoprolol tartrate 25 mg tablet 25 mg PO DAILY BP #90 tabs 12/26/22 [Rx Last Taken 08/14/23] aspirin 81 mg tablet,delayed release (Adult Low Dose Aspirin) 81 mg PO DAILY 06/05/23 [History Last Taken 08/11/23] ferrous gluconate 236 mg (27 mg iron) tablet 236 mg PO DAILY 06/05/23 [History Last Taken Unknown] azathioprine 75 mg tablet 75 mg PO DAILY #30 tabs 08/23/23 [Rx Last Taken Unknown] dicyclomine 20 mg tablet 20 mg PO TID PRN abdominal pain SPASM #30 tabs 08/23/23 [Rx Last Taken Unknown] prednisone 5 mg tablet 10 mg (2 x 5 mg) PO DAILY #30 tabs 08/23/23 [Rx Last Taken Unknown] ferrous sulfate 325 mg (65 mg iron) tablet (Feosol) 325 mg PO DAILY 08/30/23 [History Last Taken Unknown] Allergy/AdvReac Type Severity Reaction Status Date / Time aspartame Allergy Food Verified 08/30/23 12:41 Allergy Family History Mother , Age 34 Hypertension Heart disease Brother Cancer lung Father Cancer tongue Surgical History History of cardiac catheterization History of colonoscopy History of coronary artery stent placement History of partial thyroidectomy (~1969) History of right and left heart catheterization (LHC) (~11/08/22) History of total hysterectomy Postsurgical percutaneous transluminal coronary angioplasty (PTCA) status (~04/19/17) Presence of stent in coronary artery (~04/19/17) Social History Smoking Status: Never smoker alcohol intake: never substance use type: does not use caffeine: No ROS ROS Narrative Admission Review of Systems: CONSTITUTIONAL: No weight loss, fever, chills, + weakness or fatigue. HEENT: Eyes: No visual loss, blurred vision, double vision or yellow sclerae. Ears, Nose, Throat: No hearing loss, sneezing, congestion, runny nose or sore throat. SKIN: No rash or itching, lesions, wounds. CARDIOVASCULAR: No chest pain, chest pressure or chest discomfort, palpitations, edema, orthopnea, syncopal events. RESPIRATORY: No shortness of breath, cough or sputum, wheezing, hemoptysis. GASTROINTESTINAL: + anorexia, dark stools, abdominal pain. No nausea, vomiting, diarrhea, BRBPR. GENITOURINARY: No dysuria, frequency, urgency or retention. NEUROLOGICAL: No headache, dizziness, syncope, paralysis, ataxia, numbness or tingling in the extremities, focal weakness, change in bowel or bladder control, seizure. MUSCULOSKELETAL: + muscle, back pain, joint pain or stiffness. HEMATOLOGIC: + anemia, bleeding, easy bruising. LYMPHATICS: No enlarged nodes. No history of splenectomy. PSYCHIATRIC: No history of depression or anxiety. ENDOCRINOLOGIC: No reports of sweating, cold or heat intolerance. No polyuria or polydipsia. ALLERGIES: No history of asthma, hives, eczema or rhinitis. Vital Signs Vital Signs Vital Signs: 08/30/23 12:41 08/30/23 16:05 Temperature 97.5 F L Temperature Source Temporal Pulse Rate 85 Respiratory Rate 16 Blood Pressure 95/69 Blood Pressure Mean 77 Pulse Ox 98 88 Oxygen Delivery Method Room Air Nasal Cannula Oxygen Flow Rate (L/min) 3 Weight Weight: 144 lb 8 oz Body Mass Index (BMI) 23.3 Physical Exam Narrative Physical Examination: General: Awake, alert, oriented x 3 and cooperative, seated upright in the ED bed in no apparent distress, notes pain currently 3-4 to RUQ/epigastric region, primarily with palpation. Skin: Normal color, normal turgor, no icterus, no cyanosis except for occasional abrasion/staged ecchymoses. HEENT: AT/NC, EOMI, PERRLA, dry MM, no carotid bruits or JVD noted. Lungs: Diminished, greater bases, appropriate effort, no rales, ronchi or wheezing. Heart: Regular rate and rhythm; no gallop, rub audible, + significant SM . Abdomen: Soft, discomfort to epigastric and right upper quadrant palpation with rebound noted, no marked distention, mildly hyperactive BS, + HSM. Extremities: No cyanosis, no clubbing, mild peripheral ankle not markedly pitting edema. Neurological: Patient awake, alert, oriented as noted, cognitive function intact; pupils equally reactive to light and accommodation, cranial nerves II- XII grossly normal, moving all 4 extremities, strength moderately to severely globally decreased secondary to acute presentation and underlying comorbidities. Psychiatric: Affect appears flat, fatigued, no acute evidence of depressive or anxiety feelings. Results Lab / Micro Data 08/30/23 14:25 08/30/23 14:25 Labs: Laboratory Results - last 24 hr 08/30/23 14:25: WBC 19.7 H, RBC 3.69 L, Hgb 9.9 L, Hct 32.2 L, MCV 87.3, MCH 26.8 L, MCHC 30.7 L, RDW Std Deviation 54.5 H, RDW Coeff of Nabil 17.3 H, Plt Count 212, MPV 12.1 H, Immature Gran % (Auto) 0.900, Neut % (Auto) 91.9 H, Lymph % (Auto) 3.2 L, [place] % (Auto) 3.8, Eos % (Auto) 0.0, Baso % (Auto) 0.2, Absolute Neuts (auto) 18.1 H, Absolute Lymphs (auto) 0.64 L, Nucleated RBC % 0, PT 16.8 H , INR 1.4, APTT 28.0, Sodium 132 L, Potassium 4.6, Chloride 99, Carbon Dioxide 23.0, Anion Gap 10, BUN 18, Creatinine 1.23 H, Estim Creat Clear Calc 33.58, Est GFR (MDRD) Af Amer 54 L, Est GFR (MDRD) Non-Af 45 L, BUN/Creatinine Ratio 14.6, Glucose 291 H, Calcium 9.0, Total Bilirubin 1.70 H, Direct Bilirubin 0.79 H, AST 57 H, ALT 38, Alkaline Phosphatase 225 H, Total Protein 8.1, Albumin 2.8 L, Globulin 5.3 H, Lipase 36, Blood Type O POSITIVE, Antibody Screen NEGATIVE Micro: Microbiology 08/30/23 15:23 Stool Stool Occult Blood (PRUDENCE) - Final Occult Blood Positive Imagaing Radiology Impression Abdomen/Pelvis CT 08/30/23 14:13 IMPRESSION: 1. Abnormal dilated gallbladder containing small calcified gallstones with suspicious pericholecystic fluid. Acute cholecystitis is worrisome. 2. Mild hepatomegaly. 3. Prominent hiatal hernia. 4. Minimal anterior wedging of T12 superior endplate is presumably from remote injury. 5. Benign sclerotic lesion in the left posterior T11 vertebral body. This is not metabolically active on whole body PET/CT fusion scan of 06/01/2022. 6. Mild splenomegaly. Electronically Signed: Shayan Tenorio MD at 15:50 EST , Assessment & Plan Assessment/Plan (1) GI bleed: (2) Cholecystitis: PLAN: Plan The patient is an 83 y/o F w/ PMHx: CKD stage II per GFR trending, HFpEF, CAD s/p PCI, Yari's thyroiditis w/ Hypothyroidism, HTN, HLD, NAFLD/Autoimmune hepatitis w/ Cirrhosis (per GI recent MELD 10, Child Hilton A) with recent 3 evidence choledocholithasis with biliary sphincterotomy and balloon extraction with successful hepatic duct bifurcation with temporary stent placed in the common bile duct who presents to the [facility] ED on 08/30/23 with history of upper epigastric and right upper quadrant abdominal pain worse over the last 24 hours, increased with deep inspiratory effort or any activity where she has to take deep breaths or palpation of that region with no recent fevers or chills but she has reported since her recent ERCP ongoing intermittent dark appearing stools prompting ED presentation. #1. Acute cholecystitis with recently diagnosed choledocholithiasis status post ERCP with temporary stent placement and removal of stone with hyperbilirubinemia and transaminitis: Will admit to PCU given soft low blood pressures in the ED despite IV fluids, will judiciously continue IV fluids, maintain n.p.o. status, continue IV Protonix drip as noted given concurrent GI bleed status, maintain on IV Zosyn therapy, given significant high risk for any consideration of operative intervention at this point discussed case with radiology and would plan for IR directed cholecystostomy tube in AM, will continue General surgery consultation initiated per ED however with Dr. Paiz who agrees at this time for luis cystostomy tube. #2. Acute on Chronic GI Bleed w/ Acute on Chronic Blood Loss Anemia, chronic iron deficiency anemia: Admission hemoglobin 9.9, decreased from previous 11 baseline with ongoing intermittent dark stools, will obtain serial H&H's, per discussion with GI we will continue Protonix drip and will pulse dose IV octreotide, maintain n.p.o. status with judicious fluids given history and as noted continued on IV Zosyn. Clarifying but once done we will continue patient iron supplementation regimen. Only patient will need repeat ERCP and EGD to assess the sphincterotomy site as this certainly could be the cause of the GI bleed. #3. Acute Renal Insufficiency on CKD stage II per GFR trending: Likely secondary to her acute presentation with likely decreased intake with pain, admission BUN/creatinine 18/1.23, GFR 45, normally stage II based on GFR trending, baseline creatinine normally 0.6-0.9 will judiciously hydrate and continue to trend. #4. 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 Murphy, will continue low-dose prednisone therapy, azathioprine home regimen, if clinically worsens given #1 may necessitate stress dose steroids, GI consulted and following, trend CBC and CMP as noted. #5. Valvular heart disease: Patient with significant aortic valvular heart disease and need of a TAVR which originally was scheduled 09/17/2022 at [facility] however patient this time is not appropriate given presentation and recommended that the office be contacted to delay the surgery until she is clinically cleared from her current presentation as noted. 06/19/2023 with normal LV size, LV systolic function normal, EF 60%, grade 2 LV diastolic dysfunction, mildly dilated left atrial cavity, mild 1+ TR, tricuspid aortic valve with paradoxical low-flow, low gradient moderately severe aortic valve stenosis caused by calcified valve and restricted opening, AV area 0.56 cm? by continuity, VTI. #6. CAD: Status post previous stents, given GI bleed temporally holding aspirin, holding metoprolol given hypotension, not on statin therapy, resume aspirin once cleared per gastroenterology. #7. HFpEF: 06/19/2023 with normal LV size, LV systolic function normal, EF 60%, grade 2 LV diastolic dysfunction, mildly dilated left atrial cavity, mild 1+ TR, tricuspid aortic valve with paradoxical low-flow, low gradient moderately severe aortic valve stenosis caused by calcified valve and restricted opening, AV area 0.56 cm? by continuity, VTI. Will judiciously hydrate given this history, holding aspirin given presentation with GI bleed with resumption once GI clears, holding metoprolol given hypotension with addition once BP improved, not on statin therapy. #8. Hypertension: Upon presentation patient initially significantly hypotensive, improved somewhat with IV fluids in the ED although baseline is low normal, will add back any regimen once cleared proved. #9. History Yari's thyroiditis with hypothyroidism: We will continue patient home levothyroxine regimen. #10. Hyperlipidemia: Not on regimen, defer to outpatient. #11. DVT prophylaxis: SCDs, hold any chemoprophylaxis given presentation as noted. #12. CODE status: Patient HCPOA is her was present and living will is currently in place. Discussed CODE status at length including difference between FULL code, DNR-CCA and DNR-CC status. Following discussions about the differences in these status, requested Full Code status. Advanced Care Planning Face to Face Time: 16 minutes. Charges/Coding Visit Charges Inpatient E&M: 22287 Init Hosp L3 Procedures Hospitalists Procedures: 77900 Advncd Care Plan 30 Min
[2023-08-30] MEDS: 0.9% Normal Saline (1000mL) 1,000 ML 150 ML IV (17:22)
[2023-08-30] MEDS: Pantoprazole Sodium 40 MG in 0.9% Normal Saline (100mL MB+) 100 ML 330 MG IV (17:23)
--- NOTE | 2023-08-30 17:57 | EX.PCM.CON.G ---
HPI Consult Data Date of Consult: 08/30/23 HPI Narrative Reason for Consultation: abdominal pain and anemia HPI Narrative: ROEL WILLINGHAM, is a 83 F who presents with a chief complaint of mild abdominal pain that she has had in the past. But also noted was a decrease in hemoglobin from 11-9. Her last hemoglobin had increased to 9.9. She denies any dark stools or bright red blood per rectum. She denies hematemesis. 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 Her imaging with MRCP did not show any signs of obstruction. Ultrasound and CT scan did not show any signs of hepatic masses. Antimitochondrial antibody was negative, ANCA negative, anti-smooth muscle positive, ZACK positive. We ordered a liver biopsy and it showed a plasma cells with interface hepatitis along with multiple lymphocytes consistent with autoimmune hepatitis. She was started on prednisone and azathioprine. She is doing well without any side effects of the medicine. We ordered an MRI and MRCP along with CT scan abdomen pelvis to screen her for hepatocellular carcinoma. The MRCP had noted a common bile duct stone in her distal common bile duct. She underwent ERCP with sphincterotomy, stone removal and stent placement. She followed up in the clinic approximately 7 days ago. Pt stable since last visit. Has RLQ/RUQ pain mostly at night since ERCP. she describes pain which is intermittent, sometimes at night which wakes her up and more so more on laying on the right side. BM are normal going every other day. Appetite has been okay and is gaining weight. Denies heartburn or swelling. Also does not have any dizziness, confusion. She is also supposed to have TAVR in September for aortic stenosis. Her vital signs have been stable in the ED except for some mild hypotension. Her blood pressure tends to run low secondary to cirrhosis. She is not tachycardic or febrile. Her complete blood count was notable for hemoglobin of 9.9 and a white blood cell count of 18.9 with platelet count of [address] scan of the abdomen pelvis in the ED displayed: 1. Abnormal dilated gallbladder containing small calcified gallstones with suspicious pericholecystic fluid. Acute cholecystitis is worrisome. 2. Mild hepatomegaly. 3. Prominent hiatal hernia. 4. Minimal anterior wedging of T12 superior endplate is presumably from remote injury. 5. Benign sclerotic lesion in the left posterior T11 vertebral body. This is not metabolically active on whole body PET/CT fusion scan of 06/01/2022. 6. Mild splenomegaly. [facility] Medical History Abnormal biliary HIDA scan Atherosclerotic heart disease of [place] coronary artery without angina pectoris Basal cell carcinoma (BCC) CAD (coronary artery disease) Cardiology follow-up encounter Chest pain on exertion Chronic cholecystitis Essential hypertension Gall stones Yari's thyroiditis Hepatic fibrosis History of echocardiogram History of stress test HLD (hyperlipidemia) Hyponatremia Liver fibrosis Liver mass Loss of appetite Low iron Non-alcoholic fatty liver disease Non-rheumatic mitral valve stenosis Non-smoker Nonrheumatic aortic (valve) stenosis Osteoporosis Pneumonia Retroperitoneal lymphadenopathy Thyroid disease UTI (urinary tract infection) Wears contact lenses Wears dentures Wears glasses Weight loss Home Medications levothyroxine 50 mcg tablet 50 mcg PO DAILY 11/11/20 [History Last Taken Unknown] metoprolol tartrate 25 mg tablet 25 mg PO DAILY BP #90 tabs 12/26/22 [Rx Last Taken 08/14/23] aspirin 81 mg tablet,delayed release (Adult Low Dose Aspirin) 81 mg PO DAILY 06/05/23 [History Last Taken 08/11/23] ferrous gluconate 236 mg (27 mg iron) tablet 236 mg PO DAILY 06/05/23 [History Last Taken Unknown] azathioprine 75 mg tablet 75 mg PO DAILY #30 tabs 08/23/23 [Rx Last Taken Unknown] dicyclomine 20 mg tablet 20 mg PO TID PRN abdominal pain SPASM #30 tabs 08/23/23 [Rx Last Taken Unknown] prednisone 5 mg tablet 10 mg (2 x 5 mg) PO DAILY #30 tabs 08/23/23 [Rx Last Taken Unknown] ferrous sulfate 325 mg (65 mg iron) tablet (Feosol) 325 mg PO DAILY 08/30/23 [History Last Taken Unknown] Allergy/AdvReac Type Severity Reaction Status Date / Time aspartame Allergy Food Verified 08/30/23 12:41 Allergy Family History Mother , Age 34 Hypertension Heart disease Brother Cancer lung Father Cancer tongue Surgical History History of cardiac catheterization History of colonoscopy History of coronary artery stent placement History of partial thyroidectomy (~1969) History of right and left heart catheterization (LHC) (~11/08/22) History of total hysterectomy Postsurgical percutaneous transluminal coronary angioplasty (PTCA) status (~04/19/17) Presence of stent in coronary artery (~04/19/17) Social History Smoking Status: Never smoker alcohol intake: never substance use type: does not use caffeine: No ROS Constitutional Constitutional: Reports chills, fever(s) and weakness; Denies fatigue or malaise Eyes Eyes: Denies blurry vision ENT HEENT: Denies headache(s) or nasal discharge Cardiovascular Cardiovascular: Denies chest pain, dyspnea on exertion or syncope Respiratory/Chest Respiratory/Chest: Reports cough; Denies shortness of breath at rest or shortness of breath with exertion Gastrointestinal Gastrointestinal: Denies constipation, diarrhea, nausea or vomiting Genitourinary Genitourinary: Denies dysuria Neurologic Neurologic: Denies focal weakness, numbness or tremor(s) Psychiatric Psychiatric: Denies anxiety or depression Physical Exam Const alert, oriented x3, no apparent distress, no limitations and well nourished Constitutional Narrative: Elderly, white female, sitting up in a chair next to the bed, appears comfortable and nontoxic, very pleasant General Appearance: cooperative, comfortable, well kempt and well developed Orientation / Consciousness: awake, oriented to person, oriented to place and oriented to time Exam Limitations: no limitations HEENT normocephalic, head/scalp atraumatic and moist oral mucous membranes; Negative for hearing grossly normal bilaterally HEENT Narrative: Mild hearing loss, Mallampati 2, no thrush Eyes PERRL, EOMs intact bilaterally and conjunctivae normal Eyes Narrative: No scleral icterus Neck no lymphadenopathy and supple Neck Narrative: Trachea midline, thyroid enlargement Resp normal respiratory effort, no retractions and no use of accessory muscles Resp Narrative: Coarse breath sounds right base, otherwise clear Auscultation: crackles; Negative for rhonchi or wheezes Cardio regular rate, regular rhythm, S1 normal heart sound, S2 normal heart sound, no rub, no gallops and no clicks; Negative for no murmurs Cardio Narrative: 3 out of 6 systolic murmur loudest at right upper sternal border GI normal to inspection, nondistended, normoactive bowel sounds, soft to palpation and non-tender Extremity no clubbing, cyanosis or edema Extremity Narrative: Pedal pulses are 2+, radial pulses are 2+ Skin no rashes or lesions noted, no wounds, skin turgor normal and no jaundice Neuro oriented x3, CN's II-XII intact bilaterally, moves all extremities and no focal motor deficits Neuro Narrative: Mild generalized weakness noted Speech: speech normal Psych affect normal Psych Narrative: Very pleasant, interacts appropriately Lab / Micro Data 08/30/23 14:25 08/30/23 14:25 Labs: Laboratory Results - last 24 hr 08/30/23 14:25: WBC 19.7 H, RBC 3.69 L, Hgb 9.9 L, Hct 32.2 L, MCV 87.3, MCH 26.8 L, MCHC 30.7 L, RDW Std Deviation 54.5 H, RDW Coeff of Nabil 17.3 H, Plt Count 212, MPV 12.1 H, Immature Gran % (Auto) 0.900, Neut % (Auto) 91.9 H, Lymph % (Auto) 3.2 L, [place] % (Auto) 3.8, Eos % (Auto) 0.0, Baso % (Auto) 0.2, Absolute Neuts (auto) 18.1 H, Absolute Lymphs (auto) 0.64 L, Nucleated RBC % 0, PT 16.8 H, INR 1.4, APTT 28.0, Sodium 132 L, Potassium 4.6, Chloride 99, Carbon Dioxide 23.0, Anion Gap 10, BUN 18, Creatinine 1.23 H, Estim Creat Clear Calc 33.58, Est GFR (MDRD) Af Amer 54 L, Est GFR (MDRD) Non-Af 45 L, BUN/Creatinine Ratio 14.6, Glucose 291 H, Calcium 9.0, Total Bilirubin 1.70 H, Direct Bilirubin 0.79 H, AST 57 H, ALT 38, Alkaline Phosphatase 225 H, Total Protein 8.1, Albumin 2.8 L, Globulin 5.3 H, Lipase 36, Blood Type O POSITIVE, Antibody Screen NEGATIVE Micro: Microbiology 08/30/23 15:23 Stool Stool Occult Blood ([facility]UDENCE) - Final Occult Blood Positive Imagaing Radiology Impression Abdomen/Pelvis CT 08/30/23 14:13 IMPRESSION: 1. Abnormal dilated gallbladder containing small calcified gallstones with suspicious pericholecystic fluid. Acute cholecystitis is worrisome. 2. Mild hepatomegaly. 3. Prominent hiatal hernia. 4. Minimal anterior wedging of T12 superior endplate is presumably from remote injury. 5. Benign sclerotic lesion in the left posterior T11 vertebral body. This is not metabolically active on whole body PET/CT fusion scan of 06/01/2022. 6. Mild splenomegaly. Electronically Signed: Shayan Tenorio MD at 15:50 EST , Assessment & Plan Assessment/Plan (1) Cholecystitis, chronic: (2) Leukocytosis: (3) GI bleed: (4) Abnormal magnetic resonance cholangiopancreatography (MRCP): (5) Autoimmune hepatitis: PLAN: Plan 83-year-old with past medical history of Sims and autoimmune hepatitis with cirrhosis currently not showing any signs of decompensation at this time. Her MELD is 10 calculated with her LFTs on this current visit. Her INR is 1.4, platelets are 95,000. She is a child [place] class a at this time. However she may be experiencing acute cholecystitis. Not sure if she is having any signs or symptoms of GI bleeding. There are multiple reasons for her to bleed including portal gastropathy, gastric or esophageal varices, sphincterotomy site from previous ERCP. Recommendation: - Percutaneous cholecystostomy tube - Protonix 40 mg IV every 12 hours - octreotide drip - Continue Zosyn therapy - She will need repeat ERCP and EGD to look at the sphincterotomy site and other causes for presumed GI bleed Charges/Coding Visit Charges Inpatient E&M: 18828 Init Hosp L3
[2023-08-30] MEDS: Piperacil/Tazobactam 3.375 GM in 0.9% Normal Saline (50mL MB+) 50 ML IV (18:25)
[2023-08-30 20:04] LABS: Procalcitonin 1.45 ng/mL (0.00-0.09)
[2023-08-30] MEDS: 0.9% Normal Saline (1000mL) 1,000 ML 100 ML IV (20:31)
[2023-08-30] MEDS: 0.9% Saline Lock 10 ML Syringe IV ×2 (20:31→23:19)
[2023-08-30 20:57] LABS: Hematocrit 26.4 % (37-47); Hemoglobin 8.3 g/dL (12.0-15.0)
[2023-08-30 21:35] LABS: Internal QC Validated? YES +Cl - CLEAR BKGD; Pregnancy, Urine Negative Negative
[2023-08-30] MEDS: Pantoprazole Sodium 80 MG in 0.9% Normal Saline (100mL Bag) 80 ML 10 MG CONT INF (23:17)
[2023-08-30] MEDS: Octreotide 0.5 MG in Dextrose 5%-Water (250mL Bag) 250 ML 12.5 MG CONT INF (23:43)
[2023-08-31] VITALS (34 sets, daily range): BP systolic 81–129; BP diastolic 26–83; PULSE 60–72; RESP 13–26; TEMP 36.5–36.7; O2SAT 88–97; BMI 24.6
[2023-08-31] MEDS: Piperacil/Tazobactam 3.375 GM in 0.9% Normal Saline (50mL MB+) 50 ML IV ×4 (00:01→22:18)
[2023-08-31 00:43] LABS: Hematocrit 24.1 % (37-47); Hemoglobin 7.2 g/dL (12.0-15.0)
--- OUTSIDE RECORDS SUMMARY | 2023-08-31 01:30 | XMS RPT_ITS | CCD ---
Author Name Unknown Address [address] [place] [address] Organization [facility] Care Team Providers Care Dairy Frozen Manager Name Role Phone Katiuska, Lauren Chi Primary Care Provider [phone] ANA VINCENT Referring Unavailable KATIUSKA, LAUREN CHI Primary Care Unavailable COOPERRIDER II, JC Conway Referring Unavailabl e KATIUSKA, LAUREN CHI Primary Care Unavailable KATIUSKA, LAUREN CHI Primary Care Unavailable ANA VINCENT Referring Unavailable COOPERRIDER IIJC Attending Unavailabl e KATIUSKA, LAUREN CHI Primary Care Unavailable Katiuska, Lauren Chi Primary Care Provider SLEIK, KHALED MELOUD Attending Unavailable KATIUSKA, LAUREN CHI Primary Care Unavailable SLEIK, KHALED MELOUD Admitting Unavailable SLEIK, KHALED MELOUD Attending Unavailable KATIUSKA, LAUREN CHI Primary Care Unavailable ANA VINCENT Referring Unavailable LAHORRA, ADRIÁN A Attending Unavailable KATIUSKA, LAUREN CHI Primary Care Unavailable JAGMANTAVONANA L Referring Unavailable KATIUSKA, LAUREN CHI Primary Care Unavailable JAGMANTAVONANA L Referring Unavailable INEMANTAVONANA L Referring Unavailable SLEIK, KHALED MELOUD Attending Unavailable KATIUSKA, LAUREN CHI Primary Care Unavailable JAGMANANA Referring Unavailable LAHORRA, ADRIÁN A Attending Unavailable KATIUSKA, LAUREN CHI Primary Care Unavailable INEMANTAVONANA L Referring Unavailable KATIUSKA, LAUREN CHI Primary Care Unavailable JAGMANTAVONANA L Referring Unavailable KATIUSKA, LAUREN CHI Primary Care Unavailable JAGMANANA L Attending Unavailable KATIUSKA, LAUREN CHI Primary Care Unavailable KATIUSKA, LAUREN CHI Primary Care Unavailable ANA VINCENT L Referring Unavailable Allergies Allergy Classification Reported Allergen(s) Allergy Type Date of Onset Reaction(s) Facility (17 sources) Aspartame; Translations: [ASPARTAME] Drug Allergy 12-18-2018 Unknown [facility] Medications Current Medications Medication Drug Class(es) Dates Sig (Normalized) Sig (Original) benoxinate hydrochloride 4 mg/ml / fluorescein sodium 2.5 mg/ml ophthalmic solution (1 source) Diagnostic Dye Start: 10-05-2022 End: 10-06-2022 fluorescein-benoxin ate 0.25-0.4 % 1 Drop (FLURESS) perflutren lipid microspheres 1.3 mL in NaCl (PF) 0.9% 10 mL injection (DEFINITY) (10 sources) Start: 07-19-2023 End: 10-17-2024 perflutren lipid microspheres 1.3 mL in NaCl (PF) 0.9% 10 mL injection (DEFINITY) Completed/Discontinued Medications Medication Drug Class(es) Dates Sig (Normalized) Sig (Original) alendronic acid 70 mg oral tablet (12 sources) Bisphosphonate Start: 08-20-2021 End: 06-21-2023 alendronate (FOSAMAX) 70 mg tablet aspirin 81 mg chewable tablet (15 sources) Platelet Aggregation Inhibitor, Nonsteroidal Anti-inflammatory Drug take 1 tablet by mouth once daily aspirin 81 mg chewable tablet Take 81 mg by mouth once daily. 0 Active Problems Active Problems Problem Classification Problem Date Documented Da te Episodic/Chronic Blindness and vision defects (3 sources) Bilateral myopia of eyes; Translations: [Myopia, bilateral] Episodic Cataract (1 source) Bilateral senile combined form cataracts of eyes; Translations: [Combined forms of age-related cataract, bilateral] Chronic Congestive heart failure; nonhypertensive (1 source) Chronic diastolic (congestive) heart failure; Translations: [Chronic diastolic heart failure (HCC)] Onset: 08-25-2023 Chronic Coronary atherosclerosis and other heart disease (6 sources) Coronary arteriosclerosis; Translations: [Atherosclerotic heart disease of jamul coronary artery with other forms of angina pectoris] Onset: 06-21-2023 06-21-2023 Chronic Essential hypertension (1 source) Essential (primary) hypertension; Translations: [Primary hypertension] Onset: 08-25-2023 Chronic Heart valve disorders (15 sources) Aortic valve stenosis; Translations: [Nonrheumatic aortic (valve) stenosis] Onset: 11-17-2022 Chronic Hepatitis (2 sources) Autoimmune hepatitis; Translations: [Autoimmune hepatitis] Onset: 06-21-2023 06-21-2023 Chronic Other eye disorders (1 source) Vitreous floaters of left eye; Translations: [Other vitreous opacities, left eye] Chronic Other inflammatory condition of skin (15 sources) Rosacea; Translations: [Rosacea, unspecified] Onset: 07-12-2006 07-12-2006 Chronic Other liver diseases (1 source) Other cirrhosis of liver; Translations: [Other cirrhosis of liver (HCC)] Onset: 06-21-2023 Chronic Other lower respiratory disease (1 source) Dyspnea on exertion; Translations: [Other forms of dyspnea] Episodic Other lower respiratory disease (2 sources) Other forms of dyspnea; Translations: [Dyspnea on exertion] Onset: 11-17-2022 Episodic Lana-; endo-; and myocarditis; cardiomyopathy (except that caused by tuberculosis or sexually transmitted disease) (1 source) Endocarditis, valve unspecified; Translations: [Valvular heart disease] Onset: 07-07-2023 Chronic Thyroid disorders (15 sources) Non-toxic uninodular goiter; Translations: [Nontoxic single thyroid nodule] Onset: 03-13-2015 03-13-2015 Chronic Unclassified (1 source) Aortic Stenosis Onset: 11-23-2022 Past or Other Problems Problem Classification Problem Date Documented Da te Episodic/Chronic Allergic reactions (15 sources) Contact dermatitis; Translations: [Unspecified contact dermatitis, unspecified cause] Onset: 05-09-2006 05-09-2006 Episodic Nonmalignant breast conditions (15 sources) Pain of breast; Translations: [Mastodynia] Onset: 12-21-2010 12-21-2010 Episodic Other inflammatory condition of skin (15 sources) Seborrheic dermatitis; Translations: [Seborrheic dermatitis, unspecified] Onset: 05-09-2006 05-09-2006 Episodic Other skin disorders (15 sources) Vitiligo; Translations: [Vitiligo] Onset: 05-09-2006 05-09-2006 Episodic Other skin disorders (15 sources) Seborrheic keratosis; Translations: [Other seborrheic keratosis] Onset: 05-09-2006 05-09-2006 Episodic Other skin disorders (15 sources) Disorder of pigmentation; Translations: [Disorder of pigmentation, unspecified] Onset: 07-12-2006 07-12-2006 Episodic Other skin disorders (15 sources) Disorder of skin pigmentation; Translations: [Disorder of pigmentation, unspecified] Onset: 07-12-2006 07-12-2006 Episodic Results Test Name Value Interpretation Reference Range Facil ity Vital Signs Date Time Vital Sign Value Performing Clinician Debbie bejarano 06-21-2023 09:40-0400 Body height 167.6 cm Adrián Ramirez MD Work Phone: [facility] 06-21-2023 09:40-0400 Body weight 63.59 kg Adrián Ramirez MD Work Phone: [facility] 06-21-2023 09:40-0400 Diastolic blood pressure 70 mm[Hg] Adrián Ramirez MD Work Phone: [facility] 06-21-2023 09:40-0400 Heart rate 73 /min Adrián Ramirez MD Work Phone: [facility] 06-21-2023 09:40-0400 SaO2% (BldA) [Mass fraction] 97 % Adrián Ramirez MD Work Phone: [facility] 06-21-2023 09:40-0400 Systolic blood pressure 112 mm[Hg] Adrián Ramirez MD Work Phone: [facility] 06-21-2023 09:37-0400 Body height 167.6 cm Ramesh West MD Work Phone: [facility] 06-21-2023 09:37-0400 Body weight 63.59 kg Ramesh West MD Work Phone: [facility] 06-21-2023 09:37-0400 Diastolic blood pressure 70 mm[Hg] Ramesh West MD Work Phone: [facility] 06-21-2023 09:37-0400 Heart rate 73 /min Ramesh West MD Work Phone: [facility] 06-21-2023 09:37-0400 SaO2% (BldA) [Mass fraction] 97 % Ramesh West MD Work Phone: [facility] 06-21-2023 09:37-0400 Systolic blood pressure 112 mm[Hg] Ramesh West MD Work Phone: [facility] 11-23-2022 09:20-0400 Body height 167.6 cm Adrián Ramirez MD Work Phone: [facility] 11-23-2022 09:20-0400 Body weight 61.42 kg Adrián Ramirez MD Work Phone: [facility] 11-23-2022 09:20-0400 Diastolic blood pressure 62 mm[Hg] Adrián Ramirez MD Work Phone: [facility] 11-23-2022 09:20-0400 Heart rate 70 /min Adrián Ramirez MD Work Phone: [facility] 11-23-2022 09:20-0400 SaO2% (BldA) [Mass fraction] 100 % Adrián Ramirez MD Work Phone: [facility] 11-23-2022 09:20-0400 Systolic blood pressure 100 mm[Hg] Adrián Ramirez MD Work Phone: [facility] 11-23-2022 09:16-0400 Body height 167.6 cm Ramesh West MD Work Phone: [facility] 11-23-2022 09:16-0400 Body weight 61.24 kg Ramesh West MD Work Phone: [facility] 11-23-2022 09:16-0400 Diastolic blood pressure 62 mm[Hg] Ramesh West MD Work Phone: [facility] 11-23-2022 09:16-0400 Heart rate 70 /min Ramesh West MD Work Phone: [facility] 11-23-2022 09:16-0400 SaO2% (BldA) [Mass fraction] 100 % Ramesh West MD Work Phone: [facility] 11-23-2022 09:16-0400 Systolic blood pressure 100 mm[Hg] Ramesh West MD Work Phone: [facility] Encounters Encounter Date Encounter Type Care Provider Facility Start: 08-25-2023 End: 08-26-2023 ambulatory ANA VINCENT Facility:[facility] Start: 08-25-2023 End: 08-25-2023 ambulatory ANA VINCENT Facility:[facility] Start: 07-19-2023 Patient encounter procedure Ramesh West MD Work Phone: [facility] Start: 07-19-2023 Telephone encounter Ramesh West MD Work Phone: [facility] Procedures Date Procedure Procedure Detail Performing Clinician Start: 08-25-2023 Antibody screen RAMESH WEST Plan of Treatment Date Care Activity Detail Author Start: 03-19-2029 Urine microalbumin profile DTaP,Tdap,Td Vaccine (2 - Td or Tdap) [facility] Start: 06-21-2026 Diabetes Screening Diabetes Screening [facility] Start: 11-17-2025 DIABETES SCREEN DIABETES SCREEN [facility] Start: 11-17-2025 Diabetes Screening Diabetes Screening [facility] Start: 10-08-2023 End: 07-19-2024 Echocardiography ECHO Cardiology Routine Nonrheumatic aortic valve stenosis Expected: 10/08/2023, Expires: 07/19/2024 [facility] Work Phone: Immunizations Immunization Date Immunization Notes Care Provider Fa farnaz 09-28-2021 influenza virus vacc ine, unspecified formulation Ana Vincent EXECUTIVE VICE PRESIDENT BUSINESS DEVELOPMENT.SOFTWARE DEVELOPMENT SPECIALIST Work Phone: [facility] Payers Date Payer Category Payer Medicare [id number] 2019 Unknown [id number] 2007 Medicare MEDICARE MEDICAR E A AND B [id number] 2007-Present [phone] [place] [address] Medicare [id number] 2007 Medicare [id number] Social History Date Type Detail Facility Tobacco smoking stat us NHIS Never smoked tobacco [facility] Start: 10-05-2022 End: 06-21-2023 Alcohol intake Current non-drinker of alcohol (finding) [facility] Start: 1940 Sex Assigned At Not on file C [facility] Start: 11-23-2022 End: 06-21-2023 History of Social function [facility] Start: 11-23-2022 End: 06-21-2023 Tobacco use panel [facility] National Score (1-10 0), lower number is lower risk 45 [facility] Clinical Notes 10-05-2022 to 08-25-2023 Telephone Encounter - Aan Vincent APRN.CNP - 07/19/2023 3:12 PM ESTTelephone Encounter - Ana Vincent APRN.CNP - 07/19/2023 2:30 PM Ana Poe APRN.WOLF - 07/18/2023 8:11 AM EST Note Date & Type Note Facility 08-25-2023 Note HNO ID: [id number] Author: Ana Vincent APRN.CNP Service: ? Author Type: Nurse Practitioner Type: Progress Notes Filed: 08/25/2023 1:59 PM Note Text: INTERVENTIONAL CARDIOLOGY SERVICE Transcatheter Aortic Valve Replacement Preoperative History AND Physical Exam PRIMARY C[place]: [place] [address] [place] [id number] CARE TEAM: Mlt: Dr. Js Tpaia, Dr. Ramesh West Cardiac Surgeon: Dr. Adrián Ramirez and Dr. Raghav Diaz Patient Info: Kassidy Willingham 1940 83 year old Procedure: Transcatheter Aortic Valve Replacement Diagnosis: Paradoxical Low Flow, Low Gradient Severe Aortic Valve Stenosis Date of Procedure: 09/07/2023 OR #: [id number] CPT Code: 02990 Diagnosis Code: I35.9 HISTORY OF PRESENT ILLNESS: Ms. Willingham is a 83 year old female with a known past medical history significant for HTN, HLD, Yari disease, autoimmune hepatitis, CAD (s/p PCI to LAD AND known [employer]OURCES to RCA), and severe aortic valve stenosis who presents today for a history and physical exam and for patient education in preporation for transcatheter aortic valve replacement. Today, she endorses chest pain and shortness of breath with exertion. Chest pain resolves with rest. She also has noticed progressive fatigue. She denies orthopnea, PND, dizziness, lightheadedness, or lower extremity edema. Subjective Review of Systems Constitutional: Positive for malaise/fatigue. Negative for chills, diaphoresis, fever and weight loss. Respiratory: Positive for shortness of breath. Negative for cough. Cardiovascular: Positive for chest pain (wtih exertion). Negative for palpitations, orthopnea, leg swelling and PND. Gastrointestinal: Negative for abdominal pain, heartburn, nausea and vomiting. Genitourinary: Negative for hematuria. Musculoskeletal: Negative for myalgias. Neurological: Negative for dizziness, tingling, loss of consciousness, weakness and headaches. Endo/Heme/Allergies: Does not bruise/bleed easily. Psychiatric/Behavioral: Negative for depression. 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 PAST SURGICAL HISTORY Procedure Laterality Date COLONOSCOPY FLX DX W/COLLJ SPEC WHEN PFRMD 2006 HYSTERECTOMY HX 2013 LIG/TRNSXJ FLP TUBE ABDL/VAG APPR UNI/BI MAMMO MAMMOGRAM 11/2010 RECHECK FAMILY HISTORY Problem Relation Age of Onset Cancer Father No Ocular Disease No Family History Glaucoma No Family History Detached Retina No Family History Macular Degen No Family History Social History Tobacco Use Smoking status: Never Smokeless tobacco: Never Vaping Use Vaping Use: Never used Substance Use Topics Alcohol use: No Drug use: Never ALLERGIES Allergen Reactions Aspartame Unknown Medications Current Outpatient Medications Medication Sig Dispense Refill Ferrous Sulfate 27 mg iron tab Take 1 tablet by mouth once daily. predniSONE (DELTASONE) 20 mg tablet Take 10 mg by mouth once daily. azaTHIOprine (IMURAN) 50 mg tablet Take 75 mg by mouth once daily. metoprolol tartrate, short acting, (LOPRESSOR) 25 mg tablet Take 25 mg by mouth once daily. levothyroxine (SYNTHROID) 25 mcg tablet Take 25 mcg by mouth daily before breakfast. aspirin 81 mg chewable tablet Take 81 mg by mouth once daily. IRON, FERROUS SULFATE, ORAL Take 100 mg by mouth once daily. (Patient not taking: Reported on 08/25/2023) Current Facility-Administered Medications Medication Dose Route Frequency Provider Last Rate Last Admin perflutren lipid microspheres 1.3 mL in NaCl (PF) 0.9% 10 mL injection (DEFINITY) INTRAVENOUS DIRECTED PRN Ana Vincent APRN.CNP sodium chloride 0.9 % (flush) 10 mL (BD POSIFLUSH) 10 mL INTRAVENOUS DIRECTED PRN Ana Vincent APRN.CNP Objective Physical Examination Vitals:BP 101/63 Pulse 69 Ht 5' 6 (1.68m) Wt 141 lb (64.0kg) SpO2 99% BMI 22.77 kg/(m2). Physical Exam Vitals and nursing note reviewed. Constitutional: Appearance: Normal appearance. She is normal weight. HENT: Head: Normocephalic and atraumatic. Neck: Vascular: No carotid bruit or JVD. Cardiovascular: Rate and Rhythm: Normal rate and regular rhythm. Pulses: Radial pulses are 3+ on the right side. Posterior tibial pulses are 2+ on the right side and 2+ on the left side. Heart sounds: S1 normal and S2 normal. Heart sounds not distant. Murmur heard. Crescendo decrescendo systolic murmur is present with a grade of 3/6. No friction rub. No gallop. No S3 or S4 sounds. Pulmonary: Effort: Pulmonary effort is normal. Breath sounds: Normal breath sounds. Abdominal: Palpations: Abdomen is soft. Musculoskeletal: General: Normal range of motion. Cervical back: Normal range of motion and neck sup (more content not included)... [facility] 07-19-2023 Miscellaneous Notes Patient does not have any restrictions for DAPT after ERCP per Dr. Newby. Pancreatitis is the biggest risk the first week after her ERCP. We will plan for TAVR on 09/07/2023. Discussed plan with patient's daughter and patient. Please schedule patient for TAVR on 09/07/2023 at 7:[address] West. Please schedule patient for PAT with myself on 08/25/23 at 1 pm. - Patient instructed to arrive at 12:30 pm - Will have preop labs drawn in POB lab after her PAT Please arrange for 1 week post op appt, 1 month post op appt and echo. Thank you, Ana Vincent APRN.CNP Spoke with Dr. Newby's RN regarding DAPT after Gallstone surgery. She plans to discuss with Dr. Newby and return phone call. Ana Vincent APRN.CNP I spoke with patient's daughter. We have recommended patient undergo Gallstone Surgery as scheduled on 08/15/23. I had already completed a clearance form last Monday after discussing her case with Dr. West. I will reach out to Dr. Newby's office ([phone]) to determine when patient will be cleared to have DAPT after her surgery. Then we can proceed with TAVR scheduling. Ana Vincent APRN.CNP Daughter Dayanna Tamayo (verbal consent from patient at this time) is calling in regards to possible surgery for TAVR valve. She is asking if it could be done possibly before the Gallstone surgery set on August 152022. Patient and daughter state that they would prefer the TAVR before hand and would be willing to move Gallstone surgery if TAVR could help to lower the risk on the Gallstone surgery. Please advise. [place] LPN documented in this encounter [facility] 07-18-2023 Note HNO ID: [id number] Author: Ana Vincent APRN.CNP Service: ? Author Type: Nurse Practitioner Type: Progress Notes Filed: 07/18/2023 8:13 AM Note Text: MULTI DISCIPLINARY HIGH RISK AVR CARDIAC TEAM Members present: Dr. Tapia, Dr. Ramirez, Dr. Gil, Dr. Diaz, Dr. Mendez, Dr. Muñoz, Dr. West, Bianca Vincent APRN, CNP, Priya Mckee CNP, JANNA Cartwright., JANNA Mckeon, JANNA Pruitt, Lars Roldan CNP, Aniya Haas CNP, Priya Ricardo CNP Presenting Physician: Dr. West PATIENT NAME:Kassidy Willingham DATE: 07/18/2023 Outcome: Kassidy Willingham history and imaging were reviewed by the physicians in attendance. The collaborative recommendation would be to proceed with TAVR procedure. These recommendations will be communicated to the patient by our office. TAVR procedure scheduling will be handled by Cardiothoracic Office. Ana Vincent APRN.CNP 07/18/2023 [facility] 07-18-2023 History of Presen t illness Narrative MULTI DISCIPLINARY HIGH RISK AVR CARDIAC TEAM Members present: Dr. Tapia, Dr. Ramirez, Dr. Gil, Dr. Diaz, Dr. Mendez, Dr. Muñoz, Dr. West, Bianca Vincent APRN, CNP, Priya Mckee CNP, JANNA Cartwright., JANNA Mckeon, JANNA Pruitt, Lars Roldan CNP, Aniya Haas CNP, Priya Ricardo, WOLF Presenting Physician: Dr. West PATIENT NAME:Kassidy Willingham DATE: 07/18/2023 Outcome: Kassidy Willingham history and imaging were reviewed by the physicians in attendance. The collaborative recommendation would be to proceed with TAVR procedure. These recommendations will be communicated to the patient by our office. TAVR procedure scheduling will be handled by Cardiothoracic Office. Ana Vincent APRN.CNP 07/18/2023 documented in this encounter [facility] 06-22-2023 Miscellaneous Notes Spoke with patient about test results. Patient verbalizes understanding. Wanda Garvin LPN Voicemail msg left for patient to return call to [facility] to review test results. Office phone number provided. Wanda Garvin LPN ----- Message from Ana Vincent APRN.SOFTWARE DEVELOPMENT SPECIALIST sent at 06/21/2023 2:14 PM EDT ----- Please call the patient and report lab results revealed normal PT/INR, mild elevation in LFTs as expected with liver disease, stable CBC, and normal kidney function. BNP elevated as expected with valvular disease. Ana Vincent APRN.SOFTWARE DEVELOPMENT SPECIALIST documented in this encounter [facility] 06-21-2023 Note HNO ID: [id number] Author: Ramesh West MD Service: ? Author Type: Physician Type: Progress Notes Filed: 06/21/2023 4:39 PM Note Text: Ramesh West MD Interventional Cardiology [address] [place], [place] [id number] Chief Complaint Patient presents with: Aortic Stenosis: Lo is here for TAVR evaluation. HISTORY OF PRESENT ILLNESS: Ms. Willingham is a 82 year old female seen at the valve clinic today for follow-up and assessment for symptomatic severe aortic stenosis she had returned today for her 6 months follow-up 6 months ago patient has aortic stenosis but she was completely asymptomatic she she was diagnosed with autoimmune hepatitis and liver cirrhosis she is on immunosuppressive therapy since then she has been gaining Weight patient now she experiencing exertional central chest pressure is relieved with rest consistent with angina she is clearly symptomatic with echocardiography shows paradoxical low-flow low gradient severe aortic stenosis peak gradient of 62 mean gradient of 38 with dimensionless index of 0.1 8 aortic valve area of 0.56 cm? 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 PAST SURGICAL HISTORY Procedure Laterality Date COLONOSCOPY FLX DX W/COLLJ SPEC WHEN PFRMD 2006 HYSTERECTOMY HX 2014 LIG/TRNSXJ FLP TUBE ABDL/VAG APPR UNI/BI MAMMO MAMMOGRAM 11/2010 RECHECK FAMILY HISTORY Problem Relation Age of Onset Cancer Father No Ocular Disease No Family History Glaucoma No Family History Detached Retina No Family History Macular Degen No Family History Social History Tobacco Use Smoking status: Never Smokeless tobacco: Never Vaping Use Vaping Use: Never used Substance Use Topics Alcohol use: No Drug use: Never ALLERGIES Allergen Reactions Aspartame Unknown Medications: Current Outpatient Medications Medication Sig Dispense Refill metoprolol tartrate, short acting, (LOPRESSOR) 25 mg tablet levothyroxine (SYNTHROID) 25 mcg tablet Take 25 mcg by mouth daily before breakfast. IRON, FERROUS SULFATE, ORAL Take 100 mg by mouth once daily. aspirin 81 mg chewable tablet Take 81 mg by mouth once daily. No current facility-administered medications for this visit. Review of Systems Constitutional: Negative for chills, diaphoresis, fever, malaise/fatigue and weight loss. HENT: Negative for congestion, ear discharge, ear pain, hearing loss, nosebleeds, sinus pain, sore throat and tinnitus. Eyes: Negative for blurred vision, double vision, photophobia, pain, discharge and redness. Respiratory: Negative for cough, hemoptysis, sputum production, shortness of breath, wheezing and stridor. Cardiovascular: Positive for chest pain. Negative for palpitations, orthopnea, claudication, leg swelling and PND. Gastrointestinal: Negative for abdominal pain, blood in stool, constipation, diarrhea, heartburn, melena, nausea and vomiting. Genitourinary: Negative for dysuria, flank pain, frequency, hematuria and urgency. Musculoskeletal: Negative for back pain, falls, joint pain, myalgias and neck pain. Skin: Negative for itching and rash. Neurological: Negative for dizziness, tingling, tremors, sensory change, speech change, focal weakness, seizures, loss of consciousness, weakness and headaches. Endo/Heme/Allergies: Negative for environmental allergies and polydipsia. Does not bruise/bleed easily. Psychiatric/Behavioral: Negative for depression, hallucinations, memory loss, substance abuse and suicidal ideas. The patient is not nervous/anxious and does not have insomnia. Physical Examination: Vitals:BP 112/70 Pulse 73 Ht 5' 6 [Patient reports[ (1.68m) Wt 140 lb 3.2 oz (63.6kg) SpO2 97% BMI 22.64 kg/(m2). BP w/Orthostatic Vitals Date and Time Orthostatic BP Orthostatic Pulse BP Pulse BP Position BP Site BP Cuff Size 06/21/23 0937 -- -- 112/70 73 Sitting Left Arm Large Adult Last 2 Encounter Wt Readings: Date: Wt: 06/21/2023 140 lb 3.2 oz (63.6 kg) 06/21/2023 140 lb 3.2 oz (63.6 kg) Physical Exam Constitutional: General: She is not in acute distress. Appearance: She is not diaphoretic. HENT: Head: Normocephalic and atraumatic. Right Ear: External ear normal. Left Ear: External ear normal. Nose: Nose normal. Mouth/Throat: Pharynx: Oropharynx is clear. Eyes: General: Right eye: No discharge. Left eye: No discharge. Conjunctiva/sclera: Co (more content not included)... [facility] 06-21-2023 History of Presen t illness Narrative Images from the original note were not included. Ramesh West MD Interventional Cardiology [address] [place] [address] Chief Complaint Patient presents with: Aortic Stenosis: Lo is here for TAVR evaluation. HISTORY OF PRESENT ILLNESS: Ms. Willingham is a 82 year old female seen at the valve clinic today for follow-up and assessment for symptomatic severe aortic stenosis she had returned today for her 6 months follow-up 6 months ago patient has aortic stenosis but she was completely asymptomatic she she was diagnosed with autoimmune hepatitis and liver cirrhosis she is on immunosuppressive therapy since then she has been gaining Weight patient now she experiencing exertional central chest pressure is relieved with rest consistent with angina she is clearly symptomatic with echocardiography shows paradoxical low-flow low gradient severe aortic stenosis peak gradient of 62 mean gradient of 38 with dimensionless index of 0.1 8 aortic valve area of 0.56 cm 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 PAST SURGICAL HISTORY Procedure Laterality Date COLONOSCOPY FLX DX W/COLLJ SPEC WHEN PFRMD 2006 HYSTERECTOMY HX 2014 LIG/TRNSXJ FLP TUBE ABDL/VAG APPR UNI/BI MAMMO MAMMOGRAM 11/2010 RECHECK FAMILY HISTORY Problem Relation Age of Onset Cancer Father No Ocular Disease No Family History Glaucoma No Family History Detached Retina No Family History Macular Degen No Family History Social History Tobacco Use Smoking status: Never Smokeless tobacco: Never Vaping Use Vaping Use: Never used Substance Use Topics Alcohol use: No Drug use: Never ALLERGIES Allergen Reactions Aspartame Unknown Medications: Current Outpatient Medications Medication Sig Dispense Refill metoprolol tartrate, short acting, (LOPRESSOR) 25 mg tablet levothyroxine (SYNTHROID) 25 mcg tablet Take 25 mcg by mouth daily before breakfast. IRON, FERROUS SULFATE, ORAL Take 100 mg by mouth once daily. aspirin 81 mg chewable tablet Take 81 mg by mouth once daily. No current facility-administered medications for this visit. Review of Systems Constitutional: Negative for chills, diaphoresis, fever, malaise/fatigue and weight loss. HENT: Negative for congestion, ear discharge, ear pain, hearing loss, nosebleeds, sinus pain, sore throat and tinnitus. Eyes: Negative for blurred vision, double vision, photophobia, pain, discharge and redness. Respiratory: Negative for cough, hemoptysis, sputum production, shortness of breath, wheezing and stridor. Cardiovascular: Positive for chest pain. Negative for palpitations, orthopnea, claudication, leg swelling and PND. Gastrointestinal: Negative for abdominal pain, blood in stool, constipation, diarrhea, heartburn, melena, nausea and vomiting. Genitourinary: Negative for dysuria, flank pain, frequency, hematuria and urgency. Musculoskeletal: Negative for back pain, falls, joint pain, myalgias and neck pain. Skin: Negative for itching and rash. Neurological: Negative for dizziness, tingling, tremors, sensory change, speech change, focal weakness, seizures, loss of consciousness, weakness and headaches. Endo/Heme/Allergies: Negative for environmental allergies and polydipsia. Does not bruise/bleed easily. Psychiatric/Behavioral: Negative for depression, hallucinations, memory loss, substance abuse and suicidal ideas. The patient is not nervous/anxious and does not have insomnia. Physical Examination: Vitals:BP 112/70 Pulse 73 Ht 5' 6 [Patient reports[ (1.68m) Wt 140 lb 3.2 oz (63.6kg) SpO2 97% BMI 22.64 kg/(m^2). BP w/Orthostatic Vitals Date and Time Orthostatic BP Orthostatic Pulse BP Pulse BP Position BP Site BP Cuff Size 06/21/23 0937 -- -- 112/70 73 Sitting Left Arm Large Adult Last 2 Encounter Wt Readings: Date: Wt: 06/21/2023 140 lb 3.2 oz (63.6 kg) 06/21/2023 140 lb 3.2 oz (63.6 kg) Physical Exam Constitutional: General: She is not in acute distress. Appearance: She is not diaphoretic. HENT: Head: Normocephalic and atraumatic. Right Ear: External ear normal. Left Ear: External ear normal. Nose: Nose normal. Mouth/Throat: Pharynx: Oropharynx is clear. Eyes: General: Right eye: No discharge. Left eye: No discharge. Conjunctiva/sclera: Conjunctivae normal. Pupils: Pupils are equal, round, and reactive to light. Cardiovascular: Rate and Rhythm: Normal rate and regular rhythm. Heart sounds: S1 normal and S2 normal. Murmur heard. No friction rub. No gallop. No S3 or S4 sounds. Pulmonary: Effort: Pulmonary effort is normal. No respiratory distress. Breath sounds: Normal breath sounds. No wheezing or rales. Chest: Chest wall: No tenderness. Musculoskeletal: General: Normal range of motion. Cervical back: Normal range of motion and neck supple. Skin: General: Skin is warm and dry. Neurological: Mental Status: She is alert and oriented to person, place, and time. Psychiatric: Mood and Affect: Mood normal. Thought Content: Thought content normal. Judgment: Judgment normal. Pertinent Labs: CBC: Hemoglobin (g/dL) Date Value 06/21/2023 11.3 Hematocrit (%) Date Value 06/21/2023 35.6 WBC (k/uL) Date Value 06/21/2023 10.23 Platelet Count (k/uL) Date Value 06/21/2023 142 BMP: Glucose (mg/dL) Date Value 06/21/2023 244 Potassium (mmol/L) Date Value 06/21/2023 4.4 Sodium (mmol/L) Date Value 06/21/2023 137 Chloride (mmol/L) Date Value 06/21/2023 102 CO2 (mmol/L) Date Value 06/21/2023 26 Creatinine (mg/dL) Date Value 06/21/2023 0.71 BUN (mg/dL) Date Value 06/21/2023 13 Anion Gap (mmol/L) Date Value 06/21/2023 9 Calcium, Total (mg/dL) Date Value 06/21/2023 9.4 INR: Recent Labs 06/21/23 1105 INR 1.0 Lipid Profile: No results found for: CHOL , HDL , LDL , TG Hemoglobin A1C: No results found for: HGBA1C TSH: No results found for: TSHREFL Prior Cardiac Testing EKG Assessment and Plan: 82 years old female patient with symptomatic low-flow low gradient severe aortic stenosis ASSESSMENT/PLAN: 1. Nonrheumatic aortic valve stenosis - ICD9: 424.1, ICD10: I35.0 (primary diagnosis) Patient echocardiography consistent with low gradient low flow severe aortic stenosis Is clearly become symptomatic with chest pain and angina We can recommend proceeding with transcatheter aortic valve implantation Pros and cons of surgical aortic valve versus catheter-based aortic valve implantation was explained to the patient And benefits alternative this procedure was explained To proceed with TAVR - ECG B/O W INTERP (MED OFFICE) - COMP METABOLIC PANEL - CBC - PROTHROMBIN TIME/PT - NT PRO BNP - CARDIAC PERFUME AND TOILET WATER MAKER ORDER 2. Hepatitis, autoimmune (HCC) - ICD9: 571.42, ICD10: K75.4 Immunosuppressive therapy - COMP METABOLIC PANEL - CBC - PROTHROMBIN TIME/PT - NT PRO BNP 3. Stable angina - ICD9: 413.9, ICD10: I20.89 Angina likely secondary to severe aortic stenosis but says she had prior history of stenting coronary artery disease we will repeat her cardiac catheterization to assess her coronary anatomy - CARDIAC PERFUME AND TOILET WATER MAKER ORDER Ramesh West MD Follow up planning: ONE MONTH Electronically signed by Ramesh West MD on June 21, 2023, 4:32 PM The above note was partially created using a dictation recognition software. A reasonable attempt has been made to correct any errors. Procedure Type: Isolated AVR Perioperative Outcome Estimate % Operative Mortality 10.4% Morbidity & Mortality 13.9% Stroke 1.83% Renal Failure 2.52% Reoperation 6.34% Prolonged Ventilation 5.73% Deep Sternal Wound Infection 0.043% Long Hospital Stay (>14 days) 9.04% Short Hospital Stay (<6 days)* 23.6% Ana Vincent APRN.CNP documented in this encounter [facility] 06-21-2023 Note HNO ID: [id number] Author: Adrián Ramirez MD Service: ? Author Type: Physician Type: Progress Notes Filed: 06/21/2023 11:01 AM Note Text: CARDIOTHORACIC SURGERY CONSULT / HANDP SERVICE DATE: 06/21/2023 SERVICE TIME: 10:47 AM Subjective PRIMARY SERVICE: Cardiothoracic Surgery CHIEF COMPLAINT: symptomatic progressive severe senile calcific paradoxical low flow low gradient aortic stenosis HPI: This is a 82 year old woman known to our clinic who returns to in serial surveillance of severe aortic stenosis. She is now experiencing exertional central chest pressure that is relieved with rest. She describes no radiation of discomfort. She denies exertional dyspnea, but admits to exertional fatigue and exertional limitation. She describes 2 episodes of awakening from sleep with dyspnea and chest pressure. She denies orthopnea. She denies edema, or syncope. Current echo shows progressive severe senile calcific paradoxical low flow low gradient aortic stenosis: AORTIC VALVE There is paradoxical low flow, low gradient, moderately severe aortic valve stenosis caused by calcified valve and restricted opening. There is trace aortic valve regurgitation. Tricuspid aortic valve. There is mild thickening. There is moderate calcification. The peak gradient is 62 mmHg (peak velocity = 394.6 cm/s). The mean gradient is 38 mmHg. The LVOT mean velocity is 55.6 cm/s. The LVOT diameter is 2.0 cm. The aortic VTI is 94.6 cm. The mean velocity in the aortic valve is 294.1 cm/s. The dimensionless valve index is 0.18. AV area is 0.56 cm? (0.33 cm?/m?) by continuity, VTI. The LVOT stroke volume index is 31 ml/m?. - The left ventricle is normal in size. Left ventricular systolic function is normal. EF = 60 ? 5% (2D biplane) Grade II left ventricular diastolic dysfunction. Stroke volume index: 31 - The right ventricle is normal in size. Right ventricular systolic function is normal. - The left atrial cavity is mildly dilated. - Mild 1+ TR. - Compared to study on 11/28/2022, peak velocity and mean gradient across the aortic valve is higher in today's study Left heart performed in 11/2022 showed intact LAD stent and occluded RCA filling via left to right collaterals. Right heart cath showed PA 20/02 Since her last visit with us in 11/2022, she has been diagnosed with autoimmune hepatitis resulting in biopsy confirmed cirrhosis. She has been started on prednisone and azathioprine. She has gained some weight with this therapy. No known history of thrombocytopenia, varices, ascites, etc. 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 PAST SURGICAL HISTORY Procedure Laterality Date COLONOSCOPY FLX DX W/COLLJ SPEC WHEN PFRMD 2006 HYSTERECTOMY HX 2013 LIG/TRNSXJ FLP TUBE ABDL/VAG APPR UNI/BI MAMMO MAMMOGRAM 11/2010 RECHECK FAMILY HISTORY Problem Relation Age of Onset Cancer Father No Ocular Disease No Family History Glaucoma No Family History Detached Retina No Family History Macular Degen No Family History Social History Tobacco Use Smoking status: Never Smokeless tobacco: Never Vaping Use Vaping Use: Never used Substance Use Topics Alcohol use: No Drug use: Never (Not in a hospital admission) metoprolol tartrate, short acting, (LOPRESSOR) 25 mg tablet levothyroxine (SYNTHROID) 25 mcg tablet Take 25 mcg by mouth daily before breakfast. IRON, FERROUS SULFATE, ORAL Take 100 mg by mouth once daily. aspirin 81 mg chewable tablet Take 81 mg by mouth once daily. ALLERGIES Allergen Reactions Aspartame Unknown REVIEW OF SYSTEMS: As above. Objective PHYSICAL EXAM: BP 112/70 (BP Site: Left Arm, BP Position: Sitting, BP Cuff Size: Large Adult) Pulse 73 Ht 5' 6 (1.676 m) Wt 140 lb 3.2 oz (63.6 kg) SpO2 97% BMI 22.63 kg/m? Body surface area is 1.72 meters squared. On examination, she appears well and is breathing comfortably. Vitals signs are BP 112/70 (BP Site: Left Arm, BP Position: Sitting, BP Cuff Size: Large Adult) Pulse 73 Ht 5' 6 (1.676 m) Wt 140 lb 3.2 oz (63.6 kg) SpO2 97% BMI 22.63 kg/m? . There is no JVD. No cervical or supraclavicular adenopathy is palpated. The chest is symmetrical without deformity. Breath sounds are clear bilaterally. The cardiac rhythm is regular. There is a low intensity harsh crescendo decrescendo systolic murmur with late peak, no S2. The carotid, subclavian, and radial pulses are 2+ and equal bilaterally. The abdomen is soft and non-tender. There are no abdominal masses. There is no hepatojugular reflux. There is no pretibial edema. There is no clubbing or cyanosis. STS RISK CALCULATOR: 8-10% STS Calculator Assessment/Plan Kassidy Willingham has symptomatic progressive severe senile calcific paradoxical low flow low gradient aortic stenosis. She has indication for (more content not included)... [facility] 06-21-2023 Note HNO ID: [id number] Author: Ana Vincent APRN.CNP Service: ? Author Type: Nurse Practitioner Type: Progress Notes Filed: 06/21/2023 4:39 PM Note Text: Procedure Type: Isolated AVR Perioperative Outcome Estimate % Operative Mortality 10.4% Morbidity AND Mortality 13.9% Stroke 1.83% Renal Failure 2.52% Reoperation 6.34% Prolonged Ventilation 5.73% Deep Sternal Wound Infection 0.043% Long Hospital Stay (>14 days) 9.04% Short Hospital Stay (<6 days)* 23.6% Ana Vincent APRN.CNP [facility] 06-21-2023 History of Presen t illness Narrative CARDIOTHORACIC SURGERY CONSULT / H&P SERVICE DATE: 06/21/2023 SERVICE TIME: 10:47 AM Subjective PRIMARY SERVICE: Cardiothoracic Surgery CHIEF COMPLAINT: symptomatic progressive severe senile calcific paradoxical low flow low gradient aortic stenosis HPI: This is a 82 year old woman known to our clinic who returns to in serial surveillance of severe aortic stenosis. She is now experiencing exertional central chest pressure that is relieved with rest. She describes no radiation of discomfort. She denies exertional dyspnea, but admits to exertional fatigue and exertional limitation. She describes 2 episodes of awakening from sleep with dyspnea and chest pressure. She denies orthopnea. She denies edema, or syncope. Current echo shows progressive severe senile calcific paradoxical low flow low gradient aortic stenosis: AORTIC VALVE There is paradoxical low flow, low gradient, moderately severe aortic valve stenosis caused by calcified valve and restricted opening. There is trace aortic valve regurgitation. Tricuspid aortic valve. There is mild thickening. There is moderate calcification. The peak gradient is 62 mmHg (peak velocity = 394.6 cm/s). The mean gradient is 38 mmHg. The LVOT mean velocity is 55.6 cm/s. The LVOT diameter is 2.0 cm. The aortic VTI is 94.6 cm. The mean velocity in the aortic valve is 294.1 cm/s. The dimensionless valve index is 0.18. AV area is 0.56 cm (0.33 cm /m ) by continuity, VTI. The LVOT stroke volume index is 31 ml/m . - The left ventricle is normal in size. Left ventricular systolic function is normal. EF = 60 5% (2D biplane) Grade II left ventricular diastolic dysfunction. Stroke volume index: 31 - The right ventricle is normal in size. Right ventricular systolic function is normal. - The left atrial cavity is mildly dilated. - Mild 1+ TR. - Compared to study on 11/28/2022, peak velocity and mean gradient across the aortic valve is higher in today's study Left heart performed in 11/2022 showed intact LAD stent and occluded RCA filling via left to right collaterals. Right heart cath showed PA 19/6 Since her last visit with us in 11/2022, she has been diagnosed with autoimmune hepatitis resulting in biopsy confirmed cirrhosis. She has been started on prednisone and azathioprine. She has gained some weight with this therapy. No known history of thrombocytopenia, varices, ascites, etc. 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 PAST SURGICAL HISTORY Procedure Laterality Date COLONOSCOPY FLX DX W/COLLJ SPEC WHEN PFRMD 2006 HYSTERECTOMY HX 2014 LIG/TRNSXJ FLP TUBE ABDL/VAG APPR UNI/BI MAMMO MAMMOGRAM 11/2010 RECHECK FAMILY HISTORY Problem Relation Age of Onset Cancer Father No Ocular Disease No Family History Glaucoma No Family History Detached Retina No Family History Macular Degen No Family History Social History Tobacco Use Smoking status: Never Smokeless tobacco: Never Vaping Use Vaping Use: Never used Substance Use Topics Alcohol use: No Drug use: Never (Not in a hospital admission) metoprolol tartrate, short acting, (LOPRESSOR) 25 mg tablet levothyroxine (SYNTHROID) 25 mcg tablet Take 25 mcg by mouth daily before breakfast. IRON, FERROUS SULFATE, ORAL Take 100 mg by mouth once daily. aspirin 81 mg chewable tablet Take 81 mg by mouth once daily. ALLERGIES Allergen Reactions Aspartame Unknown REVIEW OF SYSTEMS: As above. Objective PHYSICAL EXAM: BP 112/70 (BP Site: Left Arm, BP Position: Sitting, BP Cuff Size: Large Adult) Pulse 73 Ht 5' 6 (1.676 m) Wt 140 lb 3.2 oz (63.6 kg) SpO2 97% BMI 22.63 kg/m Body surface area is 1.72 meters squared. On examination, she appears well and is breathing comfortably. Vitals signs are BP 112/70 (BP Site: Left Arm, BP Position: Sitting, BP Cuff Size: Large Adult) Pulse 73 Ht 5' 6 (1.676 m) Wt 140 lb 3.2 oz (63.6 kg) SpO2 97% BMI 22.63 kg/m . There is no JVD. No cervical or supraclavicular adenopathy is palpated. The chest is symmetrical without deformity. Breath sounds are clear bilaterally. The cardiac rhythm is regular. There is a low intensity harsh crescendo decrescendo systolic murmur with late peak, no S2. The carotid, subclavian, and radial pulses are 2+ and equal bilaterally. The abdomen is soft and non-tender. There are no abdominal masses. There is no hepatojugular reflux. There is no pretibial edema. There is no clubbing or cyanosis. STS RISK CALCULATOR: 8-10% STS Calculator Assessment/Plan Kassidy Willingham has symptomatic progressive severe senile calcific paradoxical low flow low gradient aortic stenosis. She has indication for AVR.We recommend TAVR. CT shows adequate access. Preop eval to include left heart cath and denatl eval. The risks, benefits, and anticipated outcomes of the procedure; the risks and benefits of the alternatives to the procedure; and the roles and tasks of the personnel to be involved were discussed with the patient and she consents to the procedure and agrees to proceed. SAVR phong be offered as salvage. T The risks, benefits, and anticipated outcomes of the procedure; the risks and benefits of the alternatives to the procedure; and the roles and tasks of the personnel to be involved were discussed with the patient and she consents to the procedure and agrees to proceed. These findings will be communicated back to the requesting provider electronically. SIGNATURE: Adrián Ramirez MD PATIENT NAME: Kassidy Willingham DATE: June 21, 2023 TIME: 10:47 AM PAGER/CONTACT #: [phone] [phone] documented in this encounter [facility] 06-21-2023 Instructions Ana Vincent, EXECUTIVE VICE PRESIDENT BUSINESS DEVELOPMENT.SOFTWARE DEVELOPMENT SPECIALIST - 06/21/2023 10:15 AM EDT Images from the original note were not included. Today, you met with Dr. Ramirez and Dr. West to discuss your aortic valve stenosis and current symptoms We understand you are having shortness of breath, chest pain, and fatigue. We are recommending: Lab Work today. Restart Aspirin 81 mg Cardiac Catheterization with Dr. West to reassess your coronary artery disease. - Cardiac Radio Performer will call you to schedule this procedure. Dental Clearance - Form provided today. Transcatheter Aortic Valve Replacement Overview Transcatheter aortic valve replacement (TAVR) is a minimally invasive procedure to replace a narrowed aortic valve that fails to open properly (aortic valve stenosis). Transcatheter aortic valve replacement is sometimes called transcatheter aortic valve implantation (SUSY). TAVR may be an option for people who are considered at intermediate or high risk of complications from surgical aortic valve replacement. TAVR may also be indicated in certain people who can't undergo open-heart surgery. The decision to treat aortic stenosis with TAVR is made after consultation with a multidisciplinary group of medical and surgical heart specialists who together determine the best treatment option for each individual. TAVR can relieve the signs and symptoms of aortic valve stenosis and may improve survival in people who can't undergo surgery or have a high risk of surgical complications. Why it's done Transcatheter aortic valve replacement (TAVR) is a minimally invasive procedure to replace the aortic valve in people with aortic valve stenosis. Aortic valve stenosis -- or aortic stenosis -- occurs when the heart's aortic valve narrows. This narrowing prevents the valve from opening fully, which obstructs blood flow from your heart into your aorta and onward to the rest of your body. Aortic stenosis can cause chest pain, fainting, fatigue, leg swelling and shortness of breath. It may also lead to heart failure and sudden cardiac . Who benefits most from TAVR TAVR may be an option if you have aortic stenosis that causes signs and symptoms. For instance, people who are candidates for TAVR may include those who are considered at intermediate or high risk of complications from surgical aortic valve replacement. Conditions that may increase the risk of surgical aortic valve replacement include lung disease or kidney disease -- which increase your risk of complications during surgical aortic valve replacement. TAVR may also be an option if you have an existing biological tissue valve that was previously inserted to replace the aortic valve, but it isn't functioning well anymore. Before TAVR, you'll need to be tested and evaluated by a multidisciplinary team of heart valve specialists. Doctors will evaluate your condition to determine the most appropriate treatment. Risks Transcatheter aortic valve replacement (TAVR) carries a risk of complications, which may include: Bleeding Blood vessel complications Problems with the replacement valve, such as the valve slipping out of place or leaking Stroke Heart rhythm abnormalities (arrhythmias) Kidney disease Heart attack Infection How you prepare You may be given certain instructions to prepare for your transcatheter aortic valve replacement (TAVR) procedure. Your treatment team will discuss with you how to prepare for the procedure and what to expect during the procedure. Discuss with your treatment team any questions you may have about the procedure. You may need to have your hair shaved off at the location of your body where the procedure will take place. Food and medications Talk to your doctor about: When you can take your regular medications and whether you can take them before your procedure When you should stop eating or drinking before the procedure Clothing and personal items Your treatment team may recommend that you bring several items to the hospital including: A list of your medications Eyeglasses, hearing aids or dentures Personal care items, such as a brush, comb, toothbrush and shaving equipment Loosefitting, comfortable clothing Items that may help you relax, such as portable music players or books During your procedure, avoid wearing: Jewelry Eyeglasses Contact lenses Dentures Nail liberian Other precautions Talk to your doctor about: Any medications you have brought to the hospital and when you should take medications on the day of the procedure Allergies or reactions you have had to medications What you can expect Transcatheter aortic valve replacement (TAVR) involves replacing your damaged aortic valve with one made from cow or pig heart tissue, also called a biological tissue valve. In some cases, a TAVR biological tissue valve may also be placed in an existing biological tissue valve that is no longer working in order to replace it. Before the procedure You'll be evaluated to make sure you don't have any risk factors that may affect you during the TAVR procedure. You may be given a medication to reduce the risk of infection prior to your procedure. During the procedure Possible catheter access sites in transcatheter aortic valve replacement (TAVR) Transcatheter aortic valve replacement (TAVR) procedure approaches You may receive general anesthesia before the TAVR procedure. A treatment steam bone press tender will give you medication through an intravenous line to prevent blood clots. Your treatment team will monitor your heart function and rhythm, and watch for changes in heart function that may occur. Changes in function can be managed with treatments as needed during the procedure. During TAVR, doctors may access your heart through a blood vessel in your leg. Alternatively, your doctors may conduct the procedure through a tiny incision in your chest, and access your heart through a large artery or through the tip of the bottom left chamber of your heart (left ventricle). Doctors may sometimes use other approaches to access your heart. In TAVR, a hollow tube (catheter) is inserted through the access point. Your doctor uses advanced imaging techniques to guide the catheter through your blood vessels, to your heart and into your aortic valve. Once it's precisely positioned, a balloon is expanded to press the replacement valve into place in the jamul aortic valve. Some valves can expand without the use of a balloon. When your doctor is certain the valve is securely in place, the catheter is withdrawn from your blood vessel or from the incision in your chest. After the procedure You may spend the night in the intensive care unit for monitoring after your procedure. Generally you'll spend about two to five days recovering in the hospital. You'll need to take blood-thinning medications to prevent blood clots after the procedure. Your doctor will discuss with you how long you may need to take these medications. Your doctor will recommend that you take medications before certain dental procedures to prevent certain infections, as you're at higher risk of certain infections with a replacement heart valve. Talk to your doctor about his or her recommendations. Results Transcatheter aortic valve replacement (TAVR) can improve the lives of people with aortic stenosis who can't have surgery or for whom surgery is too risky. In these people, TAVR can reduce the risk of . TAVR may also relieve the signs and symptoms of aortic valve stenosis and improve overall health. Some studies have found that TAVR has similar mortality rates as heart valve surgery in people with aortic stenosis who have an intermediate or high risk of complications from open-heart surgery. You may need to continue taking certain medications after your procedure. Take your medications as prescribed. You'll likely need regular follow-up appointments with your doctor. Let your doctor know if you have any new or worsening signs or symptoms. Your doctor may recommend that you make healthy lifestyle changes, such as eating a heart-healthy diet, exercising regularly, maintaining a healthy weight and avoiding smoking. documented in this encounter [facility] 06-21-2023 Nurse Note CARDIAC REHAB 5 METER WALK TEST SERVICE DATE: 06/21/2023 SERVICE TIME: 9:35am ASSESSMENT: 5.40sec 5.05sec 5.48sec ASSESSMENT: SIGNATURE: Maryan Julio LPN PATIENT NAME: Kassidy Willingham DATE: June 21, 2023 TIME: 9:42 AM PAGER/CONTACT #: [phone] documented in this encounter [facility] 06-21-2023 Nurse Note CARDIAC REHAB 5 METER WALK TEST SERVICE DATE: 06/21/2023 SERVICE TIME: 9:35am ASSESSMENT: 5.40sec 5.05sec 5.48sec SIGNATURE: Maryan Julio LPN PATIENT NAME: Kassidy Willingham DATE: June 21, 2023 TIME: 9:34 AM PAGER/CONTACT #: [phone] documented in this encounter [facility] 12-08-2022 Miscellaneous Notes Spoke with patient about test results and recommendation to have repeat echocardiogram and valve clinic follow up in 6 months. Patient verbalizes understanding and is agreeable. Wanda Garvin LPN ----- Message from Ana Vincent APRN.SOFTWARE DEVELOPMENT SPECIALIST sent at 12/08/2022 2:56 PM EDT ----- Please call the patient and report echo results revealed moderately severe aortic valve stenosis. We are recommending repeat echocardiogram and valve clinic follow up in 6 months. Office will contact patient with appointment information. Thank you, Ana Vincent APRN.SOFTWARE DEVELOPMENT SPECIALIST documented in this encounter [facility] 12-08-2022 Miscellaneous Notes Please schedule patient for echo and valve clinic with Dr. West in 6 months. - Please arrange for echo morning of her valve clinic appointment. Thank you, Ana Vincent APRN.SOFTWARE DEVELOPMENT SPECIALIST documented in this encounter [facility] 11-29-2022 Miscellaneous Notes Yes, pt had echo done yesterday at and is scheduled for echo here in [place] on 12/06. Echo cancelled on 12/06. Pt notified. Gerda Church RN Pt called today wondering about the Echocardiogram scheduled 12/06/22 and if that is the same as the test done at [facility] yesterday. Please let pt know. documented in this encounter [facility] 11-23-2022 Note HNO ID: [id number] Author: Ramesh West MD Service: ? Author Type: Physician Type: Progress Notes Filed: 11/23/2022 4:35 PM Note Text: Ramesh West MD Interventional Cardiology [address] [place] [address] Chief Complaint Patient presents with: Aortic Stenosis: Lo is here for TAVR evaluation. HISTORY OF PRESENT ILLNESS: Ms. Willingham is a 82 year old female seen today for assessment and management of aortic stenosis by the heart team Patient had prior history of coronary artery disease with prior angioplasty of the proximal mid left anterior descending artery in 2016 also history of hyperlipidemia hypertension and history of moderate aortic stenosis Patient has been doing well asymptomatic until about a year ago when she started to have progressive loss of her weight almost 30 pounds patient had extensive work-up everything's came back negative with no evidence or explanation for weight loss Patient had denied any chest pain or shortness of breath she is fatigued and tired with exertion No syncope or presyncope Most recent echocardiography revealed that a peak gradient of 32 and a mean gradient of 23 with aortic valve area of 0.62 Review of the echocardiography the Doppler assessment looks underestimated Normal right sternal border evaluation of the aortic valve was performed Patient denies any chest pain or shortness of breath She is fatigue and she cut back on her physical activity compared to a year ago She did have a significant weight loss without obvious cause after extensive evaluation Cardiac Risk Factors age (male over 45, female over 55), hyperlipidemia, hypertension, family history of CAD 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 PAST SURGICAL HISTORY Procedure Laterality Date COLONOSCOPY FLX DX W/COLLJ SPEC WHEN PFRMD 2006 HYSTERECTOMY HX 2013 LIG/TRNSXJ FLP TUBE ABDL/VAG APPR UNI/BI MAMMO MAMMOGRAM 11/2010 RECHECK FAMILY HISTORY Problem Relation Age of Onset Cancer Father No Ocular Disease No Family History Glaucoma No Family History Detached Retina No Family History Macular Degen No Family History Social History Tobacco Use Smoking status: Never Smokeless tobacco: Never Vaping Use Vaping Use: Never used Substance Use Topics Alcohol use: No Drug use: Never ALLERGIES Allergen Reactions Aspartame Unknown Medications: Current Outpatient Medications Medication Sig Dispense Refill omeprazole (PRILOSEC) 20 mg capsule docosahexaenoic acid/epa (FISH OIL ORAL) Take by mouth. CALCIUM ORAL Take by mouth. metoprolol tartrate, short acting, (LOPRESSOR) 25 mg tablet alendronate (FOSAMAX) 70 mg tablet multivit with calcium,iron,min (WOMEN'S MULTIPLE VITAMINS ORAL) Take by mouth. levothyroxine (SYNTHROID) 25 mcg tablet Take 25 mcg by mouth daily before breakfast. IRON, FERROUS SULFATE, ORAL Take 100 mg by mouth once daily. aspirin 81 mg chewable tablet Take 81 mg by mouth once daily. iv contrast (will be provided with radiology test) CTA ABD/PEL - No IV access, insert saline lock prior to the sedation, infusion, injection for imaging exam. Discontinue saline lock post exam. If Pt. has a central line or IVAD, may access for administration according to line specific nursing protocol. Once exam is complete flush line and de-access according to line specific nursing protocol in the CT contrast administration guidelines link. 1 Each 0 rosuvastatin (CRESTOR) 40 mg tablet (Patient not taking: Reported on 10/05/2022) losartan (COZAAR) 100 mg tablet Take 100 mg by mouth once daily. (Patient not taking: Reported on 11/23/2022) valsartan (DIOVAN) 160 mg tablet Take 160 mg by mouth once daily. (Patient not taking: Reported on 10/05/2022) simvastatin 40 mg ORAL tablet Take 40 mg by mouth daily at bedtime. (Patient not taking: Reported on 10/05/2022) Current Facility-Administered Medications Medication Dose Route Frequency Provider Last Rate Last Admin perflutren lipid microspheres 1.3 mL in NaCl (PF) 0.9% 10 mL injection (DEFINITY) INTRAVENOUS DIRECTED PRN Ana Vincent APRN.WOLF sodium chloride 0.9 % (flush) 10 mL (BD POSIFLUSH) 10 mL INTRAVENOUS DIRECTED PRN Ana Vincent APRN.SOFTWARE DEVELOPMENT SPECIALIST Review of Systems Constitutional: Negative for chills, diaphoresis, fever, malaise/fatigue and weight loss. HENT: Negative for congestion, ear discharge, ear pain, hearing loss, nosebleeds, sinus pain, sore throat and tinnitus. Eyes: Negative for blurred vision, double vision, photophobia, pain, discharge and redness. Respiratory: Negative for cough, hemoptysis, sputum production, shortness of breath, wheezing and stridor. Cardiovascular: Negative for chest pain, palpitations, orthopnea, claudication, leg swelling and PND. Gastrointestinal: Negative for abdominal pain, (more content not included)... [facility] 11-23-2022 History of Presen t illness Narrative Images from the original note were not included. Ramesh West MD Interventional Cardiology [address] [place], [place] [id number] Chief Complaint Patient presents with: Aortic Stenosis: Lo is here for TAVR evaluation. HISTORY OF PRESENT ILLNESS: Ms. Willingham is a 82 year old female seen today for assessment and management of aortic stenosis by the heart team Patient had prior history of coronary artery disease with prior angioplasty of the proximal mid left anterior descending artery in 2017 also history of hyperlipidemia hypertension and history of moderate aortic stenosis Patient has been doing well asymptomatic until about a year ago when she started to have progressive loss of her weight almost 30 pounds patient had extensive work-up everything's came back negative with no evidence or explanation for weight loss Patient had denied any chest pain or shortness of breath she is fatigued and tired with exertion No syncope or presyncope Most recent echocardiography revealed that a peak gradient of 32 and a mean gradient of 23 with aortic valve area of 0.62 Review of the echocardiography the Doppler assessment looks underestimated Normal right sternal border evaluation of the aortic valve was performed Patient denies any chest pain or shortness of breath She is fatigue and she cut back on her physical activity compared to a year ago She did have a significant weight loss without obvious cause after extensive evaluation Cardiac Risk Factors age (male over 45, female over 55), hyperlipidemia, hypertension, family history of CAD 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 PAST SURGICAL HISTORY Procedure Laterality Date COLONOSCOPY FLX DX W/COLLJ SPEC WHEN PFRMD 2005 HYSTERECTOMY HX 2014 LIG/TRNSXJ FLP TUBE ABDL/VAG APPR UNI/BI MAMMO MAMMOGRAM 11/2010 RECHECK FAMILY HISTORY Problem Relation Age of Onset Cancer Father No Ocular Disease No Family History Glaucoma No Family History Detached Retina No Family History Macular Degen No Family History Social History Tobacco Use Smoking status: Never Smokeless tobacco: Never Vaping Use Vaping Use: Never used Substance Use Topics Alcohol use: No Drug use: Never ALLERGIES Allergen Reactions Aspartame Unknown Medications: Current Outpatient Medications Medication Sig Dispense Refill omeprazole (PRILOSEC) 20 mg capsule docosahexaenoic acid/epa (FISH OIL ORAL) Take by mouth. CALCIUM ORAL Take by mouth. metoprolol tartrate, short acting, (LOPRESSOR) 25 mg tablet alendronate (FOSAMAX) 70 mg tablet multivit with calcium,iron,min (WOMEN'S MULTIPLE VITAMINS ORAL) Take by mouth. levothyroxine (SYNTHROID) 25 mcg tablet Take 25 mcg by mouth daily before breakfast. IRON, FERROUS SULFATE, ORAL Take 100 mg by mouth once daily. aspirin 81 mg chewable tablet Take 81 mg by mouth once daily. iv contrast (will be provided with radiology test) CTA ABD/PEL - No IV access, insert saline lock prior to the sedation, infusion, injection for imaging exam. Discontinue saline lock post exam. If Pt. has a central line or IVAD, may access for administration according to line specific nursing protocol. Once exam is complete flush line and de-access according to line specific nursing protocol in the CT contrast administration guidelines link. 1 Each 0 rosuvastatin (CRESTOR) 40 mg tablet (Patient not taking: Reported on 10/05/2022) losartan (COZAAR) 100 mg tablet Take 100 mg by mouth once daily. (Patient not taking: Reported on 11/23/2022) valsartan (DIOVAN) 160 mg tablet Take 160 mg by mouth once daily. (Patient not taking: Reported on 10/05/2022) simvastatin 40 mg ORAL tablet Take 40 mg by mouth daily at bedtime. (Patient not taking: Reported on 10/05/2022) Current Facility-Administered Medications Medication Dose Route Frequency Provider Last Rate Last Admin perflutren lipid microspheres 1.3 mL in NaCl (PF) 0.9% 10 mL injection (DEFINITY) INTRAVENOUS DIRECTED PRN Ana Vincent APRN.SOFTWARE DEVELOPMENT SPECIALIST sodium chloride 0.9 % (flush) 10 mL (BD POSIFLUSH) 10 mL INTRAVENOUS DIRECTED PRN Ana Vincent, EXECUTIVE VICE PRESIDENT BUSINESS DEVELOPMENT.SOFTWARE DEVELOPMENT SPECIALIST Review of Systems Constitutional: Negative for chills, diaphoresis, fever, malaise/fatigue and weight loss. HENT: Negative for congestion, ear discharge, ear pain, hearing loss, nosebleeds, sinus pain, sore throat and tinnitus. Eyes: Negative for blurred vision, double vision, photophobia, pain, discharge and redness. Respiratory: Negative for cough, hemoptysis, sputum production, shortness of breath, wheezing and stridor. Cardiovascular: Negative for chest pain, palpitations, orthopnea, claudication, leg swelling and PND. Gastrointestinal: Negative for abdominal pain, blood in stool, constipation, diarrhea, heartburn, melena, nausea and vomiting. Genitourinary: Negative for dysuria, flank pain, frequency, hematuria and urgency. Musculoskeletal: Negative for back pain, falls, joint pain, myalgias and neck pain. Skin: Negative for itching and rash. Neurological: Negative for dizziness, tingling, tremors, sensory change, speech change, focal weakness, seizures, loss of consciousness, weakness and headaches. Endo/Heme/Allergies: Negative for environmental allergies and polydipsia. Does not bruise/bleed easily. Psychiatric/Behavioral: Negative for depression, hallucinations, memory loss, substance abuse and suicidal ideas. The patient is not nervous/anxious and does not have insomnia. Physical Examination: Vitals:BP 100/62 Pulse 70 Ht 5' 6 [Patient reports.[ (1.68m) Wt 135 lb (61.2kg) SpO2 100% BMI 21.80 kg/(m^2). BP w/Orthostatic Vitals Date and Time Orthostatic BP Orthostatic Pulse BP Pulse BP Position BP Site BP Cuff Size 11/23/22 0916 -- -- 100/62 70 Sitting Left Arm Large Adult Last 2 Encounter Wt Readings: Date: Wt: 11/23/2022 135 lb (61.2 kg) 11/23/2022 135 lb 6.4 oz (61.4 kg) Physical Exam Constitutional: General: She is not in acute distress. Appearance: She is not diaphoretic. HENT: Head: Normocephalic and atraumatic. Right Ear: External ear normal. Left Ear: External ear normal. Nose: Nose normal. Mouth/Throat: Pharynx: Oropharynx is clear. Eyes: General: Right eye: No discharge. Left eye: No discharge. Conjunctiva/sclera: Conjunctivae normal. Pupils: Pupils are equal, round, and reactive to light. Cardiovascular: Rate and Rhythm: Normal rate and regular rhythm. Heart sounds: Normal heart sounds, S1 normal and S2 normal. No murmur heard. No friction rub. No gallop. No S3 or S4 sounds. Pulmonary: Effort: Pulmonary effort is normal. No respiratory distress. Breath sounds: Normal breath sounds. No wheezing or rales. Chest: Chest wall: No tenderness. Musculoskeletal: General: Normal range of motion. Cervical back: Normal range of motion and neck supple. Skin: General: Skin is warm and dry. Neurological: Mental Status: She is alert and oriented to person, place, and time. Psychiatric: Mood and Affect: Mood normal. Thought Content: Thought content normal. Pertinent Labs: CBC: Hemoglobin (g/dL) Date Value 11/17/2022 10.1 Hematocrit (%) Date Value 11/17/2022 30.7 WBC (k/uL) Date Value 11/17/2022 5.23 Platelet Count (k/uL) Date Value 11/17/2022 156 BMP: Glucose (mg/dL) Date Value 11/17/2022 109 Potassium (mmol/L) Date Value 11/17/2022 4.3 Sodium (mmol/L) Date Value 11/17/2022 134 Chloride (mmol/L) Date Value 11/17/2022 104 CO2 (mmol/L) Date Value 11/17/2022 22 Creatinine (mg/dL) Date Value 11/17/2022 0.73 BUN (mg/dL) Date Value 11/17/2022 15 Anion Gap (mmol/L) Date Value 11/17/2022 8 Calcium, Total (mg/dL) Date Value 11/17/2022 8.4 INR: Lipid Profile: No results found for: CHOL, HDL, LDL, TG Hemoglobin A1C: No results found for: HGBA1C TSH: No results found for: TSHREFL Prior Cardiac Testing Ekg Coronary angiography Echo TAVR scan Assessment and Plan: 82 years old with aortic stenosis Aortic stenosis The severity of aortic stenosis between moderate and severe We believe we need to repeat a good echo to assess the aortic valve from the right parasternal view and not imaging probe Once reestablished the severity of the aortic stenosis will make decisions about the next step in the management She is currently asymptomatic without signs of congestive heart failure or chest pain or shortness of breath In that case if the echo shows moderate aortic stenosis we will follow her in 6 We did discuss the options of intervention and surgical replacement versus transaortic valve implantation Risk-benefit alternative to all procedure was explained in detail 2. Weight loss And explained despite extensive investigation Heart team plan Echocardiography Follow-up in 6 months Follow up plannin months Electronically signed by Ramesh West MD on November 23, 2022, 4:21 PM The above note was partially created using a dictation recognition software. A reasonable attempt has been made to correct any errors. [facility] Adult Cardiac Surgery Database Version 4.20 RISK SCORES Procedure: Isolated AVR Risk of Mortality: 3.396% Renal Failure: 2.097% Permanent Stroke: 1.696% Prolonged Ventilation: 8.161% DSW Infection: 0.041% Reoperation: 5.170% Morbidity or Mortality: 14.515% Short Length of Stay: 28.237% Long Length of Stay: 6.686% Ana Vincent APRN.WOLF documented in this encounter [facility] 11-23-2022 Note HNO ID: [id number] Author: Adrián Ramirez MD Service: ? Author Type: Physician Type: Progress Notes Filed: 01/12/2023 11:52 PM Note Text: CARDIOTHORACIC SURGERY CONSULT / HANDP SERVICE DATE:11/23/2022 SERVICE TIME: 12:00pm Subjective PRIMARY SERVICE: Cardiothoracic Surgery CHIEF COMPLAINT: aortic stenosis HPI: This is a 82 year old woman referred for evaluation of aortic stenosis. SHe has a history of CAD and underwent PCI to the LAD in 2017. 1 year ago she began to have unexplained weight loss of 30 lbs.Extensive evaluation negative. Endorses fatigue and exertional limitation, but denies chest pressure, pain, dyspnea, edema, syncope, presyncope. AN echo performed at [facility] showed normal EF, calcific changes involving a trileaflet aortic valve, mean gradient of 21, pea velocity of 2.9 and [place] of 0.62-0.8. 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 PAST SURGICAL HISTORY Procedure Laterality Date COLONOSCOPY FLX DX W/COLLJ SPEC WHEN PFRMD 2006 HYSTERECTOMY HX 2013 LIG/TRNSXJ FLP TUBE ABDL/VAG APPR UNI/BI MAMMO MAMMOGRAM 11/2010 RECHECK FAMILY HISTORY Problem Relation Age of Onset Cancer Father No Ocular Disease No Family History Glaucoma No Family History Detached Retina No Family History Macular Degen No Family History Social History Tobacco Use Smoking status: Never Smokeless tobacco: Never Vaping Use Vaping Use: Never used Substance Use Topics Alcohol use: No Drug use: Never (Not in a hospital admission) omeprazole (PRILOSEC) 20 mg capsuleDisp: Rfl: docosahexaenoic acid/epa (FISH OIL ORAL)Take by mouth.Disp: Rfl: CALCIUM ORALTake by mouth.Disp: Rfl: metoprolol tartrate, short acting, (LOPRESSOR) 25 mg tabletDisp: Rfl: alendronate (FOSAMAX) 70 mg tabletDisp: Rfl: multivit with calcium,iron,min (WOMEN'S MULTIPLE VITAMINS ORAL)Take by mouth.Disp: Rfl: levothyroxine (SYNTHROID) 25 mcg tabletTake 25 mcg by mouth daily before breakfast.Disp: Rfl: IRON, FERROUS SULFATE, ORALTake 100 mg by mouth once daily.Disp: Rfl: aspirin 81 mg chewable tabletTake 81 mg by mouth once daily.Disp: Rfl: iv contrast (will be provided with radiology test)CTA ABD/PEL - No IV access, insert saline lock prior to the sedation, infusion, injection for imaging exam. Discontinue saline lock post exam. If Pt. has a central line or IVAD, may access for administration according to line specific nursing protocol. Once exam is complete flush line and de-access according to line specific nursing protocol in the CT contrast administration guidelines link.Disp: 1 EachRfl: 0 rosuvastatin (CRESTOR) 40 mg tabletDisp: Rfl: (Patient not taking: Reported on 10/05/2022) losartan (COZAAR) 100 mg tabletTake 100 mg by mouth once daily.Disp: Rfl: (Patient not taking: Reported on 11/23/2022) valsartan (DIOVAN) 160 mg tabletTake 160 mg by mouth once daily.Disp: Rfl: (Patient not taking: Reported on 10/05/2022) simvastatin 40 mg ORAL tabletTake 40 mg by mouth daily at bedtime.Disp: Rfl: (Patient not taking: Reported on 10/05/2022) ALLERGIES Allergen Reactions Aspartame Unknown REVIEW OF SYSTEMS: as above Objective PHYSICAL EXAM: BP 100/62 (BP Site: Left Arm, BP Position: Sitting, BP Cuff Size: Large Adult) Pulse 70 Ht 5' 6 (1.676 m) Wt 135 lb 6.4 oz (61.4 kg) SpO2 100% BMI 21.85 kg/m? Body surface area is 1.69 meters squared. On examination, she appears well and is breathing comfortably. Vitals signs are BP 100/62 (BP Site: Left Arm, BP Position: Sitting, BP Cuff Size: Large Adult) Pulse 70 Ht 5' 6 (1.676 m) Wt 135 lb 6.4 oz (61.4 kg) SpO2 100% BMI 21.85 kg/m? . There is no JVD. No cervical or supraclavicular adenopathy is palpated. The chest is symmetrical without deformity. Breath sounds are clear bilaterally. The cardiac rhythm is regular. There are no rubs, gallops, or murmurs. The carotid, subclavian, and radial pulses are 2+ and equal bilaterally. The abdomen is soft and non-tender. There are no abdominal masses. There is no hepatojugular reflux. There is no pretibial edema. There is no clubbing or cyanosis. Assessment/Plan On our review of echo, we believe she likely has moderate to severe . SHe is asymptomatic, without CHF. WE recommend: repeat echo 6 months follow up with us at that time careful attention to the development of symptoms such as dyspnea, orthopnea, presyncope, syncope, edam, chest pressure, etc. The risks, benefits, and anticipated outcomes of the procedure; the risks and benefits of the alternatives to the procedure; and the roles and tasks of the personnel to be involved were discussed with the patient and she consents to the procedure and agrees to proceed. These findings will be communicated back to the requesting provider electronically. SIGNATURE: Adrián Ramirez MD PATIENT N (more content not included)... [facility] 11-23-2022 Note HNO ID: [id number] Author: Ana Vincent APRN.WOLF Service: ? Author Type: Nurse Practitioner Type: Progress Notes Filed: 11/23/2022 4:35 PM Note Text: [facility] Adult Cardiac Surgery Database Version 4.20 RISK SCORES Procedure: Isolated AVR Risk of Mortality: 3.396% Renal Failure: 2.097% Permanent Stroke: 1.696% Prolonged Ventilation: 8.161% DSW Infection: 0.041% Reoperation: 5.170% Morbidity or Mortality: 14.515% Short Length of Stay: 28.237% Long Length of Stay: 6.686% Ana Vincent APRN.WOLF [facility] 11-23-2022 History of Presen t illness Narrative CARDIOTHORACIC SURGERY CONSULT / H&P SERVICE DATE:11/23/2022 SERVICE TIME: 12:00pm Subjective PRIMARY SERVICE: Cardiothoracic Surgery CHIEF COMPLAINT: aortic stenosis HPI: This is a 82 year old woman referred for evaluation of aortic stenosis. SHe has a history of CAD and underwent PCI to the LAD in 2017. 1 year ago she began to have unexplained weight loss of 30 lbs.Extensive evaluation negative. Endorses fatigue and exertional limitation, but denies chest pressure, pain, dyspnea, edema, syncope, presyncope. AN echo performed at [facility] showed normal EF, calcific changes involving a trileaflet aortic valve, mean gradient of 21, pea velocity of 2.9 and ITALO of 0.62-0.8. 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 PAST SURGICAL HISTORY Procedure Laterality Date COLONOSCOPY FLX DX W/COLLJ SPEC WHEN PFRMD 2006 HYSTERECTOMY HX 2013 LIG/TRNSXJ FLP TUBE ABDL/VAG APPR UNI/BI MAMMO MAMMOGRAM 11/2010 RECHECK FAMILY HISTORY Problem Relation Age of Onset Cancer Father No Ocular Disease No Family History Glaucoma No Family History Detached Retina No Family History Macular Degen No Family History Social History Tobacco Use Smoking status: Never Smokeless tobacco: Never Vaping Use Vaping Use: Never used Substance Use Topics Alcohol use: No Drug use: Never (Not in a hospital admission) omeprazole (PRILOSEC) 20 mg capsule^^Disp: ^Rfl: docosahexaenoic acid/epa (FISH OIL ORAL)^Take by mouth.^Disp: ^Rfl: CALCIUM ORAL^Take by mouth.^Disp: ^Rfl: metoprolol tartrate, short acting, (LOPRESSOR) 25 mg tablet^^Disp: ^Rfl: alendronate (FOSAMAX) 70 mg tablet^^Disp: ^Rfl: multivit with calcium,iron,min (WOMEN'S MULTIPLE VITAMINS ORAL)^Take by mouth.^Disp: ^Rfl: levothyroxine (SYNTHROID) 25 mcg tablet^Take 25 mcg by mouth daily before breakfast.^Disp: ^Rfl: IRON, FERROUS SULFATE, ORAL^Take 100 mg by mouth once daily.^Disp: ^Rfl: aspirin 81 mg chewable tablet^Take 81 mg by mouth once daily.^Disp: ^Rfl: iv contrast (will be provided with radiology test)^CTA ABD/PEL - No IV access, insert saline lock prior to the sedation, infusion, injection for imaging exam. Discontinue saline lock post exam. If Pt. has a central line or IVAD, may access for administration according to line specific nursing protocol. Once exam is complete flush line and de-access according to line specific nursing protocol in the CT contrast administration guidelines link.^Disp: 1 Each^Rfl: 0 rosuvastatin (CRESTOR) 40 mg tablet^^Disp: ^Rfl: (Patient not taking: Reported on 10/05/2022) losartan (COZAAR) 100 mg tablet^Take 100 mg by mouth once daily.^Disp: ^Rfl: (Patient not taking: Reported on 11/23/2022) valsartan (DIOVAN) 160 mg tablet^Take 160 mg by mouth once daily.^Disp: ^Rfl: (Patient not taking: Reported on 10/05/2022) simvastatin 40 mg ORAL tablet^Take 40 mg by mouth daily at bedtime.^Disp: ^Rfl: (Patient not taking: Reported on 10/05/2022) ALLERGIES Allergen Reactions Aspartame Unknown REVIEW OF SYSTEMS: as above Objective PHYSICAL EXAM: BP 100/62 (BP Site: Left Arm, BP Position: Sitting, BP Cuff Size: Large Adult) Pulse 70 Ht 5' 6 (1.676 m) Wt 135 lb 6.4 oz (61.4 kg) SpO2 100% BMI 21.85 kg/m Body surface area is 1.69 meters squared. On examination, she appears well and is breathing comfortably. Vitals signs are BP 100/62 (BP Site: Left Arm, BP Position: Sitting, BP Cuff Size: Large Adult) Pulse 70 Ht 5' 6 (1.676 m) Wt 135 lb 6.4 oz (61.4 kg) SpO2 100% BMI 21.85 kg/m . There is no JVD. No cervical or supraclavicular adenopathy is palpated. The chest is symmetrical without deformity. Breath sounds are clear bilaterally. The cardiac rhythm is regular. There are no rubs, gallops, or murmurs. The carotid, subclavian, and radial pulses are 2+ and equal bilaterally. The abdomen is soft and non-tender. There are no abdominal masses. There is no hepatojugular reflux. There is no pretibial edema. There is no clubbing or cyanosis. Assessment/Plan On our review of echo, we believe she likely has moderate to severe . SHe is asymptomatic, without CHF. WE recommend: repeat echo 6 months follow up with us at that time careful attention to the development of symptoms such as dyspnea, orthopnea, presyncope, syncope, edam, chest pressure, etc. The risks, benefits, and anticipated outcomes of the procedure; the risks and benefits of the alternatives to the procedure; and the roles and tasks of the personnel to be involved were discussed with the patient and she consents to the procedure and agrees to proceed. These findings will be communicated back to the requesting provider electronically. SIGNATURE: Adrián Ramirez MD PATIENT NAME: Kassidy Willingham DATE: January 12, 2023 TIME: 11:40 PM PAGER/CONTACT #: [phone] documented in this encounter [facility] 11-23-2022 Instructions Ana Vincent APRN.SOFTWARE DEVELOPMENT SPECIALIST - 11/23/2022 10:18 AM EDT Images from the original note were not included. Today, you met with Dr. West and Dr. Ramirez to discuss your aortic valve stenosis and current symptoms. We are recommending: Repeat echocardiogram here at [facility] Please call us with any further questions or concerns. [phone] Patient information: Aortic stenosis What is aortic stenosis? -- Aortic stenosis is a condition in which one of the valves in the heart, called the aortic valve, doesn't open fully. The heart valves keep blood flowing in only one direction. When the heart valves work normally, they open all the way to let blood flow through them. Blood flows from a chamber of the heart called the left ventricle, through the aortic valve, into a large blood vessel called the aorta. The aorta carries blood to the rest of the body. In aortic stenosis, the aortic valve gets stuck and does not open fully. This makes the valve opening narrow. When this happens: ?Not as much blood can flow out of the heart to the rest of the body. ?The heart has to work much harder than usual to pump blood to the rest of the body. Over time, this can cause heart problems. Aortic stenosis usually happens in adults. But some people are born with aortic stenosis. What are the symptoms of aortic stenosis? -- Early on, most people have no symptoms. They usually find out they have aortic stenosis after their doctor or nurse hears a heart murmur on a routine exam. A heart murmur is an extra sound in the heartbeat that doctors or nurses hear when they listen to the heart with a stethoscope. When people do have symptoms, they can have: ?Shortness of breath ?Dizziness or fainting ?Chest pain These symptoms usually happen with physical activity. Let your provider know if you have any of these symptoms. Is there a test for aortic stenosis? -- Yes. To check for aortic stenosis and see how severe it is, your doctor might order an echocardiogram (or echo ). This test uses sound waves to create a picture of your heart as it beats. It shows the size of the heart chambers, how well the heart is pumping, and how well the heart valves are working. If you have aortic stenosis, your doctor might repeat this test over time to see if your condition changes. To get more information about your heart, your provider might order a test called cardiac catheterization, or cardiac cath. For this, the provider puts a thin tube into a blood vessel in your leg or arm. Then he or she moves the tube up to your heart. When the tube is in your heart or blood vessels, he or she will take measurements. The provider might also put a dye that shows up on an X-ray into the tube. It can show if any of the arteries in your heart are narrowed or blocked. This part of the test is called coronary angiography. Your provider might order a test called an electrocardiogram (ECG or EKG). This test measures the electrical activity in your heart. Some people with aortic stenosis will also have a chest X-ray. A chest X-ray can show the size and shape of your heart. It can also show changes in your lungs from aortic stenosis or other diseases. How is aortic stenosis treated? -- Treatment depends on your symptoms and how severe your aortic stenosis is. If your aortic stenosis is mild or you have little or no symptoms, you might not need any treatment. But your provider will follow you to see if your aortic stenosis gets worse or you start to have symptoms. If your aortic stenosis is severe or you have a lot of symptoms, you will likely need treatment. Treatment can include: ?Surgery to replace your aortic valve - During surgery, the doctor will remove your narrowed valve and replace it with a valve that opens normally. This new valve can be made from metal or from tissue from a pig, cow, or horse. In some cases, a new valve comes from another person. Your doctor will talk with you about the benefits and downsides of each option. ?A procedure to put in a new aortic valve without surgery - This is a type of procedure that doctors can do to treat people who can't have valve surgery. It can also be an option for people who are at high risk for problems if they have valve surgery. ?A procedure to open the aortic valve - For this procedure, a doctor inflates a balloon in the narrowed aortic valve to try to open it. This procedure is used in children and young adults, because it is helpful in these people. This procedure is usually not as helpful in older adults. ?Medicines - There are no medicines to treat aortic stenosis. But if you have other heart conditions besides aortic stenosis, your doctor might prescribe medicines to treat those conditions. He or she will also make sure your blood pressure and cholesterol level are under control. Can I play sports? -- If your aortic stenosis is mild or you have little or no symptoms, you can probably play sports. But if your aortic stenosis or symptoms are more serious, your doctor might recommend that you limit your physical activity. What if I want to get ? -- If you want to get , talk with your doctor or nurse. Depending on your aortic stenosis and symptoms, he or she might recommend treating your aortic stenosis before you get . All topics are updated as new evidence becomes available and our peer review process is complete. The content on the [employer] website is not intended nor recommended as a substitute for medical advice, diagnosis, or treatment. Always seek the advice of your own physician or other qualified health care specialist regarding any medical questions or conditions.. 2016 [employer]. All rights reserved. Topic 40055 Version 5.0 documented in this encounter [facility] 11-23-2022 Nurse Note CARDIAC REHAB 5 METER WALK TEST SERVICE DATE: 11/23/2022 SERVICE TIME: 9:14AM 7.50sec 6.94sec 7.33sec ASSESSMENT: SIGNATURE: Maryan Julio LPN PATIENT NAME: Kassidy Willingham DATE: November 23, 2022 TIME: 9:21 AM PAGER/CONTACT #: [phone] documented in this encounter [facility] 11-23-2022 Nurse Note CARDIAC REHAB 5 METER WALK TEST SERVICE DATE: 11/23/2022 SERVICE TIME: 9:14AM 7.50sec 6.94sec 7.33sec ASSESSMENT: SIGNATURE: Maryan Julio LPN PATIENT NAME: Kassidy Willingham DATE: November 23, 2022 TIME: 9:15 AM PAGER/CONTACT #: [phone] documented in this encounter [facility] 11-18-2022 Miscellaneous Notes Left message for to call [facility] for test results. [facility] phone number provided. Sabrina Ferguson LPN ----- Message from Ana Vincent APRN.CNP sent at 11/18/2022 11:45 AM EDT ----- Please call the patient and report lab results revealed anemia and she should follow up with her PCP for further management. Renal function is normal and ok to proceed with further testing. BNP without significant elevation. Ana Vincent APRN.CNP documented in this encounter [facility] 11-10-2022 Miscellaneous Notes I spoke with patient who reports she has had progressive fatigue over the past 6 months. She is agreeable to proceed with TAVR evaluation. She has already had her LHC and echo completed with Dr. Leach. Please schedule patient for TAVR Scans on 11/23/2022 at 8 am. Please schedule patient for Valve Clinic on 11/23/2022 at 9:30 am. Patient will have CBC, BMP, & BNP drawn by 11/22/2022. Dental clearance requested. Thank you, Ana Vincent APRN.WOLF called in and states she is available to talk this afternoon. She can be reached at [phone]. Sabrina Ferguson LPN I spoke with patient's regarding referral to Valve Clinic from Dr. Leach. Patient unavailable to talk today. Provided patient's the office phone number to return phone call regarding further testing and follow up appt. Thanks, Ana Vincent APRN.CNP documented in this encounter [facility] 10-05-2022 Note HNO ID: [id number] Author: Jc Lynne II, OD Service: ? Author Type: VISUAL MERCHANDISING COORDINATOR Type: Progress Notes Filed: 10/05/2022 4:42 PM Note Text: Assessment and Plan H25.813 Combined form of senile cataract of both eyes (primary encounter diagnosis) Comment: Mild/moderate cataract in both eyes. Well tolerated at this time. Discussed possible future affect on daily activities to watch for. Monitor as instructed. H43.392 Vitreous floaters of left eye Comment: Vitreal floaters stable both eyes. Retinas flat and intact with no apparent retinal tear or traction. Monitor yearly. H52.13 Myopia, bilateral H52.223 Regular astigmatism, bilateral H52.4 Presbyopia Comment: Patient tolerating contact lens use well. Polished contacts. Continued improvement in myopic correction noted but patient happy with current davis. Continue yearly observation. I have confirmed and edited as necessary the relevant ophthalmic history, ROS, and the neuro exam findings as obtained by others. I have seen and examined Kassidy Sidhu Javier. I have discussed the case and the management of this patient's care with the Resident/Fellow, if applicable. I also have reviewed and agree with the assessment and plan as stated above and agree with all of its relevant components. Jc Lynne II, OD [facility] 10-05-2022 Instructions Jc Lynne II, OD - 10/05/2022 4:41 PM EST Assessment and Plan H25.813 Combined form of senile cataract of both eyes (primary encounter diagnosis) Comment: Mild/moderate cataract in both eyes. Well tolerated at this time. Discussed possible future affect on daily activities to watch for. Monitor as instructed. H43.392 Vitreous floaters of left eye Comment: Vitreal floaters stable both eyes. Retinas flat and intact with no apparent retinal tear or traction. Monitor yearly. H52.13 Myopia, bilateral H52.223 Regular astigmatism, bilateral H52.4 Presbyopia Comment: Patient tolerating contact lens use well. Polished contacts. Continued improvement in myopic correction noted but patient happy with current davis. Continue yearly observation. I have confirmed and edited as necessary the relevant ophthalmic history, ROS, and the neuro exam findings as obtained by others. I have seen and examined Kassidy Willingham. I have discussed the case and the management of this patient's care with the Resident/Fellow, if applicable. I also have reviewed and agree with the assessment and plan as stated above and agree with all of its relevant components. Jc Lynne II, OD documented in this encounter [facility] 10-05-2022 History of Presen t illness Narrative Assessment and Plan H25.813 Combined form of senile cataract of both eyes (primary encounter diagnosis) Comment: Mild/moderate cataract in both eyes. Well tolerated at this time. Discussed possible future affect on daily activities to watch for. Monitor as instructed. H43.392 Vitreous floaters of left eye Comment: Vitreal floaters stable both eyes. Retinas flat and intact with no apparent retinal tear or traction. Monitor yearly. H52.13 Myopia, bilateral H52.223 Regular astigmatism, bilateral H52.4 Presbyopia Comment: Patient tolerating contact lens use well. Polished contacts. Continued improvement in myopic correction noted but patient happy with current davis. Continue yearly observation. I have confirmed and edited as necessary the relevant ophthalmic history, ROS, and the neuro exam findings as obtained by others. I have seen and examined Kassidy Willingham. I have discussed the case and the management of this patient's care with the Resident/Fellow, if applicable. I also have reviewed and agree with the assessment and plan as stated above and agree with all of its relevant components. Jc Lynne II, OD documented in this encounter [facility] Aortic valve stenosis, etiology of cardiac valve disease unspecified- Primary Encounter for preprocedural cardiovascular examination Pre-operative cardiovascular examination Dyspnea on exertion Other dyspnea and respiratory abnormality [facility] Diagnosis Nonrheumatic aortic valve stenosis- Primary Aortic valve disorders [facility] Diagnosis Encounter for preprocedural cardiovascular examination Pre-operative cardiovascular examination Aortic valve stenosis, etiology of cardiac valve disease unspecified [facility] Diagnosis Nonrheumatic aortic valve stenosis Aortic valve disorders [facility] Diagnosis Nonrheumatic aortic valve stenosis- Primary Aortic valve disorders [facility] Diagnosis Nonrheumatic aortic valve stenosis- Primary Aortic valve disorders 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) Stable angina Other and unspecified angina pectoris Valvular heart disease Endocarditis, valve unspecified, unspecified cause [facility] Diagnosis Nonrheumatic aortic valve stenosis- Primary Aortic valve disorders Hepatitis, autoimmune (HCC) Autoimmune hepatitis Stable angina Other and unspecified angina pectoris Stable angina Other and unspecified angina pectoris Valvular heart disease Endocarditis, valve unspecified, unspecified cause [facility] Diagnosis Nonrheumatic aortic valve stenosis- Primary Aortic valve disorders Encounter for examination for normal comparison and control in clinical research program Nonrheumatic aortic valve stenosis Aortic valve disorders Encounter for examination for normal comparison and control in clinical research program [facility] Outpatient Procedure (Routine) - Authorized Specialty Diagnoses / Procedures Referred By Contac t Referred To Contact [facility] Diagnoses Nonrheumatic aortic valve stenosis Procedures ECHO ECHO TTHRC R-T 2D W/WOM-MODE COMPL SPEC&COLR D Ana Vincent, MIKE.SOFTWARE DEVELOPMENT SPECIALIST [address] [place] [address] [employer] [facility] [place] [address] Referral ID Status Reason Start Date Expiration Date Visits Requested Visits Authorized [id number] Authorized Auto-Generat ed Referral 11/23/2022 11/23/2023 1 1 [facility] for referral (narrative)* Outpatient Procedure (Routine) - Closed Specialty Diagnoses / Procedures Referred By Contac t Referred To [facility] Diagnoses Nonrheumatic aortic valve stenosis Procedures ECHO ECHO TTHRC R-T 2D W/WOM-MODE COMPL SPEC&COLR D Ana Vincent, EXECUTIVE VICE PRESIDENT BUSINESS DEVELOPMENT.SOFTWARE DEVELOPMENT SPECIALIST [address] [place] [address] [facility] [address] [place] [address] Referral ID Status Reason Start Date Expiration Date V isits Requested Visits Authorized [id number] Closed Auto-Generate d Referral 11/23/2022 11/23/2023 1 1 [facility] for referral (narrative)* Outpatient Procedure (Routine) - Authorized Specialty Diagnoses / Procedures Referred By Contac t Referred To Contact [facility] Diagnoses Nonrheumatic aortic valve stenosis Procedures ECHO ECHO TTHRC R-T 2D W/WOM-MODE COMPL SPEC&COLR D Ana Vincent APRN.CNP [address] [place] [address] [facility] [address] [place] [address] Referral ID Status Reason Start Date Expiration Date Visits Requested Visits Authorized [id number] Authorized Auto-Generat ed Referral 06/09/2023 12/08/2023 1 1 [facility] for referral (narrative)* Outpatient Procedure (Routine) - Authorized Specialty Diagnoses / Procedures Referred By Contac t Referred To Contact [facility] Diagnoses Nonrheumatic aortic valve stenosis Procedures ECHO ECHO TTHRC R-T 2D W/WOM-MODE COMPL SPEC&COLR D Ana Vincent APRN.SOFTWARE DEVELOPMENT SPECIALIST [address] [place] [address] Fax: [facility] [address] [place] [address] Referral ID Status Reason Start Date Expiration Date Visits Requested Visits Authorized [id number] Authorized Auto-Generat ed Referral 10/08/2023 07/18/2024 1 1 [facility] for visit Narrative* Outpatient Procedure (Routine) - Closed Specialty Diagnoses / Procedures Referred By Contac t Referred To Contact [facility] Diagnoses Nonrheumatic aortic valve stenosis Procedures ECHO ECHO TTHRC R-T 2D W/WOM-MODE COMPL SPEC&COLR D Ana Vincent, EXECUTIVE VICE PRESIDENT BUSINESS DEVELOPMENT.SOFTWARE DEVELOPMENT SPECIALIST [address] [place] [address] [facility] [address] [place] [address] Referral ID Status Reason Start Date Expiration Date V isits Requested Visits Authorized [id number] Closed Auto-Generate d Referral 11/23/2022 11/23/2023 1 1 [facility] Medications Administered Section Active Administered Medications - up to 3 most recent administrations Medication Order MAR Action Action Date Dose Rate Site fluorescein-benoxinate 0.25-0.4 % 1 Drop (FLURESS) 1 Drop, BOTH EYES, DIRECTED, Starting on Mon10/05/22 at 1700, Until [place] 10/06/22 at 0459, Administer for applanation tonometry. In the event of a Fluress shortage, administer Chantal-Fluor 1 drop into both eyes as directed for applanation tonometry Given 10/05/2022 5:00 PM EST 1 Drop tropicamide 1 % 1 Drop (MYDRIACYL) 1 Drop, BOTH EYES, DIRECTED, Starting on Mon10/05/22 at 1700, Until [place] 10/06/22 at 0459, Administer for dilation Given 10/05/2022 5:00 PM EST 1 Drop Reason for Referral Specialty Diagnoses / Procedures Referred By Luis t Referred To Contact CT IMAGING Diagnoses Encounter for preprocedural cardiovascular examination Aortic valve stenosis, etiology of cardiac valve disease unspecified Procedures CTA CHEST (GATED) WO/W IVCON CT ANGIOGRAPHY CHEST W/CONTRAST/NONCONTRAST Ana Vincent, EXECUTIVE VICE PRESIDENT BUSINESS DEVELOPMENT.SOFTWARE DEVELOPMENT SPECIALIST [address] [place] [address] Fax: Ct Imaging Referral ID Status Reason Start Date Expiration Date Visits Requested Visits Authorized [id number] Authorized Auto-Generat ed Referral 11/23/2022 12/10/2023 1 1 Specialty Diagnoses / Procedures Referred By Luis t Referred To Contact CT IMAGING Diagnoses Encounter for preprocedural cardiovascular examination Aortic valve stenosis, etiology of cardiac valve disease unspecified Procedures CTA ABD/PEL W IVCON CT ANGIO ABD&PLVIS CNTRST MTRL W/WO CNTRST Ana Noriega, EXECUTIVE VICE PRESIDENT BUSINESS DEVELOPMENT.SOFTWARE DEVELOPMENT SPECIALIST [address] [place] [address] Ct Imaging Referral ID Status Reason Start Date Expiration Date Visits Requested Visits Authorized [id number] Authorized Auto-Generat ed Referral 11/23/2022 12/10/2023 1 1 Referral ID Status Reason Start Date Expiration Date V isits Requested Visits Authorized [id number] Closed Auto-Generate d Referral 11/23/2022 12/10/2023 1 1 Referral ID Status Reason Start Date Expiration Date V isits Requested Visits Authorized [id number] Closed Auto-Generate d Referral 11/23/2022 12/10/2023 1 1 Summary Purpose Family History No Family History Records FoundNo Family History Records Found Advance Directives No Advanced Directives Records FoundNo Advanced Directives Records Found Additional Source Comments Source Comments (unrecognize d section and content) In the event this informatio n is protected by the Federal Confidentiality of Alcohol and Drug Abuse Patient Records regulations: The Federal rules restrict any use of the information to criminally investigate or prosecute any alcohol or drug abuse patient.[facility] the event this information is protected by the Federal Confidentiality of Alcohol and Drug Abuse Patient Records regulations: The Federal rules restrict any use of the information to criminally investigate or prosecute any alcohol or drug abuse patient.[facility] the event this information is protected by the Federal Confidentiality of Alcohol and Drug Abuse Patient Records regulations: The Federal rules restrict any use of the information to criminally investigate or prosecute any alcohol or drug abuse patient.[facility] the event this information is protected by the Federal Confidentiality of Alcohol and Drug Abuse Patient Records regulations: The Federal rules restrict any use of the information to criminally investigate or prosecute any alcohol or drug abuse patient.[facility] the event this information is protected by the Federal Confidentiality of Alcohol and Drug Abuse Patient Records regulations: The Federal rules restrict any use of the information to criminally investigate or prosecute any alcohol or drug abuse patient.[facility] the event this information is protected by the Federal Confidentiality of Alcohol and Drug Abuse Patient Records regulations: The Federal rules restrict any use of the information to criminally investigate or prosecute any alcohol or drug abuse patient.[facility] the event this information is protected by the Federal Confidentiality of Alcohol and Drug Abuse Patient Records regulations: The Federal rules restrict any use of the information to criminally investigate or prosecute any alcohol or drug abuse patient.[facility] the event this information is protected by the Federal Confidentiality of Alcohol and Drug Abuse Patient Records regulations: The Federal rules restrict any use of the information to criminally investigate or prosecute any alcohol or drug abuse patient.[facility] the event this information is protected by the Federal Confidentiality of Alcohol and Drug Abuse Patient Records regulations: The Federal rules restrict any use of the information to criminally investigate or prosecute any alcohol or drug abuse patient.[facility] the event this information is protected by the Federal Confidentiality of Alcohol and Drug Abuse Patient Records regulations: The Federal rules restrict any use of the information to criminally investigate or prosecute any alcohol or drug abuse patient.[facility] the event this information is protected by the Federal Confidentiality of Alcohol and Drug Abuse Patient Records regulations: The Federal rules restrict any use of the information to criminally investigate or prosecute any alcohol or drug abuse patient.[facility] Hospital[facility] the event this information is protected by the Federal Confidentiality of Alcohol and Drug Abuse Patient Records regulations: The Federal rules restrict any use of the information to criminally investigate or prosecute any alcohol or drug abuse patient.[facility] the event this information is protected by the Federal Confidentiality of Alcohol and Drug Abuse Patient Records regulations: The Federal rules restrict any use of the information to criminally investigate or prosecute any alcohol or drug abuse patient.[facility] the event this information is protected by the Federal Confidentiality of Alcohol and Drug Abuse Patient Records regulations: The Federal rules restrict any use of the information to criminally investigate or prosecute any alcohol or drug abuse patient.[facility] Hospital[facility] the event this information is protected by the Federal Confidentiality of Alcohol and Drug Abuse Patient Records regulations: The Federal rules restrict any use of the information to criminally investigate or prosecute any alcohol or drug abuse patient.[facility] Reason for Visit (unrecogniz ed section and content) Reason Comments Appointment Firer Watertender - Other Reason Comments Results Reason Comments Aortic Stenosis Lo is here for TAV R evaluation. Specialty Diagnoses / Procedures Referred By Contac t Referred To Contact CT IMAGING Diagnoses Encounter for preprocedural cardiovascular examination Aortic valve stenosis, etiology of cardiac valve disease unspecified Procedures CTA CHEST (GATED) WO/W IVCON CT ANGIOGRAPHY CHEST W/CONTRAST/NONCONTRAST Ana Vincent L, EXECUTIVE VICE PRESIDENT BUSINESS DEVELOPMENT.SOFTWARE DEVELOPMENT SPECIALIST [address] [place] [address] Ct Imaging Referral ID Status Reason Start Date Expiration Date V isits Requested Visits Authorized [id number] Closed Auto-Generate d Referral 11/23/2022 12/10/2023 1 1 Reason Comments Patient Question Reason Comments Appointment Reason Comments Aortic Stenosis Lo is here for TAV R evaluation. 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 Comments Firer Watertender - Other Care Teams (unrecognized sec tion and content) Dairy Frozen Manager Relationship Specialty Start Date End Date Lauren Sanchez Chi [address] [place], [place] [id number] PCP - General Gerontology 09/30/21 Dairy Frozen Manager Relationship Specialty Start Date End Date Lauren Sanchez Chi [address] [place], [place] [id number] PCP - General Gerontology 09/30/21 Dairy Frozen Manager Relationship Specialty Start Date End Date Lauren Sanchez Chi [address] [place] [id number] PCP - General Gerontology 09/30/21 Dairy Frozen Manager Relationship Specialty Start Date End Date Lauren Sanchez Chi [address] [facility] [place] [address] PCP - General Gerontology 09/30/21 Dairy Frozen Manager Relationship Specialty Start Date End Date Lauren Sanchez Chi [address] [facility] [place] [address] PCP - General Gerontology 09/30/21 Dairy Frozen Manager Relationship Specialty Start Date End Date Lauren Sanchez Chi [address] [place], [place] [address] PCP - General Gerontology 09/30/21 Dairy Frozen Manager Relationship Specialty Start Date End Date Lauren Sanchez Chi [address] [place], [place] [id number] PCP - General Gerontology 09/30/21 Dairy Frozen Manager Relationship Specialty Start Date End Date Lauren Sanchez Chi [address] [place], [place] [phone] PCP - General Gerontology 09/30/21 Dairy Frozen Manager Relationship Specialty Start Date End Date Lauren Sanchez Chi [address] [place], [place] [address] PCP - General Gerontology 09/30/21 Dairy Frozen Manager Relationship Specialty Start Date End Date Lauren Sanchez Chi [address] [place], [place] [phone] PCP - General Gerontology 09/30/21 Dairy Frozen Manager Relationship Specialty Start Date End Date Lauren Sanchez Chi [address] [place] [address] PCP - General Gerontology 09/30/21 Dairy Frozen Manager Relationship Specialty Start Date End Date Lauren Sanchez Chi [address] [place] [id number] PCP - General Gerontology 09/30/21 Dairy Frozen Manager Relationship Specialty Start Date End Date Lauren Sanchez Chi [address] [place] [id number] PCP - General Gerontology 09/30/21 INFORMATION SOURCE (unrecogn ized section and content) DATE CREATED AUTHOR AUTHOR'S MADIIZ ATFORMERLY [facility] 08/26/2023 [facility] FOR RECORDS PERTAINING TO PATIENTS WHO ARE OR HAVE BEEN ENROLLED IN A CHEMICAL DEPENDENCY/SUBSTANCEABUSE PROGRAM, SOME INFORMATION MAY BE OMITTED. This clinical summary was aggregated from multiple sources. Caution should be exercised in using it in the provision of clinical care. This summary normalizes information from multiple sources, and as a consequence, information in this document may materially change the coding, format and clinical context of patient data. In addition, data may be omitted in some cases. CLINICAL DECISIONS SHOULD BE BASED ON THE PRIMARY CLINICAL RECORDS. [facility]. provides no warranty or guarantee of the accuracy or completeness of information in this document.
--- NOTE | 2023-08-31 01:37 | PCM.HOSP.N ---
Hospitalist Note Patient admitted on afternoon of 08/30 for acute GI bleed and concern for acute cholecystitis. Hemoglobin 9.9 around 2 PM on 1227, repeat hemoglobin 8.3 around 8 PM, now hemoglobin 7.2 at 12:20 AM on 08/31. Patient received 1 L IV fluids in the ED and has been on 100 ml/hr normal saline since 8 PM, but seems that this downtrend is in part due to blood loss and not just hemodilution. Will give 1 unit of packed red blood cells now, repeat hemoglobin after blood transfusion is done. Patient notably is hemodynamically stable at this time.
--- NOTE | 2023-08-31 06:13 | CON.PCM.SX_ITS ---
Assessment & Plan Assessment/Plan (1) Cholecystitis: PLAN: The patient presented with dark stools and anemia after ERCP. The patient is being evaluated by GI and I believe she is having an upper GI scope today to evaluate for the bleeding. Patient also had significantly elevated white count and she does have right upper quadrant pain. Reviewing the CT scan she does have distended gallbladder with stones. There is also possible para cholecystic fluid. Given the fact that the patient is high risk and is scheduled for TAVR in September, And the fact that she has cirrhosis and is on steroids I believe she is high risk and should not be done here. I recommend cholecystostomy tube and agree with Dr. Newby. She can follow-up with a surgeon at her tertiary center for elective cholecystectomy possibly after her TAVR. Quinton Chakraborty MD Pager: [facility] [address] [place] [address], [address] [place] [address] Office: HPI Consult Data Date of Consult: 08/31/23 HPI Narrative HPI Narrative: ROEL WILLINGHAM, is a 83 F who presents with dark stools and then right upper quadrant pain. The patient had ERCP about 14 days ago for choledocholithiasis and had stent placed. Patient reports she has been having dark stools since then. She is also complaining of right upper quadrant pain. [facility] Medical History (Updated 08/30/23 @ 19:[address] Nallely Porras MD) (HFpEF) heart failure with preserved ejection fraction Atherosclerotic heart disease of [place] coronary artery without angina pectoris Autoimmune hepatitis Basal cell carcinoma (BCC) CAD (coronary artery disease) Chronic cholecystitis Essential hypertension Yari's thyroiditis Hepatic fibrosis History of echocardiogram History of stress test HLD (hyperlipidemia) Hypergammaglobulinemia, unspecified Low iron Non-alcoholic fatty liver disease Non-rheumatic mitral valve stenosis Non-smoker Nonrheumatic aortic (valve) stenosis Osteoporosis Thyroid disease Wears contact lenses Wears dentures Wears glasses Weight loss Home Medications levothyroxine 50 mcg tablet 50 mcg PO DAILY 11/11/20 [History Last Taken Unknown] metoprolol tartrate 25 mg tablet 25 mg PO DAILY BP #90 tabs 12/26/22 [Rx Last Taken 08/14/23] aspirin 81 mg tablet,delayed release (Adult Low Dose Aspirin) 81 mg PO DAILY 10/02/23 [History Last Taken 08/11/23] ferrous gluconate 236 mg (27 mg iron) tablet 236 mg PO DAILY 06/05/23 [History Last Taken Unknown] azathioprine 75 mg tablet 75 mg PO DAILY #30 tabs 08/23/23 [Rx Last Taken Unknown] dicyclomine 20 mg tablet 20 mg PO TID PRN abdominal pain SPASM #30 tabs 08/23/23 [Rx Last Taken Unknown] prednisone 5 mg tablet 10 mg (2 x 5 mg) PO DAILY #30 tabs 08/23/23 [Rx Last Taken Unknown] ferrous sulfate 325 mg (65 mg iron) tablet (Feosol) 325 mg PO DAILY 08/30/23 [History Last Taken Unknown] Allergy/AdvReac Type Severity Reaction Status Date / Time aspartame Allergy Food Verified 08/30/23 12:41 Allergy Family History Mother , Age 34 Hypertension Heart disease Brother Cancer lung Father Cancer tongue Surgical History History of cardiac catheterization History of colonoscopy History of coronary artery stent placement History of partial thyroidectomy (~1969) History of right and left heart catheterization (LHC) (~11/08/22) History of total hysterectomy Postsurgical percutaneous transluminal coronary angioplasty (PTCA) status (~04/19/17) Presence of stent in coronary artery (~04/19/17) Social History Smoking Status: Never smoker alcohol intake: never substance use type: does not use caffeine: No ROS ROS Narrative Admission Review of Systems: CONSTITUTIONAL: No weight loss, fever, chills, + weakness or fatigue. HEENT: Eyes: No visual loss, blurred vision, double vision or yellow sclerae. Ears, Nose, Throat: No hearing loss, sneezing, congestion, runny nose or sore throat. SKIN: No rash or itching, lesions, wounds. CARDIOVASCULAR: No chest pain, chest pressure or chest discomfort, palpitations, edema, orthopnea, syncopal events. RESPIRATORY: No shortness of breath, cough or sputum, wheezing, hemoptysis. GASTROINTESTINAL: + anorexia, dark stools, abdominal pain. No nausea, vomiting, diarrhea, BRBPR. GENITOURINARY: No dysuria, frequency, urgency or retention. NEUROLOGICAL: No headache, dizziness, syncope, paralysis, ataxia, numbness or tingling in the extremities, focal weakness, change in bowel or bladder control, seizure. MUSCULOSKELETAL: + muscle, back pain, joint pain or stiffness. HEMATOLOGIC: + anemia, bleeding, easy bruising. LYMPHATICS: No enlarged nodes. No history of splenectomy. PSYCHIATRIC: No history of depression or anxiety. ENDOCRINOLOGIC: No reports of sweating, cold or heat intolerance. No polyuria or polydipsia. ALLERGIES: No history of asthma, hives, eczema or rhinitis. Physical Exam Const alert and oriented x3 HEENT normocephalic Eyes PERRL Neck full ROM Resp normal respiratory effort Cardio Rate: regular rate Rhythm: regular rhythm GI soft to palpation Palpation: tender RUQ Extremity normal to inspection Lab / Micro Data 08/31/23 00:20 08/30/23 14:25 Labs: Laboratory Results - last 24 hr 08/30/23 14:25: WBC 19.7 H, RBC 3.69 L, Hgb 9.9 L, Hct 32.2 L, MCV 87.3, MCH 26.8 L, MCHC 30.7 L, RDW Std Deviation 54.5 H, RDW Coeff of Nabil 17.3 H, Plt Count 212, MPV 12.1 H, Immature Gran % (Auto) 0.900, Neut % (Auto) 91.9 H, Lymph % (Auto) 3.2 L, [place] % (Auto) 3.8, Eos % (Auto) 0.0, Baso % (Auto) 0.2, Absolute Neuts (auto) 18.1 H, Absolute Lymphs (auto) 0.64 L, Nucleated RBC % 0, PT 16.8 H , INR 1.4, APTT 28.0, Sodium 132 L, Potassium 4.6, Chloride 99, Carbon Dioxide 23.0, Anion Gap 10, BUN 18, Creatinine 1.23 H, Estim Creat Clear Calc 33.58, Est GFR (MDRD) Af Amer 54 L, Est GFR (MDRD) Non-Af 45 L, BUN/Creatinine Ratio 14.6, Glucose 291 H, Calcium 9.0, Total Bilirubin 1.70 H, Direct Bilirubin 0.79 H, AST 57 H, ALT 38, Alkaline Phosphatase 225 H, Total Protein 8.1, Albumin 2.8 L, Globulin 5.3 H, Lipase 36, Blood Type O POSITIVE, Antibody Screen NEGATIVE, Crossmatch See Detail 08/30/23 19:21: Procalcitonin 1.45 H 08/30/23 20:30: Hgb 8.3 L, Hct 26.4 L 08/30/23 21:04: Urine Test Negative 08/31/23 00:20: Hgb 7.2 L, Hct 24.1 L Micro: Microbiology 08/30/23 15:23 Stool Stool Occult Blood (PRUDENCE) - Final Occult Blood Positive Imagaing Radiology Impression Abdomen/Pelvis CT 08/30/23 14:13 IMPRESSION: 1. Abnormal dilated gallbladder containing small calcified gallstones with suspicious pericholecystic fluid. Acute cholecystitis is worrisome. 2. Mild hepatomegaly. 3. Prominent hiatal hernia. 4. Minimal anterior wedging of T12 superior endplate is presumably from remote injury. 5. Benign sclerotic lesion in the left posterior T11 vertebral body. This is not metabolically active on whole body PET/CT fusion scan of 06/01/2022. 6. Mild splenomegaly. Electronically Signed: Shayan Tenorio MD at 15:50 EST ,
[2023-08-31 06:27] LABS: Absolute Lymphocyte Count 0.87 X10^3/uL (0.83-4.51); Absolute Neutrophil Count 7.4 X10^3/uL (2.0-7.7); Basophil# 0.04 X10^3/uL; Basophil% 0.4 % (0-1); Eosinophil# 0.02 X10^3/uL; Eosinophils% 0.2 % (0-5); Hematocrit 27.5 % (37-47); Hemoglobin 8.6 g/dL (12.0-15.0); Lymphocyte # 0.87 X10^3/ul (0.83-4.51); Lymphocyte % 9.7 % (19-41); Mean Corp Hgb Conc 31.3 g/dL (32-36); Mean Corpuscular Hgb 27.9 pg (27.0-32.0); Mean Corpuscular Volume 89.3 fL (81-99); Monocyte# 0.52 X10^3/uL; Monocyte% 5.8 % (0-10); NRBC Flagged by Analyzer 0 % (0-5); Neutrophil # 7.42 X10^3/uL (2.7-7.7); Platelet Count 111 K/mm3 (150-450); RBC Distribution Width CV 16.9 % (11.6-14.6); RBC Distribution Width SD 54.2 fl (35.1-43.9); Red Blood Count 3.08 M/mm3 (4.2-5.4)
[2023-08-31 07:05] LABS: ALB/GLOB Ratio 0.5 RATIO (0.9-2.4); AST(SGOT) 38 U/L (15-37); Alanine Aminotransfer ALT/SGPT 28 U/L (13-56); Albumin, Serum 2.1 g/dL (3.2-5.0); Alkaline Phosphatase 156 U/L (45-117); Anion Gap 6 (5-15); BUN 11 mg/dL (7-18); BUN/Creat Ratio 13.6 RATIO (10-20); Calcium,Total 7.7 mg/dL (8.5-10.1); Chloride 111 mmol/L (98-107); Creatinine, Serum 0.81 mg/dL (0.55-1.02); EST Glomerular Filtration Rate 73 mL/min (>60); Est Glom Filt Rate - Afr Amer 88 mL/min (>60); Estimated Creatinine Clearance 50.99 ml/min; Globulin 4.3 g/dL (2.2-4.2); Glucose 128 mg/dL (74-106); Potassium 4.3 mmol/L (3.5-5.1); Protein, Total 6.4 g/dL (6.4-8.2); Sodium Level 138 mmol/L (136-145)
[2023-08-31 07:22] LABS: International Normalized Ratio 1.6
[2023-08-31 07:23] LABS: Partial Thromboplast Time 30.4 Seconds (24.1-36.2)
--- NOTE | 2023-08-31 07:44 | PN.HOSP_ITS ---
Reason for Visit Reason for Visit: Diagnoses Elevated white blood cell count, unspecified (08/30/23) Autoimmune hepatitis (08/30/23) Chronic cholecystitis (08/30/23) Cholecystitis, unspecified (08/30/23) Gastrointestinal hemorrhage, unspecified (08/30/23) Abnormal findings on diagnostic imaging of other parts of digestive tract (08/30/23) Objective Data Objective Data Vital Signs: Vital Signs Temp Pulse Resp BP Pulse Ox O2 Del Method O2 Flow Rate 98.1 F 70 16 112/78 95 Room Air 3 08/31/23 06:30 08/31/23 06:30 08/31/23 06:30 08/31/23 06:30 08/31/23 06:30 08/31/23 06:30 08/30/23 16:05 Oxygen Flow Rate (L/min) 3 Oxygen Delivery Method Room Air Weight: 152 lb 8.958 oz Body Mass Index (BMI) 24.6 Intake & Output: Intake and Output for Last 24 Hours 08/29/23 08/30/23 08/31/23 23:59 23:59 23:59 Intake Total 1567.5 / 1567.5 1090.67 / 1090.67 Balance 1567.5 / 1567.5 1090.67 / 1090.67 Lab / Micro Data 08/31/23 06:11 08/31/23 06:11 Labs: Laboratory Results - last 24 hr 08/30/23 14:25: WBC 19.7 H, RBC 3.69 L, Hgb 9.9 L, Hct 32.2 L, MCV 87.3, MCH 26.8 L, MCHC 30.7 L, RDW Std Deviation 54.5 H, RDW Coeff of Nabil 17.3 H, Plt Count 212, MPV 12.1 H, Immature Gran % (Auto) 0.900, Neut % (Auto) 91.9 H, Lymph % (Auto) 3.2 L, Sutton % (Auto) 3.8, Eos % (Auto) 0.0, Baso % (Auto) 0.2, Absolute Neuts (auto) 18.1 H, Absolute Lymphs (auto) 0.64 L, Nucleated RBC % 0, PT 16.8 H , INR 1.4, APTT 28.0, Sodium 132 L, Potassium 4.6, Chloride 99, Carbon Dioxide 23.0, Anion Gap 10, BUN 18, Creatinine 1.23 H, Estim Creat Clear Calc 33.58, Est GFR (MDRD) Af Amer 54 L, Est GFR (MDRD) Non-Af 45 L, BUN/Creatinine Ratio 14.6, Glucose 291 H, Calcium 9.0, Total Bilirubin 1.70 H, Direct Bilirubin 0.79 H, AST 57 H, ALT 38, Alkaline Phosphatase 225 H, Total Protein 8.1, Albumin 2.8 L, Globulin 5.3 H, Lipase 36, Blood Type O POSITIVE, Antibody Screen NEGATIVE, Crossmatch See Detail 08/30/23 19:21: Procalcitonin 1.45 H 08/30/23 20:30: Hgb 8.3 L, Hct 26.4 L 08/30/23 21:04: Urine Test Negative 08/31/23 00:20: Hgb 7.2 L, Hct 24.1 L 08/31/23 06:11: WBC 9.0, RBC 3.08 L, Hgb 8.6 L, Hct 27.5 L, MCV 89.3, MCH 27.9, MCHC 31.3 L, RDW Std Deviation 54.2 H, RDW Coeff of Nabil 16.9 H, Plt Count 111 L, MPV 12.0, Immature Gran % (Auto) 0.900, Neut % (Auto) 83.0 H, Lymph % (Auto) 9.7 L, Sutton % (Auto) 5.8, Eos % (Auto) 0.2, Baso % (Auto) 0.4, Absolute Neuts (auto) 7.4, Absolute Lymphs (auto) 0.87, Nucleated RBC % 0, PT 19.0 H, INR 1.6, APTT 30.4, Sodium 138 08/31/23 06:11: Sodium Cancelled, Potassium 4.3 08/31/23 06:11: Potassium Cancelled, Chloride 111 H 08/31/23 06:11: Chloride Cancelled, Carbon Dioxide 21.0 08/31/23 06:11: Carbon Dioxide Cancelled, Anion Gap 6 08/31/23 06:11: Anion Gap Cancelled, BUN 11 08/31/23 06:11: BUN Cancelled, Creatinine 0.81 08/31/23 06:11: Creatinine Cancelled, Estim Creat Clear Calc 50.99, Est GFR (MDRD) Af Amer 88 08/31/23 06:11: Est GFR (MDRD) Af Amer Cancelled, Est GFR (MDRD) Non-Af 73 08/31/23 06:11: Est GFR (MDRD) Non-Af Cancelled, BUN/Creatinine Ratio 13.6 08/31/23 06:11: BUN/Creatinine Ratio Cancelled, Glucose 128 H 08/31/23 06:11: Glucose Cancelled, Calcium 7.7 L 08/31/23 06:11: Calcium Cancelled, Total Bilirubin 2.10 H, AST 38 H, ALT 28, Alkaline Phosphatase 156 H, Total Protein 6.4, Albumin 2.1 L, Globulin 4.3 H, Albumin/Globulin Ratio 0.5 L Micro: Microbiology 08/30/23 15:23 Stool Stool Occult Blood (PRUDENCE) - Final Occult Blood Positive Radiography Diagnostic Testing: Radiology Impression Abdomen/Pelvis CT 08/30/23 14:13 IMPRESSION: 1. Abnormal dilated gallbladder containing small calcified gallstones with suspicious pericholecystic fluid. Acute cholecystitis is worrisome. 2. Mild hepatomegaly. 3. Prominent hiatal hernia. 4. Minimal anterior wedging of T12 superior endplate is presumably from remote injury. 5. Benign sclerotic lesion in the left posterior T11 vertebral body. This is not metabolically active on whole body PET/CT fusion scan of 06/01/2022. 6. Mild splenomegaly. Electronically Signed: Shayan Tenorio MD at 15:50 EST Reading Location ID and State: [facility] / [place] , Service support , Physical Exam Narrative Seen and examined. Patient came back to room in the evening. She had CT-guided cholecystostomy tube and then went for ERCP. Abdominal pain is controlled. No fever. Blood counts are low. Physical exam General: Alert, Oriented x3, Cooperative HEENT: Atraumatic, PERRLA, EOMI, Normocephalic Oral: No Gingival or Mucosal Lesions/ Ulcerations Neck: Supple, No JVD, Negative Carotid Bruits Lungs: Air entry diminished in right lung base. No crepitation/rhonchi Cardiovascular: Regular rate, Regular Rhythm, Normal S1, Normal S2, No murmurs Abdomen: Cholecystostomy tube draining bilious fluid. Tenderness present along right subcostal margin. Bowel Sounds sluggish, Soft, Non-Distended : No renal angle tenderness. No suprapubic tenderness. Extremities: No edema, Capillary Refill Less than 3 Seconds Skin: Mild bruise and ecchymosis present. Musculoskeletal: No Tenderness to Palpation of Joints or Extremities Neurological: Cranial nerves II-XII grossly intact, DTR 2+/4. No acute focal neurological deficit. Psych/Mental Status: Normal Affect, Appropriate. Assessment & Plan Assessment/Plan (1) GI bleed: (2) Cholecystitis: PLAN: Plan The patient is an 83 y/o F with recent ERCP on 08/15/23 for choledocholithasis with biliary sphincterotomy with temporary stent placed in the common bile duct. Patient admitted with upper abdominal pain, intermittent darker stool. His trend of decreasing hemoglobin as mentioned below. Patient denied recent fever or chills. #1. Acute low urine and acute cholecystitis with recently diagnosed choledocholithiasis status post ERCP with temporary stent placement: The patient was admitted in PCU. The patient was found to have choledocholithiasis, 4 mm distal CBD stone for which she required ERCP on 08/15/2023. Entire main bile duct was moderately dilated with obstructing stone. Complete removal by biliary sphincterotomy and balloon extraction and 1 temporary stent placed in CBD. Denies started on IV fluid, pantoprazole drip, IV Zosyn and GI consult. General surgery was consulted and plan for IR directed cholecystostomy tube in the morning given high risk for operative surgery 08/31: Patient had CT-guided cholecystostomy tube.Total bilirubin 2.1 increased. ALT AST improving. Alkaline phosphatase also improving. Bile fluid culture pending. Empirically on IV Zosyn. ERCP was done lower one third of main bile duct was dilated with a stone causing obstruction, removal was not attempted. Most stent inserted. 1 stent was removed. Findings of ERCP explained to the patient. Leukocytosis improved. INR 1.6. #2. Acute on Chronic GI Bleed w/ Acute on Chronic Blood Loss Anemia, chronic iron deficiency anemia: Patient had darker stool.Admission hemoglobin 9.9, decreased from previous 11 baseline on June 21, 2023. On Protonix drip, octreotide drip. Her hemoglobin dropped to 7.2 last night and 1 unit of PRBC transfused, posttransfusion hemoglobin 8.6. #3. Acute knee injury on CKD stage II per GFR trending: Around 0.85. Patient admitted with 1.23 now improved to 0.81 within 24 hours. May be related to decreased oral intake. JESIKA resolved. #4. 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 Murphy, will continue low-dose prednisone therapy, azathioprine home regimen #5. Valvular heart disease: Patient with significant aortic valvular heart disease and need of a TAVR which originally was scheduled 09/17/2022 at [facility] however patient this time is not appropriate given presentation and recommended that the office be contacted to delay the surgery until she is clinically cleared from her current presentation as noted. 06/19/2023 with normal LV size, LV systolic function normal, EF 60%, grade 2 LV diastolic dysfunction, mildly dilated left atrial cavity, mild 1+ TR, tricuspid aortic valve with paradoxical low-flow, low gradient moderately severe aortic valve stenosis caused by calcified valve and restricted opening, AV area 0.56 cm? by continuity, VTI. #6. CAD: Status post previous stents, given GI bleed temporally holding aspirin, holding metoprolol given hypotension, not on statin therapy, resume aspirin once cleared per gastroenterology. #7. HFpEF: 06/19/2023 with normal LV size, LV systolic function normal, EF 60%, grade 2 LV diastolic dysfunction, mildly dilated left atrial cavity, mild 1+ TR, tricuspid aortic valve with paradoxical low-flow, low gradient moderately severe aortic valve stenosis caused by calcified valve and restricted opening, AV area 0.56 cm? by continuity, VTI. Will judiciously hydrate given this history, holding aspirin given presentation with GI bleed with resumption once GI clears, holding metoprolol given hypotension with addition once BP improved, not on statin therapy. #8. Hypertension: Upon presentation patient initially significantly hypotensive, improved somewhat with IV fluids in the ED although baseline is low normal, will add back any regimen once cleared proved. #9. History Yari's thyroiditis with hypothyroidism: We will continue patient home levothyroxine regimen. #10. Hyperlipidemia: Not on regimen, defer to outpatient. #11. DVT prophylaxis: SCDs, hold any chemoprophylaxis given presentation as noted. #12. CODE status: Patient HCPOA is her was present and living will is currently in place. Discussed CODE status at length including difference between FULL code, DNR-CCA and DNR-CC status. Following discussions about the differences in these status, requested Full Code status. Charges/Coding Addendum Addendum: Total time of the visit including total time spent in counseling or coordination of care, (more than 50% of the total time, spent in obtaining medical information from nurses and other ancillary care providers,explaining to the patient about labs, imaging, diagnosis and management of active complex medical conditions), explanation of choledocholithiasis and ERCP findings discussion with the daughter, review of labs and imaging is 45 minutes. Visit Charges Inpatient E&M: 30848 Subs Hosp L3
[2023-08-31 07:58] LABS: Magnesium 2.3 mg/dL (1.6-2.6); Phosphorus 3.5 mg/dL (2.5-4.9); Thyroid Stim Hormone (TSH) 0.41 uIU/mL (0.358-3.74)
[2023-08-31] MEDS: 0.9% Normal Saline (250mL Bag) 250 ML 15 ML IV (09:27)
[2023-08-31] MEDS: Midazolam 2 MG/2 ML Syringe IV (09:27)
[2023-08-31] MEDS: fentaNYL 100 MCG/2 ML Ampul IV (09:29)
[2023-08-31] MEDS: Lidocaine 2% (20 ml mdv) 20 ML Vial INFILT (09:50)
--- NOTE | 2023-08-31 10:27 | PRO.PCM_ITS ---
Procedure Report Date of Procedure: 08/31/23 Assessment & Plan Assessment/Plan (1) Cholecystitis: PLAN: PROCEDURE: CT DIRECTED PERCUTANEOUS CHOLECYSTOSTOMY DRAINAGE, PERITONEAL ORDERING PROVIDER: Dr. Murphy INDICATION: Female, 83 years old. Cholecystitis PROVIDER: MARCIA Laws CONSENT: Written informed consent was obtained having explained the risks, benefits and alternatives in detail with the patient who accepted the risks and agreed to proceed. Laboratory review and clinical assessment was performed. PRE-PROCEDURE SEDATION ASSESSMENT: Current history and physical dictated by referring physician and reviewed. No clinical changes since date of exam. Patient has an ASA Class of 2. PROCEDURAL SEDATION PROTOCOL: The Drugs used were: 1 mg Versed, IV, and 25 mcg Fentanyl, IV. The sedation time was: 39 minutes, starting at 9:27 AM and terminated at 10:06 AM. The procedural sedation protocol was independently monitored by the department nurse. RADIATION DOSAGE (If Supplied By Facility): CTDIvol = 17.17 mGy, DLP = 1059.57 mGycm Individualized dose optimization techniques were used for this CT. CONSENT: Written informed consent was obtained having explained the risks, benefits and alternatives in detail with the patient who accepted the risks and agreed to proceed. Laboratory review and clinical assessment was performed. TECHNIQUE: CT sections were made through the abdomen and pelvis revealing acute cholecystitis and dilated gallbladder.. The skin surface was prepped with betadine and draped in a sterile fashion. Puncture of this collection was performed with a 5 Swedish catheter and clear fluid began to drain. Placement was confirmed with image documentation. The drainage catheter was then inserted into the collection and formed into position by the pigtail fastener. Additional fluid was aspirated for a total of approximately 155 cc of clear to cloudy fluid with sediment. A Mateo-Gore drain was attached to the catheter, and the catheter was secured with a StayFIX dress to allow for continued drainage. Followup CT sections reveals good position of the catheter. IMPRESSION: 1. CT directed drainage of dilated gallbladder with drain placement using CT image guidance and image documentation as described. 2. Procedural Sedation protocol utilized with independent monitoring by the department nurse.
[2023-08-31 11:26] LABS: Body Fluid Mononuclear WBC # 0.601 10^3/uL; Body Fluid Mononuclear WBC % 44.7 %; Body Fluid Polynuclear WBC # 0.742 10^3/uL; Body Fluid Polynuclear WBC % 55.3 %; Body Fluid Total Cells Counted 1.372 10^3/ul; White Blood Count/Body Fluid 1.343 10^3/uL
[2023-08-31] MEDS: Lactated Ringers 1,000 ML 15 ML IV (11:59)
--- OUTSIDE RECORDS SUMMARY | 2023-08-31 12:17 | XMS RPT_ITS | CCD ---
Author Name Unknown Address [address] [place] [address] Organization [facility] Care Team Providers Care Portal Administrator Name Role Phone Katiuska, Lauren Chi Primary Care Provider ANA VINCENT Referring Unavailable KATIUSKA, LAUREN CHI [...] Referring Unavailable LAHORRA, ADRIÁN A Attending Unavailable KATIUKSA, LAUREN CHI Primary Care Unavailable INEMANTAVONANA L [...] Aspartame; Translations: [ASPARTAME] Drug Allergy 12-18-2018 Unknown [facility] Medications Current Medications Medication Drug Class(es) [...] Coronary arteriosclerosis; Translations: [Atherosclerotic heart disease of [place] coronary artery with other forms of angina [...] 167.6 cm Adrián Ramirez MD Work Phone: [facility] 06-21-2023 09:40-0400 Body weight 63.59 kg Adrián Ramirez MD Work Phone: [facility] 06-21-2023 09:40-0400 Diastolic blood pressure 70 mm[Hg] Adrián Ramirez MD Work Phone: [facility] 06-21-2023 09:40-0400 Heart rate 73 /min Adrián Ramirez MD Work Phone: [facility] 06-21-2023 09:40-0400 SaO2% (BldA) [Mass fraction] 97 % Adrián Ramirez MD Work Phone: [facility] 06-21-2023 09:40-0400 Systolic blood pressure 112 mm[Hg] Adrián Ramirez MD Work Phone: [facility] 06-21-2023 09:37-0400 Body height 167.6 cm Ramesh West MD Work Phone: [facility] 06-21-2023 09:37-0400 Body weight 63.59 kg Ramesh West MD Work Phone: [facility] 06-21-2023 09:37-0400 Diastolic blood pressure 70 mm[Hg] Ramesh West MD Work Phone: [facility] 06-21-2023 09:37-0400 Heart rate 73 /min Ramesh West MD Work Phone: [facility] 06-21-2023 09:37-0400 SaO2% (BldA) [Mass fraction] 97 % Ramesh West MD Work Phone: [facility] 06-21-2023 09:37-0400 Systolic blood pressure 112 mm[Hg] Ramesh West MD Work Phone: [facility] 11-23-2022 09:20-0400 Body height 167.6 cm Adrián Ramirez MD Work Phone: [facility] 11-23-2022 09:20-0400 Body weight 61.42 kg Adrián Ramirez MD Work Phone: [facility] 11-23-2022 09:20-0400 Diastolic blood pressure 62 mm[Hg] Adrián Ramirez MD Work Phone: [facility] 11-23-2022 09:20-0400 Heart rate 70 /min Adrián Ramirez MD Work Phone: [facility] 11-23-2022 09:20-0400 SaO2% (BldA) [Mass fraction] 100 % Adrián Ramirez MD Work Phone: [facility] 11-23-2022 09:20-0400 Systolic blood pressure 100 mm[Hg] Adrián Ramirez MD Work Phone: [facility] 11-23-2022 09:16-0400 Body height 167.6 cm Ramesh West MD Work Phone: [facility] 11-23-2022 09:16-0400 Body weight 61.24 kg Ramesh West MD Work Phone: [facility] 11-23-2022 09:16-0400 Diastolic blood pressure 62 mm[Hg] Ramesh West MD Work Phone: [facility] 11-23-2022 09:16-0400 Heart rate 70 /min Ramesh West MD Work Phone: [facility] 11-23-2022 09:16-0400 SaO2% (BldA) [Mass fraction] 100 % Ramesh West MD Work Phone: [facility] 11-23-2022 09:16-0400 Systolic blood pressure 100 mm[Hg] Ramesh West MD Work Phone: [facility] Encounters Encounter Date Encounter Type Care Provider Facility Start: 08-25-2023 End: 08-26-2023 ambulatory ANA VINCENT Facility:[facility] Start: 08-25-2023 End: 08-25-2023 ambulatory ANA VINCENT Facility:[facility] Start: 07-19-2023 Patient encounter procedure Ramesh West MD Work Phone: [facility] Start: 07-19-2023 Telephone encounter Ramesh West MD Work Phone: [facility] Procedures Date Procedure Procedure Detail Performing Clinician Start: 08-25-2023 Antibody screen RAMESH WEST Plan of Treatment Date Care Activity Detail Author Start: 03-19-2029 Urine microalbumin profile DTaP,Tdap,Td Vaccine (2 - Td or Tdap) [facility] Start: 06-21-2026 Diabetes Screening Diabetes Screening [facility] Start: 11-17-2025 DIABETES SCREEN DIABETES SCREEN [facility] Start: 11-17-2025 Diabetes Screening Diabetes Screening [facility] Start: 10-08-2023 End: 07-19-2024 Echocardiography ECHO Cardiology Routine Nonrheumatic aortic valve stenosis Expected: 10/08/2023, Expires: 07/19/2024 [facility] Work Phone: Immunizations Immunization Date Immunization Notes Care Provider Fa farnaz 09-28-2021 influenza virus vacc ine, unspecified formulation Ana Vincent INCIDENT RESPONSE COORDINATOR.KINDER TEACHER Work Phone: [facility] Payers Date Payer Category Payer Medicare [id number] 2019 Unknown [id number] 2007 Medicare MEDICARE MEDICAR E A AND B [id number] 2007-Present [phone] [place] [address] Medicare [id number] 2007 Medicare [id number] Social History Date Type Detail Facility Tobacco smoking stat us NHIS Never smoked tobacco [facility] Start: 10-05-2022 End: 06-21-2023 Alcohol intake Current non-drinker of alcohol (finding) [facility] Start: 1940 Sex Assigned At Not on file [facility] Start: 11-23-2022 End: 06-21-2023 History of Social function [facility] Start: 11-23-2022 End: 06-21-2023 Tobacco use panel [facility] National Score (1-10 0), lower number is lower risk 45 [facility] Clinical Notes 10-05-2022 to 08-25-2023 Telephone Encounter - Ana Vincent APRN.CNP - 07/19/2023 3:12 PM ESTTelephone Encounter - Ana Vincent APRN.CNP - 07/19/2023 2:30 PM Ana Poe APRN.WOLF - 07/18/2023 8:11 AM EST Note Date & Type Note Facility 08-25-2023 Note HNO ID: [id number] Author: Ana Vincent APRN.CNP Service: ? Author Type: Nurse Practitioner Type: Progress Notes Filed: 08/25/2023 1:59 PM Note Text: INTERVENTIONAL CARDIOLOGY SERVICE Transcatheter Aortic Valve Replacement Preoperative History AND Physical Exam PR[place]: [place] [address] [place] [address] CARE TEAM: Development Director: Dr. Js Tapia, Dr. Ramesh West Cardiac Surgeon: Dr. Adrián Ramirez and Dr. Raghav Diaz Patient Info: Kassidy Willingham 1940 83 year old Procedure: Transcatheter Aortic Valve Replacement Diagnosis: Paradoxical Low Flow, Low Gradient Severe Aortic Valve Stenosis Date of Procedure: 09/07/2023 OR #: 10 CPT Code: 56353 Diagnosis Code: I35.9 HISTORY OF PRESENT ILLNESS: Ms. Willingham is a 83 year old female with a known past medical history significant for HTN, HLD, Yari disease, autoimmune hepatitis, CAD (s/p PCI to LAD AND known RIVETER PORTABLE MACHINE to RCA), and severe aortic valve stenosis [...] sup (more content not included)... [facility] 07-19-2023 Miscellaneous Notes Patient does not have [...] will reach out to Dr. Newby's office ([phone]) to determine when patient will be cleared [...] [place] LPN documented in this encounter [facility] 07-18-2023 Note HNO ID: [id number] Author: Ana Vincent APRN.CNP Service: ? Author Type: Nurse Practitioner Type: Progress Notes Filed: 07/18/2023 8:13 AM Note Text: MULTI DISCIPLINARY HIGH RISK AVR CARDIAC TEAM Members present: Dr. Tapia, Dr. Ramirez, Dr. Gil, Dr. Daiz, Dr. Mendez, Dr. Muñoz, Dr. West, Bianca [...] Office. Ana Vincent APRN.CNP 07/18/2023 [facility] 07-18-2023 History of Presen t illness Narrative [...] Vincent APRN.CNP 07/18/2023 documented in this encounter [facility] 06-22-2023 Miscellaneous Notes Spoke with patient about test results. Patient verbalizes understanding. Wanda Garvin LPN Voicemail msg left for patient to return call to [facility] to review test results. Office phone number provided. Wanda Garvin LPN ----- Message from Ana Vincent APRN.KINDER TEACHER sent at 06/21/2023 2:14 PM EDT ----- Please call the patient and report lab results revealed normal PT/INR, mild elevation in LFTs as expected with liver disease, stable CBC, and normal kidney function. BNP elevated as expected with valvular disease. Ana Vincent APRN.KINDER TEACHER documented in this encounter [facility] 06-21-2023 Note HNO ID: [id number] Author: Ramesh West MD Service: ? Author Type: Physician Type: Progress Notes Filed: 06/21/2023 4:39 PM Note Text: Ramesh West MD Interventional Cardiology [address] [place], [place] [id number] Chief Complaint Patient presents with: Aortic Stenosis: [...] Co (more content not included)... [facility] 06-21-2023 History of Presen t illness Narrative Images from the original note were not included. Ramesh West MD Interventional Cardiology [address] [place] [address] Chief Complaint Patient presents with: Aortic Stenosis: [...] TIME/PT - NT PRO BNP - CARDIAC ASSISTANT WAREHOUSE MANAGER ORDER 2. Hepatitis, autoimmune (HCC) - ICD9: [...] to assess her coronary anatomy - CARDIAC ASSISTANT WAREHOUSE MANAGER ORDER Ramesh West MD Follow up planning: [...] Ana Vincent APRN.CNP documented in this encounter [facility] 06-21-2023 Note HNO ID: [id number] Author: Adirán Ramirez MD Service: ? Author Type: Physician [...] for (more content not included)... [facility] 06-21-2023 Note HNO ID: [id number] Author: Ana Vincent APRN.CNP Service: ? Author [...] days)* 23.6% Ana Vincent APRN.CNP [facility] 06-21-2023 History of Presen t illness Narrative [...] 2023 TIME: 10:47 AM PAGER/CONTACT #: [phone] documented in this encounter [facility] 06-21-2023 Instructions Ana Vincent, INCIDENT RESPONSE COORDINATOR.KINDER TEACHER - 06/21/2023 10:15 AM EDT Images from [...] reassess your coronary artery disease. - Cardiac Digital Account Director will call you to schedule this procedure. [...] wearing: Jewelry Eyeglasses Contact lenses Dentures Nail rwandan Other precautions Talk to your doctor about: [...] anesthesia before the TAVR procedure. A treatment team leader surgery will give you medication through an intravenous [...] the replacement valve into place in the [place] aortic valve. Some valves can expand without [...] and avoiding smoking. documented in this encounter [facility] 06-21-2023 Nurse Note CARDIAC REHAB 5 METER WALK TEST SERVICE DATE: 06/21/2023 SERVICE TIME: 9:35am ASSESSMENT: 5.40sec 5.05sec 5.48sec ASSESSMENT: SIGNATURE: Maryan Julio LPN PATIENT NAME: Kassidy Willingham DATE: June 21, 2023 TIME: 9:42 AM PAGER/CONTACT #: [phone] documented in this encounter [facility] 06-21-2023 Nurse Note CARDIAC REHAB 5 METER WALK TEST SERVICE DATE: 06/21/2023 SERVICE TIME: 9:35am ASSESSMENT: 5.40sec 5.05sec 5.48sec SIGNATURE: Maryan Julio LPN PATIENT NAME: Kassidy Willingham DATE: June 21, 2023 TIME: 9:34 AM PAGER/CONTACT #: [phone] documented in this encounter [facility] 12-08-2022 Miscellaneous Notes Spoke with patient about test results and recommendation to have repeat echocardiogram and valve clinic follow up in 6 months. Patient verbalizes understanding and is agreeable. Wanda Garvin LPN ----- Message from Ana Vincent APRN.KINDER TEACHER sent at 12/08/2022 2:56 PM EDT ----- Please call the patient and report echo results revealed moderately severe aortic valve stenosis. We are recommending repeat echocardiogram and valve clinic follow up in 6 months. Office will contact patient with appointment information. Thank you, Ana Vincent APRN.KINDER TEACHER documented in this encounter [facility] 12-08-2022 Miscellaneous Notes Please schedule patient for echo and valve clinic with Dr. West in 6 months. - Please arrange for echo morning of her valve clinic appointment. Thank you, Ana Vincent APRN.KINDER TEACHER documented in this encounter [facility] 11-29-2022 Miscellaneous Notes Yes, pt had echo done yesterday at and is scheduled for echo here in [place] on 12/06. Echo cancelled on 12/06. Pt notified. Gerda Church RN Pt called today wondering about the Echocardiogram scheduled 12/06/22 and if that is the same as the test done at [facility] yesterday. Please let pt know. documented in this encounter [facility] 11-23-2022 Note HNO ID: [id number] Author: Ramesh West MD Service: ? Author Type: Physician Type: Progress Notes Filed: 11/23/2022 4:35 PM Note Text: Ramesh West MD Interventional Cardiology [address] [place] [address] Chief Complaint Patient presents with: Aortic Stenosis: [...] 10 mL INTRAVENOUS DIRECTED PRN Ana Vincent APRN.KINDER TEACHER Review of Systems Constitutional: Negative for chills, [...] pain, (more content not included)... [facility] 11-23-2022 History of Presen t illness Narrative Images from the original note were not included. Ramesh West MD Interventional Cardiology [address] [place], [place] [id number] Chief Complaint Patient presents with: Aortic Stenosis: [...] injection (DEFINITY) INTRAVENOUS DIRECTED PRN Ana Vincent APRN.KINDER TEACHER sodium chloride 0.9 % (flush) 10 mL (BD POSIFLUSH) 10 mL INTRAVENOUS DIRECTED PRN Ana Vincent, INCIDENT RESPONSE COORDINATOR.KINDER TEACHER Review of Systems Constitutional: Negative for chills, [...] Ana Vincent APRN.WOLF documented in this encounter [facility] 11-23-2022 Note HNO ID: [id number] Author: Adrián Ramirez MD Service: ? Author [...] N (more content not included)... [facility] 11-23-2022 Note HNO ID: [id number] Author: Ana Vincent APRN.WOLF Service: ? Author [...] Stay: 6.686% Ana Vincent APRN.WOLF [facility] 11-23-2022 History of Presen t illness Narrative [...] edema, syncope, presyncope. AN echo performed at [place] showed normal EF, calcific changes involving a [...] 2023 TIME: 11:40 PM PAGER/CONTACT #: [phone] documented in this encounter [facility] 11-23-2022 Instructions Ana Vincent APRN.KINDER TEACHER - 11/23/2022 10:18 AM EDT Images from the original note were not included. Today, you met with Dr. West and Dr. Ramirez to discuss your aortic valve stenosis and current symptoms. We are recommending: Repeat echocardiogram here at [facility] Please call us with any further questions or concerns. [phone] Patient information: Aortic stenosis What is aortic [...] process is complete. The content on the [facility] website is not intended nor recommended as a substitute for medical advice, diagnosis, or treatment. Always seek the advice of your own physician or other qualified health critical care nurse regarding any medical questions or conditions.. 2016 [employer]. All rights reserved. Topic 36842 Version 5.0 documented in this encounter [facility] 11-23-2022 Nurse Note CARDIAC REHAB 5 METER WALK TEST SERVICE DATE: 11/23/2022 SERVICE TIME: 9:14AM 7.50sec 6.94sec 7.33sec ASSESSMENT: SIGNATURE: Maryan Julio LPN PATIENT NAME: Kassidy Willingham DATE: November 23, 2022 TIME: 9:21 AM PAGER/CONTACT #: [phone] documented in this encounter [facility] 11-23-2022 Nurse Note CARDIAC REHAB 5 METER WALK TEST SERVICE DATE: 11/23/2022 SERVICE TIME: 9:14AM 7.50sec 6.94sec 7.33sec ASSESSMENT: SIGNATURE: Maryan Julio LPN PATIENT NAME: Kassidy Willingham DATE: November 23, 2022 TIME: 9:15 AM PAGER/CONTACT #: [phone] documented in this encounter [facility] 11-18-2022 Miscellaneous Notes Left message for to call [facility] for test results. [facility] phone number provided. Sabrina Ferguson LPN ----- Message from Ana Vincent APRN.CNP sent at 11/18/2022 11:45 AM EDT ----- Please call the patient and report lab results revealed anemia and she should follow up with her PCP for further management. Renal function is normal and ok to proceed with further testing. BNP without significant elevation. Ana Vincent APRN.CNP documented in this encounter [facility] 11-10-2022 Miscellaneous Notes I spoke with [...] this afternoon. She can be reached at [phone]. Sabrina Ferguson LPN I spoke with patient's regarding referral to Valve Clinic from Dr. Leach. Patient unavailable to talk today. Provided patient's the office phone number to return phone call regarding further testing and follow up appt. Thanks, Ana Vincent APRN.CNP documented in this encounter [facility] 10-05-2022 Note HNO ID: [id number] Author: Jc Lynne II, OD Service: ? Author Type: DOCTOR OF DENTAL SURGERY Type: Progress Notes Filed: 10/05/2022 4:42 PM [...] correction noted but patient happy with current advis. Continue yearly observation. I have confirmed and [...] its relevant components. Jc Lynne II, OD [facility] 10-05-2022 Instructions Jc Lynne II, OD - [...] Lynne II, OD documented in this encounter [facility] 10-05-2022 History of Presen t illness [...] Lynne II, OD documented in this encounter [facility] Diagnosis Aortic valve stenosis, etiology of cardiac valve disease unspecified- Primary Encounter for preprocedural cardiovascular examination Pre-operative cardiovascular examination Dyspnea on exertion Other dyspnea and respiratory abnormality [facility] Diagnosis Nonrheumatic aortic valve stenosis- Primary Aortic valve disorders [facility] Diagnosis Encounter for preprocedural cardiovascular examination Pre-operative cardiovascular examination Aortic valve stenosis, etiology of cardiac valve disease unspecified [facility] Diagnosis Nonrheumatic aortic valve stenosis Aortic valve disorders [facility] Diagnosis Nonrheumatic aortic valve stenosis- Primary Aortic valve disorders [facility] Diagnosis Nonrheumatic aortic valve stenosis- Primary Aortic valve disorders Coronary artery disease of [place] artery of [place] heart with stable angina pectoris (HCC) Stable angina Other and unspecified angina pectoris Valvular heart disease Endocarditis, valve unspecified, unspecified cause [facility] Diagnosis Nonrheumatic aortic valve stenosis- Primary Aortic valve disorders Hepatitis, autoimmune (HCC) Autoimmune hepatitis Stable angina Other and unspecified angina pectoris Stable angina Other and unspecified angina pectoris Valvular heart disease Endocarditis, valve unspecified, unspecified cause [facility] Diagnosis Nonrheumatic aortic valve stenosis- Primary Aortic valve disorders Encounter for examination for normal comparison and control in clinical research program Nonrheumatic aortic valve stenosis Aortic valve disorders Encounter for examination for normal comparison and control in clinical research program [facility] Outpatient Procedure (Routine) - Authorized Specialty Diagnoses / Procedures Referred By Contac t Referred To Contact [facility] Diagnoses Nonrheumatic aortic valve stenosis Procedures ECHO ECHO TTHRC R-T 2D W/WOM-MODE COMPL SPEC&COLR D Ana Vincent, MIKE.KINDER TEACHER [address] [place] [address] [facility] [place] [address] Referral ID Status Reason Start Date Expiration Date Visits Requested Visits Authorized [id number] Authorized Auto-Generat ed Referral 11/23/2022 11/23/2023 1 1 [facility] for referral (narrative)* Outpatient Procedure (Routine) - Closed Specialty Diagnoses / Procedures Referred By Contac t Referred To [facility] Diagnoses Nonrheumatic aortic valve stenosis Procedures ECHO ECHO TTHRC R-T 2D W/WOM-MODE COMPL SPEC&COLR D Ana Vincent, INCIDENT RESPONSE COORDINATOR.KINDER TEACHER [address] [place] [address] [facility] [address] [place] [address] Referral ID Status Reason Start Date Expiration Date V isits Requested Visits Authorized [id number] Closed Auto-Generate d Referral 11/23/2022 11/23/2023 1 1 [facility] for referral (narrative)* Outpatient Procedure (Routine) - Authorized Specialty Diagnoses / Procedures Referred By Contac t Referred To Contact [facility] Diagnoses Nonrheumatic aortic valve stenosis Procedures ECHO ECHO TTHRC R-T 2D W/WOM-MODE COMPL SPEC&COLR D Ana Vincent APRN.CNP [address] [place] [address] [facility] [address] [place] [address] Referral ID Status Reason Start Date Expiration Date Visits Requested Visits Authorized [id number] Authorized Auto-Generat ed Referral 06/09/2023 12/08/2023 1 1 [facility] for referral (narrative)* Outpatient Procedure (Routine) - Authorized Specialty Diagnoses / Procedures Referred By Contac t Referred To Contact [facility] Diagnoses Nonrheumatic aortic valve stenosis Procedures ECHO ECHO TTHRC R-T 2D W/WOM-MODE COMPL SPEC&COLR D Ana Vincent APRN.KINDER TEACHER [address] [place] [address] Fax: [facility] [address] [place] [address] Referral ID Status Reason Start Date Expiration Date Visits Requested Visits Authorized [id number] Authorized Auto-Generat ed Referral 10/08/2023 07/18/2024 1 1 [facility] for visit Narrative* Outpatient Procedure (Routine) - Closed Specialty Diagnoses / Procedures Referred By Contac t Referred To Contact [facility] Diagnoses Nonrheumatic aortic valve stenosis Procedures ECHO ECHO TTHRC R-T 2D W/WOM-MODE COMPL SPEC&COLR D Ana Vincent, INCIDENT RESPONSE COORDINATOR.KINDER TEACHER [address] [place] [address] [facility] [address] [place] [address] Referral ID Status Reason Start Date Expiration Date V isits Requested Visits Authorized [id number] Closed Auto-Generate d Referral 11/23/2022 11/23/2023 1 1 [facility] Medications Administered Section Active Administered Medications [...] IVCON CT ANGIOGRAPHY CHEST W/CONTRAST/NONCONTRAST Ana Vincent, INCIDENT RESPONSE COORDINATOR.KINDER TEACHER [address] [place] [address] Fax: Ct Imaging Referral ID Status Reason Start Date Expiration Date Visits Requested Visits Authorized [id number] Authorized Auto-Generat ed Referral 11/23/2022 12/10/2023 1 1 Specialty Diagnoses / Procedures Referred By Luis t Referred To Contact CT [facility]AG[facility] Diagnoses Encounter for preprocedural cardiovascular examination Aortic valve stenosis, etiology of cardiac valve disease unspecified Procedures CTA ABD/PEL W IVCON CT ANGIO ABD&PLVIS CNTRST MTRL W/WO CNTRST Ana Noriega, INCIDENT RESPONSE COORDINATOR.KINDER TEACHER [address] [place] [address] Ct Imaging Referral ID Status Reason Start Date Expiration Date Visits Requested Visits Authorized [id number] Authorized Auto-Generat ed Referral 11/23/2022 12/10/2023 1 1 Referral ID Status Reason Start Date Expiration Date V isits Requested Visits Authorized [id number] Closed Auto-Generate d Referral 11/23/2022 12/10/2023 1 1 Referral ID Status Reason Start Date Expiration Date V isits Requested Visits Authorized [id number] Closed Auto-Generate d Referral 11/23/2022 12/10/2023 1 [...] or prosecute any alcohol or drug abuse patient.[facility] event this information is protected by the Federal Confidentiality of Alcohol and Drug Abuse Patient Records regulations: The Federal rules restrict any use of the information to criminally investigate or prosecute any alcohol or drug abuse patient.[facility] Hospital[facility] the event this information is protected by the Federal Confidentiality of Alcohol and Drug Abuse Patient Records regulations: The Federal rules restrict any use of the information to criminally investigate or prosecute any alcohol or drug abuse patient.[facility] Hospital[facility] the event this information is protected by the Federal Confidentiality of Alcohol and Drug Abuse Patient Records regulations: The Federal rules restrict any use of the information to criminally investigate or prosecute any alcohol or drug abuse patient.[facility] the event this information is protected by the Federal Confidentiality of Alcohol and Drug Abuse Patient Records regulations: The Federal rules restrict any use of the information to criminally investigate or prosecute any alcohol or drug abuse patient.[facility] HospitalIn the event this information is protected by the Federal Confidentiality of Alcohol and Drug Abuse Patient Records regulations: The Federal rules restrict any use of the information to criminally investigate or prosecute any alcohol or drug abuse patient.[facility] HospitalIn the event this information is protected by the Federal Confidentiality of Alcohol and Drug Abuse Patient Records regulations: The Federal rules restrict any use of the information to criminally investigate or prosecute any alcohol or drug abuse patient.[facility] HospitalIn the event this information is protected by the Federal Confidentiality of Alcohol and Drug Abuse Patient Records regulations: The Federal rules restrict any use of the information to criminally investigate or prosecute any alcohol or drug abuse patient.[facility] HospitalIn the event this information is protected by the Federal Confidentiality of Alcohol and Drug Abuse Patient Records regulations: The Federal rules restrict any use of the information to criminally investigate or prosecute any alcohol or drug abuse patient.[facility] HospitalIn the event this information is protected by the Federal Confidentiality of Alcohol and Drug Abuse Patient Records regulations: The Federal rules restrict any use of the information to criminally investigate or prosecute any alcohol or drug abuse patient.[facility] HospitalIn the event this information is protected by the Federal Confidentiality of Alcohol and Drug Abuse Patient Records regulations: The Federal rules restrict any use of the information to criminally investigate or prosecute any alcohol or drug abuse patient.[facility] HospitalIn the event this information is protected by the Federal Confidentiality of Alcohol and Drug Abuse Patient Records regulations: The Federal rules restrict any use of the information to criminally investigate or prosecute any alcohol or drug abuse patient.[facility] HospitalIn the event this information is protected by the Federal Confidentiality of Alcohol and Drug Abuse Patient Records regulations: The Federal rules restrict any use of the information to criminally investigate or prosecute any alcohol or drug abuse patient.[facility] HospitalIn the event this information is protected by the Federal Confidentiality of Alcohol and Drug Abuse Patient Records regulations: The Federal rules restrict any use of the information to criminally investigate or prosecute any alcohol or drug abuse patient.[facility] HospitalIn the event this information is protected by the Federal Confidentiality of Alcohol and Drug Abuse Patient Records regulations: The Federal rules restrict any use of the information to criminally investigate or prosecute any alcohol or drug abuse patient.[facility] Reason for Visit (unrecogniz ed section and content) Reason Comments Appointment Business Systems Consultant - Other Reason Comments Results Reason Comments Aortic Stenosis Lo is here for TAV R evaluation. Specialty Diagnoses / Procedures Referred By Contac t Referred To Contact CT IMAGING Diagnoses Encounter for preprocedural cardiovascular examination Aortic valve stenosis, etiology of cardiac valve disease unspecified Procedures CTA CHEST (GATED) WO/W IVCON CT ANGIOGRAPHY CHEST W/CONTRAST/NONCONTRAST Ana Vincent L, INCIDENT RESPONSE COORDINATOR.KINDER TEACHER [address] [place] [address] Ct Imaging Referral ID Status Reason Start Date Expiration Date V isits Requested Visits Authorized [id number] Closed Auto-Generate d Referral 11/23/2022 12/10/2023 1 1 Reason Comments Patient Question Reason Comments Appointment Reason Comments Aortic Stenosis Lo is here for TAV R evaluation. 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 Comments Business Systems Consultant - Other Care Teams (unrecognized sec tion and content) Portal Administrator Relationship Specialty Start Date End Date Lauren Sanchez Chi [address] [place], [place] [address] PCP - General Gerontology 09/30/21 Portal Administrator Relationship Specialty Start Date End Date Lauren Sanchez Chi [address] [place], [place] [id number] PCP - General Gerontology 09/30/21 Portal Administrator Relationship Specialty Start Date End Date Lauren Sanchez Chi [address] [place] [id number] PCP - General Gerontology 09/30/21 Portal Administrator Relationship Specialty Start Date End Date Lauren Sanchez Chi [address] [facility] [place] [id number] PCP - General Gerontology 09/30/21 Portal Administrator Relationship Specialty Start Date End Date Lauren Sanchez Chi [address] [facility] [place] [address] PCP - General Gerontology 09/30/21 Portal Administrator Relationship Specialty Start Date End Date Lauren Sanchez Chi [address] [place], [place] [address] PCP - General Gerontology 09/30/21 Portal Administrator Relationship Specialty Start Date End Date Lauren Sanchez Chi [address] [place], [place] [address] PCP - General Gerontology 09/30/21 Portal Administrator Relationship Specialty Start Date End Date Lauren Sanchez Chi [address] [place], [place] [address] PCP - General Gerontology 09/30/21 Portal Administrator Relationship Specialty Start Date End Date Lauren Sanchez Chi [address] [place], [place] [address] PCP - General Gerontology 09/30/21 Portal Administrator Relationship Specialty Start Date End Date Lauren Sanchez Chi [address] [place], [place] [address] PCP - General Gerontology 09/30/21 Portal Administrator Relationship Specialty Start Date End Date Lauren Sanchez Chi [address] [place] [address] PCP - General Gerontology 09/30/21 Portal Administrator Relationship Specialty Start Date End Date Lauren Sanchez Chi [address] [place] [address] PCP - General Gerontology 09/30/21 Portal Administrator Relationship Specialty Start Date End Date Lauren Sanchez Chi [address] [place] [address] PCP - General Gerontology 09/30/21 INFORMATION SOURCE (unrecogn ized section and content) DATE CREATED AUTHOR [facility]/31/2023 [facility] FOR RECORDS PERTAINING TO PATIENTS WHO [...] BE BASED ON THE PRIMARY CLINICAL RECORDS. [employer] [facility]. provides no warranty or guarantee of the accuracy or completeness of information in this document.
[2023-08-31 12:32] LABS: Lymphocytes 15 %; Monocytes 6 %; Neutrophil (Segs) 77 %; Other Cell Type/BF 2 %
[2023-08-31 12:33] LABS: Appearance/Body Fluid CLEAR; Auto B Fluid Analyzer BKGD Ct COUNTS W/IN LIMITS (W/IN LIMITS); Color/Body Fluid LT YEL; Red Cell Count/Body Fluid 185 /mm3; Source- Body Fluid OTHER
[2023-08-31 12:34] LABS: Body Fluid QC Type(s) BF1Q
--- NOTE | 2023-08-31 12:50 | RAD_ITS ---
EXAM: ERCP CLINICAL INDICATION: Evaluate common bile duct TECHNIQUE: Fluoroscopic images of the ERCP biliary ductal system. Fluoroscopic guidance was provided by a physician. No radiologist was present. The fluoroscopy time was 7 seconds. 8 fluoroscopic images were obtained. COMPARISON: Prior exam of 08/23/2023.. FINDINGS:. Drainage tube likely cholecystostomy tube coiled in the right side of the abdomen. There is irregular contrast adjacent to the cholecystotomy tube difficult to accurately evaluated this time. The common bile duct was cannulated. No definite constant filling defect is seen. The very distal common bile duct is not visualized. Common bile duct stent seen on recent CT scan not visualized at this time. RAD/ERCP Biliary/Pancreas IMPRESSION: ERCP as described above. Electronically Signed: Bart Cuellar MD at 13:30 EST ,
--- NOTE | 2023-08-31 14:56 | OP.CCLET_ITS ---
08/31/2023 Gokul Sanchez MD [address] [place] [address] Re : Upper GI endoscopy procedure for Kassidy Chin Dear Dr. Sanchez This procedure was performed on August. My impressions and recommendations are as follows: Impressions : - Moderate Schatzki ring. Dilated. - Non-bleeding gastric ulcer with no stigmata of bleeding. Treated with a heater probe. - Normal second portion of the duodenum. - No specimens collected. Recommendations : - [facility]. - Full liquid diet. - Continue present medications. My findings are described in the full procedure note, which is enclosed. If I can be of further assistance, please feel free to contact me at . Sincerely, Darwin Newby, 08/31/2023 2:55:29 PM This report has been signed electronically.
--- NOTE | 2023-08-31 14:56 | OP.EGD_ITS ---
Patient Name: Kassidy Chin Procedure Date: 08/31/2023 1:00 PM Date of : 1940 Age: 83 Procedure: Upper GI endoscopy Indications: Iron deficiency anemia, Functional Dyspepsia, Esophageal dysphagia Providers: Darwin Newby DO Medicines: Monitored Anesthesia Care Patient Profile: This is an 83 year old female. Refer to note in patient chart for documentation of history and physical. Patient has symptoms of acute nausea. Complications: No immediate complications. Procedure: Pre-Anesthesia Assessment: - Prior to the procedure, a History and Physical was performed, and patient medications and allergies were reviewed. The patient is competent. The risks and benefits of the procedure and the sedation options and risks were discussed with the patient. All questions were answered and informed consent was obtained. Patient identification and proposed procedure were verified by the physician in the pre-procedure area. Mental Status Examination: alert and oriented. Airway Examination: normal oropharyngeal airway and neck mobility. Respiratory Examination: clear to auscultation. CV Examination: normal. Prophylactic Antibiotics: The patient does not require prophylactic antibiotics. Prior Anticoagulants: The patient has taken no anticoagulant or antiplatelet agents. ASA Grade Assessment: III - A patient with severe systemic disease. After reviewing the risks and benefits, the patient was deemed in satisfactory condition to undergo the procedure. The anesthesia plan was to use monitored anesthesia care (MAC). Immediately prior to administration of medications, the patient was re-assessed for adequacy to receive sedatives. The heart rate, respiratory rate, oxygen saturations, blood pressure, adequacy of pulmonary ventilation, and response to care were monitored throughout the procedure. The physical status of the patient was re-assessed after the procedure. After obtaining informed consent, the endoscope was passed under direct vision. Throughout the procedure, the patient's blood pressure, pulse, and oxygen saturations were monitored continuously. The gastroscope was introduced through the mouth, and advanced to the second part of duodenum. The upper GI endoscopy was accomplished without difficulty. The patient tolerated the procedure well. Scope In: 1:43:32 PM Scope Out: 1:46:17 PM Total Procedure Duration Time 0 hours 2 minutes 45 seconds Findings: A moderate Schatzki ring was found in the lower third of the esophagus. A guidewire was placed and the scope was withdrawn. Dilation was performed with a Savary dilator with no resistance at 45 Fr. The dilation site was examined and showed moderate improvement in luminal narrowing. Estimated blood loss was minimal. One non-bleeding linear gastric ulcer with no stigmata of bleeding was found on the lesser curvature of the stomach. The lesion was 4 mm in largest dimension. Coagulation for bleeding prevention using heater probe was successful. Estimated blood loss was minimal. The second portion of the duodenum was normal. A 5 mm non-bleeding diverticulum was found in the gastric fundus. Impression: - Moderate Schatzki ring. Dilated. - Non-bleeding gastric ulcer with no stigmata of bleeding. Treated with a heater probe. - Normal second portion of the duodenum. - No specimens collected. Recommendation: - [facility]. - Full liquid diet. - Continue present medications. Procedure Code(s): --- Professional --- 67201, 59, Esophagogastroduodenoscopy, flexible, transoral; with control of bleeding, any method 55025, 51, Esophagogastroduodenoscopy, flexible, transoral; with insertion of guide wire followed by passage of dilator(s) through esophagus over guide wire CPT copyright 2021 [employer]. All rights reserved. The codes documented in this report are preliminary and upon teletray operator review may be revised to meet current compliance requirements. Darwin Newby DO 08/31/2023 2:55:29 PM This report has been signed electronically. Number of Addenda: 0 Note Initiated On: 08/31/2023 1:00 PM
--- NOTE | 2023-08-31 15:00 | OP.ERCP_ITS ---
Patient Name: Kassidy Chin Procedure Date: 08/31/2023 1:48 PM Date of : 1940 Age: 83 Procedure: ERCP Indications: Abdominal pain of suspected biliary origin, Elevated liver enzymes, Stent removal Providers: Darwin Newby DO Medicines: Monitored Anesthesia Care Patient Profile: This is an 83 year old female. Refer to note in patient chart for documentation of history and physical. Patient has symptoms of acute nausea. Complications: No immediate complications. Procedure: Pre-Anesthesia Assessment: - Prior to the procedure, a History and Physical was performed, and patient medications and allergies were reviewed. The patient is competent. The risks and benefits of the procedure and the sedation options and risks were discussed with the patient. All questions were answered and informed consent was obtained. Patient identification and proposed procedure were verified by the physician in the pre-procedure area. Mental Status Examination: alert and oriented. Airway Examination: normal oropharyngeal airway and neck mobility. Respiratory Examination: clear to auscultation. CV Examination: normal. Prophylactic Antibiotics: The patient does not require prophylactic antibiotics. Prior Anticoagulants: The patient has taken no anticoagulant or antiplatelet agents. ASA Grade Assessment: III - A patient with severe systemic disease. After reviewing the risks and benefits, the patient was deemed in satisfactory condition to undergo the procedure. The anesthesia plan was to use monitored anesthesia care (MAC). Immediately prior to administration of medications, the patient was re-assessed for adequacy to receive sedatives. The heart rate, respiratory rate, oxygen saturations, blood pressure, adequacy of pulmonary ventilation, and response to care were monitored throughout the procedure. The physical status of the patient was re-assessed after the procedure. After obtaining informed consent, the scope was passed under direct vision. Throughout the procedure, the patient's blood pressure, pulse, and oxygen saturations were monitored continuously. The Duodenoscope was introduced through the mouth, and advanced to the duodenum and used to inject contrast into the bile duct and ventral pancreatic duct. The ERCP was accomplished without difficulty. The patient tolerated the procedure well. Scope In: 1:50:31 PM Scope Out: 2:05:38 PM Total Procedure Duration Time 0 hours 15 minutes 7 seconds Findings: The child welfare social worker film was normal. The esophagus was successfully intubated under direct vision. The scope was advanced to a normal major papilla in the descending duodenum without detailed examination of the pharynx, larynx and associated structures, and upper GI tract. The upper GI tract was grossly normal. The bile duct was deeply cannulated. Contrast was injected. I personally interpreted the bile duct images. The lower third of the main bile duct contained two stones, the largest of which was 6 mm in diameter. The lower third of the main bile duct was diffusely dilated, with a stone causing an obstruction. The largest diameter was 5 mm. Placement of a 0.035 inch x 260 cm angled Hydra Jagwire into the biliary tree was attempted. This passed successfully. One stent was removed from the biliary tree using a 15 mm balloon. Impression: - The lower third of the main bile duct was dilated, with a stone causing an obstruction. - Choledocholithiasis was found. Removal was not attempted; no stent was inserted. - One stent was removed from the biliary tree. Procedure Code(s): --- Professional --- 37711, Endoscopic retrograde cholangiopancreatography (ERCP); with removal of foreign body(s) or stent(s) from biliary/pancreatic duct(s) 88040, Endoscopic catheterization of the biliary ductal system, radiological supervision and interpretation CPT copyright 2021 [employer]. All rights reserved. The codes documented in this report are preliminary and upon manager terminal review may be revised to meet current compliance requirements. Darwin Newby DO 08/31/2023 2:59:53 PM This report has been signed electronically. Number of Addenda: 0 Note Initiated On: 08/31/2023 1:48 PM
--- NOTE | 2023-08-31 15:00 | OP.CCLET_ITS ---
08/31/2023 Gokul Sanchez MD [address] [place] [address] Re : ERCP procedure for Kassidy Chin Dear Dr. Sanchez This procedure was performed on August. My impressions and recommendations are as follows: Impressions : - The lower third of the main bile duct was dilated, with a stone causing an obstruction. - Choledocholithiasis was found. Removal was not attempted; no stent was inserted. - One stent was removed from the biliary tree. Recommendations : My findings are described in the full procedure note, which is enclosed. If I can be of further assistance, please feel free to contact me at . Sincerely, Darwin Newby, 08/31/2023 2:59:53 PM This report has been signed electronically.
[2023-08-31] MEDS: 0.9% Saline Lock 10 ML Syringe IV ×2 (15:22→22:35)
[2023-08-31] MEDS: azaTHIOprine 50 MG Tablet 75 MG PO (15:23)
[2023-08-31] MEDS: predniSONE 5 MG Tablet 10 MG PO (15:23)
[2023-08-31] MEDS: Ferrous Sulfate 325 MG Tablet PO (15:23)
--- NOTE | 2023-08-31 18:00 | CASEMGMT ---
[facility] Assessment: RN CM to room to meet with patient for initial transition planning/care coordination assessment. [facility] introduced self and role at [facility]. Patient lying in bed, alert and oriented, and dtr, Dayanna, at bedside and pt agreeable to them being present during assessment. Patient willing to participate in assessment and is able to answer all questions appropriately. Care providers, pharmacy, and demographics verified. PCP: Dr Sanchez Specialists: Dr Newby, GI; Dr Ni, cardiovascular surgeon in [place]. Dayanna states pt is slated for TAVOR procedure on aortic valve Sep 07. Preferred Pharmacy: [facility] Insurance: [facility], [facility] [place] Prescription Benefit: yes Living Will/HPOA: pt has both LW and HCPOA, who is her , Gaurav. Pt thinks dtr, Dayanna is 1st alternative. LNOK: , Gaurav. Dtr, Dayanna. Son, Elliot Living Arrangements: Patient lives with and dtr, Dayanna, in a 1.5 story home w/no steps to enter. [employer]. Patient states she is independent at home w/ADL's. Dayanna helps to manage medications and sets up weekly pill containers. and Dayanna do most home mgnt tasks d/t pt fatigue. Pt assists when able. Transportation: and dtr DME: Patient has shower chair and walker @ home. They deny needing further DME. SNF/HHC: No previous HHC or SNF. Patient wishes to discharge home, denies need for home health at this time. Patient and family state no needs or concerns at this time. CM to follow for discharge planning needs that may arise. Plan: Discharge home with family support Nisreen MAURICIO RN, CM
[2023-08-31] MEDS: Pantoprazole Sodium 80 MG in 0.9% Normal Saline (100mL Bag) 80 ML 10 MG CONT INF (18:13)
[2023-08-31] MEDS: Octreotide 0.5 MG in Dextrose 5%-Water (250mL Bag) 250 ML 12.5 MG CONT INF (20:26)
[2023-09-01 02:33] VITALS: BP 125/61; PULSE 65; RESP 16; TEMP 36.8; O2SAT 96
[2023-09-01] MEDS: Pantoprazole Sodium 80 MG in 0.9% Normal Saline (100mL Bag) 80 ML 10 MG CONT INF (03:57)
[2023-09-01 05:13] VITALS: BMI 24.7
[2023-09-01 06:23] LABS: Absolute Lymphocyte Count 0.57 X10^3/uL (0.83-4.51); Absolute Neutrophil Count 8.9 X10^3/uL (2.0-7.7); Basophil# 0.02 X10^3/uL; Basophil% 0.2 % (0-1); Eosinophil# 0.01 X10^3/uL; Eosinophils% 0.1 % (0-5); Hematocrit 28.3 % (37-47); Hemoglobin 8.5 g/dL (12.0-15.0); Lymphocyte # 0.57 X10^3/ul (0.83-4.51); Lymphocyte % 5.6 % (19-41); Mean Corpuscular Hgb 27.2 pg (27.0-32.0); Mean Corpuscular Volume 90.4 fL (81-99); Mean Platelet Vol. 12.1 fl (6.2-12.0); Monocyte# 0.56 X10^3/uL; Monocyte% 5.5 % (0-10); NRBC Flagged by Analyzer 0 % (0-5); Neutrophil # 8.89 X10^3/uL (2.7-7.7); Neutrophil % 87.7 % (47-70); POSITIVE DIFFERENTIAL YES; Platelet Count 133 K/mm3 (150-450); RBC Distribution Width CV 17.2 % (11.6-14.6); RBC Distribution Width SD 55.8 fl (35.1-43.9); Red Blood Count 3.13 M/mm3 (4.2-5.4); White Blood Count 10.1 K/mm3 (4.4-11.0)
[2023-09-01] MEDS: Levothyroxine 50 MCG Tablet PO (06:23)
[2023-09-01] MEDS: Piperacil/Tazobactam 3.375 GM in 0.9% Normal Saline (50mL MB+) 50 ML IV ×3 (06:24→22:07)
[2023-09-01 06:30] LABS: International Normalized Ratio 1.3; Prothrombin Time (Protime)PT. 16.3 SECONDS (11.7-14.9)
[2023-09-01 06:45] LABS: ALB/GLOB Ratio 0.5 RATIO (0.9-2.4); AST(SGOT) 24 U/L (15-37); Alanine Aminotransfer ALT/SGPT 21 U/L (13-56); Albumin, Serum 2.1 g/dL (3.2-5.0); Alkaline Phosphatase 133 U/L (45-117); Anion Gap 8 (5-15); BUN 11 mg/dL (7-18); BUN/Creat Ratio 12.7 RATIO (10-20); Calcium,Total 7.4 mg/dL (8.5-10.1); Chloride 109 mmol/L (98-107); Creatinine, Serum 0.87 mg/dL (0.55-1.02); EST Glomerular Filtration Rate 67 mL/min (>60); Est Glom Filt Rate - Afr Amer 81 mL/min (>60); Estimated Creatinine Clearance 47.48 ml/min; Globulin 4.2 g/dL (2.2-4.2); Glucose 176 mg/dL (74-106); Potassium 4.4 mmol/L (3.5-5.1); Protein, Total 6.3 g/dL (6.4-8.2); Sodium Level 138 mmol/L (136-145)
[2023-09-01 06:47] LABS: Differential Indicated SCAN CRITERIA MET
[2023-09-01 07:42] VITALS: O2SAT 96
--- NOTE | 2023-09-01 07:50 | PN.HOSP_ITS ---
Reason for Visit Reason for Visit: Diagnoses Elevated white blood cell count, unspecified (08/30/23) Autoimmune hepatitis (08/30/23) Chronic cholecystitis (08/30/23) Cholecystitis, unspecified (08/30/23) Gastrointestinal hemorrhage, unspecified (08/30/23) Abnormal findings on diagnostic imaging of other parts of digestive tract (08/30/23) Objective Data Objective Data Vital Signs: Vital Signs Temp Pulse Resp BP Pulse Ox O2 Del Method O2 Flow Rate 98.2 F 65 16 125/61 H 96 Nasal Cannula 2 09/01/23 02:33 09/01/23 02:33 09/01/23 02:33 09/01/23 02:33 09/01/23 02:33 09/01/23 02:33 09/01/23 02:33 Oxygen Flow Rate (L/min) 2 Oxygen Delivery Method Nasal Cannula Weight: 153 lb 0.013 oz Body Mass Index (BMI) 24.7 Intake & Output: Intake and Output for Last 24 Hours 08/30/23 08/31/23 09/01/23 23:59 23:59 23:59 Intake Total 1567.5 / 1567.5 2993.21 / 2993.21 258.88 / 258.88 Output Total 345 / 345 210 / 210 Balance 1567.5 / 1567.5 2648.21 / 2648.21 48.88 / 48.88 Lab / Micro Data 09/01/23 05:43 09/01/23 05:43 Labs: Laboratory Results - last 24 hr 08/31/23 06:11: Phosphorus 3.5, Magnesium 2.3, TSH 0.41 08/31/23 10:05: Fluid Source OTHER, Fluid Color LT YEL, Fluid Appearance CLEAR, Fluid WBC 1.343, Fluid RBC 185, Fluid Tot Cell Count 1.372 H, Fld Polynuclear WBCs # 0.742, Fld Polynuclear WBCs % 55.3, Fluid Mononuclear WBCs 0.601, Fld Mononuclear WBCs % 44.7, Fluid Neutrophils 77, Fluid Lymphocytes 15, Fluid Monocytes 6, Fluid Other Cells 2, Fl Pathologist Comment May follow, Fluid Comment 2 Not Reportable 09/01/23 05:43: WBC 10.1, RBC 3.13 L, Hgb 8.5 L, Hct 28.3 L, MCV 90.4, MCH 27.2, MCHC 30.0 L, RDW Std Deviation 55.8 H, RDW Coeff of Nabil 17.2 H, Plt Count 133 L, MPV 12.1 H, Immature Gran % (Auto) 0.900, Neut % (Auto) 87.7 H, Lymph % (Auto) 5.6 L, [place] % (Auto) 5.5, Eos % (Auto) 0.1, Baso % (Auto) 0.2, Absolute Neuts (auto) 8.9 H, Absolute Lymphs (auto) 0.57 L, Nucleated RBC % 0, PT 16.3 H, INR 1.3, Sodium 138, Potassium 4.4, Chloride 109 H, Carbon Dioxide 21.0, Anion Gap 8, BUN 11, Creatinine 0.87, Estim Creat Clear Calc 47.48, Est GFR (MDRD) Af Amer 81, Est GFR (MDRD) Non-Af 67, BUN/Creatinine Ratio 12.7, Glucose 176 H, Calcium 7.4 L, Total Bilirubin 0.80, AST 24, ALT 21, Alkaline Phosphatase 133 H, Total Protein 6.3 L, Albumin 2.1 L, Globulin 4.2, Albumin/Globulin Ratio 0.5 L Micro: Microbiology 08/31/23 10:05 Fluid - Gallbladder Gram Stain - Final 08/30/23 15:23 Stool Stool Occult Blood (PRUDENCE) - Final Occult Blood Positive Physical Exam Narrative Seen and examined. Patient came back to room in the evening. She had CT-guided cholecystostomy tube and then went for ERCP. Abdominal pain is controlled. No fever. All patient feeling better than yesterday Physical exam General: Alert, Oriented x3, Cooperative HEENT: Atraumatic, PERRLA, EOMI, Normocephalic Oral: No Gingival or Mucosal Lesions/ Ulcerations Neck: Supple, No JVD, Negative Carotid Bruits Lungs: Air entry diminished in right lung base. No crepitation/rhonchi Cardiovascular: Regular rate, Regular Rhythm, Normal S1, Normal S2, No murmurs Abdomen: Cholecystostomy tube draining bilious fluid. Mild tenderness present along right subcostal margin. Bowel Sounds sluggish, Soft, Non-Distended : No renal angle tenderness. No suprapubic tenderness. Extremities: No edema, Capillary Refill Less than 3 Seconds Skin: Mild bruise and ecchymosis present. Musculoskeletal: No Tenderness to Palpation of Joints or Extremities Neurological: Cranial nerves II-XII grossly intact, DTR 2+/4. No acute focal neurological deficit. Psych/Mental Status: Normal Affect, Appropriate. Assessment & Plan Assessment/Plan (1) GI bleed: (2) Cholecystitis: PLAN: Plan The patient is an 83 y/o F with recent ERCP on 08/15/23 for choledocholithasis with biliary sphincterotomy with temporary stent placed in the common bile duct. Patient admitted with upper abdominal pain, intermittent darker stool. His trend of decreasing hemoglobin as mentioned below. Patient denied recent fever or chills. #1. Acute low urine and acute cholecystitis with recently diagnosed choledocholithiasis status post ERCP with temporary stent placement: The patient was admitted in PCU. The patient was found to have choledocholithiasis, 4 mm d istal CBD stone for which she required ERCP on 08/15/2023. Entire main bile duct was moderately dilated with obstructing stone. Complete removal by biliary sphincterotomy and balloon extraction and 1 temporary stent placed in CBD. Denies started on IV fluid, pantoprazole drip, IV Zosyn and GI consult. General surgery was consulted and plan for IR directed cholecystostomy tube in the morning given high risk for operative surgery 08/31: Patient had CT-guided cholecystostomy tube.Total bilirubin 2.1 increased. ALT AST improving. Alkaline phosphatase also improving. Bile fluid culture pending. Empirically on IV Zosyn. ERCP was done lower one third of main bile duct was dilated with a stone causing obstruction, removal was not attempted. Most stent inserted. 1 stent was removed. Findings of ERCP explained to the patient. Leukocytosis improved. INR 1.6. 09/01: Liver chemistry shows improvement in transaminases and alkaline phosphatase. Total bili 0.8, became normal.Cell count of bile fluid 1.3 thousand nucleated elevated polymorphs 55%, mononuclear 44%. Gram stain of bile fluid shows 1+ GPC.Blood cultures x 2 pending. #2. Acute on Chronic GI Bleed w/ Acute on Chronic Blood Loss Anemia, chronic iron deficiency anemia: Patient had darker stool.Admission hemoglobin 9.9, decreased from previous 11 baseline on June 21, 2023. On Protonix drip, octreotide drip. Her hemoglobin dropped to 7.2 last night and 1 unit of PRBC transfused, posttransfusion hemoglobin 8.6. 09/01: H&H low but constant at 8.5/28%. Platelet count 133,000 slight improvement from yesterday. Baseline around 1 75,000-200,000. #3. Acute knee injury on CKD stage II per GFR trending: Around 0.85. Patient admitted with 1.23 now improved to 0.81 within 24 hours. May be related to decreased oral intake. JESIKA resolved. #4. 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 On 08/31, azathioprine was held. #5. Valvular heart disease: Patient with significant aortic valvular heart disease and need of a TAVR which originally was scheduled 09/17/2022 at [facility] however patient this time is not appropriate given presentation and recommended that the office be contacted to delay the surgery until she is clinically cleared from her current presentation as noted. 06/19/2023 with normal LV size, LV systolic function normal, EF 60%, grade 2 LV diastolic dysfunction, mildly dilated left atrial cavity, mild 1+ TR, tricuspid aortic valve with paradoxical low-flow, low gradient moderately severe aortic valve stenosis caused by calcified valve and restricted opening, AV area 0.56 cm? by continuity, VTI. #6. CAD: Status post previous stents, given GI bleed temporally holding aspirin, holding metoprolol given hypotension, not on statin therapy, resume aspirin once cleared per gastroenterology. #7. HFpEF: 06/19/2023 with normal LV size, LV systolic function normal, EF 60%, grade 2 LV diastolic dysfunction, mildly dilated left atrial cavity, mild 1+ TR, tricuspid aortic valve with paradoxical low-flow, low gradient moderately severe aortic valve stenosis caused by calcified valve and restricted opening, AV area 0.56 cm? by continuity, VTI. Will judiciously hydrate given this history, holding aspirin given presentation with GI bleed with resumption once GI clears, holding metoprolol given hypotension with addition once BP improved, not on statin therapy. #8. Hypertension: Upon presentation patient initially significantly hypotensive, improved somewhat with IV fluids in the ED although baseline is low normal, will add back any regimen once cleared proved. #9. History Yari's thyroiditis with hypothyroidism: We will continue patient home levothyroxine regimen. #10. Hyperlipidemia: Not on regimen, defer to outpatient. #11. DVT prophylaxis: SCDs, hold any chemoprophylaxis given presentation as noted. #12. CODE status: Patient HCPOA is her was present and living will is currently in place. Discussed CODE status at length including difference between FULL code, DNR-CCA and DNR-CC status. Following discussions about the differences in these status, requested Full Code status. Charges/Coding Visit Charges Inpatient E&M: 11664 Subs Hosp L2
[2023-09-01 07:52] LABS: Anisocytosis 1+
--- NOTE | 2023-09-01 08:26 | PCM.PN.SRG ---
Subjective Subjective Patient had cholecystostomy tube placed yesterday and reports no pain today. Objective Data Objective Data Vital Signs: Vital Signs Temp Pulse Resp BP Pulse Ox O2 Del Method O2 Flow Rate 98.2 F 65 16 125/61 H 96 Nasal Cannula 2 09/01/23 02:33 09/01/23 02:33 09/01/23 02:33 09/01/23 02:33 09/01/23 02:33 09/01/23 02:33 09/01/23 02:33 Oxygen Flow Rate (L/min) 2 Oxygen Delivery Method Nasal Cannula Weight: 153 lb 0.013 oz Body Mass Index (BMI) 24.7 Intake & Output: Intake and Output for Last 24 Hours 08/30/23 08/31/23 09/01/23 23:59 23:59 23:59 Intake Total 1567.5 / 1567.5 2993.21 / 2993.21 258.88 / 258.88 Output Total 345 / 345 210 / 210 Balance 1567.5 / 1567.5 2648.21 / 2648.21 48.88 / 48.88 Lab / Micro Data 09/01/23 05:43 09/01/23 05:43 Labs: Laboratory Results - last 24 hr 08/31/23 10:05: Fluid Source OTHER, Fluid Color LT YEL, Fluid Appearance CLEAR, Fluid WBC 1.343, Fluid RBC 185, Fluid Tot Cell Count 1.372 H, Fld Polynuclear WBCs # 0.742, Fld Polynuclear WBCs % 55.3, Fluid Mononuclear WBCs 0.601, Fld Mononuclear WBCs % 44.7, Fluid Neutrophils 77, Fluid Lymphocytes 15, Fluid Monocytes 6, Fluid Other Cells 2, Fl Pathologist Comment May follow, Fluid Comment 2 Not Reportable 09/01/23 05:43: WBC 10.1, RBC 3.13 L, Hgb 8.5 L, Hct 28.3 L, MCV 90.4, MCH 27.2, MCHC 30.0 L, RDW Std Deviation 55.8 H, RDW Coeff of Nabil 17.2 H, Plt Count 133 L, MPV 12.1 H, Immature Gran % (Auto) 0.900, Neut % (Auto) 87.7 H, Lymph % (Auto) 5.6 L, [place] % (Auto) 5.5, Eos % (Auto) 0.1, Baso % (Auto) 0.2, Absolute Neuts (auto) 8.9 H, Absolute Lymphs (auto) 0.57 L, Nucleated RBC % 0, Anisocytosis 1+, PT 16.3 H, INR 1.3, Sodium 138, Potassium 4.4, Chloride 109 H, Carbon Dioxide 21.0, Anion Gap 8, BUN 11, Creatinine 0.87, Estim Creat Clear Calc 47.48, Est GFR (MDRD) Af Amer 81, Est GFR (MDRD) Non-Af 67, BUN/Creatinine Ratio 12.7, Glucose 176 H, Calcium 7.4 L, Total Bilirubin 0.80, AST 24, ALT 21, Alkaline Phosphatase 133 H, Total Protein 6.3 L, Albumin 2.1 L, Globulin 4.2, Albumin/Globulin Ratio 0.5 L Micro: Microbiology 08/31/23 10:05 Fluid - Gallbladder Gram Stain - Final 08/30/23 15:23 Stool Stool Occult Blood (PRUDENCE) - Final Occult Blood Positive Physical Exam Const oriented x3 Resp normal respiratory effort Cardio regular rate and regular rhythm GI soft to palpation Assessment & Plan Assessment/Plan (1) Cholecystitis, chronic: PLAN: The patient had cholecystostomy tube placed yesterday for cholecystitis. She also had ERCP with stent removal. No bleeding was identified. The patient's drain is bilious. She may be started on a diet and be discharged home on oral antibiotics. She should follow-up with her surgeon at the tertiary center to decide if her heart surgery will be delayed or if it will move forward. She also needs to ask her tertiary surgeon for referral to a general surgeon at her center for eventual cholecystectomy. She is too high risk for the center. Quinton Chakraborty MD Pager: [facility] [address] [place] [address], [address] [place] [address] Office:
[2023-09-01 08:46] VITALS: BP 124/84; PULSE 61; RESP 17; TEMP 36.7; O2SAT 98
[2023-09-01] MEDS: Ferrous Sulfate 325 MG Tablet PO (08:56)
[2023-09-01 09:00] VITALS: O2SAT 94
[2023-09-01] MEDS: predniSONE 5 MG Tablet 10 MG PO (09:00)
[2023-09-01] MEDS: Pantoprazole Sodium 40 MG Tablet PO ×2 (11:16→20:17)
[2023-09-01 12:02] LABS: Pathologist Comment/Body Fluid Reviewed
[2023-09-01 14:50] VITALS: BP 127/71; PULSE 62; RESP 17; TEMP 36.7; O2SAT 95
--- NOTE | 2023-09-01 16:03 | EX.PCM.PN.GI ---
Subjective Subjective Patient denies any abdominal pain, nausea or cramping. She underwent percutaneous cholecystostomy tube placement for acute cholecystitis and she underwent ERCP and EGD yesterday for choledocholithiasis and acute anemia. She was discovered to have a gastric ulcer that was treated endoscopically. The sphincterotomy site was evaluated and there was no signs of recent bleeding. Her, bile duct stent was removed. She is doing quite well and would like her to have her diet advanced. Objective Data Objective Data Vital Signs: Vital Signs Temp Pulse Resp BP Pulse Ox O2 Del Method O2 Flow Rate 98.1 F 62 17 127/71 H 95 Room Air 2 09/01/23 14:50 09/01/23 14:50 09/01/23 14:50 09/01/23 14:50 09/01/23 14:50 09/01/23 14:50 09/01/23 08:46 Oxygen Flow Rate (L/min) 2 Oxygen Delivery Method Room Air Weight: 153 lb 0.013 oz Body Mass Index (BMI) 24.7 Intake & Output: Intake and Output for Last 24 Hours 08/30/23 08/31/23 09/01/23 23:59 23:59 23:59 Intake Total 1567.5 / 1567.5 2993.21 / 2993.21 308.88 / 308.88 Output Total 345 / 345 230 / 230 Balance 1567.5 / 1567.5 2648.21 / 2648.21 78.88 / 78.88 Lab / Micro Data 09/01/23 05:43 09/01/23 05:43 Labs: Laboratory Results - last 24 hr 08/31/23 10:05: Fluid Source OTHER, Fluid Color LT YEL, Fluid Appearance CLEAR, Fluid WBC 1.343, Fluid RBC 185, Fluid Tot Cell Count 1.372 H, Fld Polynuclear WBCs # 0.742, Fld Polynuclear WBCs % 55.3, Fluid Mononuclear WBCs 0.601, Fld Mononuclear WBCs % 44.7, Fluid Neutrophils 77, Fluid Lymphocytes 15, Fluid Monocytes 6, Fluid Other Cells 2, Fl Pathologist Comment Reviewed 09/01/23 05:43: WBC 10.1, RBC 3.13 L, Hgb 8.5 L, Hct 28.3 L, MCV 90.4, MCH 27.2, MCHC 30.0 L, RDW Std Deviation 55.8 H, RDW Coeff of Nabil 17.2 H, Plt Count 133 L, MPV 12.1 H, Immature Gran % (Auto) 0.900, Neut % (Auto) 87.7 H, Lymph % (Auto) 5.6 L, [place] % (Auto) 5.5, Eos % (Auto) 0.1, Baso % (Auto) 0.2, Absolute Neuts (auto) 8.9 H, Absolute Lymphs (auto) 0.57 L, Nucleated RBC % 0, Anisocytosis 1+, PT 16.3 H, INR 1.3, Sodium 138, Potassium 4.4, Chloride 109 H, Carbon Dioxide 21.0, Anion Gap 8, BUN 11, Creatinine 0.87, Estim Creat Clear Calc 47.48, Est GFR (MDRD) Af Amer 81, Est GFR (MDRD) Non-Af 67, BUN/Creatinine Ratio 12.7, Glucose 176 H, Calcium 7.4 L, Total Bilirubin 0.80, AST 24, ALT 21, Alkaline Phosphatase 133 H, Total Protein 6.3 L, Albumin 2.1 L, Globulin 4.2, Albumin/Globulin Ratio 0.5 L Micro: Microbiology 08/31/23 10:05 Fluid - Gallbladder Gram Stain - Final 08/31/23 10:05 Fluid - Gallbladder Body Fluid Culture - 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 Electronically Signed: Bart Cuellar MD at 13:30 EST , Physical Exam Narrative Seen and examined. Patient came back to room in the evening. She had CT-guided cholecystostomy tube and then went for ERCP. Abdominal pain is controlled. No fever. All patient feeling better than yesterday Physical exam General: Alert, Oriented x3, Cooperative HEENT: Atraumatic, PERRLA, EOMI, Normocephalic Oral: No Gingival or Mucosal Lesions/ Ulcerations Neck: Supple, No JVD, Negative Carotid Bruits Lungs: Air entry diminished in right lung base. No crepitation/rhonchi Cardiovascular: Regular rate, Regular Rhythm, Normal S1, Normal S2, No murmurs Abdomen: Cholecystostomy tube draining bilious fluid. Mild tenderness present along right subcostal margin. Bowel Sounds sluggish, Soft, Non-Distended : No renal angle tenderness. No suprapubic tenderness. Extremities: No edema, Capillary Refill Less than 3 Seconds Skin: Mild bruise and ecchymosis present. Musculoskeletal: No Tenderness to Palpation of Joints or Extremities Neurological: Cranial nerves II-XII grossly intact, DTR 2+/4. No acute focal neurological deficit. Psych/Mental Status: Normal Affect, Appropriate. Assessment & Plan Assessment/Plan (1) Cholecystitis: (2) Leukocytosis: QUALIFIERS: Leukocytosis type: other Qualified Code(s): D72.828 - Other elevated white blood cell count (3) GI bleed: QUALIFIERS: GI bleed type/associated pathology: unspecified gastrointestinal hemorrhage type Qualified Code(s): K92.2 - Gastrointestinal hemorrhage, unspecified PLAN: Plan 83-year-old with multiple medical problems including atherosclerotic heart disease and aortic valve disease, CAD status post PTCA with stents who presents with right upper quadrant pain, fevers and acute blood loss anemia. -Cholecystitis-status post percutaneous cholecystostomy tube placement-it is draining well and patient is doing well. Recommended continue antibiotics until she has percutaneous tube removed -GI bleed-patient's GI bleed was taking care of endoscopically. It was thought to be secondary to medications. Hemoglobin is doing well. -Choledocholithiasis-status post ERCP with stone removal and stent placement. Stent is removed and LFTs remain normal. Advance diet as tolerated. Charges/Coding Visit Charges Inpatient E&M: 86532 Subs Hosp L3
[2023-09-01] MEDS: Octreotide 0.5 MG in Dextrose 5%-Water (250mL Bag) 250 ML 12.5 MG CONT INF (18:14)
[2023-09-01 20:14] VITALS: BP 124/80; PULSE 68; RESP 20; TEMP 36.9; O2SAT 93
[2023-09-01] MEDS: MELATONIN 3 MG TABLET PO (20:21)
[2023-09-02] MEDS: 0.9% Normal Saline (250mL Bag) 250 ML 15 ML IV (03:11)
[2023-09-02 03:15] VITALS: BP 150/66; PULSE 65; RESP 20; TEMP 36.7; O2SAT 94
[2023-09-02 03:32] VITALS: BMI 25.0
[2023-09-02] MEDS: Piperacil/Tazobactam 3.375 GM in 0.9% Normal Saline (50mL MB+) 50 ML IV (06:14)
[2023-09-02] MEDS: Levothyroxine 50 MCG Tablet PO (06:14)
[2023-09-02 07:50] VITALS: O2SAT 95
[2023-09-02 08:34] LABS: Absolute Lymphocyte Count 1.03 X10^3/uL (0.83-4.51); Basophil# 0.03 X10^3/uL; Basophil% 0.5 % (0-1); Eosinophil# 0.03 X10^3/uL; Eosinophils% 0.5 % (0-5); Hematocrit 30.1 % (37-47); Hemoglobin 9.1 g/dL (12.0-15.0); Lymphocyte # 1.03 X10^3/ul (0.83-4.51); Lymphocyte % 18.5 % (19-41); Mean Corp Hgb Conc 30.2 g/dL (32-36); Mean Corpuscular Volume 89.3 fL (81-99); Mean Platelet Vol. 12.3 fl (6.2-12.0); Monocyte# 0.38 X10^3/uL; Monocyte% 6.8 % (0-10); NRBC Flagged by Analyzer 0 % (0-5); Neutrophil # 4.04 X10^3/uL (2.7-7.7); Neutrophil % 72.6 % (47-70); Platelet Count 118 K/mm3 (150-450); RBC Distribution Width CV 17.2 % (11.6-14.6); RBC Distribution Width SD 55.6 fl (35.1-43.9); Red Blood Count 3.37 M/mm3 (4.2-5.4); White Blood Count 5.6 K/mm3 (4.4-11.0)
[2023-09-02 08:46] LABS: ALB/GLOB Ratio 0.5 RATIO (0.9-2.4); AST(SGOT) 16 U/L (15-37); Alanine Aminotransfer ALT/SGPT 18 U/L (13-56); Albumin, Serum 2.3 g/dL (3.2-5.0); Alkaline Phosphatase 136 U/L (45-117); Anion Gap 6 (5-15); BUN 15 mg/dL (7-18); BUN/Creat Ratio 14.4 RATIO (10-20); Calcium,Total 8.2 mg/dL (8.5-10.1); Chloride 108 mmol/L (98-107); Creatinine, Serum 1.04 mg/dL (0.55-1.02); EST Glomerular Filtration Rate 54 mL/min (>60); Est Glom Filt Rate - Afr Amer 65 mL/min (>60); Estimated Creatinine Clearance 39.72 ml/min; Globulin 4.4 g/dL (2.2-4.2); Glucose 140 mg/dL (74-106); Potassium 4.1 mmol/L (3.5-5.1); Protein, Total 6.7 g/dL (6.4-8.2); Sodium Level 139 mmol/L (136-145)
[2023-09-02 09:02] LABS: International Normalized Ratio 1.2; Prothrombin Time (Protime)PT. 15.4 SECONDS (11.7-14.9)
[2023-09-02 09:22] VITALS: BP 108/64; PULSE 72; RESP 17; TEMP 36.4; O2SAT 95
[2023-09-02] MEDS: Pantoprazole Sodium 40 MG Tablet PO (09:28)
[2023-09-02] MEDS: Ferrous Sulfate 325 MG Tablet PO (09:28)
[2023-09-02] MEDS: predniSONE 5 MG Tablet 10 MG PO (09:28)
--- NOTE | 2023-09-02 09:52 | PCM.DC ---
Discharge Instructions Diet Discharge Diet: No restrictions Activity Discharge Activity: Return to Normal Activity Weight Bearing Status: Weight bearing as tolerated Dressing / Incision Call your doctor if you observe: Fever of 101 or Higher, Coldness, Increased Pain, Numbness or Tingling, Change in Color, Inability to urinate, Inability to have a bowel movement, Using more than 1 pad per hour, Shortness of breath, Dizziness, Fainting spells, Swelling in the ankles, Chest pain, Prolonged hiccupping, Increased palpitations (irregular heartbeat) and Calf discomfort Follow Up Care When: IN 2 WEEKS Test Results: Test results from this visit will be discussed in further detail at your follow-up appointment, if applicable. Discharge Plan Admission Admit Date/Time: 08/30/23 17:22 Attending Provider: Lázaro Murphy Primary Care Provider: Gokul Sanchez Chi Consulting Providers: Quinton Chakraborty; Claudine Ku; Nallely Porras Instructions Patient Instructions: Mateo Gore Drain Tube Dc, Post Op Drain Emptying Steps Additional Instructions / Restrictions: 1. Repeat CBC with differential, liver chemistry and BMP in 1 week and follow-up with PCP/GI office. 2. Follow-up of [facility] key person for TAVR in 2 weeks. She was told that surgery is postponed for at least 2 weeks and to hepatobiliary infection clears up. Follow-up in general surgery in [facility] for definitive laparoscopic cholecystectomy till then patient will need to keep her cholecystostomy tube. Cholecystostomy tube care and emptying the drain education done. 3. [id number] Tylenol as needed for pain. Probiotics during antibiotic duration. Discharge Orders/Prescriptions Prescriptions: New metronidazole 500 mg tablet 500 mg PO Q8H 7 Days Qty: 21 0RF ciprofloxacin HCl 500 mg tablet 500 mg PO BID 10 Days Qty: 20 0RF Lactobacillus acidophilus 1 billion cell tablet 1,000 mmu cells PO BID 10 Days Qty: 20 0RF Continued levothyroxine 50 mcg tablet 50 mcg PO DAILY aspirin [Adult Low Dose Aspirin] 81 mg tablet,delayed release (DR/EC) 81 mg PO DAILY ferrous gluconate 236 mg (27 mg iron) tablet 236 mg PO DAILY dicyclomine 20 mg tablet 20 mg PO TID PRN (Reason: abdominal pain SPASM) Qty: 30 1RF ferrous sulfate [Feosol] 325 mg (65 mg iron) tablet 325 mg PO DAILY metoprolol tartrate 25 mg tablet 25 mg PO DAILY Qty: 90 3RF Changed prednisone 5 mg tablet 5 mg PO DAILY Qty: 30 2RF Patient Comments: started 10mg last monday Rx Instructions: Take 10 mg, (2 tabs) for 10 days, then 5 mg daily from 09/03/2023 to continue Held azathioprine 75 mg tablet 75 mg PO DAILY Qty: 30 2RF Hold Instructions: Hold for 1 week, repeat CBC with differential and follow-up with PCP before resumption. Referrals / Follow Up: Darwin Newby DO [Med Staff - Active Staff] - Within 1 Month Gokul Sanchez Chi, MD [Primary Care Provider] - Within 1 Week Quinton Chakraborty MD [Med Staff - Active Staff] - Within 2 Weeks (For cholecystostomy tube/bile drainage issues.) Disposition Disposition (needs filled in before D/C Order can be placed): Home Health Service
--- NOTE | 2023-09-02 10:24 | PN.GI_ITS ---
Subjective Subjective Patient is white count continues to be normal and she is not have any abdominal pain. Hemoglobin is also improving. Objective Data Objective Data Vital Signs: Vital Signs Temp Pulse Resp BP Pulse Ox O2 Del Method O2 Flow Rate 97.6 F L 72 17 108/64 95 Room Air 2 09/02/23 09:22 09/02/23 09:22 09/02/23 09:22 09/02/23 09:22 09/02/23 09:22 09/02/23 09:22 09/01/23 08:46 Oxygen Flow Rate (L/min) 2 Oxygen Delivery Method Room Air Weight: 155 lb 3.287 oz Body Mass Index (BMI) 25.0 Intake & Output: Intake and Output for Last 24 Hours 08/31/23 09/01/23 09/02/23 23:59 23:59 23:59 Intake Total 2993.21 / 2993.21 1133.00 / 1533.00 713.5 / 713.5 Output Total 345 / 345 420 / 420 200 / 200 Balance 2648.21 / 2648.21 713.00 / 1113.00 513.5 / 513.5 Lab / Micro Data 09/02/23 07:36 09/02/23 07:36 Labs: Laboratory Results - last 24 hr 08/31/23 10:05: Fluid Source OTHER, Fluid Color LT YEL, Fluid Appearance CLEAR, Fluid WBC 1.343, Fluid RBC 185, Fluid Tot Cell Count 1.372 H, Fld Polynuclear WBCs # 0.742, Fld Polynuclear WBCs % 55.3, Fluid Mononuclear WBCs 0.601, Fld Mononuclear WBCs % 44.7, Fluid Neutrophils 77, Fluid Lymphocytes 15, Fluid Monocytes 6, Fluid Other Cells 2, Fl Pathologist Comment Reviewed 09/02/23 07:36: WBC 5.6, RBC 3.37 L, Hgb 9.1 L, Hct 30.1 L, MCV 89.3, MCH 27.0, MCHC 30.2 L, RDW Std Deviation 55.6 H, RDW Coeff of Nabil 17.2 H, Plt Count 118 L, MPV 12.3 H, Immature Gran % (Auto) 1.100 H, Neut % (Auto) 72.6 H, Lymph % (Auto) 18.5 L, Trigg % (Auto) 6.8, Eos % (Auto) 0.5, Baso % (Auto) 0.5, Absolute Neuts (auto) 4.0, Absolute Lymphs (auto) 1.03, Nucleated RBC % 0, PT 15.4 H, INR 1.2, Sodium 139, Potassium 4.1, Chloride 108 H, Carbon Dioxide 25.0, Anion Gap 6, BUN 15, Creatinine 1.04 H, Estim Creat Clear Calc 39.72, Est GFR (MDRD) Af Amer 65, Est GFR (MDRD) Non-Af 54 L, BUN/Creatinine Ratio 14.4, Glucose 140 H, Calcium 8.2 L, Total Bilirubin 0.60, AST 16, ALT 18, Alkaline Phosphatase 136 H, Total Protein 6.7, Albumin 2.3 L, Globulin 4.4 H, Albumin/Globulin Ratio 0.5 L Micro: Microbiology 08/31/23 10:05 Fluid - Gallbladder Gram Stain - Final 08/31/23 10:05 Fluid - Gallbladder Body Fluid Culture - Preliminary Klebsiella aerogenes Gram positive organism 08/30/23 16:55 Blood Culture (Wb) - Anticubital Left Blood Culture - Preliminary No growth in 48 hours. 08/30/23 17:01 Blood Culture (Wb) - Right Hand Blood Culture - Preliminary No growth in 48 hours. 08/30/23 15:23 Stool Stool Occult Blood (PRUDENCE) - Final Occult Blood Positive Radiography Diagnostic Testing: Radiology Impression Endo Retro Cholangiopancreatogram 08/31/23 12:50 IMPRESSION: ERCP as described above. Electronically Signed: Bart Cuellar MD at 13:30 EST , Physical Exam Narrative Seen and examined. Patient came back to room in the evening. She had CT-guided cholecystostomy tube and then went for ERCP. Abdominal pain is controlled. No fever. All patient feeling better than yesterday Physical exam General: Alert, Oriented x3, Cooperative HEENT: Atraumatic, PERRLA, EOMI, Normocephalic Oral: No Gingival or Mucosal Lesions/ Ulcerations Neck: Supple, No JVD, Negative Carotid Bruits Lungs: Air entry diminished in right lung base. No crepitation/rhonchi Cardiovascular: Regular rate, Regular Rhythm, Normal S1, Normal S2, No murmurs Abdomen: Cholecystostomy tube draining bilious fluid. Mild tenderness present along right subcostal margin. Bowel Sounds sluggish, Soft, Non-Distended : No renal angle tenderness. No suprapubic tenderness. Extremities: No edema, Capillary Refill Less than 3 Seconds Skin: Mild bruise and ecchymosis present. Musculoskeletal: No Tenderness to Palpation of Joints or Extremities Neurological: Cranial nerves II-XII grossly intact, DTR 2+/4. No acute focal neurological deficit. Psych/Mental Status: Normal Affect, Appropriate. Assessment & Plan Assessment/Plan (1) Cholecystitis: (2) Leukocytosis: QUALIFIERS: Leukocytosis type: other Qualified Code(s): D72.828 - Other elevated white blood cell count (3) GI bleed: QUALIFIERS: GI bleed type/associated pathology: unspecified srikanth rointestinal hemorrhage type Qualified Code(s): K92.2 - Gastrointestinal h emorrhage, unspecified PLAN: Plan 83-year-old with multiple medical problems including atherosclerotic heart disease and aortic valve disease, CAD status post PTCA with stents who presents with right upper quadrant pain, fevers and acute blood loss anemia. -Cholecystitis-status post percutaneous cholecystostomy tube placement-it is draining well and patient is doing well. Recommended continue antibiotics until she has percutaneous tube removed -GI bleed-patient's GI bleed was taking care of endoscopically. It was thought to be secondary to medications. Hemoglobin is doing well. -Choledocholithiasis-status post ERCP with stone removal and stent placement. Stent is removed and LFTs remain normal. Advance diet as tolerated. 09/02-patient's status continues to improve. She is tolerating a diet without any abdominal pain. She had a couple loose stools overnight but no gross diarrhea or fecal incontinence. She continues to advance well. Charges/Coding Visit Charges Inpatient E&M: 39836 [facility] L3
--- NOTE | 2023-09-02 10:41 | CASEMGMT ---
RN CM updated by hospitalist that patient will be discharging with LALITO drain and would like [facility] for long-term. RN CM in to discuss with patient and daughter. A list of HHC providers including quality and resource use data and consistent with the patient?s preferred geographical region, medical needs, and insurance network were provided from the [employer]. Daughter lives with patient and willing to learn LALITO drain care, nursing updated to complete teaching with daughter. Daughter and patient prefer [facility] for HHC. RN CM called and left message with [facility] with referral. CM to follow-up Tu with [facility]. Patient and daughter agreeable to discharge and follow up with C on Monday. Hospitalist updated.
--- NOTE | 2023-09-02 11:55 | NURSING ---
Patient's daughter, Dayanna, educated on how to empty LALITO drain.
--- NOTE | 2023-09-02 13:43 | DS.PCM_ITS ---
Providers Date of Admission: 08/30/23 Date of Discharge: 09/02/23 Primary Care Physician: Dr. Gokul Sanchez MD Consultations 08/30/23 20:08 Consult: Gastroenterology Routine Consulting Provider: [facility] Reason for Consult: Cirrhosis, GI bleed, cholecystitis EMERGENT Consult: No Notified: Yes Date Notified: 08/30/23 Time Notified: 18:46 Method of Notification: Verbal Consult: Interventional Radiology Routine Consulting Provider: Claudine uK Reason for Consult: Cholecystitis, consider cholecystostomy tube EMERGENT Consult: No Notified: Yes Date Notified: 08/30/23 Time Notified: 18:46 Method of Notification: Verbal 08/31/23 07:00 Consult: General Surgery Routine Consulting Provider: Quinton Chakraborty Reason for Consult: Cholecystitis EMERGENT Consult: No Notified: Yes Date Notified: 08/30/23 Time Notified: 18:50 Method of Notification: Verbal Reason For Visit: CHOLECYSTITS, ACUTE GI BLEED Diagnosis Discharge Diagnosis (1) Cholecystitis: Status: Acute Code(s): K81.9 - Cholecystitis, unspecified (2) Leukocytosis: Status: Acute Code(s): D72.829 - Elevated white blood cell count, unspecified Qualifiers: Leukocytosis type: other Qualified Code(s): D72.828 - Other elevated white blood cell count (3) GI bleed: Status: Acute Code(s): K92.2 - Gastrointestinal hemorrhage, unspecified Qualifiers: GI bleed type/associated pathology: unspecified gastrointestinal h emorrhage type Qualified Code(s): K92.2 - Gastrointestinal hemorrhage, uns pecified Plan The patient is an 83 y/o F with recent ERCP on 08/15/23 for choledocholithasis with biliary sphincterotomy with temporary stent placed in the common bile duct. Patient admitted with upper abdominal pain, intermittent darker stool. His trend of decreasing hemoglobin as mentioned below. Patient denied recent fever or chills. #1. Acute cholecystitis with recently diagnosed choledocholithiasis status post ERCP with temporary stent placement: The patient was admitted in PCU. The patient was found to have choledocholithiasis, 4 mm distal CBD stone for which she required ERCP on 08/15/2023. Entire main bile duct was moderately dilated with obstructing stone. Complete removal by biliary sphincterotomy and balloon extraction and 1 temporary stent placed in CBD. Denies started on IV fluid, pantoprazole drip, IV Zosyn and GI consult. General surgery was consulted and plan for IR directed cholecystostomy tube in the morning given high risk for operative surgery 08/31: Patient had CT-guided cholecystostomy tube.Total bilirubin 2.1 increased. ALT AST improving. Alkaline phosphatase also improving. Bile fluid culture pending. Empirically on IV Zosyn. ERCP was done lower one third of main bile duct was dilated with a stone causing obstruction, removal was not attempted. Most stent inserted. 1 stent was removed. Findings of ERCP explained to the patient. Leukocytosis improved. INR 1.6. 09/01: Liver chemistry shows improvement in transaminases and alkaline phosphatase. Total bili 0.8, became normal.Cell count of bile fluid 1.3 thousand nucleated elevated polymorphs 55%, mononuclear 44%. Gram stain of bile fluid shows 1+ GPC.Blood cultures x 2 pending. 09/02: Bile fluid culture shows Klebsiella 1+ gram-positive organism 2+. As per the sensitivity, patient is discharged on ciprofloxacin 500 mg twice daily for 10 days and Flagyl 500 mg 3 times daily for 7 more days. Patient is being discharged with a cholecystostomy tube. Dressing change and emptying of the drain was educated. Follow-up in general surgery office for any further issues of cholecystostomy tube. Surgeon advised tertiary care General surgery as an outpatient for definitive lap cholecystectomy surgery as patient is high risk. #2. Acute on Chronic GI Bleed w/ Acute on Chronic Blood Loss Anemia, chronic iron deficiency anemia: Patient had darker stool.Admission hemoglobin 9.9, decreased from previous 11 baseline on June 21, 2023. On Protonix drip, octreotide drip. Her hemoglobin dropped to 7.2 last night and 1 unit of PRBC transfused, posttransfusion hemoglobin 8.6. 09/01: H&H low but constant at 8.5/28%. Platelet count 133,000 slight improvement from yesterday. Baseline around 1 75,000-200,000. 09/02: Patient had EGD on 08/31: Patient is discharged on PPI. Impression: - Moderate Schatzki ring. Dilated. - Non-bleeding gastric ulcer with no stigmata of bleeding. Treated with a heater probe. - Normal second portion of the duodenum. #3. Acute knee injury on CKD stage II per GFR trending: Around 0.85. Patient admitted with 1.23 now improved to 0.81 within 24 hours. May be related to decreased oral intake. JESIKA resolved. 09/02: JESIKA resolved. #4. 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 On 08/31, azathioprine was held. 09/02: Azathioprine was held. Patient advised CBC with differential in 1 week f rom PCP and follow-up with PCP/GI office before resumption of azathioprine. #5. Valvular heart disease: Patient with significant aortic valvular heart disease and need of a TAVR which originally was scheduled 09/17/2022 at [facility] however patient this time is not appropriate given presentation and recommended that the office be contacted to delay the surgery until she is clinically cleared from her current presentation as noted. 06/19/2023 with normal LV size, LV systolic function normal, EF 60%, grade 2 LV diastolic dysfunction, mildly dilated left atrial cavity, mild 1+ TR, tricuspid aortic valve with paradoxical low-flow, low gradient moderately severe aortic valve stenosis caused by calcified valve and restricted opening, AV area 0.56 cm? by continuity, VTI. 09/02: Discussed with the daughter. Patient proposed TAVR is postponed for further 2 weeks and his sql server bi developer sent on total hepatobiliary infection is cleared. Advised to continue follow-up. #6. CAD: Status post previous stents, given GI bleed temporally holding aspirin, holding metoprolol given hypotension, not on statin therapy, resume aspirin once cleared per gastroenterology. #7. HFpEF: 06/19/2023 with normal LV size, LV systolic function normal, EF 60%, grade 2 LV diastolic dysfunction, mildly dilated left atrial cavity, mild 1+ TR, tricuspid aortic valve with paradoxical low-flow, low gradient moderately severe aortic valve stenosis caused by calcified valve and restricted opening, AV area 0.56 cm? by continuity, VTI. Will judiciously hydrate given this history, holding aspirin given presentation with GI bleed with resumption once GI clears, holding metoprolol given hypotension with addition once BP improved, not on statin therapy. #8. Hypertension: Upon presentation patient initially significantly hypotensive, improved somewhat with IV fluids in the ED although baseline is low normal, will add back any regimen once cleared proved. #9. History Yari's thyroiditis with hypothyroidism: We will continue patient home levothyroxine regimen. #10. Hyperlipidemia: Not on regimen, defer to outpatient. #11. DVT prophylaxis: SCDs, hold any chemoprophylaxis given presentation as no rubio. #12. CODE status: Patient MARGARITA is her was present and living will is currently in place. Discussed CODE status at length including difference between FULL code, DNR-CCA and DNR-CC status. Following discussions about the differences in these status, requested Full Code status. Discharge medication reconciliation done. Discharge follow-up instructions completed. Discharge process discussed with the patient and all questions were answered to patient's satisfaction. Follow with PCP in 1 to 2 weeks Total time spent, exact 35 minutes on discharge meds reconciliation, examinatio n, coordination of care with nurses and ancillary staff, review of imaging and blood test and discussion with the patient on follow-up instructions. Medications at Discharge Home Medications levothyroxine 50 mcg tablet 50 mcg PO DAILY 11/11/20 metoprolol tartrate 25 mg tablet 25 mg PO DAILY BP #90 tabs 12/26/22 aspirin 81 mg tablet,delayed release (Adult Low Dose Aspirin) 81 mg PO DAILY 06/05/23 ferrous gluconate 236 mg (27 mg iron) tablet 236 mg PO DAILY 06/05/23 azathioprine 75 mg tablet 75 mg PO DAILY #30 tabs 08/23/23 dicyclomine 20 mg tablet 20 mg PO TID PRN abdominal pain SPASM #30 tabs 08/23/23 ferrous sulfate 325 mg (65 mg iron) tablet (Feosol) 325 mg PO DAILY 08/30/23 Lactobacillus acidophilus 1 billion cell tablet 1,000 mmu cells PO BID 10 days #20 tabs 09/02/23 ciprofloxacin HCl 500 mg tablet 500 mg PO BID 10 days #20 tabs 09/02/23 metronidazole 500 mg tablet 500 mg PO Q8H 7 days #21 tabs 09/02/23 pantoprazole 40 mg tablet,delayed release (Protonix) 40 mg PO DAILY 1 month #30 tabs 09/02/23 prednisone 5 mg tablet 5 mg PO DAILY #30 tabs 09/02/23 Physical Exam Narrative Seen and examined. No fever. LALITO drain emptying well. Patient abdominal pain has much improved. Physical exam General: Alert, Oriented x3, Cooperative HEENT: Atraumatic, PERRLA, EOMI, Normocephalic Oral: No Gingival or Mucosal Lesions/ Ulcerations Neck: Supple, No JVD, Negative Carotid Bruits Lungs: Air entry diminished in right lung base. No crepitation/rhonchi Cardiovascular: Regular rate, Regular Rhythm, Normal S1, Normal S2, No murmurs Abdomen: Cholecystostomy tube draining bilious fluid. No significant tenderness over RUQ or at cholecystostomy tube site. Bowel Sounds sluggish, Soft, Non- Distended : No renal angle tenderness. No suprapubic tenderness. Extremities: No edema, Capillary Refill Less than 3 Seconds Skin: Mild bruise and ecchymosis present. Musculoskeletal: No Tenderness to Palpation of Joints or Extremities Neurological: Cranial nerves II-XII grossly intact, DTR 2+/4. No acute focal neurological deficit. Psych/Mental Status: Normal Affect, Appropriate. Weight / BMI Weight Weight: 155 lb 3.287 oz Body Mass Index (BMI) 25.0 ABG / Lab / Microbiology Data 09/02/23 07:36 09/02/23 07:36 Laboratory: Laboratory Results - last 24 hr 08/31/23 10:05: Fluid Source OTHER, Fluid Color LT YEL, Fluid Appearance CLEAR, Fluid WBC 1.343, Fluid RBC 185, Fluid Tot Cell Count 1.372 H, Fld Polynuclear WBCs # 0.742, Fld Polynuclear WBCs % 55.3, Fluid Mononuclear WBCs 0.601, Fld Mononuclear WBCs % 44.7, Fluid Neutrophils 77, Fluid Lymphocytes 15, Fluid Monocytes 6, Fluid Other Cells 2, Fl Pathologist Comment Reviewed 09/02/23 07:36: WBC 5.6, RBC 3.37 L, Hgb 9.1 L, Hct 30.1 L, MCV 89.3, MCH 27.0, MCHC 30.2 L, RDW Std Deviation 55.6 H, RDW Coeff of Nabil 17.2 H, Plt Count 118 L, MPV 12.3 H, Immature Gran % (Auto) 1.100 H, Neut % (Auto) 72.6 H, Lymph % (Auto) 18.5 L, [place] % (Auto) 6.8, Eos % (Auto) 0.5, Baso % (Auto) 0.5, Absolute Neuts (auto) 4.0, Absolute Lymphs (auto) 1.03, Nucleated RBC % 0, PT 15.4 H, INR 1.2, Sodium 139, Potassium 4.1, Chloride 108 H, Carbon Dioxide 25.0, Anion Gap 6, BUN 15, Creatinine 1.04 H, Estim Creat Clear Calc 39.72, Est GFR (MDRD) Af Amer 65, Est GFR (MDRD) Non-Af 54 L, BUN/Creatinine Ratio 14.4, Glucose 140 H, Calcium 8.2 L, Total Bilirubin 0.60, AST 16, ALT 18, Alkaline Phosphatase 136 H, Total Protein 6.7, Albumin 2.3 L, Globulin 4.4 H, Albumin/Globulin Ratio 0.5 L Microbiology: Microbiology 08/31/23 10:05 Fluid - Gallbladder Gram Stain - Final 08/31/23 10:05 Fluid - Gallbladder Body Fluid Culture - Preliminary Klebsiella aerogenes Gram positive organism 08/30/23 16:55 Blood Culture (Wb) - Anticubital Left Blood Culture - Preliminary No growth in 48 hours. 08/30/23 17:01 Blood Culture (Wb) - Right Hand Blood Culture - Preliminary No growth in 48 hours. 08/30/23 15:23 Stool Stool Occult Blood (PRUDENCE) - Final Occult Blood Positive D/C Instructions Discharge Diet: No restrictions Weight Bearing Status: Weight bearing as tolerated Call your doctor if you observe: Fever of 101 or Higher, Coldness, Increased Pain, Numbness or Tingling, Change in Color, Inability to urinate, Inability to have a bowel movement, Using more than 1 pad per hour, Shortness of breath, Dizziness, Fainting spells, Swelling in the ankles, Chest pain, Prolonged hiccupping, Increased palpitations (irregular heartbeat) and Calf discomfort When: IN 2 WEEKS Meaningful Use Info Meaningful Use Diagnoses (Choose all that apply): None applicable Discharge Plan Admission Admit Date/Time: 08/30/23 17:22 Primary Reason for Your Visit: Acute cholecystitis with cholelithiasis. Attending Provider: Lázaro Murphy Primary Care Provider: Gokul Sanchez Chi Consulting Providers: Quinton Chakraborty; Claudine Ku; Nallely Porras Instructions Patient Instructions: Mateo Gore Drain Tube Dc, Post Op Drain Emptying Steps Additional Instructions / Restrictions: 1. Repeat CBC with differential, liver chemistry and BMP in 1 week and follow- up with PCP/GI office. 2. Follow-up of [facility] sql server bi developer for TAVR in 2 weeks. She was told that surgery is postponed for at least 2 weeks and to hepatobiliary infection clears up. Follow-up in general surgery in [facility] for definitive laparoscopic cholecystectomy till then patient will need to keep her cholecystostomy tube. Cholecystostomy tube care and emptying the drain education done. 3. [id number] Tylenol as needed for pain. Probiotics during antibiotic duration. Discharge Orders/Prescriptions Prescriptions: New metronidazole 500 mg tablet 500 mg PO Q8H 7 Days Qty: 21 0RF ciprofloxacin HCl 500 mg tablet 500 mg PO BID 10 Days Qty: 20 0RF Lactobacillus acidophilus 1 billion cell tablet 1,000 mmu cells PO BID 10 Days Qty: 20 0RF pantoprazole [Protonix] 40 mg tablet,delayed release (DR/EC) 40 mg PO DAILY 30 Days Qty: 30 3RF Continued levothyroxine 50 mcg tablet 50 mcg PO DAILY aspirin [Adult Low Dose Aspirin] 81 mg tablet,delayed release (DR/EC) 81 mg PO DAILY ferrous gluconate 236 mg (27 mg iron) tablet 236 mg PO DAILY dicyclomine 20 mg tablet 20 mg PO TID PRN (Reason: abdominal pain SPASM) Qty: 30 1RF ferrous sulfate [Feosol] 325 mg (65 mg iron) tablet 325 mg PO DAILY metoprolol tartrate 25 mg tablet 25 mg PO DAILY Qty: 90 3RF Changed prednisone 5 mg tablet 5 mg PO DAILY Qty: 30 2RF Patient Comments: started 10mg last monday Rx Instructions: Take 10 mg, (2 tabs) for 10 days, then 5 mg daily from 09/03/2023 to continue Held azathioprine 75 mg tablet 75 mg PO DAILY Qty: 30 2RF Hold Instructions: Hold for 1 week, repeat CBC with differential and follow- up with PCP before resumption. Other Ambulatory Orders: Basic Metabolic Profile (BMP) (Routine) Timeframe: 1 Week Facility: [facility] - Location: Laboratory Ordered By: Dr. Lázaro Murphy CBC W/Diff, Automated (Routine) Timeframe: 1 Week Facility: [facility] - Location: Laboratory Ordered By: Dr. Lázaro Murphy Liver Profile (Routine) Timeframe: 1 Week Facility: [facility] - Location: Laboratory Ordered By: Dr. Lázaro Murphy Referrals / Follow Up: Quinton Chakraborty MD [Med Staff - Active Staff] - Within 2 Weeks (For cholecystostomy tube/bile drainage issues.) Darwin Newby DO [Med Staff - Active Staff] - Within 1 Month Gokul Sanchez Chi, MD [Primary Care Provider] - Within 1 Week Disposition Disposition (needs filled in before D/C Order can be placed): Home Health Service Charges/Coding Visit Charges Inpatient E&M: 11727 Disch Hosp >30min
[2023-09-02 14:31] VITALS: BP 119/70; PULSE 66; RESP 17; TEMP 36.6; O2SAT 95
== END 2023-09-02 16:18 | disposition home health service (06) | DRG 445 ==
LOC: ED 17:06 → MS3 17:34 → PCU 08-31 06:36
PROVIDERS: Anesthesiology; Internal Medicine Gastroenterology; Admitting Provider Family Medicine; Emergency Provider Emergency Medicine; PCP Family Medicine Geriatric Medicine; Visit Provider Internal Medicine
PROC: 0DJ08ZZ Inspection of Upper Intestinal Tract, Via Natural or Artificial Opening Endoscopic (ICD-10-PCS; CPT 43235; principal; 2023-08-31 11:50)
PROC: 0W3P8ZZ Control Bleeding in Gastrointestinal Tract, Via Natural or Artificial Opening Endoscopic (ICD-10-PCS; CPT 43260; 2023-08-31 11:50)
DX: K80.42 Calculus of bile duct with acute cholecystitis without obstruction (principal); I13.0 Hypertensive heart and chronic kidney disease with heart failure and stage 1 through stage 4 chronic kidney disease, or unspecified chronic kidney disease; D62 Acute posthemorrhagic anemia; N17.9 Acute kidney failure, unspecified; I50.32 Chronic diastolic (congestive) heart failure; K92.1 Melena; K22.2 Esophageal obstruction; D89.2 Hypergammaglobulinemia, unspecified; K75.4 Autoimmune hepatitis; I08.3 Combined rheumatic disorders of mitral, aortic and tricuspid valves; E06.3 Autoimmune thyroiditis; E78.5 Hyperlipidemia, unspecified; I25.10 Atherosclerotic heart disease of native coronary artery without angina pectoris; K30 Functional dyspepsia; K31.4 Gastric diverticulum; N18.2 Chronic kidney disease, stage 2 (mild); K76.0 Fatty (change of) liver, not elsewhere classified; K44.9 Diaphragmatic hernia without obstruction or gangrene; K25.9 Gastric ulcer, unspecified as acute or chronic, without hemorrhage or perforation; B95.4 Other streptococcus as the cause of diseases classified elsewhere; B96.1 Klebsiella pneumoniae [K. pneumoniae] as the cause of diseases classified elsewhere; Z95.5 Presence of coronary angioplasty implant and graft; Z79.52 Long term (current) use of systemic steroids; Z79.82 Long term (current) use of aspirin; Z79.899 Other long term (current) drug therapy
CPT/HCPCS: 36415; 74177; 74330; 76000; 77012; 80048; 80053; 80076; 81025; 82274; 83690; 83735; 84100; 84145; 84443; 85014; 85018; 85025; 85610; 85730; 86850; 86900; 86901; 86920; 87040; 87070; 87075; 87077; 87186; 87205; 89050; 93005; 94668; 97162; 97165; 97530; 97802; 99156; 99157; 99283; J7030; J7040; J7050; J7120; P9016; Q9967; A4216; J2405

== ENCOUNTER 2023-09-04 10:54 | Emergency (ER) | payer MEDICARE, OTHER, SELFPAY ==
[2017-04-19 11:37] VITALS: BMI 26.3
[2023-09-04 10:55] VITALS: BP 126/65; PULSE 73; RESP 14; TEMP 36.8; O2SAT 100; BMI 23.8
--- NOTE | 2023-09-04 11:02 | EX.ED.GENINJ ---
HPI History of Present Illness Chief Complaint: Other, Pain/Inj PFSH PFSH Medical History (HFpEF) heart failure with preserved ejection fraction Atherosclerotic heart disease of [place] coronary artery without angina pectoris Autoimmune hepatitis Basal cell carcinoma (BCC) CAD (coronary artery disease) Chronic cholecystitis Essential hypertension Yari's thyroiditis Hepatic fibrosis History of echocardiogram History of stress test HLD (hyperlipidemia) Hypergammaglobulinemia, unspecified Low iron Non-alcoholic fatty liver disease Non-rheumatic mitral valve stenosis Non-smoker Nonrheumatic aortic (valve) stenosis Osteoporosis Thyroid disease Wears contact lenses Wears dentures Wears glasses Weight loss Home Medications levothyroxine 50 mcg tablet 50 mcg PO DAILY 11/11/20 [History Last Taken Unknown] metoprolol tartrate 25 mg tablet 25 mg PO DAILY BP #90 tabs 12/26/22 [Rx Last Taken 08/14/23] aspirin 81 mg tablet,delayed release (Adult Low Dose Aspirin) 81 mg PO DAILY 06/05/23 [History Last Taken 08/11/23] ferrous gluconate 236 mg (27 mg iron) tablet 236 mg PO DAILY 06/05/23 [History Last Taken Unknown] azathioprine 75 mg tablet 75 mg PO DAILY #30 tabs 08/23/23 [Rx Last Taken Unknown] dicyclomine 20 mg tablet 20 mg PO TID PRN abdominal pain SPASM #30 tabs 08/23/23 [Rx Last Taken Unknown] ferrous sulfate 325 mg (65 mg iron) tablet (Feosol) 325 mg PO DAILY 08/30/23 [History Last Taken Unknown] Lactobacillus acidophilus 1 billion cell tablet 1,000 mmu cells PO BID 10 days #20 tabs 09/02/23 [Rx Last Taken Unknown] ciprofloxacin HCl 500 mg tablet 500 mg PO BID 10 days #20 tabs 09/02/23 [Rx Last Taken Unknown] metronidazole 500 mg tablet 500 mg PO Q8H 7 days #21 tabs 09/02/23 [Rx Last Taken Unknown] pantoprazole 40 mg tablet,delayed release (Protonix) 40 mg PO DAILY 1 month #30 tabs 09/02/23 [Rx Last Taken Unknown] prednisone 5 mg tablet 5 mg PO DAILY #30 tabs 09/02/23 [Rx Last Taken Unknown] ondansetron 4 mg disintegrating tablet 4 mg PO Q8H PRN PRN Nausea #10 tabs 09/04/23 [Rx Last Taken Unknown] ondansetron 4 mg disintegrating tablet 4 mg PO Q8H PRN PRN Nausea #10 tabs 09/04/23 [Rx Last Taken Unknown] oxycodone-acetaminophen 5 mg-325 mg tablet (Percocet) 1 tab PO Q6H PRN pain 5 days #20 tabs 09/04/23 [Rx Last Taken Unknown] Allergy/AdvReac Type Severity Reaction Status Date / Time aspartame Allergy Food Verified 09/04/23 10:55 Allergy Family History Mother , Age 34 Hypertension Heart disease Brother Cancer lung Father Cancer tongue Surgical History History of cardiac catheterization History of colonoscopy History of coronary artery stent placement History of partial thyroidectomy (~1969) History of right and left heart catheterization (LHC) (~11/08/22) History of total hysterectomy Postsurgical percutaneous transluminal coronary angioplasty (PTCA) status (~04/19/17) Presence of stent in coronary artery (~04/19/17) Social History Smoking Status: Never smoker alcohol intake: never substance use type: does not use caffeine: No EXAM Physical Exam Const Vital Signs: 09/04/23 10:55 09/04/23 11:19 09/04/23 12:13 Temperature 98.3 F 98.2 F Temperature Source Temporal Temporal Pulse Rate 73 64 Respiratory Rate 14 11 L Respiratory Pattern Normal Blood Pressure 126/65 H 121/79 H Blood Pressure Mean 85 93 Pulse Ox 100 9 Oxygen Delivery Method Room Air Room Air 09/04/23 13:02 09/04/23 13:39 09/04/23 15:13 Temperature 98.3 F Temperature Source Oral Pulse Rate 71 63 60 Respiratory Rate 15 14 16 Respiratory Pattern Blood Pressure 113/61 108/67 116/66 Blood Pressure Mean 78 80 82 Pulse Ox 92 93 99 Oxygen Delivery Method Room Air Room Air Room Air 09/04/23 15:58 Temperature Temperature Source Pulse Rate 70 Respiratory Rate 16 Respiratory Pattern Blood Pressure 110/70 Blood Pressure Mean 83 Pulse Ox 98 Oxygen Delivery Method MDM MDM MDM Narrative Medical decision making narrative: HISTORY OF PRESENT ILLNESS: 83-year-old female presents with right upper quadrant abdominal pain. Notes change in biliary drainage. Noticed patient several days ago notes compliance with home antibiotics. Concerned she may have an infection given abdominal distention. Notes nausea but no vomiting. Last bowel movement was yesterday with no melena hematochezia. Did not notice jaundice or discoloration she is not altered and does not have a fever. REVIEW OF SYSTEMS: Pertinent positives: Abdominal pain change in biliary output Pertinent negatives: Vomiting, altered mental status, chest pain, shortness of breath, melena, hematochezia PHYSICAL EXAM: Nursing triage notes reviewed, Vital signs reviewed Constitutional: please see mdm HENT: MMM Eyes: Pupils equal round and reactive to light, Extraocular muscles intact Neck: No stridor, no JVD, full neck ROM Lungs: Clear to auscultation, No wheezing or rales. No increased work of breathing, no conversational dyspnea, no accessory muscle use, no nasal flaring. No respiratory distress noted Heart: Regular rate and rhythm, No murmurs, No rubs and No gallops, 2+ distal pulses (radial, femoral, posterior tibial) in all extremities Abdomen: Soft, t right upper quadrant TTP, there is no rigidity, rebound or guarding, no obvious peritoneal signs, no palpable pulsatile abdominal masses, no auscultated abdominal bruit. Right upper quadrant biliary drain with yellow fluid. No obvious fluctuance or induration or erythema around the site. : No CVAT Extremities: No edema Neuro: No focal neurological deficits, cranial nerves II through XII intact, 5/5 strength in all extremities. Intact sensation to light touch in all extremities, 2+ reflexes bilateral patella tendons. Normal gait. No ataxia. Skin: No rash or lesions noted MEDICAL DECISION MAKING: Chief Complaint: Abdominal pain External records reviewed: Prior inpatient [facility] records reviewed: Recent admission from 08/30/2020 - 09/02/23 for cirrhosis, GI bleed and cholecystitis. Drain was placed during that visit. Patient was discharged on ciprofloxacin and Flagyl. Patient also had severe anemia requiring blood transfusion. ERCP The lower third of the main bile duct was dilated, with a stone causing an obstruction. - Choledocholithiasis was found. Removal was not attempted; no stent was inserted. - One stent was removed from the biliary tree. Factors affecting care: Hyperlipidemia, thyroiditis liver cirrhosis, acute cholecystitis, hypertension, Social determinants of health: elderly History obtained from others: Patient's daughter Consults: Internal medicine, General surgery MDM Narrative: Patient was initially hemodynamically stable, afebrile and nontoxic-appearing abdominal exam with distention, right upper quadrant TTP. No peritoneal signs. The patient was not altered she had no fever I do not think the patient's experiencing ascending cholangitis I considered the following differential diagnosis: Gallbladder stent obstruction, gallbladder obstruction, cholecystitis, cholangitis, bowel perforation or obstruction I obtained a broad lab and imaging workup to further elucidate the etiology the patient complaints. Give patient fluids, IV narcotic pain medicine and nausea medicine for symptomatic relief. ALL IMAGES (IF OBTAINED) HAVE BEEN PERSONALLY REVIEWED AND INTERPRETED BY MYSELF. EKG with normal sinus rhythm, left axis deviation, slightly prolonged QT interval, no STEMI Initial lactate elevated consistent with endorgan hypoperfusion, repeat lactate downtrending High-sensitivity troponin is negative, no evidence of myocardial ischemia CBC with no leukocytosis, noted anemia however improved from prior, no thrombocytopenia BMP without evidence of significant electrolyte abnormalities, no anion gap, no acute kidney injury. LFTs show no evidence of hepatobiliary pathology. Lipase slightly elevated Urinalysis shows no evidence of urinary inflammation suggestive of UTI CT scan shows no evidence of acute inflammatory conditions specifically of abscess or postop seroma I discussed the case with general surgeon on-call Dr. Chakraborty who did not recommend any acute surgical intervention. He stated the patient needed to be admitted she could be admitted to medicine or possibly transferred for definitive care. I attempted to contact the patient's instructor ground services Dr. Newby however he was unavailable for consultation at this time. The synthesis of the patient's history, physical exam, labs, images, consultation suggest no acute life limiting pathology. I suspect the patient's pain is secondary to biliary drain placement. Pain resolved after IV narcotics. I do not suspect she is suffering from sepsis given lack of leukocytosis, fever and resolving lactate with IV hydration. She was given Zofran, Percocet and strict return precautions. She was given instructions to follow-up with her GI doctor as well as her surgeon as an outpatient. She is given strict return precautions. The patient and/or family, caregivers express understanding. The patient and/or family, caregivers agrees with the plan. Shared decision making: I will have a discussion with the patient and or visitors regarding risk/benefits of further testing or admission. They will be made aware of of the risk/benefits inherent in this decision they will be given the opportunity to voice understanding. Total critical care time today provided was at least 0 minutes. This excludes separately billable procedures. Critical care time (if documented) is secondary to the patient having high probability of clinically significant/life threatening deterioration in the patient's condition which required my urgent intervention. Impression: 1. Choledocholithiasis 2. Elevated lactate 3. Biliary drain placed Dispo: Discharge home Lab Data Attestation: I reviewed the patient's lab results. Labs: Laboratory Results - last 24 hr 09/04/23 09/04/23 09/04/23 11:35 11:45 14:10 WBC 6.9 RBC 3.82 L Hgb 10.3 L Hct 33.2 L MCV 86.9 MCH 27.0 MCHC 31.0 L RDW Std Deviation 53.8 H RDW Coeff of Nabil 17.2 H Plt Count 151 MPV 11.5 Immature Gran % (Auto) 4.100 H Neut % (Auto) 73.6 H Lymph % (Auto) 11.7 L Drew % (Auto) 8.4 Eos % (Auto) 1.2 Baso % (Auto) 1.0 Absolute Neuts (auto) 5.1 Absolute Lymphs (auto) 0.81 L Nucleated RBC % 0 Sodium 138 Potassium 3.8 Chloride 105 Carbon Dioxide 24.0 Anion Gap 9 BUN 12 Creatinine 0.84 Estim Creat Clear Calc 49.17 Est GFR (MDRD) Af Amer 83 Est GFR (MDRD) Non-Af 69 BUN/Creatinine Ratio 14.3 Glucose 123 H Lactic Acid 2.6 H* 1.5 Calcium 7.9 L Total Bilirubin 0.60 Direct Bilirubin 0.26 AST 21 ALT 15 Alkaline Phosphatase 146 H Troponin I High Sens 49 Total Protein 7.2 Albumin 2.5 L Globulin 4.7 H Lipase 76 H Urine Color Yellow Urine Clarity Clear Urine pH 6.5 Ur Specific [place] 1.010 Urine Protein Negative Urine Glucose (UA) Normal Urine Ketones Negative Urine Occult Blood Negative Urine Nitrite Negative Urine Bilirubin Negative Urine Urobilinogen Normal Ur Leukocyte Esterase 25 H Radiography Chest X-Ray - ED: Read by ED Physician Diagnostic Testing: Clinical Impression(s) from Imaging Studies Abdomen/Pelvis CT 09/04/23 11:55 IMPRESSION: Cholelithiasis with gallbladder wall edema or inflammation status post cholecystostomy tube decompression. Mild ascites. Interval removal of biliary stent with mild pneumobilia. Chronic mild hepatosplenomegaly. Colonic diverticulosis without acute diverticulitis. Mild hiatal hernia. Stable T11 sclerotic or osteoblastic lesion. Electronically Signed: Gerda Crockett MD at 13:14 EST , Discharge Plan Triage Chief Complaint: Other, Pain/Inj ED Provider: lEiezer Butterfield Dx/Rx/DC Orders Instructions: Abdominal Pain Prescriptions: New ondansetron 4 mg tablet,disintegrating 4 mg PO Q8H PRN PRN (Reason: Nausea) Qty: 10 0RF ondansetron 4 mg tablet,disintegrating 4 mg PO Q8H PRN PRN (Reason: Nausea) Qty: 10 0RF oxycodone-acetaminophen [Percocet] 5-325 mg tablet 1 tab PO Q6H PRN (Reason: pain) 5 Days Qty: 20 0RF No Action levothyroxine 50 mcg tablet 50 mcg PO DAILY aspirin [Adult Low Dose Aspirin] 81 mg tablet,delayed release (DR/EC) 81 mg PO DAILY ferrous gluconate 236 mg (27 mg iron) tablet 236 mg PO DAILY dicyclomine 20 mg tablet 20 mg PO TID PRN (Reason: abdominal pain SPASM) Qty: 30 1RF azathioprine 75 mg tablet 75 mg PO DAILY Qty: 30 2RF Hold Instructions: Hold for 1 week, repeat CBC with differential and follow-up with PCP before resumption. ferrous sulfate [Feosol] 325 mg (65 mg iron) tablet 325 mg PO DAILY metronidazole 500 mg tablet 500 mg PO Q8H 7 Days Qty: 21 0RF ciprofloxacin HCl 500 mg tablet 500 mg PO BID 10 Days Qty: 20 0RF prednisone 5 mg tablet 5 mg PO DAILY Qty: 30 2RF Patient Comments: started 10mg last monday Rx Instructions: Take 10 mg, (2 tabs) for 10 days, then 5 mg daily from 09/03/2023 to continue Lactobacillus acidophilus 1 billion cell tablet 1,000 mmu cells PO BID 10 Days Qty: 20 0RF pantoprazole [Protonix] 40 mg tablet,delayed release (DR/EC) 40 mg PO DAILY 30 Days Qty: 30 3RF metoprolol tartrate 25 mg tablet 25 mg PO DAILY Qty: 90 3RF Primary Care Provider: Gokul Sanchez Chi Referrals: Gokul Sanchez Chi, MD [Primary Care Provider] - Activity Restrictions/Additional Instructions: Thank you for trusting us with your care today! Please take Tylenol (1-2 pills, 325-650 mg), ibuprofen (1-2 pills, 200 - 400 mg) every 6 hours as needed for pain and fever control. Please take oxycodone as prescribed if this does not control your symptoms. Please return to the emergency department if your symptoms change or worsen. If you develop vomiting, worsening pain, fever, if you lose consciousness. If you Develop yellow discoloration of the skin or eyes. Please follow with your gastroenterology for further outpatient evaluation and management. Disposition Disposition: Home, Self Care
[2023-09-04] MEDS: Ketorolac 15 MG/ML Vial IV (11:51)
[2023-09-04] MEDS: 0.9% Normal Saline (1000mL) 1,000 ML 1000 ML IV (11:51)
[2023-09-04] MEDS: Ondansetron 4 MG/2 ML Vial IV (11:51)
[2023-09-04] MEDS: Morphine 4 MG/ML Syringe IV ×2 (11:51→13:45)
[2023-09-04 11:54] LABS: Absolute Lymphocyte Count 0.81 X10^3/uL (0.83-4.51); Absolute Neutrophil Count 5.1 X10^3/uL (2.0-7.7); Basophil# 0.07 X10^3/uL; Eosinophil# 0.08 X10^3/uL; Eosinophils% 1.2 % (0-5); Hematocrit 33.2 % (37-47); Hemoglobin 10.3 g/dL (12.0-15.0); Lymphocyte # 0.81 X10^3/ul (0.83-4.51); Lymphocyte % 11.7 % (19-41); Mean Corpuscular Volume 86.9 fL (81-99); Mean Platelet Vol. 11.5 fl (6.2-12.0); Monocyte# 0.58 X10^3/uL; Monocyte% 8.4 % (0-10); NRBC Flagged by Analyzer 0 % (0-5); Neutrophil # 5.08 X10^3/uL (2.7-7.7); Neutrophil % 73.6 % (47-70); Platelet Count 151 K/mm3 (150-450); RBC Distribution Width CV 17.2 % (11.6-14.6); RBC Distribution Width SD 53.8 fl (35.1-43.9); Red Blood Count 3.82 M/mm3 (4.2-5.4); White Blood Count 6.9 K/mm3 (4.4-11.0)
--- NOTE | 2023-09-04 11:55 | CT_ITS ---
HISTORY: RUQ pain, TTP hx of gallbladder stent. TECHNIQUE: Helically acquired images were obtained of the abdomen and pelvis after the intravenous administration of 100 mL Isovue-370. A radiation dose optimization technique was used for this scan. 426 images. COMPARISON: 08/30/2023. FINDINGS: LOWER CHEST: Mild atelectasis in the lung bases. BOWEL: Tiny hiatal hernia. Bowel including appendix nondilated. Colonic diverticulosis without focal inflammatory change observed. PERITONEUM: Mild free fluid in the abdomen and pelvis. LIVER/SPLEEN: Mildly enlarged. GALLBLADDER/BILIARY TREE: Cholecystostomy tube decompression of the gallbladder with calcified gallstone and gallbladder wall edema noted. Removal of biliary stent with mild intrahepatic and extrahepatic pneumobilia. PANCREAS/KIDNEYS/ADRENAL GLANDS: Unremarkable. VESSELS: No abdominal aortic aneurysm. Atherosclerosis of the abdominal aorta and its major branches. PELVIC ORGANS: Absent uterus. ABDOMINAL WALL: Heterotopic ossification posterior to the left pelvis again seen. BONES: Stable sclerotic lesion or osteoblastic metastasis in the T11 vertebral body. Degenerative change. CT/Abdomen/Pelvis W IV Cont ONLY IMPRESSION: Cholelithiasis with gallbladder wall edema or inflammation status post cholecystostomy tube decompression. Mild ascites. Interval removal of biliary stent with mild pneumobilia. Chronic mild hepatosplenomegaly. Colonic diverticulosis without acute diverticulitis. Mild hiatal hernia. Stable T11 sclerotic or osteoblastic lesion. Electronically Signed: Gerda Crockett MD at 13:14 EST ,
[2023-09-04 11:58] LABS: Color, Urine Yellow (Yellow); Glucose, Dipstick Normal (Normal); Ketone-Dipstick Negative (Negative); Leukocyte Esterase-Dipstick 25 /ul (Negative); Nitrite-Dipstick Negative (Negative); Occult Blood-Urine Negative /ul (Negative); Protein-Dipstick Negative (Negative); Urine Bilirubin Dipstick Negative (Negative); Urine Clarity Clear (Clear); Urine Urobilinogen Normal (Normal); Urine pH 6.5 (5.0 - 8.0)
[2023-09-04 12:06] LABS: AST(SGOT) 21 U/L (15-37); Alanine Aminotransfer ALT/SGPT 15 U/L (13-56); Albumin, Serum 2.5 g/dL (3.2-5.0); Alkaline Phosphatase 146 U/L (45-117); Anion Gap 9 (5-15); BUN 12 mg/dL (7-18); BUN/Creat Ratio 14.3 RATIO (10-20); Bilirubin, Direct 0.26 mg/dL (0.00-0.30); Calcium,Total 7.9 mg/dL (8.5-10.1); Chloride 105 mmol/L (98-107); Creatinine, Serum 0.84 mg/dL (0.55-1.02); EST Glomerular Filtration Rate 69 mL/min (>60); Est Glom Filt Rate - Afr Amer 83 mL/min (>60); Estimated Creatinine Clearance 49.17 ml/min; Globulin 4.7 g/dL (2.2-4.2); Glucose 123 mg/dL (74-106); Lipase 76 U/L (13-75); Potassium 3.8 mmol/L (3.5-5.1); Protein, Total 7.2 g/dL (6.4-8.2); Sodium Level 138 mmol/L (136-145); Troponin-I HS 49 pg/mL (3.0-54.0)
--- OUTSIDE RECORDS SUMMARY | 2023-09-04 12:07 | XMS RPT_ITS | CCD ---
Author Name Unknown Address [address] [place] [address] Organization [facility] Care Team Providers Care Computer Networker Name Role Phone Katiuska, Lauren Chi Primary Care Provider [phone] SLEIK, KHALED MELOUD Attending Unavailable KATIUSKA, LAUREN CHI Primary Care Unavailable SLEIK, KHALED MELOUD Admitting Unavailable SLEIK, KHALED MELOUD Attending Unavailable KATIUSKA, LAUREN CHI Primary Care Unavailable ANA VINCENT Referring Unavailable LAHORRAADRIÁN Attending Unavailable KATIUSKA, LAUREN CHI Primary Care Unavailable ANA VINCENT Referring Unavailable KATIUSKA, LAUREN CHI Primary Care Unavailable ANA VINCENT Referring Unavailable ANA VINCENT Referring Unavailable SLEIK, KHALED MELOUD Attending Unavailable KATIUSKA, LAUREN CHI Primary Care Unavailable ANA VINCENT Referring Unavailable LAHORRA, ADRIÁN Argueta Attending Unavailable KATIUSKA, LAUREN CHI Primary Care Unavailable ANA VINCENT Referring Unavailable KATIUSKA, LAUREN CHI Primary Care Unavailable ANA VINCENT Referring Unavailable KATIUSKA, LAUREN CHI Primary Care Unavailable ANA VINCENT Attending Unavailable KATIUSKA, LAUREN CHI Primary Care Unavailable KATIUSKA, LAUREN CHI Primary Care Unavailable ANA VINCENT Referring Unavailable COOPERJC CAPPS II Attending Unavailabl e KATIUSKA, LAUREN CHI Primary Care Unavailable KATIUSKA, LAUREN CHI Primary Care Unavailable POONAM ZIEGLER Referring Unavailable ANA VINCENT Referring Unavailable KATIUSKA, LAUREN CHI Primary Care Unavailable COOPERRIDER IIJC Referring Unavailabl e KATIUSKA, LAUREN CHI Primary Care Unavailable ANA VINCENT Referring Unavailable KATIUSKA, LAUREN CHI Primary Care Unavailable Allergies Allergy Classification Reported Allergen(s) Allergy Type Date of Onset Reaction(s) Facility (17 sources) Aspartame; Translations: [ASPARTAME] Drug Allergy 12-18-2018 Unknown [facility] Medications Current Medications Medication Drug Class(es) Dates [...] Coronary arteriosclerosis; Translations: [Atherosclerotic heart disease of red cliff coronary artery with other forms of angina [...] exertion; Translations: [Other forms of dyspnea] Episodic Lana-; endo-; and myocarditis; cardiomyopathy (except [...] dermatitis, unspecified] Onset: 05-09-2006 05-09-2006 Episodic Other lower respiratory disease (2 sources) Other forms of dyspnea; Translations: [Dyspnea on exertion] Onset: 11-17-2022 Episodic Other skin disorders (15 sources) Vitiligo; [...] 167.6 cm Adrián Ramirez MD Work Phone: [facility] 06-21-2023 09:40-0400 Body weight 63.59 kg Adrián Ramirez MD Work Phone: [facility] 06-21-2023 09:40-0400 Diastolic blood pressure 70 mm[Hg] Adrián Ramirez MD Work Phone: [facility] 06-21-2023 09:40-0400 Heart rate 73 /min Adrián Ramirez MD Work Phone: [facility] 06-21-2023 09:40-0400 SaO2% (BldA) [Mass fraction] 97 % Adrián Ramirez MD Work Phone: [facility] 06-21-2023 09:40-0400 Systolic blood pressure 112 mm[Hg] Adrián Ramirez MD Work Phone: [facility] 06-21-2023 09:37-0400 Body height 167.6 cm Ramesh West MD Work Phone: [facility] 06-21-2023 09:37-0400 Body weight 63.59 kg Ramesh West MD Work Phone: [facility] 06-21-2023 09:37-0400 Diastolic blood pressure 70 mm[Hg] Ramesh West MD Work Phone: [facility] 06-21-2023 09:37-0400 Heart rate 73 /min Ramesh West MD Work Phone: [facility] 06-21-2023 09:37-0400 SaO2% (BldA) [Mass fraction] 97 % Ramesh West MD Work Phone: [facility] 06-21-2023 09:37-0400 Systolic blood pressure 112 mm[Hg] Ramesh West MD Work Phone: [facility] 11-23-2022 09:20-0400 Body height 167.6 cm Adrián Ramirez MD Work Phone: [facility] 11-23-2022 09:20-0400 Body weight 61.42 kg Adrián Ramirez MD Work Phone: [facility] 11-23-2022 09:20-0400 Diastolic blood pressure 62 mm[Hg] Adrián Ramirez MD Work Phone: [facility] 11-23-2022 09:20-0400 Heart rate 70 /min Adrián Ramirez MD Work Phone: [facility] 11-23-2022 09:20-0400 SaO2% (BldA) [Mass fraction] 100 % Adrián Ramirez MD Work Phone: [facility] 11-23-2022 09:20-0400 Systolic blood pressure 100 mm[Hg] Adrián Ramirez MD Work Phone: [facility] 11-23-2022 09:16-0400 Body height 167.6 cm Ramesh West MD Work Phone: [facility] 11-23-2022 09:16-0400 Body weight 61.24 kg Ramesh West MD Work Phone: [facility] 11-23-2022 09:16-0400 Diastolic blood pressure 62 mm[Hg] Ramesh West MD Work Phone: [facility] 11-23-2022 09:16-0400 Heart rate 70 /min Ramesh eWst MD Work Phone: [facility] 11-23-2022 09:16-0400 SaO2% (BldA) [Mass fraction] 100 % Ramesh West MD Work Phone: [facility] 11-23-2022 09:16-0400 Systolic blood pressure 100 mm[Hg] Ramesh West MD Work Phone: [facility] Encounters Encounter Date Encounter Type Care Provider Facility Start: 08-29-2023 End: 08-30-2023 ambulatory LAUREN CHI KATIUSKA Facility:[facility] Start: 08-25-2023 End: 08-26-2023 ambulatory ANA VINCENT Facility:[facility] Start: 08-25-2023 End: 08-25-2023 ambulatory ANA VINCENT Facility:[facility] Start: 07-19-2023 Patient encounter procedure Ramesh West MD Work Phone: [facility] Start: 07-19-2023 Telephone encounter Ramesh West MD Work Phone: [facility] Procedures Date Procedure Procedure Detail Performing Clinician Start: 08-25-2023 Antibody screen RAMESH WEST Plan of Treatment Date Care Activity Detail Author Start: 03-19-2029 Urine microalbumin profile DTaP,Tdap,Td Vaccine (2 - Td or Tdap) [facility] Start: 06-21-2026 Diabetes Screening Diabetes Screening [facility] Start: 11-17-2025 DIABETES SCREEN DIABETES SCREEN [facility] Start: 11-17-2025 Diabetes Screening Diabetes Screening [facility] Start: 10-08-2023 End: 07-19-2024 Echocardiography ECHO Cardiology Routine Nonrheumatic aortic valve stenosis Expected: 10/08/2023, Expires: 07/19/2024 [facility] Work Phone: Immunizations Immunization Date Immunization Notes Care Provider Carolyn osei 09-28-2021 influenza virus vacc ine, unspecified formulation Ana Carlton MACHINE ASSEMBLER.PRIMARY SUBSTANCE ABUSE COUNSELOR Work Phone: [facility] Payers Date Payer Category Payer Medicare [id number] 2019 Unknown [id number] 2007 Medicare MEDICARE MEDICAR E A AND B [id number] 2007-Present [phone] [place] [address] Medicare [id number] 2007 Medicare [id number] Social History Date Type Detail Facility Tobacco smoking stat [facility] Never smoked tobacco [facility] Start: 10-05-2022 End: 06-21-2023 Alcohol intake Current non-drinker of alcohol (finding) [facility] Start: 1940 Sex Assigned At Not on file [facility] Start: 11-23-2022 End: 06-21-2023 History of Social function [facility] Start: 11-23-2022 End: 06-21-2023 Tobacco use panel [facility] National Score (1-10 0), lower number is lower risk 45 [facility] Clinical Notes 10-05-2022 to 08-25-2023 Telephone Encounter - Ana Vincent APRN.CNP - 07/19/2023 3:12 PM ESTTelephone Encounter - Ana Vincent APRN.CNP - 07/19/2023 2:30 PM Ana Poe APRN.CNP - 07/18/2023 8:11 AM EST Note Date & Type Note Facility 08-25-2023 Note HNO ID: [id number] Author: Ana Vincent APRN.CNP Service: ? Author Type: Nurse Practitioner Type: Progress Notes Filed: 08/25/2023 1:59 PM Note Text: INTERVENTIONAL CARDIOLOGY SERVICE Transcatheter Aortic Valve Replacement Preoperative History AND Physical Exam PRIMARY CARE PHYSICIAN: Lauren Sanchez MD [address] [place] [address] CARE TEAM: Waste Reduction Coordinator: Dr. Js Tapia, Dr. Ramesh West Cardiac Surgeon: Dr. Adrián Ramirez and Dr. Raghav Diaz Patient Info: Kassidy Willingham 1940 83 year old Procedure: Transcatheter Aortic Valve Replacement Diagnosis: Paradoxical Low Flow, Low Gradient Severe Aortic Valve Stenosis Date of Procedure: 09/07/2023 OR #: 10 CPT Code: 34653 Diagnosis Code: I35.9 HISTORY OF PRESENT ILLNESS: Ms. Willingham is a 83 year old female with a known past medical history significant for HTN, HLD, Yari disease, autoimmune hepatitis, CAD (s/p PCI to LAD AND known WHITEWATER RAFTING GUIDE to RCA), and severe aortic valve stenosis [...] and neck sup (more content not included)... [facility] 07-19-2023 Miscellaneous Notes Patient does [...] appt and echo. Thank you, Ana Vincent APRN.PRIMARY SUBSTANCE ABUSE COUNSELOR Spoke with Dr. Newby's RN regarding DAPT [...] will reach out to Dr. Newby's office ([phone]) to determine when patient will be cleared [...] [place] LPN documented in this encounter [facility] 07-18-2023 Note HNO ID: [id number] Author: Ana Vincent APRN.CNP Service: ? Author Type: Nurse Practitioner Type: Progress Notes Filed: 07/18/2023 8:13 AM Note Text: MULTI DISCIPLINARY HIGH RISK AVR CARDIAC TEAM Members present: Dr. Tapia, Dr. Ramirez, Dr. Gil, Dr. Diaz, Dr. Mendez, Dr. Muñoz, Dr. West, Bianca Vincent APRN, CNP, Priya Ziegler CNP, JANNA Cartwright., JANNA Mckeon, JANNA Pruitt, [...] by Cardiothoracic Office. Ana Vincent APRN.CNP 07/18/2023 [facility] 07-18-2023 History of Presen t illness Narrative MULTI DISCIPLINARY HIGH RISK AVR CARDIAC TEAM Members present: Dr. Tapia, Dr. Ramirez, Dr. Gil, Dr. Diaz, Dr. Mendez, Dr. Muñoz, Dr. West, Bianca Vincent APRN, CNP, Priya Ziegler CNP, JANNA Cartwright., JANNA Mckeon, JANNA Pruitt, [...] Vincent APRN.CNP 07/18/2023 documented in this encounter [facility] 06-22-2023 Miscellaneous Notes Spoke with patient about test results. Patient verbalizes understanding. Wanda Garvin LPN Voicemail msg left for patient to return call to [facility] to review test results. Office phone number provided. Wanda Garvin LPN ----- Message from Ana Vincent APRN.PRIMARY SUBSTANCE ABUSE COUNSELOR sent at 06/21/2023 2:14 PM EDT ----- Please call the patient and report lab results revealed normal PT/INR, mild elevation in LFTs as expected with liver disease, stable CBC, and normal kidney function. BNP elevated as expected with valvular disease. Ana Vincent APRN.PRIMARY SUBSTANCE ABUSE COUNSELOR documented in this encounter [facility] 06-21-2023 Note HNO ID: [id number] Author: Ramesh West MD Service: ? Author Type: Physician Type: Progress Notes Filed: 06/21/2023 4:39 PM Note Text: Ramesh West MD Interventional Cardiology [address] [place], [place] [id number] Chief Complaint Patient presents with: Aortic Stenosis: [...] discharge. Conjunctiva/sclera: Co (more content not included)... [facility] 06-21-2023 History of Presen t illness Narrative Images from the original note were not included. Ramesh West MD Interventional Cardiology [address] [place] [address] Chief Complaint Patient presents with: Aortic Stenosis: [...] TIME/PT - NT PRO BNP - CARDIAC LEAD QUALITY CONTROL TECHNICIAN ORDER 2. Hepatitis, autoimmune (HCC) - ICD9: [...] to assess her coronary anatomy - CARDIAC LEAD QUALITY CONTROL TECHNICIAN ORDER Ramesh West MD Follow up planning: [...] Ana Vincent APRN.CNP documented in this encounter [facility] 06-21-2023 Note HNO ID: [id number] Author: Adrián Ramirez MD Service: ? Author [...] has indication for (more content not included)... [facility] 06-21-2023 Note HNO ID: [id number] Author: Ana Vincent APRN.WOLF Service: ? Author Type: Nurse Practitioner Type: Progress Notes Filed: 06/21/2023 4:39 PM Note Text: Procedure Type: Isolated AVR Perioperative Outcome Estimate % Operative Mortality 10.4% Morbidity AND Mortality 13.9% Stroke 1.83% Renal Failure 2.52% Reoperation 6.34% Prolonged Ventilation 5.73% Deep Sternal Wound Infection 0.043% Long Hospital Stay (>14 days) 9.04% Short Hospital Stay (<6 days)* 23.6% Ana Vincent APRN.WOLF [facility] 06-21-2023 History of Presen t [...] 2023 TIME: 10:47 AM PAGER/CONTACT #: [phone] documented in this encounter [facility] 06-21-2023 Instructions Ana Vincent, MACHINE ASSEMBLER.PRIMARY SUBSTANCE ABUSE COUNSELOR - 06/21/2023 10:15 AM EDT Images from [...] reassess your coronary artery disease. - Cardiac Underwear Trimmer will call you to schedule this procedure. [...] wearing: Jewelry Eyeglasses Contact lenses Dentures Nail mosotho Other precautions Talk to your doctor about: [...] before the TAVR procedure. A treatment steam station supervisor will give you medication through an intravenous [...] the replacement valve into place in the red cliff aortic valve. Some valves can expand without [...] and avoiding smoking. documented in this encounter [facility] 06-21-2023 Nurse Note CARDIAC REHAB 5 METER WALK TEST SERVICE DATE: 06/21/2023 SERVICE TIME: 9:35am ASSESSMENT: 5.40sec 5.05sec 5.48sec ASSESSMENT: SIGNATURE: Maryan Julio LPN PATIENT NAME: Kassidy Willingham DATE: June 21, 2023 TIME: 9:42 AM PAGER/CONTACT #: [phone] documented in this encounter [facility] 06-21-2023 Nurse Note CARDIAC REHAB 5 METER WALK TEST SERVICE DATE: 06/21/2023 SERVICE TIME: 9:35am ASSESSMENT: 5.40sec 5.05sec 5.48sec SIGNATURE: Maryan Julio LPN PATIENT NAME: Kassidy Willingham DATE: June 21, 2023 TIME: 9:34 AM PAGER/CONTACT #: [phone] documented in this encounter [facility] 12-08-2022 Miscellaneous Notes Spoke with patient about test results and recommendation to have repeat echocardiogram and valve clinic follow up in 6 months. Patient verbalizes understanding and is agreeable. Wanda Garvin LPN ----- Message from Ana Vincent APRN.PRIMARY SUBSTANCE ABUSE COUNSELOR sent at 12/08/2022 2:56 PM EDT ----- Please call the patient and report echo results revealed moderately severe aortic valve stenosis. We are recommending repeat echocardiogram and valve clinic follow up in 6 months. Office will contact patient with appointment information. Thank you, Ana Vincent APRN.PRIMARY SUBSTANCE ABUSE COUNSELOR documented in this encounter [facility] 12-08-2022 Miscellaneous Notes Please schedule patient for echo and valve clinic with Dr. West in 6 months. - Please arrange for echo morning of her valve clinic appointment. Thank you, Ana Vincent APRN.PRIMARY SUBSTANCE ABUSE COUNSELOR documented in this encounter [facility] 11-29-2022 Miscellaneous Notes Yes, pt had echo done yesterday at and is scheduled for echo here in [place] on 12/06. Echo cancelled on 12/06. Pt notified. Gerda Church RN Pt called today wondering about the Echocardiogram scheduled 12/06/22 and if that is the same as the test done at [facility] yesterday. Please let pt know. documented in this encounter [facility] 11-23-2022 Note HNO ID: [id number] Author: Ramesh West MD Service: ? Author Type: Physician Type: Progress Notes Filed: 11/23/2022 4:35 PM Note Text: Ramesh West MD Interventional Cardiology [address] [place], [place] [id number] Chief Complaint Patient presents with: Aortic Stenosis: [...] injection (DEFINITY) INTRAVENOUS DIRECTED PRN Ana Vincent APRN.PRIMARY SUBSTANCE ABUSE COUNSELOR sodium chloride 0.9 % (flush) 10 mL (BD POSIFLUSH) 10 mL INTRAVENOUS DIRECTED PRN Ana Vincent, MACHINE ASSEMBLER.PRIMARY SUBSTANCE ABUSE COUNSELOR Review of Systems Constitutional: Negative for chills, [...] for abdominal pain, (more content not included)... [facility] 11-23-2022 History of Presen t illness Narrative Images from the original note were not included. Ramesh West MD Interventional Cardiology [address] [place] [address] Chief Complaint Patient presents with: Aortic Stenosis: [...] 10 mL INTRAVENOUS DIRECTED PRN Ana Vincent APRN.WOLF Review of Systems Constitutional: Negative for chills, [...] Long Length of Stay: 6.686% Ana Vincent APRN.CNP documented in this encounter [facility] 11-23-2022 Note HNO ID: [id number] Author: Adrián Ramirez MD Service: ? Author [...] edema, syncope, presyncope. AN echo performed at [facility] showed normal EF, calcific changes involving a [...] MD PATIENT N (more content not included)... [facility] 11-23-2022 Note HNO ID: [id number] Author: Ana Vincent APRN.WOLF Service: ? Author [...] Length of Stay: 6.686% Ana Vincent APRN.WOLF [facility] 11-23-2022 History of Presen t illness Narrative CARDIOTHORACIC SURGERY CONSULT / H&P SERVICE DATE:11/23/2022 SERVICE TIME: 12:00pm Subjective PRIMARY SERVICE: Cardiothoracic Surgery CHIEF COMPLAINT: aortic stenosis HPI: This is a 82 year old woman referred for evaluation of aortic stenosis. SHe has a history of CAD and underwent PCI to the LAD in 2016. 1 year ago she began to have unexplained weight loss of 30 lbs.Extensive evaluation negative. Endorses fatigue and exertional limitation, but denies chest pressure, pain, dyspnea, edema, syncope, presyncope. AN echo performed at [facility] showed normal EF, calcific changes involving a trileaflet aortic valve, mean gradient of 21, pea velocity of 2.9 and ITALO of 0.62-0.8. 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 Today, you met with Dr. West and Dr. Ramirez to discuss your aortic valve stenosis and current symptoms. We are recommending: Repeat echocardiogram here at [facility] Please call us with any further questions or concerns. [phone] Patient information: Aortic stenosis What is aortic [...] process is complete. The content on the [employer] website is not intended nor recommended as a substitute for medical advice, diagnosis, or treatment. Always seek the advice of your own physician or other qualified health neonatal critical care nurse regarding any medical questions or conditions.. 2016 [employer]. All rights reserved. Topic 57909 Version 5.0 documented in this encounter [facility] 11-23-2022 Nurse Note CARDIAC REHAB 5 METER WALK TEST SERVICE DATE: 11/23/2022 SERVICE TIME: 9:14AM 7.50sec 6.94sec 7.33sec ASSESSMENT: SIGNATURE: Maryan Julio LPN PATIENT NAME: Kassidy Willingham DATE: November 23, 2022 TIME: 9:21 AM PAGER/CONTACT #: [phone] documented in this encounter [facility] 11-23-2022 Nurse Note CARDIAC REHAB 5 METER WALK TEST SERVICE DATE: 11/23/2022 SERVICE TIME: 9:14AM 7.50sec 6.94sec 7.33sec ASSESSMENT: SIGNATURE: Maryan Julio LPN PATIENT NAME: Kassidy Willingham DATE: November 23, 2022 TIME: 9:15 AM PAGER/CONTACT #: [phone] documented in this encounter [facility] 11-18-2022 Miscellaneous Notes Left message for to call [facility] for test results. [facility] phone number provided. Poonam Ferguson LPN ----- Message from Ana Vincent APRN.WOLF sent at 11/18/2022 11:45 AM EDT ----- Please call the patient and report lab results revealed anemia and she should follow up with her PCP for further management. Renal function is normal and ok to proceed with further testing. BNP without significant elevation. Ana Vincent APRN.WOLF documented in this encounter [facility] 11-10-2022 Miscellaneous Notes I spoke with patient [...] this afternoon. She can be reached at [phone]. Poonam Ferguson LPN I spoke with patient's regarding referral to Valve Clinic from Dr. Leach. Patient unavailable to talk today. Provided patient's the office phone number to return phone call regarding further testing and follow up appt. Thanks, Ana Vincent APRN.WOLF documented in this encounter [facility] 10-05-2022 Note HNO ID: [id number] Author: Jc Lynne II, CLAUDINE Service: ? Author Type: ATTENDANT LODGING FACILITIES Type: Progress Notes Filed: 10/05/2022 4:42 PM [...] its relevant components. Jc Lynne II, OD [facility] 10-05-2022 Instructions Jc Lynne II, OD - [...] Lynne II, OD documented in this encounter [facility] 10-05-2022 History of Presen t illness Narrative [...] Lynne II, OD documented in this encounter [facility] Diagnosis Aortic valve stenosis, etiology of cardiac valve disease unspecified- Primary Encounter for preprocedural cardiovascular examination Pre-operative cardiovascular examination Dyspnea on exertion Other dyspnea and respiratory abnormality [facility] Diagnosis Nonrheumatic aortic valve stenosis- Primary Aortic valve disorders [facility] Diagnosis Encounter for preprocedural cardiovascular examination Pre-operative cardiovascular examination Aortic valve stenosis, etiology of cardiac valve disease unspecified [facility] Diagnosis Nonrheumatic aortic valve stenosis Aortic valve disorders [facility] Diagnosis Nonrheumatic aortic valve stenosis- Primary Aortic valve disorders [facility] Diagnosis Nonrheumatic aortic valve stenosis- Primary Aortic valve disorders Coronary artery disease of red cliff artery of red cliff heart with stable angina pectoris (HCC) Stable angina Other and unspecified angina pectoris Valvular heart disease Endocarditis, valve unspecified, unspecified cause [facility] Diagnosis Nonrheumatic aortic valve stenosis- Primary Aortic valve disorders Hepatitis, autoimmune (HCC) Autoimmune hepatitis Stable angina Other and unspecified angina pectoris Stable angina Other and unspecified angina pectoris Valvular heart disease Endocarditis, valve unspecified, unspecified cause [facility] Diagnosis Nonrheumatic aortic valve stenosis- Primary Aortic valve disorders Encounter for examination for normal comparison and control in clinical research program Nonrheumatic aortic valve stenosis Aortic valve disorders Encounter for examination for normal comparison and control in clinical research program [facility] Outpatient Procedure (Routine) - Authorized Specialty Diagnoses / Procedures Referred By Luis rubin Referred To Contact [facility] Diagnoses Nonrheumatic aortic valve stenosis Procedures ECHO ECHO TTHRC R-T 2D W/WOM-MODE COMPL SPEC&COLR D Ana Vincent APRN.CNP [address] [place] [address] [place] [address] Referral ID Status Reason Start Date Expiration Date Visits Requested Visits Authorized [id number] Authorized Auto-Generat ed Referral 11/23/2022 11/23/2023 1 1 [facility] referral (narrative)* Outpatient Procedure (Routine) - Closed Specialty Diagnoses / Procedures Referred By Luis rubin Referred To Contact [facility] Diagnoses Nonrheumatic aortic valve stenosis Procedures ECHO ECHO TTHRC R-T 2D W/WOM-MODE COMPL SPEC&COLR D Ana Vincent APRN.CNP [address] [place] [address] [facility] [address] [place] [address] Referral ID Status Reason Start Date Expiration Date V isits Requested Visits Authorized [id number] Closed Auto-Generate d Referral 11/23/2022 11/23/2023 1 1 [facility] for referral (narrative)* Outpatient Procedure (Routine) - Authorized Specialty Diagnoses / Procedures Referred By Contac t Referred To Contact [facility] Diagnoses Nonrheumatic aortic valve stenosis Procedures ECHO ECHO TTHRC R-T 2D W/WOM-MODE COMPL SPEC&COLR D Ana Vincent APRN.CNP [address] [place] [address] [facility] [address] [place] [address] Referral ID Status Reason Start Date Expiration Date Visits Requested Visits Authorized [id number] Authorized Auto-Generat ed Referral 06/09/2023 12/08/2023 1 1 [facility] for referral (narrative)* Outpatient Procedure (Routine) - Authorized Specialty Diagnoses / Procedures Referred By Contac t Referred To Contact [facility] Diagnoses Nonrheumatic aortic valve stenosis Procedures ECHO ECHO TTHRC R-T 2D W/WOM-MODE COMPL SPEC&COLR D Ana Vincent APRN.CNP [address] [place] [address] [facility] [address] [place] [address] Referral ID Status Reason Start Date Expiration Date Visits Requested Visits Authorized [id number] Authorized Auto-Generat ed Referral 10/08/2023 07/18/2024 1 1 [facility] Procedure (Routine) - Closed Specialty Diagnoses / Procedures Referred By Luis rubin Referred To [facility] Diagnoses Nonrheumatic aortic valve stenosis Procedures ECHO ECHO TTHRC R-T 2D W/WOM-MODE COMPL SPEC&COLR D Ana Vincent, MACHINE ASSEMBLER.PRIMARY SUBSTANCE ABUSE COUNSELOR [address] [place] [address] [facility] [address] [place] [address] Referral ID Status Reason Start Date Expiration Date V isits Requested Visits Authorized [id number] Closed Auto-Generate d Referral 11/23/2022 11/23/2023 1 1 [facility] Medications Administered Section Active Administered Medications - [...] Specialty Diagnoses / Procedures Referred By Luis rubin Referred To Contact CT IMAGING Diagnoses Encounter for preprocedural cardiovascular examination Aortic valve stenosis, etiology of cardiac valve disease unspecified Procedures CTA CHEST (GATED) WO/W IVCON CT ANGIOGRAPHY CHEST W/CONTRAST/NONCONTRAST Ana Vincent, MACHINE ASSEMBLER.PRIMARY SUBSTANCE ABUSE COUNSELOR [address] [place] [address] Ct Imaging Referral ID Status Reason Start Date Expiration Date Visits Requested Visits Authorized [id number] Authorized Auto-Generat ed Referral 11/23/2022 12/10/2023 1 1 Specialty Diagnoses / Procedures Referred By Contac t Referred To Contact CT IMAGING Diagnoses Encounter for preprocedural cardiovascular examination Aortic valve stenosis, etiology of cardiac valve disease unspecified Procedures CTA ABD/PEL W IVCON CT ANGIO ABD&PLVIS CNTRST MTRL W/WO CNTRST Ana Noriega, MACHINE ASSEMBLER.PRIMARY SUBSTANCE ABUSE COUNSELOR [address] [place] [address] Ct Imaging Referral ID Status Reason Start Date Expiration Date Visits Requested Visits Authorized [id number] Authorized Auto-Generat ed Referral 11/23/2022 12/10/2023 1 1 Referral ID Status Reason Start Date Expiration Date V isits Requested Visits Authorized [id number] Closed Auto-Generate d Referral 11/23/2022 12/10/2023 1 1 Referral ID Status Reason Start Date Expiration Date V isits Requested Visits Authorized [id number] Closed Auto-Generate d Referral 11/23/2022 12/10/2023 1 [...] or prosecute any alcohol or drug abuse patient.[facility] the event this information is protected by the Federal Confidentiality of Alcohol and Drug Abuse Patient Records regulations: The Federal rules restrict any use of the information to criminally investigate or prosecute any alcohol or drug abuse patient.[facility] the event this information is protected by the Federal Confidentiality of Alcohol and Drug Abuse Patient Records regulations: The Federal rules restrict any use of the information to criminally investigate or prosecute any alcohol or drug abuse patient.[facility] the event this information is protected by the Federal Confidentiality of Alcohol and Drug Abuse Patient Records regulations: The Federal rules restrict any use of the information to criminally investigate or prosecute any alcohol or drug abuse patient.[facility] the event this information is protected by the Federal Confidentiality of Alcohol and Drug Abuse Patient Records regulations: The Federal rules restrict any use of the information to criminally investigate or prosecute any alcohol or drug abuse patient.[facility] the event this information is protected by the Federal Confidentiality of Alcohol and Drug Abuse Patient Records regulations: The Federal rules restrict any use of the information to criminally investigate or prosecute any alcohol or drug abuse patient.[facility]igh[facility] the event this information is protected by the Federal Confidentiality of Alcohol and Drug Abuse Patient Records regulations: The Federal rules restrict any use of the information to criminally investigate or prosecute any alcohol or drug abuse patient.[facility]igh[facility] the event this information is protected by the Federal Confidentiality of Alcohol and Drug Abuse Patient Records regulations: The Federal rules restrict any use of the information to criminally investigate or prosecute any alcohol or drug abuse patient.[facility]igh[facility] the event this information is protected by the Federal Confidentiality of Alcohol and Drug Abuse Patient Records regulations: The Federal rules restrict any use of the information to criminally investigate or prosecute any alcohol or drug abuse patient.[facility]igh[facility] the event this information is protected by the Federal Confidentiality of Alcohol and Drug Abuse Patient Records regulations: The Federal rules restrict any use of the information to criminally investigate or prosecute any alcohol or drug abuse patient.[facility]igh[facility] the event this information is protected by the Federal Confidentiality of Alcohol and Drug Abuse Patient Records regulations: The Federal rules restrict any use of the information to criminally investigate or prosecute any alcohol or drug abuse patient.[facility]igh[facility] the event this information is protected by the Federal Confidentiality of Alcohol and Drug Abuse Patient Records regulations: The Federal rules restrict any use of the information to criminally investigate or prosecute any alcohol or drug abuse patient.[facility]igh[facility] the event this information is protected by the Federal Confidentiality of Alcohol and Drug Abuse Patient Records regulations: The Federal rules restrict any use of the information to criminally investigate or prosecute any alcohol or drug abuse patient.[facility]igh[facility] the event this information is protected by the Federal Confidentiality of Alcohol and Drug Abuse Patient Records regulations: The Federal rules restrict any use of the information to criminally investigate or prosecute any alcohol or drug abuse patient.[facility]igh[facility] the event this information is protected by the Federal Confidentiality of Alcohol and Drug Abuse Patient Records regulations: The Federal rules restrict any use of the information to criminally investigate or prosecute any alcohol or drug abuse patient.[facility] Reason for Visit (unrecogniz ed section and content) Reason Comments Appointment Laboratory Coordinator - Other Reason Comments Results Reason Comments Aortic Stenosis Lo is here for TAV R evaluation. Specialty Diagnoses / Procedures Referred By Luis t Referred To Contact CT IMAGING Diagnoses Encounter for preprocedural cardiovascular examination Aortic valve stenosis, etiology of cardiac valve disease unspecified Procedures CTA CHEST (GATED) WO/W IVCON CT ANGIOGRAPHY CHEST W/CONTRAST/NONCONTRAST Ana Vincent L, MACHINE ASSEMBLER.PRIMARY SUBSTANCE ABUSE COUNSELOR [address] [place] [address] Ct Imaging Referral ID Status Reason Start Date Expiration Date V isits Requested Visits Authorized [id number] Closed Auto-Generate d Referral 11/23/2022 12/10/2023 1 1 Reason Comments Patient Question Reason Comments Appointment Reason Comments Aortic Stenosis Lo is here for TAV R evaluation. 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 Comments Laboratory Coordinator - Other Care Teams (unrecognized sec tion and content) Computer Networker Relationship Specialty Start Date End Date Lauren Sanchez [facility] [address] [facility] [address] [place] [address] PCP - General Gerontology 09/30/21 Computer Networker Relationship Specialty Start Date End Date Lauren Sanchez Chi [address] [place] [address] PCP - General Gerontology 09/30/21 Computer Networker Relationship Specialty Start Date End Date Lauren Sanchez Chi [address] [place] [address] PCP - General Gerontology 09/30/21 Computer Networker Relationship Specialty Start Date End Date Lauren Sanchez Chi [address] [place] [address] PCP - General Gerontology 09/30/21 Computer Networker Relationship Specialty Start Date End Date Lauren Sanchez Chi [address] [place] [address] PCP - General Gerontology 09/30/21 Computer Networker Relationship Specialty Start Date End Date Lauren Sanchez Chi [address] [place] [address] PCP - General Gerontology 09/30/21 Computer Networker Relationship Specialty Start Date End Date Lauren Sanchez Chi [address] [place] [address] PCP - General Gerontology 09/30/21 Computer Networker Relationship Specialty Start Date End Date Lauren Sanchez Chi [address] [place] [address] PCP - General Gerontology 09/30/21 Computer Networker Relationship Specialty Start Date End Date Lauren Sanchez Chi [address] [place] [address] PCP - General Gerontology 09/30/21 Computer Networker Relationship Specialty Start Date End Date Lauren Sanchez Chi [address] [place] [address] PCP - General Gerontology 09/30/21 Computer Networker Relationship Specialty Start Date End Date Lauren Sanchez Chi [address] [place] [address] PCP - General Gerontology 09/30/21 Computer Networker Relationship Specialty Start Date End Date Lauren Sanchez Chi [address] [place], [place] [address] PCP - General Gerontology 09/30/21 Computer Networker Relationship Specialty Start Date End Date Lauren Sanchez Chi [address] [place] [address] PCP - General Gerontology 09/30/21 INFORMATION SOURCE (unrecogn ized section and content) DATE CREATED AUTHOR AUTHOR'S ORGANIZ ATION 08/31/2023 [facility] FOR RECORDS PERTAINING TO PATIENTS WHO ARE [...] BE BASED ON THE PRIMARY CLINICAL RECORDS. [employer] [facility]. provides no warranty or guarantee of the accuracy or completeness of information in this document.
[2023-09-04 12:10] LABS: Lactic Acid 2.6 mmol/L (0.4-1.9)
[2023-09-04 12:13] VITALS: BP 121/79; PULSE 64; RESP 11; TEMP 36.8; O2SAT 9
[2023-09-04 13:02] VITALS: BP 113/61; PULSE 71; RESP 15; O2SAT 92
[2023-09-04] MEDS: Piperacil/Tazobactam 4.5 GM in 0.9% Normal Saline (100mL MB+) 100 ML IV (13:05)
[2023-09-04 13:39] VITALS: BP 108/67; PULSE 63; RESP 14; TEMP 36.8; O2SAT 93
[2023-09-04 14:47] LABS: Lactic Acid 1.5 mmol/L (0.4-1.9)
[2023-09-04 15:13] VITALS: BP 116/66; PULSE 60; RESP 16; O2SAT 99
[2023-09-04 15:41] LABS: Reflex Lactate? Y
[2023-09-04 15:58] VITALS: BP 110/70; PULSE 70; RESP 16; O2SAT 98
== END 2023-09-04 16:21 | disposition home or self-care (01) ==
PROVIDERS: Emergency Provider Emergency Medicine; PCP Family Medicine Geriatric Medicine; Visit Provider Emergency Medicine
DX: K80.43 Calculus of bile duct with acute cholecystitis with obstruction (principal); K74.60 Unspecified cirrhosis of liver; R74.8 Abnormal levels of other serum enzymes; I25.10 Atherosclerotic heart disease of native coronary artery without angina pectoris; Z95.5 Presence of coronary angioplasty implant and graft
CPT/HCPCS: 74177; 80048; 80076; 81002; 83605; 83690; 84484; 85025; 93005; 96365; 96375; 96376; 99282; J7030; Q9967; A4216; J2405

== ENCOUNTER → 2023-09-09 | Outpatient (CLI) | payer MEDICARE, OTHER, SELFPAY ==
[2017-04-19 11:37] VITALS: BMI 26.3
--- OUTSIDE RECORDS SUMMARY | 2023-09-09 10:34 | XMS RPT_ITS | CCD ---
Author Name Unknown Address [address] [place] [address] Organization [facility] Care Team Providers Care Visual Design Lead Name Role Phone Katiuska, Lauren Chi Primary Care Provider COOPERRIDJC MINER II Attending Unavailabl e KATIUSKA, LAUREN CHI Primary Care Unavailable KATIUSKA, LAUREN CHI Primary Care Unavailable POONAM ZIEGLER Referring Unavailable INEMANANA Referring Unavailable KATIUSKA, LAUREN CHI Primary Care Unavailable JC LYNNE II Referring Unavailabl e KATIUSKA, LAUREN CHI Primary Care Unavailable ANA VINCENT Referring Unavailable KATIUSKA, LAUREN CHI Primary Care Unavailable SLEIK, KHALED MELOUD Attending Unavailable KATIUSKA, LAUREN CHI Primary Care Unavailable SLEIK, KHALED MELOUD Admitting Unavailable SLEIK, KHALED MELOUD Attending Unavailable KATIUSKA, LAUREN CHI Primary Care Unavailable ANA VINCENT L Referring Unavailable LAHORRA, ADRIÁN A Attending Unavailable KATIUSKA, LAUREN CHI Primary Care Unavailable JAGMANTAVONANA L Referring Unavailable KATIUSKA, LAUREN CHI Primary Care Unavailable JAGMANTAVONANA L Referring Unavailable INEMANTAVONANA L Referring Unavailable SLEIK, KHALED MELOUD Attending Unavailable KATIUSKA, LAUREN CHI Primary Care Unavailable JAGMANTAVONANA L Referring Unavailable LAHORRA, ADRIÁN A Attending Unavailable KATIUSKA, LAUREN CHI Primary Care Unavailable INEMANTAVONANA L Referring Unavailable KATIUSKA, LAUREN CHI Primary Care Unavailable JAGMANTAVONANA L Referring Unavailable KATIUSKA, LAUREN CHI Primary Care Unavailable JAGMANTAVONANA L Attending Unavailable KATIUSKA, LAUREN CHI Primary Care Unavailable KATIUSKA, LAUREN CHI Primary Care Unavailable TAVON VINCENTOLE L Referring Unavailable Allergies Allergy Classification Reported Allergen(s) Allergy Type Date of Onset Reaction(s) Facility (17 sources) Aspartame; Translations: [ASPARTAME] Drug Allergy 12-18-2018 Unknown [facility] Medications Current Medications Medication Drug [...] Coronary arteriosclerosis; Translations: [Atherosclerotic heart disease of kaibab coronary artery with other forms of angina [...] 167.6 cm Adrián Ramirez MD Work Phone: [facility] 06-21-2023 09:40-0400 Body weight 63.59 kg Adrián Ramirez MD Work Phone: [facility] 06-21-2023 09:40-0400 Diastolic blood pressure 70 mm[Hg] Adrián Ramirez MD Work Phone: [facility] 06-21-2023 09:40-0400 Heart rate 73 /min Adrián Ramirez MD Work Phone: [facility] 06-21-2023 09:40-0400 SaO2% (BldA) [Mass fraction] 97 % Adrián Ramirez MD Work Phone: [facility] 06-21-2023 09:40-0400 Systolic blood pressure 112 mm[Hg] Adrián Ramirez MD Work Phone: [facility] 06-21-2023 09:37-0400 Body height 167.6 cm Ramesh West MD Work Phone: [facility] 06-21-2023 09:37-0400 Body weight 63.59 kg Ramesh West MD Work Phone: [facility] 06-21-2023 09:37-0400 Diastolic blood pressure 70 mm[Hg] Ramesh West MD Work Phone: [facility] 06-21-2023 09:37-0400 Heart rate 73 /min Ramesh West MD Work Phone: [facility] 06-21-2023 09:37-0400 SaO2% (BldA) [Mass fraction] 97 % Ramesh West MD Work Phone: [facility] 06-21-2023 09:37-0400 Systolic blood pressure 112 mm[Hg] Ramesh West MD Work Phone: [facility] 11-23-2022 09:20-0400 Body height 167.6 cm Adrián Ramirez MD Work Phone: [facility] 11-23-2022 09:20-0400 Body weight 61.42 kg Adrián Rmairez MD Work Phone: [facility] 11-23-2022 09:20-0400 Diastolic blood pressure 62 mm[Hg] Adrián Ramirez MD Work Phone: [facility] 11-23-2022 09:20-0400 Heart rate 70 /min Adrián Ramirez MD Work Phone: [facility] 11-23-2022 09:20-0400 SaO2% (BldA) [Mass fraction] 100 % Adrián Ramirez MD Work Phone: [facility] 11-23-2022 09:20-0400 Systolic blood pressure 100 mm[Hg] Adrián Ramirez MD Work Phone: [facility] 11-23-2022 09:16-0400 Body height 167.6 cm Ramesh West MD Work Phone: [facility] 11-23-2022 09:16-0400 Body weight 61.24 kg Ramesh West MD Work Phone: [facility] 11-23-2022 09:16-0400 Diastolic blood pressure 62 mm[Hg] Ramesh West MD Work Phone: [facility] 11-23-2022 09:16-0400 Heart rate 70 /min Ramesh West MD Work Phone: [facility] 11-23-2022 09:16-0400 SaO2% (BldA) [Mass fraction] 100 % Ramesh West MD Work Phone: [facility] 11-23-2022 09:16-0400 Systolic blood pressure 100 mm[Hg] Ramesh West MD Work Phone: [facility] Encounters Encounter Date Encounter Type Care Provider Facility Start: 08-29-2023 End: 08-30-2023 ambulatory LAUREN CHI KATIUSKA Facility:[facility] Start: 08-25-2023 End: 08-26-2023 ambulatory ANA VINCENT Facility:[facility] Start: 08-25-2023 End: 08-25-2023 ambulatory ANA VINCENT Facility:[facility] Start: 07-19-2023 Patient encounter procedure Ramesh West MD Work Phone: [facility] Start: 07-19-2023 Telephone encounter Ramesh West MD Work Phone: [facility] Procedures Date Procedure Procedure Detail Performing Clinician Start: 08-25-2023 Antibody screen RAMESH WEST Plan of Treatment Date Care Activity Detail Author Start: 03-19-2029 Urine microalbumin profile DTaP,Tdap,Td Vaccine (2 - Td or Tdap) [facility] Start: 06-21-2026 Diabetes Screening Diabetes Screening [facility] Start: 11-17-2025 DIABETES SCREEN DIABETES SCREEN [facility] Start: 11-17-2025 Diabetes Screening Diabetes Screening [facility] Start: 10-08-2023 End: 07-19-2024 Echocardiography ECHO Cardiology Routine Nonrheumatic aortic valve stenosis Expected: 10/08/2023, Expires: 07/19/2024 [facility] Work Phone: Immunizations Immunization Date Immunization Notes Care Provider Carolyn osei 09-28-2021 influenza virus vacc ine, unspecified formulation Ana Carlton REPORT CLERK.DATABASE ANALYST Work Phone: [facility] Payers Date Payer Category Payer Medicare [id number] 2019 Unknown [id number] 2007 Medicare MEDICARE MEDICAR E A AND B [id number] 2007-Present [phone] [place] [address] Medicare [id number] 2007 Medicare [id number] Social History Date Type Detail Facility Tobacco smoking stat [facility] Never smoked tobacco [facility] Start: 10-05-2022 End: 06-21-2023 Alcohol intake Current non-drinker of alcohol (finding) [facility] Start: 1940 Sex Assigned At Not on file [facility] Start: 11-23-2022 End: 06-21-2023 History of Social function [facility] Start: 11-23-2022 End: 06-21-2023 Tobacco use panel [facility] National Score (1-10 0), lower number is lower risk 45 [facility] Clinical Notes 10-05-2022 to 08-25-2023 Telephone Encounter - Ana Vincent APRN.CNP - 07/19/2023 3:12 PM ESTTelephone Encounter - Ana Vincent APRN.CNP - 07/19/2023 2:30 PM Ana Poe APRN.CNP - 07/18/2023 8:11 AM EST Note Date & Type Note Facility 08-25-2023 Note HNO ID: [id number] Author: Ana Vincent APRN.CNP Service: ? Author Type: Nurse Practitioner Type: Progress Notes Filed: 08/25/2023 1:59 PM Note Text: INTERVENTIONAL CARDIOLOGY SERVICE Transcatheter Aortic Valve Replacement Preoperative History AND Physical Exam PRIMARY CARE PHYSICIAN: Lauren Sanchez MD [address] [place] [address] CARE TEAM: Phosphoric Acid Operator: Dr. Js Tapia, Dr. Ramesh West Cardiac Surgeon: Dr. Adrián Ramirez and Dr. Raghav Diaz Patient Info: Kassidy Willingham 1940 83 year old Procedure: Transcatheter Aortic Valve Replacement Diagnosis: Paradoxical Low Flow, Low Gradient Severe Aortic Valve Stenosis Date of Procedure: 09/07/2023 OR #: 10 CPT Code: 27814 Diagnosis Code: I35.9 HISTORY OF PRESENT ILLNESS: Ms. 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 [facility] 07-19-2023 Miscellaneous Notes Patient does not [...] appt and echo. Thank you, Ana Vincent APRN.DATABASE ANALYST Spoke with Dr. Newby's RN regarding DAPT [...] will reach out to Dr. Newby's office ([phone]) to determine when patient will be cleared [...] [place] LPN documented in this encounter [facility] 07-18-2023 Note HNO ID: [id number] Author: Ana Vincent APRN.CNP Service: ? Author [...] by Cardiothoracic Office. Ana Vincent APRN.CNP 07/18/2023 [facility] 07-18-2023 History of Presen t illness [...] Vincent APRN.CNP 07/18/2023 documented in this encounter [facility] 06-22-2023 Miscellaneous Notes Spoke with patient about test results. Patient verbalizes understanding. Wanda Garvin LPN Voicemail msg left for patient to return call to [facility] to review test results. Office phone number provided. Wanda Garvin LPN ----- Message from Ana Vincent APRN.DATABASE ANALYST sent at 06/21/2023 2:14 PM EDT ----- Please call the patient and report lab results revealed normal PT/INR, mild elevation in LFTs as expected with liver disease, stable CBC, and normal kidney function. BNP elevated as expected with valvular disease. Ana Vincent APRN.DATABASE ANALYST documented in this encounter [facility] 06-21-2023 Note HNO ID: [id number] Author: Ramesh West MD Service: ? Author Type: Physician Type: Progress Notes Filed: 06/21/2023 4:39 PM Note Text: Ramesh West MD Interventional Cardiology [address] [place], [place] [id number] Chief Complaint Patient presents with: Aortic Stenosis: [...] discharge. Conjunctiva/sclera: Co (more content not included)... [facility] 06-21-2023 History of Presen t illness Narrative Images from the original note were not included. Ramesh West MD Interventional Cardiology [address] [place] [address] Chief Complaint Patient presents with: Aortic Stenosis: [...] TIME/PT - NT PRO BNP - CARDIAC HOT KNIFE FOXING CUTTER ORDER 2. Hepatitis, autoimmune (HCC) - ICD9: [...] to assess her coronary anatomy - CARDIAC HOT KNIFE FOXING CUTTER ORDER Ramesh West MD Follow up planning: ONE MONTH Electronically signed by Ramseh West MD on June 21, 2023, 4:32 [...] Ana Vincent APRN.CNP documented in this encounter [facility] 06-21-2023 Note HNO ID: [id number] Author: Adrián Ramirez MD Service: ? Author [...] has indication for (more content not included)... [facility] 06-21-2023 Note HNO ID: [id number] Author: Ana Vincent APRN.WOLF Service: ? Author [...] Stay (<6 days)* 23.6% Ana Vincent APRN.WOLF [facility] 06-21-2023 History of Presen t illness [...] 2023 TIME: 10:47 AM PAGER/CONTACT #: [phone] documented in this encounter [facility] 06-21-2023 Instructions Ana Vincent, REPORT CLERK.DATABASE ANALYST - 06/21/2023 10:15 AM EDT Images from [...] reassess your coronary artery disease. - Cardiac Data Collector will call you to schedule this procedure. [...] wearing: Jewelry Eyeglasses Contact lenses Dentures Nail bolivian Other precautions Talk to your doctor about: [...] before the TAVR procedure. A treatment team assembler will give you medication through an intravenous [...] the replacement valve into place in the kaibab aortic valve. Some valves can expand without [...] and avoiding smoking. documented in this encounter [facility] 06-21-2023 Nurse Note CARDIAC REHAB 5 METER WALK TEST SERVICE DATE: 06/21/2023 SERVICE TIME: 9:35am ASSESSMENT: 5.40sec 5.05sec 5.48sec ASSESSMENT: SIGNATURE: Maryan Julio LPN PATIENT NAME: Kassidy Willingham DATE: June 21, 2023 TIME: 9:42 AM PAGER/CONTACT #: [phone] documented in this encounter [facility] 06-21-2023 Nurse Note CARDIAC REHAB 5 METER WALK TEST SERVICE DATE: 06/21/2023 SERVICE TIME: 9:35am ASSESSMENT: 5.40sec 5.05sec 5.48sec SIGNATURE: Maryan Julio LPN PATIENT NAME: Kassidy Willingham DATE: June 21, 2023 TIME: 9:34 AM PAGER/CONTACT #: [phone] documented in this encounter [facility] 12-08-2022 Miscellaneous Notes Spoke with patient about test results and recommendation to have repeat echocardiogram and valve clinic follow up in 6 months. Patient verbalizes understanding and is agreeable. Wanda Garvin LPN ----- Message from Ana Vincent APRN.DATABASE ANALYST sent at 12/08/2022 2:56 PM EDT ----- Please call the patient and report echo results revealed moderately severe aortic valve stenosis. We are recommending repeat echocardiogram and valve clinic follow up in 6 months. Office will contact patient with appointment information. Thank you, Ana Vincent APRN.DATABASE ANALYST documented in this encounter [facility] 12-08-2022 Miscellaneous Notes Please schedule patient for echo and valve clinic with Dr. West in 6 months. - Please arrange for echo morning of her valve clinic appointment. Thank you, Ana Vincent APRN.DATABASE ANALYST documented in this encounter [facility] 11-29-2022 Miscellaneous Notes Yes, pt had echo done yesterday at and is scheduled for echo here in [place] on 12/06. Echo cancelled on 12/06. Pt notified. Gerda Church RN Pt called today wondering about the Echocardiogram scheduled 12/06/22 and if that is the same as the test done at [facility] yesterday. Please let pt know. documented in this encounter [facility] 11-23-2022 Note HNO ID: [id number] Author: Ramesh West MD Service: ? Author Type: Physician Type: Progress Notes Filed: 11/23/2022 4:35 PM Note Text: Ramesh West MD Interventional Cardiology [address] [place], [place] [address] Chief Complaint Patient presents with: Aortic Stenosis: [...] injection (DEFINITY) INTRAVENOUS DIRECTED PRN Ana Vincent APRN.DATABASE ANALYST sodium chloride 0.9 % (flush) 10 mL (BD POSIFLUSH) 10 mL INTRAVENOUS DIRECTED PRN Ana Vincent, REPORT CLERK.DATABASE ANALYST Review of Systems Constitutional: Negative for chills, [...] for abdominal pain, (more content not included)... [facility] 11-23-2022 History of Presen t illness Narrative Images from the original note were not included. Ramesh West MD Interventional Cardiology [address] [place] [address] Chief Complaint Patient presents with: Aortic Stenosis: [...] Ana Vincent APRN.CNP documented in this encounter [facility] 11-23-2022 Note HNO ID: [id number] Author: Adrián Ramirez MD Service: ? Author [...] syncope, presyncope. AN echo performed at [facility] showed normal EF, calcific changes involving [...] MD PATIENT N (more content not included)... [facility] 11-23-2022 Note HNO ID: [id number] Author: Ana Vincent APRN.WOLF Service: ? Author [...] Length of Stay: 6.686% Ana Vincent APRN.WOLF [facility] 11-23-2022 History of Presen t illness [...] syncope, presyncope. AN echo performed at [facility] showed normal EF, calcific changes involving [...] 2023 TIME: 11:40 PM PAGER/CONTACT #: [phone] documented in this encounter [facility] 11-23-2022 Instructions Ana Vincent APRN.[facility] - 11/23/2022 10:18 AM EDT Images from the original note were not included. Today, you met with Dr. West and Dr. Ramirez to discuss your aortic valve stenosis and current symptoms. We are recommending: Repeat echocardiogram here at [facility] Please call us with any further questions or concerns. [phone] Patient information: Aortic stenosis What is aortic [...] process is complete. The content on the [employer] website is not intended nor recommended as a substitute for medical advice, diagnosis, or treatment. Always seek the advice of your own physician or other qualified health toddler caregiver regarding any medical questions or conditions.. 2016 [employer]. All rights reserved. Topic 73661 Version 5.0 documented in this encounter [facility] 11-23-2022 Nurse Note CARDIAC REHAB 5 METER WALK TEST SERVICE DATE: 11/23/2022 SERVICE TIME: 9:14AM 7.50sec 6.94sec 7.33sec ASSESSMENT: SIGNATURE: Maryan Julio LPN PATIENT NAME: Kassidy Willingham DATE: November 23, 2022 TIME: 9:21 AM PAGER/CONTACT #: [phone] documented in this encounter [facility] 11-23-2022 Nurse Note CARDIAC REHAB 5 METER WALK TEST SERVICE DATE: 11/23/2022 SERVICE TIME: 9:14AM 7.50sec 6.94sec 7.33sec ASSESSMENT: SIGNATURE: Maryan Julio LPN PATIENT NAME: Kassidy Willingham DATE: November 23, 2022 TIME: 9:15 AM PAGER/CONTACT #: [phone] documented in this encounter [facility] 11-18-2022 Miscellaneous Notes Left message [...] Ana Vincent APRN.WOLF documented in this encounter [facility] 11-10-2022 Miscellaneous Notes I spoke [...] this afternoon. She can be reached at [phone]. Poonam Ferguson LPN I spoke with patient's regarding referral to Valve Clinic from Dr. Leach. Patient unavailable to talk today. Provided patient's the office phone number to return phone call regarding further testing and follow up appt. Thanks, Ana Vincent APRN.WOLF documented in this encounter [facility] 10-05-2022 Note HNO ID: [id number] Author: Jc Lynne II, CLAUDINE Service: ? Author Type: ASSISTANT ATHLETIC TRAINER Type: Progress Notes Filed: 10/05/2022 4:42 PM [...] its relevant components. Jc Lynne II, OD [facility] 10-05-2022 Instructions Jc Lynne II, OD - [...] Lynne II, OD documented in this encounter [facility] 10-05-2022 History of Presen t [...] Lynne II, OD documented in this encounter [facility] Diagnosis Aortic valve stenosis, etiology of cardiac valve disease unspecified- Primary Encounter for preprocedural cardiovascular examination Pre-operative cardiovascular examination Dyspnea on exertion Other dyspnea and respiratory abnormality [facility] Diagnosis Nonrheumatic aortic valve stenosis- Primary Aortic valve disorders [facility] Diagnosis Encounter for preprocedural cardiovascular examination Pre-operative cardiovascular examination Aortic valve stenosis, etiology of cardiac valve disease unspecified [facility] Diagnosis Nonrheumatic aortic valve stenosis Aortic valve disorders [facility] Diagnosis Nonrheumatic aortic valve stenosis- Primary Aortic valve disorders [facility] Diagnosis Nonrheumatic aortic valve stenosis- Primary Aortic valve disorders 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) Stable angina Other and unspecified angina pectoris Valvular heart disease Endocarditis, valve unspecified, unspecified cause [facility] Diagnosis Nonrheumatic aortic valve stenosis- Primary Aortic valve disorders Hepatitis, autoimmune (HCC) Autoimmune hepatitis Stable angina Other and unspecified angina pectoris Stable angina Other and unspecified angina pectoris Valvular heart disease Endocarditis, valve unspecified, unspecified cause [facility]* Diagnosis Nonrheumatic aortic valve stenosis- Primary Aortic valve disorders Encounter for examination for normal comparison and control in clinical research program Nonrheumatic aortic valve stenosis Aortic valve disorders Encounter for examination for normal comparison and control in clinical research program [facility] Outpatient Procedure (Routine) - Authorized Specialty Diagnoses / Procedures Referred By Luis rubin Referred To Contact [facility] Diagnoses Nonrheumatic aortic valve stenosis Procedures ECHO ECHO TTHRC R-T 2D W/WOM-MODE COMPL SPEC&COLR D Ana Vincent APRN.CNP [address] [place] [address] [facility] [place] [address] Referral ID Status Reason Start Date Expiration Date Visits Requested Visits Authorized [id number] Authorized Auto-Generat ed Referral 11/23/2022 11/23/2023 1 1 [facility] for referral (narrative)* Outpatient Procedure (Routine) - Closed Specialty Diagnoses / Procedures Referred By Luis rubin Referred To Contact [facility] Diagnoses Nonrheumatic aortic valve stenosis Procedures ECHO ECHO TTHRC R-T 2D W/WOM-MODE COMPL SPEC&COLR D Ana Vincent APRN.CNP [address] [place] [address] [facility] [address] [place] [address] Referral ID Status Reason Start Date Expiration Date V isits Requested Visits Authorized [id number] Closed Auto-Generate d Referral 11/23/2022 11/23/2023 1 1 [facility] for referral (narrative)* Outpatient Procedure (Routine) - Authorized Specialty Diagnoses / Procedures Referred By Contac t Referred To Contact [facility] Diagnoses Nonrheumatic aortic valve stenosis Procedures ECHO ECHO TTHRC R-T 2D W/WOM-MODE COMPL SPEC&COLR D Ana Vincent APRN.CNP [address] [place] [address] [facility] [address] [place] [address] Referral ID Status Reason Start Date Expiration Date Visits Requested Visits Authorized [id number] Authorized Auto-Generat ed Referral 06/09/2023 12/08/2023 1 1 [facility] for referral (narrative)* Outpatient Procedure (Routine) - Authorized Specialty Diagnoses / Procedures Referred By Contac t Referred To Contact [facility] Diagnoses Nonrheumatic aortic valve stenosis Procedures ECHO ECHO TTHRC R-T 2D W/WOM-MODE COMPL SPEC&COLR D Ana Vincent APRN.CNP [address] [place] [address] [facility] [address] [place] [address] Referral ID Status Reason Start Date Expiration Date Visits Requested Visits Authorized [id number] Authorized Auto-Generat ed Referral 10/08/2023 07/18/2024 1 1 [facility] Outpatient Procedure (Routine) - Closed Specialty Diagnoses / Procedures Referred By Luis rubin Referred To [facility] Diagnoses Nonrheumatic aortic valve stenosis Procedures ECHO ECHO TTHRC R-T 2D W/WOM-MODE COMPL SPEC&COLR D Ana Vincent, REPORT CLERK.DATABASE ANALYST [address] [place] [address] [facility] [address] [place] [address] Referral ID Status Reason Start Date Expiration Date V isits Requested Visits Authorized [id number] Closed Auto-Generate d Referral 11/23/2022 11/23/2023 1 1 [facility] Medications Administered Section Active Administered [...] IVCON CT ANGIOGRAPHY CHEST W/CONTRAST/NONCONTRAST Ana Vincent, REPORT CLERK.DATABASE ANALYST [address] [place] [address] Ct Imaging Referral ID Status Reason Start Date Expiration Date Visits Requested Visits Authorized [id number] Authorized Auto-Generat ed Referral 11/23/2022 12/10/2023 1 1 Specialty Diagnoses / Procedures Referred By Contac t Referred To Contact CT IMAGING Diagnoses Encounter for preprocedural cardiovascular examination Aortic valve stenosis, etiology of cardiac valve disease unspecified Procedures CTA ABD/PEL W IVCON CT ANGIO ABD&PLVIS CNTRST MTRL W/WO CNTRST Ana Noriega, REPORT CLERK.DATABASE ANALYST [address] [place] [address] Ct Imaging Referral ID Status Reason Start Date Expiration Date Visits Requested Visits Authorized [id number] Authorized Auto-Generat ed Referral 11/23/2022 12/10/2023 1 1 Referral ID Status Reason Start Date Expiration Date V isits Requested Visits Authorized [id number] Closed Auto-Generate d Referral 11/23/2022 12/10/2023 1 1 Referral ID Status Reason Start Date Expiration Date V isits Requested Visits Authorized [id number] Closed Auto-Generate d Referral 11/23/2022 12/10/2023 1 [...] or prosecute any alcohol or drug abuse patient.[facility] the event this information is protected by the Federal Confidentiality of Alcohol and Drug Abuse Patient Records regulations: The Federal rules restrict any use of the information to criminally investigate or prosecute any alcohol or drug abuse patient.[facility] the event this information is protected by the Federal Confidentiality of Alcohol and Drug Abuse Patient Records regulations: The Federal rules restrict any use of the information to criminally investigate or prosecute any alcohol or drug abuse patient.[facility] the event this information is protected by the Federal Confidentiality of Alcohol and Drug Abuse Patient Records regulations: The Federal rules restrict any use of the information to criminally investigate or prosecute any alcohol or drug abuse patient.[facility] the event this information is protected by the Federal Confidentiality of Alcohol and Drug Abuse Patient Records regulations: The Federal rules restrict any use of the information to criminally investigate or prosecute any alcohol or drug abuse patient.[facility] the event this information is protected by the Federal Confidentiality of Alcohol and Drug Abuse Patient Records regulations: The Federal rules restrict any use of the information to criminally investigate or prosecute any alcohol or drug abuse patient.[facility] the event this information is protected by the Federal Confidentiality of Alcohol and Drug Abuse Patient Records regulations: The Federal rules restrict any use of the information to criminally investigate or prosecute any alcohol or drug abuse patient.[facility] the event this information is protected by the Federal Confidentiality of Alcohol and Drug Abuse Patient Records regulations: The Federal rules restrict any use of the information to criminally investigate or prosecute any alcohol or drug abuse patient.[facility] the event this information is protected by the Federal Confidentiality of Alcohol and Drug Abuse Patient Records regulations: The Federal rules restrict any use of the information to criminally investigate or prosecute any alcohol or drug abuse patient.[facility] the event this information is protected by the Federal Confidentiality of Alcohol and Drug Abuse Patient Records regulations: The Federal rules restrict any use of the information to criminally investigate or prosecute any alcohol or drug abuse patient.[facility] the event this information is protected by the Federal Confidentiality of Alcohol and Drug Abuse Patient Records regulations: The Federal rules restrict any use of the information to criminally investigate or prosecute any alcohol or drug abuse patient.[facility] the event this information is protected by the Federal Confidentiality of Alcohol and Drug Abuse Patient Records regulations: The Federal rules restrict any use of the information to criminally investigate or prosecute any alcohol or drug abuse patient.[facility] the event this information is protected by the Federal Confidentiality of Alcohol and Drug Abuse Patient Records regulations: The Federal rules restrict any use of the information to criminally investigate or prosecute any alcohol or drug abuse patient.[facility] the event this information is protected by the Federal Confidentiality of Alcohol and Drug Abuse Patient Records regulations: The Federal rules restrict any use of the information to criminally investigate or prosecute any alcohol or drug abuse patient.[facility] Hospital[facility] the event this information is protected by the Federal Confidentiality of Alcohol and Drug Abuse Patient Records regulations: The Federal rules restrict any use of the information to criminally investigate or prosecute any alcohol or drug abuse patient.[facility] Reason for Visit (unrecogniz ed section and content) 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 Specialty Diagnoses / Procedures Referred By Luis t Referred To Contact CT IMAGING Diagnoses Encounter for preprocedural cardiovascular examination Aortic valve stenosis, etiology of cardiac valve disease unspecified Procedures CTA CHEST (GATED) WO/W IVCON CT ANGIOGRAPHY CHEST W/CONTRAST/NONCONTRAST Ana Vincent L, REPORT CLERK.DATABASE ANALYST [address] [place] [address] Ct Imaging Referral ID Status Reason Start Date Expiration Date V isits Requested Visits Authorized [id number] Closed Auto-Generate d Referral 11/23/2022 12/10/2023 1 1 Reason Comments Patient Question Reason Comments Appointment Reason Comments Aortic Stenosis Lo is here for TAV R evaluation. 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 Care Teams (unrecognized sec tion and content) Visual Design Lead Relationship Specialty Start Date End Date Lauren Sanchez [facility] [address] [address] [place] [address] PCP - General Gerontology 09/30/21 Visual Design Lead Relationship Specialty Start Date End Date Lauren Sanchez Chi [address] [place] [address] PCP - General Gerontology 09/30/21 Visual Design Lead Relationship Specialty Start Date End Date Lauren Sanchez Chi [address] [place] [address] PCP - General Gerontology 09/30/21 Visual Design Lead Relationship Specialty Start Date End Date Lauren Sanchez Chi [address] [place] [address] PCP - General Gerontology 09/30/21 Visual Design Lead Relationship Specialty Start Date End Date Lauren Sanchez Chi [address] [place] [address] PCP - General Gerontology 09/30/21 Visual Design Lead Relationship Specialty Start Date End Date Lauren Sanchez Chi [address] [place] [address] PCP - General Gerontology 09/30/21 Visual Design Lead Relationship Specialty Start Date End Date Lauren Sanchez Chi [address] [place] [address] PCP - General Gerontology 09/30/21 Visual Design Lead Relationship Specialty Start Date End Date Lauren Sanchez Chi [address] [place] [address] PCP - General Gerontology 09/30/21 Visual Design Lead Relationship Specialty Start Date End Date Lauren Sanchez Chi [address] [place] [address] PCP - General Gerontology 09/30/21 Visual Design Lead Relationship Specialty Start Date End Date Lauren Sanchez Chi [address] [place] [address] PCP - General Gerontology 09/30/21 Visual Design Lead Relationship Specialty Start Date End Date Lauren Sanchez Chi [address] [place] [id number] PCP - General Gerontology 09/30/21 Visual Design Lead Relationship Specialty Start Date End Date Lauren Sanchez Chi [address] [place], [place] [address] PCP - General Gerontology 09/30/21 Visual Design Lead Relationship Specialty Start Date End Date Lauren Sanchez Chi [address] [place] [id number] PCP - General Gerontology 09/30/21 INFORMATION SOURCE (unrecogn ized section and content) DATE CREATED AUTHOR AUTHOR'S ORGANIZ ATION 09/07/2023 [facility] FOR RECORDS PERTAINING TO PATIENTS WHO ARE [...] BE BASED ON THE PRIMARY CLINICAL RECORDS. [employer] [facility]. provides no warranty or guarantee of the accuracy or completeness of information in this document.
[2023-09-09 11:07] LABS: Absolute Lymphocyte Count 1.12 X10^3/uL (0.83-4.51); Absolute Neutrophil Count 5.5 X10^3/uL (2.0-7.7); Basophil% 1.3 % (0-1); Eosinophil# 0.06 X10^3/uL; Eosinophils% 0.8 % (0-5); Hematocrit 36.5 % (37-47); Hemoglobin 11.1 g/dL (12.0-15.0); Lymphocyte # 1.12 X10^3/ul (0.83-4.51); Lymphocyte % 14.5 % (19-41); Mean Corp Hgb Conc 30.4 g/dL (32-36); Mean Corpuscular Hgb 26.6 pg (27.0-32.0); Mean Corpuscular Volume 87.5 fL (81-99); Monocyte# 0.72 X10^3/uL; Monocyte% 9.3 % (0-10); NRBC Flagged by Analyzer 0 % (0-5); Neutrophil # 5.46 X10^3/uL (2.7-7.7); Neutrophil % 70.6 % (47-70); POSITIVE COUNT YES; RBC Distribution Width CV 17.5 % (11.6-14.6); RBC Distribution Width SD 55.7 fl (35.1-43.9); Red Blood Count 4.17 M/mm3 (4.2-5.4); White Blood Count 7.7 K/mm3 (4.4-11.0)
[2023-09-09 11:22] LABS: Platelet Count 148 K/mm3 (150-450)
[2023-09-09 11:40] LABS: AST(SGOT) 18 U/L (15-37); Alanine Aminotransfer ALT/SGPT 14 U/L (13-56); Alkaline Phosphatase 158 U/L (45-117); Anion Gap 6 (5-15); BUN 8 mg/dL (7-18); BUN/Creat Ratio 7.3 RATIO (10-20); Bilirubin, Direct 0.24 mg/dL (0.00-0.30); Chloride 104 mmol/L (98-107); EST Glomerular Filtration Rate 51 mL/min (>60); Est Glom Filt Rate - Afr Amer 61 mL/min (>60); Glucose 261 mg/dL (74-106); Potassium 4.4 mmol/L (3.5-5.1); Sodium Level 134 mmol/L (136-145)
== END | disposition home or self-care (01) ==
LOC: LAB 10:31
PROVIDERS: PCP Family Medicine Geriatric Medicine; Referring Provider Internal Medicine; Visit Provider Internal Medicine
DX: K81.1 Chronic cholecystitis (principal); K92.2 Gastrointestinal hemorrhage, unspecified; D72.829 Elevated white blood cell count, unspecified
CPT/HCPCS: 36415; 80048; 80076; 85025

== ENCOUNTER → 2023-09-12 | Outpatient (CLI) | payer MEDICARE, OTHER, SELFPAY ==
[2017-04-19 11:37] VITALS: BMI 26.3
--- NOTE | 2023-09-12 08:41 | US_ITS ---
STUDY: ABDOMINAL ULTRASOUND - RIGHT UPPER QUADRANT; ELASTOGRAPHY REASON FOR VISIT: Female, 83 years old. NAFLD. TECHNIQUE: Ultrasound evaluation of the right upper quadrant was performed with real-time and static britton-scale imaging. Point quantification shear wave elastography was performed ([employer]). TECHNICAL QUALITY: Adequate. COMPARISON: Comparison is made with prior study dated May 06, 2022. FINDINGS: Liver: The liver measures 16.8 cm. There is increased echogenicity consistent with fatty infiltration. The bile ducts are within normal limits. There is hepatic color flow. The direction of portal flow is hepatopetal. There is no demonstrated mass lesion. Median liver stiffness measured 10.6 kPa. Gallbladder: A cholecystostomy drain is seen within the gallbladder lumen. Common Bile Duct (C.B.D.): The common bile duct measures 4 mm. Pancreas: There is normal echogenicity of the visualized pancreas. There is no demonstrated pancreatic mass or cyst. Right Kidney: Normal size of the right kidney. The right kidney measures 10.7 cm x 5.1 cm x 5.4 cm. Normal renal cortex. The right cortex measures 1.5 cm. There is no demonstrated renal mass or cyst. There is no right hydronephrosis. US/ABD Limited w/ Elastography IMPRESSION: 1. Liver stiffness measures 10.6 kPa compatible with F2-F3 (Mild to moderate liver fibrosis) Metavir score. Electronically Signed: Asher Donato MD at 12:16 EST ,
== END | disposition home or self-care (01) ==
LOC: US 08:36
PROVIDERS: PCP Family Medicine Geriatric Medicine; Referring Provider Internal Medicine; Visit Provider Internal Medicine
DX: K75.4 Autoimmune hepatitis (principal); K74.60 Unspecified cirrhosis of liver
CPT/HCPCS: 76705; 76981

== ENCOUNTER 2023-09-23 08:59 | Outpatient (CLI) | payer MEDICARE, OTHER, SELFPAY ==
[2017-04-19 11:37] VITALS: BMI 26.3
--- OUTSIDE RECORDS SUMMARY | 2023-09-23 09:03 | XMS RPT_ITS | CCD ---
Author Name Unknown Address [address] [place] [address] Organization [facility] Care Team Providers Care Supervisor White Sugar Name Role Phone Katiuska, Lauren Chi Primary Care Provider [phone] COOPERRIDJC MINER II Attending Unavailabl e KATIUSKA, [...] Unavailable KATIUSKA, LAUREN CHI Primary Care Unavailable AAN VINCENT L Referring Unavailable LAHORRA, ADRIÁN A [...] Aspartame; Translations: [ASPARTAME] Drug Allergy 12-18-2018 Unknown [facility] Medications Current Medications Medication Drug Class(es) [...] Coronary arteriosclerosis; Translations: [Atherosclerotic heart disease of chilkat coronary artery with other forms of angina [...] 167.6 cm Adrián Ramirez MD Work Phone: [facility] 06-21-2023 09:40-0400 Body weight 63.59 kg Adrián Ramirez MD Work Phone: [facility] 06-21-2023 09:40-0400 Diastolic blood pressure 70 mm[Hg] Adrián Ramirez MD Work Phone: [facility] 06-21-2023 09:40-0400 Heart rate 73 /min Adrián Ramirez MD Work Phone: [facility] 06-21-2023 09:40-0400 SaO2% (BldA) [Mass fraction] 97 % Adrián Ramirez MD Work Phone: [facility] 06-21-2023 09:40-0400 Systolic blood pressure 112 mm[Hg] Adrián Ramirez MD Work Phone: [facility] 06-21-2023 09:37-0400 Body height 167.6 cm Ramesh West MD Work Phone: [facility] 06-21-2023 09:37-0400 Body weight 63.59 kg Ramesh West MD Work Phone: [facility] 06-21-2023 09:37-0400 Diastolic blood pressure 70 mm[Hg] Ramesh West MD Work Phone: [facility] 06-21-2023 09:37-0400 Heart rate 73 /min Ramesh West MD Work Phone: [facility] 06-21-2023 09:37-0400 SaO2% (BldA) [Mass fraction] 97 % Ramesh West MD Work Phone: [facility] 06-21-2023 09:37-0400 Systolic blood pressure 112 mm[Hg] Ramesh West MD Work Phone: [facility] 11-23-2022 09:20-0400 Body height 167.6 cm Adrián Ramirez MD Work Phone: [facility] 11-23-2022 09:20-0400 Body weight 61.42 kg Adrián Ramirez MD Work Phone: [facility] 11-23-2022 09:20-0400 Diastolic blood pressure 62 mm[Hg] Adrián Ramirez MD Work Phone: [facility] 11-23-2022 09:20-0400 Heart rate 70 /min Adrián Ramirez MD Work Phone: [facility] 11-23-2022 09:20-0400 SaO2% (BldA) [Mass fraction] 100 % Adrián Ramirez MD Work Phone: [facility] 11-23-2022 09:20-0400 Systolic blood pressure 100 mm[Hg] Adrián Ramirez MD Work Phone: [facility] 11-23-2022 09:16-0400 Body height 167.6 cm Ramesh West MD Work Phone: [facility] 11-23-2022 09:16-0400 Body weight 61.24 kg Ramesh West MD Work Phone: [facility] 11-23-2022 09:16-0400 Diastolic blood pressure 62 mm[Hg] Ramesh West MD Work Phone: [facility] 11-23-2022 09:16-0400 Heart rate 70 /min Ramesh West MD Work Phone: [facility] 11-23-2022 09:16-0400 SaO2% (BldA) [Mass fraction] 100 % Ramesh West MD Work Phone: [facility] 11-23-2022 09:16-0400 Systolic blood pressure 100 mm[Hg] Ramesh West MD Work Phone: [facility] Encounters Encounter Date Encounter Type Care Provider Facility Start: 08-29-2023 End: 08-30-2023 ambulatory LAUREN CHI KATIUSKA Facility:[facility] Start: 08-25-2023 End: 08-26-2023 ambulatory ANA VINCENT Facility:[facility] Start: 08-25-2023 End: 08-25-2023 ambulatory ANA VINCENT Facility:[facility] Start: 07-19-2023 Patient encounter procedure Ramesh West MD Work Phone: [facility] Start: 07-19-2023 Telephone encounter Ramesh West MD Work Phone: [facility] Procedures Date Procedure Procedure Detail Performing Clinician Start: 08-25-2023 Antibody screen RAMESH WEST Plan of Treatment Date Care Activity Detail Author Start: 03-19-2029 Urine microalbumin profile DTaP,Tdap,Td Vaccine (2 - Td or Tdap) [facility] Start: 06-21-2026 Diabetes Screening Diabetes Screening [facility] Start: 11-17-2025 DIABETES SCREEN DIABETES SCREEN [facility] Start: 11-17-2025 Diabetes Screening Diabetes Screening [facility] Start: 10-08-2023 End: 07-19-2024 Echocardiography ECHO Cardiology Routine Nonrheumatic aortic valve stenosis Expected: 10/08/2023, Expires: 07/19/2024 [facility] Work Phone: Immunizations Immunization Date Immunization Notes Care Provider Carolyn osei 09-28-2021 influenza virus vacc ine, unspecified formulation Ana Carlton BIOINFORMATICS ASSOCIATE.ON AIR DIRECTOR Work Phone: [facility] Payers Date Payer Category Payer Medicare [id number] 2019 Unknown [id number] 2007 Medicare MEDICARE MEDICAR E A AND B [id number] 2007-Present [phone] [place] [address] Medicare [id number] 2007 Medicare [id number] Social History Date Type Detail Facility Tobacco smoking stat [facility] Never smoked tobacco [facility] Start: 10-05-2022 End: 06-21-2023 Alcohol intake Current non-drinker of alcohol (finding) [facility] Start: 1940 Sex Assigned At Not on file [facility] Start: 11-23-2022 End: 06-21-2023 History of Social function [facility] Start: 11-23-2022 End: 06-21-2023 Tobacco use panel [facility] National Score (1-10 0), lower number is lower risk 45 [facility] Clinical Notes 10-05-2022 to 08-25-2023 Telephone Encounter - Ana Vincent APRN.CNP - 07/19/2023 3:12 PM ESTTelephone Encounter - Ana Vincent APRN.CNP - 07/19/2023 2:30 PM Ana Poe APRN.CNP - 07/18/2023 8:11 AM EST Note Date & Type Note Facility 08-25-2023 Note HNO ID: [id number] Author: Ana Vincent APRN.CNP Service: ? Author Type: Nurse Practitioner Type: Progress Notes Filed: 08/25/2023 1:59 PM Note Text: INTERVENTIONAL CARDIOLOGY SERVICE Transcatheter Aortic Valve Replacement Preoperative History AND Physical Exam PRIMARY CARE PHYSICIAN: Lauren Sanchez MD [address] [place] [address] CARE TEAM: Logistics Team Lead: Dr. Js Tapia, Dr. Ramesh West Cardiac Surgeon: Dr. Adrián Ramirez and Dr. Raghav Diaz Patient Info: Kassidy Willingham 1940 83 year old Procedure: Transcatheter Aortic Valve Replacement Diagnosis: Paradoxical Low Flow, Low Gradient Severe Aortic Valve Stenosis Date of Procedure: 09/07/2023 OR #: 10 CPT Code: 49550 Diagnosis Code: I35.9 HISTORY OF PRESENT ILLNESS: Ms. Willingham is a 83 year old female with a known past medical history significant for HTN, HLD, Yari disease, autoimmune hepatitis, CAD (s/p PCI to LAD AND known VACCINE SPECIALIST to RCA), and severe aortic valve stenosis [...] and neck sup (more content not included)... [facility] 07-19-2023 Miscellaneous Notes Patient does not [...] appt and echo. Thank you, Ana Vincent APRN.ON AIR DIRECTOR Spoke with Dr. Newby's RN regarding DAPT [...] will reach out to Dr. Newby's office ([phone]) to determine when patient will be cleared [...] on the Gallstone surgery. Please advise. Yuli Beahc LPN documented in this encounter [facility] 07-18-2023 Note HNO ID: [id number] Author: Ana Vincent APRN.CNP Service: ? Author [...] by Cardiothoracic Office. Ana Vincent APRN.CNP 07/18/2023 [facility] 07-18-2023 History of Presen t illness [...] Vincent APRN.CNP 07/18/2023 documented in this encounter [facility] 06-22-2023 Miscellaneous Notes Spoke with patient about test results. Patient verbalizes understanding. Wanda Garvin LPN Voicemail msg left for patient to return call to [facility] to review test results. Office phone number provided. Wanda Garvin LPN ----- Message from Ana Vincent APRN.ON AIR DIRECTOR sent at 06/21/2023 2:14 PM EDT ----- Please call the patient and report lab results revealed normal PT/INR, mild elevation in LFTs as expected with liver disease, stable CBC, and normal kidney function. BNP elevated as expected with valvular disease. Ana Vincent APRN.ON AIR DIRECTOR documented in this encounter [facility] 06-21-2023 Note HNO ID: [id number] Author: Ramesh West MD Service: ? Author Type: Physician Type: Progress Notes Filed: 06/21/2023 4:39 PM Note Text: Ramesh West MD Interventional Cardiology [address] [place], [place] [id number] Chief Complaint Patient presents with: Aortic Stenosis: [...] discharge. Conjunctiva/sclera: Co (more content not included)... [facility] 06-21-2023 History of Presen t illness Narrative Images from the original note were not included. Ramesh West MD Interventional Cardiology [address] [place] [address] Chief Complaint Patient presents with: Aortic Stenosis: [...] TIME/PT - NT PRO BNP - CARDIAC PHOTO TECHNICIAN ORDER 2. Hepatitis, autoimmune (HCC) - [...] to assess her coronary anatomy - CARDIAC PHOTO TECHNICIAN ORDER Ramesh West MD Follow up [...] Ana Vincent APRN.CNP documented in this encounter [facility] 06-21-2023 Note HNO ID: [id number] Author: Adrián Ramirez MD Service: ? Author [...] has indication for (more content not included)... [facility] 06-21-2023 Note HNO ID: [id number] Author: Ana Vincent APRN.WOLF Service: ? Author [...] Stay (<6 days)* 23.6% Ana Vincent APRN.WOLF [facility] 06-21-2023 History of Presen t illness [...] 2023 TIME: 10:47 AM PAGER/CONTACT #: [phone] documented in this encounter [facility] 06-21-2023 Instructions Ana Vincent, BIOINFORMATICS ASSOCIATE.ON AIR DIRECTOR - 06/21/2023 10:15 AM EDT Images from [...] reassess your coronary artery disease. - Cardiac Provisioning Analyst will call you to schedule this procedure. [...] anesthesia before the TAVR procedure. A treatment crew team member will give you medication through an intravenous [...] the replacement valve into place in the chilkat aortic valve. Some valves can expand without [...] and avoiding smoking. documented in this encounter [facility] 06-21-2023 Nurse Note CARDIAC REHAB 5 METER WALK TEST SERVICE DATE: 06/21/2023 SERVICE TIME: 9:35am ASSESSMENT: 5.40sec 5.05sec 5.48sec ASSESSMENT: SIGNATURE: Maryan Julio LPN PATIENT NAME: Kassidy Willingham DATE: June 21, 2023 TIME: 9:42 AM PAGER/CONTACT #: [phone] documented in this encounter [facility] 06-21-2023 Nurse Note CARDIAC REHAB 5 METER WALK TEST SERVICE DATE: 06/21/2023 SERVICE TIME: 9:35am ASSESSMENT: 5.40sec 5.05sec 5.48sec SIGNATURE: Maryan Julio LPN PATIENT NAME: Kassidy Willingham DATE: June 21, 2023 TIME: 9:34 AM PAGER/CONTACT #: [phone] documented in this encounter [facility] 12-08-2022 Miscellaneous Notes Spoke with patient about test results and recommendation to have repeat echocardiogram and valve clinic follow up in 6 months. Patient verbalizes understanding and is agreeable. Wanda Garvin LPN ----- Message from Ana Vincent APRN.ON AIR DIRECTOR sent at 12/08/2022 2:56 PM EDT ----- Please call the patient and report echo results revealed moderately severe aortic valve stenosis. We are recommending repeat echocardiogram and valve clinic follow up in 6 months. Office will contact patient with appointment information. Thank you, Ana Vincnet APRN.ON AIR DIRECTOR documented in this encounter [facility] 12-08-2022 Miscellaneous Notes Please schedule patient for echo and valve clinic with Dr. West in 6 months. - Please arrange for echo morning of her valve clinic appointment. Thank you, Ana Vincent APRN.ON AIR DIRECTOR documented in this encounter [facility] 11-29-2022 Miscellaneous Notes Yes, pt had echo done yesterday at and is scheduled for echo here in [place] on 12/06. Echo cancelled on 12/06. Pt notified. Gerda Church RN Pt called today wondering about the Echocardiogram scheduled 12/06/22 and if that is the same as the test done at [facility] yesterday. Please let pt know. documented in this encounter [facility] 11-23-2022 Note HNO ID: [id number] Author: Ramesh West MD Service: ? Author Type: Physician Type: Progress Notes Filed: 11/23/2022 4:35 PM Note Text: Ramesh West MD Interventional Cardiology [address] [place], [place] [id number] Chief Complaint Patient presents with: Aortic Stenosis: [...] injection (DEFINITY) INTRAVENOUS DIRECTED PRN Ana Vincent APRN.ON AIR DIRECTOR sodium chloride 0.9 % (flush) 10 mL (BD POSIFLUSH) 10 mL INTRAVENOUS DIRECTED PRN Ana Vincent, BIOINFORMATICS ASSOCIATE.ON AIR DIRECTOR Review of Systems Constitutional: Negative for chills, [...] for abdominal pain, (more content not included)... [facility] 11-23-2022 History of Presen t illness Narrative Images from the original note were not included. Ramesh West MD Interventional Cardiology [address] [place] [address] Chief Complaint Patient presents with: Aortic Stenosis: [...] Ana Vincent APRN.CNP documented in this encounter [facility] 11-23-2022 Note HNO ID: [id number] Author: Adrián Ramirez MD Service: ? Author [...] edema, syncope, presyncope. AN echo performed at [facility] showed normal EF, calcific changes involving [...] MD PATIENT N (more content not included)... [facility] 11-23-2022 Note HNO ID: [id number] Author: Ana Vincent APRN.WOLF Service: ? Author [...] Length of Stay: 6.686% Ana Vincent APRN.WOLF [facility] 11-23-2022 History of Presen t illness [...] edema, syncope, presyncope. AN echo performed at [facility] showed normal EF, calcific changes involving [...] 2023 TIME: 11:40 PM PAGER/CONTACT #: [phone] documented in this encounter [facility] 11-23-2022 Instructions Ana Vincent APRN.[facility] - 11/23/2022 10:18 AM EDT Images from the original note were not included. Today, you met with Dr. West and Dr. Ramirez to discuss your aortic valve stenosis and current symptoms. We are recommending: Repeat echocardiogram here at [facility] Please call us with any further questions or concerns. [phone] Patient information: Aortic stenosis What is aortic [...] process is complete. The content on the [employer] website is not intended nor recommended as a substitute for medical advice, diagnosis, or treatment. Always seek the advice of your own physician or other qualified health director career regarding any medical questions or conditions.. 2016 [employer]. All rights reserved. Topic 01438 Version 5.0 documented in this encounter [facility] 11-23-2022 Nurse Note CARDIAC REHAB 5 METER WALK TEST SERVICE DATE: 11/23/2022 SERVICE TIME: 9:14AM 7.50sec 6.94sec 7.33sec ASSESSMENT: SIGNATURE: Maryan Julio LPN PATIENT NAME: Kassidy Willingham DATE: November 23, 2022 TIME: 9:21 AM PAGER/CONTACT #: [phone] documented in this encounter [facility] 11-23-2022 Nurse Note CARDIAC REHAB 5 METER WALK TEST SERVICE DATE: 11/23/2022 SERVICE TIME: 9:14AM 7.50sec 6.94sec 7.33sec ASSESSMENT: SIGNATURE: Maryan Julio LPN PATIENT NAME: Kassidy Willingham DATE: November 23, 2022 TIME: 9:15 AM PAGER/CONTACT #: [phone] documented in this encounter [facility] 11-18-2022 Miscellaneous Notes Left message for [...] Ana Vincent APRN.WOLF documented in this encounter [facility] 11-10-2022 Miscellaneous Notes I spoke with [...] this afternoon. She can be reached at [phone]. Poonam Ferguson LPN I spoke with patient's regarding referral to Valve Clinic from Dr. Leach. Patient unavailable to talk today. Provided patient's the office phone number to return phone call regarding further testing and follow up appt. Thanks, Ana Vincent APRN.WOLF documented in this encounter [facility] 10-05-2022 Note HNO ID: [id number] Author: Jc Lynne II, CLAUDINE Service: ? Author Type: TOOLSMITH Type: Progress Notes Filed: 10/05/2022 4:42 PM [...] its relevant components. Jc Lynne II, OD [facility] 10-05-2022 Instructions Jc Lynne II, OD [...] Lynne II, OD documented in this encounter [facility] 10-05-2022 History of Presen t illness [...] Lynne II, OD documented in this encounter [facility] Diagnosis Aortic valve stenosis, etiology of cardiac valve disease unspecified- Primary Encounter for preprocedural cardiovascular examination Pre-operative cardiovascular examination Dyspnea on exertion Other dyspnea and respiratory abnormality [facility] Diagnosis Nonrheumatic aortic valve stenosis- Primary Aortic valve disorders [facility] Diagnosis Encounter for preprocedural cardiovascular examination Pre-operative cardiovascular examination Aortic valve stenosis, etiology of cardiac valve disease unspecified [facility] Diagnosis Nonrheumatic aortic valve stenosis Aortic valve disorders [facility] Diagnosis Nonrheumatic aortic valve stenosis- Primary Aortic valve disorders [facility] Diagnosis Nonrheumatic aortic valve stenosis- Primary Aortic valve disorders 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) Stable angina Other and unspecified angina pectoris Valvular heart disease Endocarditis, valve unspecified, unspecified cause [facility] Diagnosis Nonrheumatic aortic valve stenosis- Primary Aortic valve disorders Hepatitis, autoimmune (HCC) Autoimmune hepatitis Stable angina Other and unspecified angina pectoris Stable angina Other and unspecified angina pectoris Valvular heart disease Endocarditis, valve unspecified, unspecified cause [facility] Diagnosis Nonrheumatic aortic valve stenosis- Primary Aortic valve disorders Encounter for examination for normal comparison and control in clinical research program Nonrheumatic aortic valve stenosis Aortic valve disorders Encounter for examination for normal comparison and control in clinical research program [facility] Outpatient Procedure (Routine) - Authorized Specialty Diagnoses / Procedures Referred By Luis rubin Referred To Contact [facility] Diagnoses Nonrheumatic aortic valve stenosis Procedures ECHO ECHO TTHRC R-T 2D W/WOM-MODE COMPL SPEC&COLR D Ana Vincent APRN.CNP [address] [facility] [address] [place] [address] [facility] [place] [address] Referral ID Status Reason Start Date Expiration Date Visits Requested Visits Authorized [id number] Authorized Auto-Generat ed Referral 11/23/2022 11/23/2023 1 1 [facility] for referral (narrative)* Outpatient Procedure (Routine) - Closed Specialty Diagnoses / Procedures Referred By Luis rubin Referred To Contact [facility] Diagnoses Nonrheumatic aortic valve stenosis Procedures ECHO ECHO TTHRC R-T 2D W/WOM-MODE COMPL SPEC&COLR D Ana Vincent APRN.CNP [address] [place] [address] [facility] [address] [place] [address] Referral ID Status Reason Start Date Expiration Date V isits Requested Visits Authorized [id number] Closed Auto-Generate d Referral 11/23/2022 11/23/2023 1 1 [facility] for referral (narrative)* Outpatient Procedure (Routine) - Authorized Specialty Diagnoses / Procedures Referred By Contac t Referred To Contact [facility] Diagnoses Nonrheumatic aortic valve stenosis Procedures ECHO ECHO TTHRC R-T 2D W/WOM-MODE COMPL SPEC&COLR D Ana Vincent APRN.CNP [address] [place] [address] [facility] [address] [place] [address] Referral ID Status Reason Start Date Expiration Date Visits Requested Visits Authorized [id number] Authorized Auto-Generat ed Referral 06/09/2023 12/08/2023 1 1 [facility] for referral (narrative)* Outpatient Procedure (Routine) - Authorized Specialty Diagnoses / Procedures Referred By Contac t Referred To Contact [facility] Diagnoses Nonrheumatic aortic valve stenosis Procedures ECHO ECHO TTHRC R-T 2D W/WOM-MODE COMPL SPEC&COLR D Ana Vincent APRN.CNP [address] [place] [address] [facility] [address] [place] [address] Referral ID Status Reason Start Date Expiration Date Visits Requested Visits Authorized [id number] Authorized Auto-Generat ed Referral 10/08/2023 07/18/2024 1 1 [facility] Outpatient Procedure (Routine) - Closed Specialty Diagnoses / Procedures Referred By Luis rubin Referred To Contact [facility] Diagnoses Nonrheumatic aortic valve stenosis Procedures ECHO ECHO TTHRC R-T 2D W/WOM-MODE COMPL SPEC&COLR D Ana Vincent, BIOINFORMATICS ASSOCIATE.ON AIR DIRECTOR [address] [place] [address] [facility] [address] [place] [address] Referral ID Status Reason Start Date Expiration Date V isits Requested Visits Authorized [id number] Closed Auto-Generate d Referral 11/23/2022 11/23/2023 1 1 [facility] Medications Administered Section Active Administered Medications [...] IVCON CT ANGIOGRAPHY CHEST W/CONTRAST/NONCONTRAST Ana Vincent, BIOINFORMATICS ASSOCIATE.ON AIR DIRECTOR [address] [place] [address] Ct [facility] Referral ID Status Reason Start Date Expiration Date Visits Requested Visits Authorized [id number] Authorized Auto-Generat ed Referral 11/23/2022 12/10/2023 1 1 Specialty Diagnoses / Procedures Referred By Contac t Referred To Contact CT [facility] Diagnoses Encounter for preprocedural cardiovascular examination Aortic valve stenosis, etiology of cardiac valve disease unspecified Procedures CTA ABD/PEL W IVCON CT ANGIO ABD&PLVIS CNTRST MTRL W/WO CNTRST Ana Noriega, BIOINFORMATICS ASSOCIATE.ON AIR DIRECTOR [address] [place] [address] Ct Imaging Referral ID Status Reason Start Date Expiration Date Visits Requested Visits Authorized [id number] Authorized Auto-Generat ed Referral 11/23/2022 12/10/2023 1 1 Referral ID Status Reason Start Date Expiration Date V isits Requested Visits Authorized [id number] Closed Auto-Generate d Referral 11/23/2022 12/10/2023 1 1 Referral ID Status Reason Start Date Expiration Date V isits Requested Visits Authorized [id number] Closed Auto-Generate d Referral 11/23/2022 12/10/2023 1 [...] or prosecute any alcohol or drug abuse patient.[facility] the event this information is protected by the Federal Confidentiality of Alcohol and Drug Abuse Patient Records regulations: The Federal rules restrict any use of the information to criminally investigate or prosecute any alcohol or drug abuse patient.[facility] the event this information is protected by the Federal Confidentiality of Alcohol and Drug Abuse Patient Records regulations: The Federal rules restrict any use of the information to criminally investigate or prosecute any alcohol or drug abuse patient.[facility] the event this information is protected by the Federal Confidentiality of Alcohol and Drug Abuse Patient Records regulations: The Federal rules restrict any use of the information to criminally investigate or prosecute any alcohol or drug abuse patient.[facility] the event this information is protected by the Federal Confidentiality of Alcohol and Drug Abuse Patient Records regulations: The Federal rules restrict any use of the information to criminally investigate or prosecute any alcohol or drug abuse patient.[facility] [facility] the event this information is protected by the Federal Confidentiality of Alcohol and Drug Abuse Patient Records regulations: The Federal rules restrict any use of the information to criminally investigate or prosecute any alcohol or drug abuse patient.[facility] the event this information is protected by the Federal Confidentiality of Alcohol and Drug Abuse Patient Records regulations: The Federal rules restrict any use of the information to criminally investigate or prosecute any alcohol or drug abuse patient.[facility] the event this information is protected by the Federal Confidentiality of Alcohol and Drug Abuse Patient Records regulations: The Federal rules restrict any use of the information to criminally investigate or prosecute any alcohol or drug abuse patient.[facility] the event this information is protected by the Federal Confidentiality of Alcohol and Drug Abuse Patient Records regulations: The Federal rules restrict any use of the information to criminally investigate or prosecute any alcohol or drug abuse patient.[facility] the event this information is protected by the Federal Confidentiality of Alcohol and Drug Abuse Patient Records regulations: The Federal rules restrict any use of the information to criminally investigate or prosecute any alcohol or drug abuse patient.[facility] the event this information is protected by the Federal Confidentiality of Alcohol and Drug Abuse Patient Records regulations: The Federal rules restrict any use of the information to criminally investigate or prosecute any alcohol or drug abuse patient.[facility] the event this information is protected by the Federal Confidentiality of Alcohol and Drug Abuse Patient Records regulations: The Federal rules restrict any use of the information to criminally investigate or prosecute any alcohol or drug abuse patient.[facility] the event this information is protected by the Federal Confidentiality of Alcohol and Drug Abuse Patient Records regulations: The Federal rules restrict any use of the information to criminally investigate or prosecute any alcohol or drug abuse patient.[facility] the event this information is protected by the Federal Confidentiality of Alcohol and Drug Abuse Patient Records regulations: The Federal rules restrict any use of the information to criminally investigate or prosecute any alcohol or drug abuse patient.[facility] the event this information is protected by the Federal Confidentiality of Alcohol and Drug Abuse Patient Records regulations: The Federal rules restrict any use of the information to criminally investigate or prosecute any alcohol or drug abuse patient.[facility] Reason for Visit (unrecogniz ed section and content) 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 Specialty Diagnoses / Procedures Referred By Luis t Referred To Contact CT IMAGING Diagnoses Encounter for preprocedural cardiovascular examination Aortic valve stenosis, etiology of cardiac valve disease unspecified Procedures CTA CHEST (GATED) WO/W IVCON CT ANGIOGRAPHY CHEST W/CONTRAST/NONCONTRAST Ana Vincent L, BIOINFORMATICS ASSOCIATE.ON AIR DIRECTOR [address] [place] [address] Ct Imaging Referral ID Status Reason Start Date Expiration Date V isits Requested Visits Authorized [id number] Closed Auto-Generate d Referral 11/23/2022 12/10/2023 1 1 Reason Comments Patient Question Reason Comments Appointment Reason Comments Aortic Stenosis Lo is here for TAV R evaluation. 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 Care Teams (unrecognized sec tion and content) Supervisor White Sugar Relationship Specialty Start Date End Date Lauren Sanchez Chi [address] [facility] [address] [place] [address] PCP - General Gerontology 09/30/21 Supervisor White Sugar Relationship Specialty Start Date End Date Lauren Sanchez Chi [address] [place] [address] PCP - General Gerontology 09/30/21 Supervisor White Sugar Relationship Specialty Start Date End Date Lauren Sanchez Chi [address] [place] [address] PCP - General Gerontology 09/30/21 Supervisor White Sugar Relationship Specialty Start Date End Date Lauren Sanchez Chi [address] [place] [address] PCP - General Gerontology 09/30/21 Supervisor White Sugar Relationship Specialty Start Date End Date Lauren Sanchez Chi [address] [place] [address] PCP - General Gerontology 09/30/21 Supervisor White Sugar Relationship Specialty Start Date End Date Lauren Sanchez Chi [address] [place] [address] PCP - General Gerontology 09/30/21 Supervisor White Sugar Relationship Specialty Start Date End Date Lauren Sanchez Chi [address] [place] [address] PCP - General Gerontology 09/30/21 Supervisor White Sugar Relationship Specialty Start Date End Date Lauren Sanchez Chi [address] [place] [address] PCP - General Gerontology 09/30/21 Supervisor White Sugar Relationship Specialty Start Date End Date Lauren Sanchez Chi [address] [place] [address] PCP - General Gerontology 09/30/21 Supervisor White Sugar Relationship Specialty Start Date End Date Lauren Sanchez Chi [address] [place] [address] PCP - General Gerontology 09/30/21 Supervisor White Sugar Relationship Specialty Start Date End Date Lauren Sanchez Chi [address] [place] [id number] PCP - General Gerontology 09/30/21 Supervisor White Sugar Relationship Specialty Start Date End Date Lauren Sanchez Chi [address] [place], [place] [address] PCP - General Gerontology 09/30/21 Supervisor White Sugar Relationship Specialty Start Date End Date Lauren Sanchez Chi [address] [place] [id number] PCP - General Gerontology 09/30/21 INFORMATION SOURCE (unrecogn ized section and content) DATE CREATED AUTHOR AUTHOR'S ORGANIZ ATION 09/14/2023 [facility] FOR RECORDS PERTAINING TO PATIENTS WHO [...] BE BASED ON THE PRIMARY CLINICAL RECORDS. [employer] [facility]. provides no warranty or guarantee of the accuracy or completeness of information in this document.
[2023-09-23 10:22] LABS: Absolute Lymphocyte Count 0.91 X10^3/uL (0.83-4.51); Absolute Neutrophil Count 3.9 X10^3/uL (2.0-7.7); Basophil# 0.07 X10^3/uL; Basophil% 1.2 % (0-1); Eosinophil# 0.09 X10^3/uL; Eosinophils% 1.6 % (0-5); Hematocrit 36.2 % (37-47); Immature Platelet Fraction 6.1 % (1.0-7.9); Lymphocyte # 0.91 X10^3/ul (0.83-4.51); Lymphocyte % 15.9 % (19-41); Mean Corp Hgb Conc 30.4 g/dL (32-36); Mean Corpuscular Hgb 26.8 pg (27.0-32.0); Mean Corpuscular Volume 88.3 fL (81-99); Mean Platelet Vol. 13.8 fl (6.2-12.0); Monocyte# 0.64 X10^3/uL; Monocyte% 11.2 % (0-10); NRBC Flagged by Analyzer 0 % (0-5); Neutrophil # 3.94 X10^3/uL (2.7-7.7); Neutrophil % 68.9 % (47-70); Platelet Count 127 K/mm3 (150-450); RBC Distribution Width CV 17.1 % (11.6-14.6); RBC Distribution Width SD 55.4 fl (35.1-43.9); RET-HE 31.5 pg (30-35); Reticulocyte Count 2.59 % (0.5-1.5); White Blood Count 5.7 K/mm3 (4.4-11.0)
[2023-09-23 10:47] LABS: International Normalized Ratio 1.1; Prothrombin Time (Protime)PT. 14.3 SECONDS (11.7-14.9)
[2023-09-23 10:53] LABS: Vitamin D,25 Hydroxy 31.5 ng/mL
[2023-09-23 10:56] LABS: Hemoglobin A1c 6.7 % (3.8-5.6)
[2023-09-23 11:00] LABS: ALB/GLOB Ratio 0.6 RATIO (0.9-2.4); AST(SGOT) 50 U/L (15-37); Alanine Aminotransfer ALT/SGPT 26 U/L (13-56); Albumin, Serum 3.1 g/dL (3.2-5.0); Alkaline Phosphatase 263 U/L (45-117); Anion Gap 6 (5-15); BUN 10 mg/dL (7-18); BUN/Creat Ratio 12.4 RATIO (10-20); Calcium,Total 8.5 mg/dL (8.5-10.1); Chloride 107 mmol/L (98-107); Cholesterol 183 mg/dL (200); EST Glomerular Filtration Rate 73 mL/min (>60); Est Glom Filt Rate - Afr Amer 88 mL/min (>60); Ferritin 36 ng/mL (8-252); GGTP 481 U/L (5-55); Globulin 5.3 g/dL (2.2-4.2); Glucose 88 mg/dL (74-106); High Density Lipoprotein 33 mg/dL; Iron 34 ug/dL (50-170); Iron Binding Capacity,Total 292 ug/dL (250-450); PERCENT IRON SATURATION 11.6 % (15.0-55.0); Potassium 4.1 mmol/L (3.5-5.1); Protein, Total 8.4 g/dL (6.4-8.2); Sodium Level 139 mmol/L (136-145); Triglycerides 146 mg/dL; Very Low Density Lipoprotein 29 mg/dL (5-40)
[2023-09-23 11:44] LABS: Erythrocyte Sedimentation Rate 51 mm/hr (0-30)
[2023-09-25 13:07] LABS: ANTINUCLEAR ANTIBODIES DIRECT Negative (Negative); Anti-Mitochondrial AB <20.0 Units (0.0-20.0)
[2023-09-27 07:09] LABS: AFP, Tumor Marker 3.9 ng/mL (0.0-8.7); Anti-Smooth Muscle ABS 97 Units (0-19); IgG, Quant 1990 mg/dL (586-1602); Immunoglobulin A 256 mg/dL (64-422); Immunoglobulin E 6 IU/mL (6-495); Immunoglobulin G, Subclass 1 1518 mg/dL (248-810); Immunoglobulin G, Subclass 2 98 mg/dL (130-555); Immunoglobulin G, Subclass 3 100 mg/dL (15-102); Immunoglobulin G, Subclass 4 8 mg/dL (2-96); Immunoglobulin M 777 mg/dL (26-217)
== END 2023-09-23 23:59 | disposition home or self-care (01) ==
LOC: LAB 09:00
PROVIDERS: PCP Family Medicine Geriatric Medicine; Referring Provider Internal Medicine; Visit Provider Internal Medicine
DX: Z98.890 Other specified postprocedural states (principal); K74.60 Unspecified cirrhosis of liver; K75.4 Autoimmune hepatitis; E78.5 Hyperlipidemia, unspecified; M81.0 Age-related osteoporosis without current pathological fracture; R73.9 Hyperglycemia, unspecified
CPT/HCPCS: 36415; 80053; 80061; 82105; 82306; 82728; 82784; 82785; 82787; 82977; 83036; 83516; 83540; 83550; 85025; 85045; 85610; 85652; 86038; 86140; 86225; 86235

== ENCOUNTER → 2023-12-26 | Outpatient (CLI) | payer MEDICARE, OTHER, SELFPAY ==
[2017-04-19 11:37] VITALS: BMI 26.3
--- NOTE | 2023-12-26 08:05 | CR.HP_ITS ---
CR - History & Physical General Arrival date:: 12/26/23 Arrival time:: 08:00 Date of Referral:: 12/18/23 Date of CR Evaluation:: 12/26/23 Referring Physician: Dr. Min Ann [facility] Primary Diagnosis: Aortic Heart Valve History of Present Cardiac Event Onset Date Heart valve replacement or repair:: Yes (TAVR 10/05/2023) Type of Symptoms:: Very fatigued, shortness of breath with slightest activity, a lot of weakness. Interventions with present event:: Seen by Dr. Ann and sent to Dr. West at [facility] Were there any complications?: No Medications Ambulatory Orders Medication Instructions Recorded levothyroxine 50 mcg tablet 50 mcg PO DAILY 11/11/20 metoprolol tartrate 25 mg tablet 25 mg PO DAILY BP #90 tabs 12/26/22 aspirin 81 mg tablet,delayed 81 mg PO DAILY 06/05/23 release (Adult Low Dose Aspirin) ferrous sulfate 325 mg (65 mg 325 mg PO Q OTHER DAY #30 tabs 09/27/23 iron) tablet (Feosol) azathioprine 75 mg tablet 75 mg PO DAILY 1 month #30 tabs 12/20/23 pantoprazole 20 mg tablet,delayed 20 mg PO DAILY #90 tabs 12/20/23 release prednisone 5 mg tablet 5 mg PO DAILY 1 month #30 tabs 12/20/23 Allergies Allergies aspartame Allergy (Verified 12/14/23 10:06) Food Allergy Sleep Disorder Evaluation Hx of Sleep Apnea: No Do you snore loudly (louder than talking or can be heard through closed doors)?: Yes Do you often feel tired/ fatigued/ sleepy during daytime?: No (will take a 1 hour nap in the afternoon.) Has anyone observed you stop breathing during sleep?: No History of Hypertension (for STOP score): Yes STOP Results: Positive Advanced Directives Advanced Directives Power of Fruit Or Nut Farm Worker: Yes Living Will: Yes Advance Directives Information Provided: No Advance Directives on File: No DNR Order?:: No MOLST See MOLST form: No Past Medical History Covid-19 Screening Physicial Symptoms Fever: No Unexplained muscle aches: No Current respiratory symptoms: No Upper respiratory infections symptoms: No Gastro-intestinal symptoms: No Bkr-Nzvr-Lheejq symptoms: No Other Clinical Concerns Has tested positive for COVID-19 in last 30 days: No Exposure Risk Had contact w/person w/symptoms or Covid-19 (+) last 14 days: No Has High Risk Exposures ID'd by Health dept/Inf Control team: No Pertinent Comorbidities 65 years or older:: Yes Lives in Assisted Living facility:: No Has a chronic lung disease or moderate to severe asthma:: No Has a serious heart condition:: Yes Immunocompromised:: Yes Severely obese (Body Mass Index of 40 or higher):: No Diabetic:: No Has chronic kidney disease undergoing dialysis:: No Has liver disease:: Yes Past Medical Illness Past Medical History (HFpEF) heart failure with preserved ejection fraction I50.30 Atherosclerotic heart disease of [place] coronary artery without angina pectoris I25.10 PTCA/DACIA to mid LAD w/FFR guidance 04/19/17 Autoimmune hepatitis K75.4 Basal cell carcinoma (BCC) C44.91 nose CAD (coronary artery disease) I25.10 Chronic cholecystitis K81.1 Essential hypertension I10 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 Labs 08/31/2022 reviewed. 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 Non-rheumatic mitral valve stenosis I34.2 Non-smoker Z78.9 Nonrheumatic aortic (valve) stenosis I35.0 Osteoporosis M81.0 Thyroid disease E07.9 Wears contact lenses Z97.3 Wears dentures Z97.2 Wears glasses Z97.3 Weight loss R63.4 Past Surgical History Past Surgical History (Updated 12/14/23 @ 10:10 by Denisse Reaves GEOPHYSICAL OBSERVER, GEOPHYSICAL OBSERVER-C) History of cardiac catheterization Z98.890 2017, 07/2023 History of cholecystectomy Z90.49 11/2023 History of colonoscopy Z98.890 History of coronary artery stent placement Z95.5 2017 History of partial thyroidectomy (~1970) Z98.890 History of right and left heart catheterization (LHC) (~11/08/22) Z98.890 CONCLUSIONS: Right heart pressures - Normal Intracardiac shunting: None Normal Left Ventricular End Diastolic Pressure [place] Multivessel CAD LAD: stent: patent Aortic Valve Calcification- Moderate - Severe Aortic Valve Stenosis- Moderate Aortic Root Calcified LEFT HEART ASSESSMENT Left Ventricular Ejection Fraction: Not assessed Normal Left Ventricular End Diastolic Pressure LVEDP: 9 mmHg RIGHT HEART ASSESSMENT Thermal CO: 4 Thermal CI: 2.37 PW: 9/7 5 PA: 19/6 12 RV: 20/0 4 RA: 5/5 3 PVR: 140 SVR: 1460 Aortic Valve Area: 0.92 Aortic Valve Index: 0.55 Aortic Valve Mean Gradient: [id number] Right Heart pressures - normal Intracardiac shunting: None LEFT MAIN: Moderate calcification, Mild luminal irregularities, distal: ec centric: 25 % Stenosis LEFT ANTERIOR DESCENDING ARTERY: PROX LAD: Previously placed stent is patent with mild luminal irregularities; MID LAD: Mild luminal irregularities; CIRCUMFLEX ARTERY: Mild luminal irregularities less than 30%; RIGHT CORONARY ARTERY: Severe calcification mid to distal RCA: filling from left to right collateral flow; OSTIAL RCA: is occluded PROX RCA: fills faintling from bridging collaterals DISTAL RCA: filling from left to right collateral flow VALVE FINDINGS: Aortic Valve Calcification - moderate - severe Aortic Valve Stenosis - moderate AORTIC ROOT: Calcified per cardiac cath Dr. Leach 11/08/22 History of total hysterectomy Z90.710 Postsurgical percutaneous transluminal coronary angioplasty (PTCA) status (~04/19/17) Z98.61 PTCA/DACIA to mid LAD w/FFR guidance 04/19/17 Presence of stent in coronary artery (~04/19/17) Z95.5 PTCA/DACIA to mid LAD w/FFR guidance 04/19/17 Surgical History: angioplasty, hysterectomy (in Oct for fibroids and bladder prolapse) and - Family History Summary Family History Mother , Age 34 Hypertension Heart disease Brother Cancer lung Father Cancer tongue Social History Smoking History Smoking Status: Never smoker Hx Tobacco Use: No Hx Smoking Exposure: No Alcohol Use Alcohol Usage: No Substance Abuse Hx Substance Use: No 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 Hobbies, Recreation, Social Activities Hobbies: Other (puzzles, play instrument, outdoor gardening,) Recreational Activities: I am able to engage in all my recreational activities, I am able to engage in most, but not all activities, I am able to engage in a few activities, I can hardly do any recreational activities and I cannot do any recreational activities at all Social Environment Status Marital Status: Current Living Arrangements Living Environment:: Family Children How many children do you have?: 3 Do any of your children live nearby?: Yes Safety Do you feel safe in your surroundings?: Yes Assistance Do you need any assistance at home?: none Review of Systems Review of Systems Hints Review of Present Symptoms: Reports Shortness of Breath with Exertion (occasionally), Wound Healing, Appetite - Normal and Sleep - Normal; Denies Shortness of Breath at Rest, Angina, Dizziness/Lightheadedness, Fatigue ( has improved since the surgery), Heart Arrhythmia/Irregularities, Appetite - Special Diet or Sexual Changes Pain Is Patient Pain Free?: No Pain Location: none Risk Factor Assessment Vital Signs Temperature: 97.9 F Respiratory Rate: 16 Pulse Ox: 98 Blood Pressure: 113/81 Pulse Pulse Rate: 81 Pulse Rhythm: Regular Hypertension How long have you been treated?: january, mother age 34 from hypertension On medication(s)?: yes Blood Pressure Sitting - Left Arm: 113/81 Blood Cholesterol/Lipids Total Cholesterol (mg/dL) Goal = less than 200 mg/dL: 183 HDL Cholesterol (mg/dL) Goal = less than 40 mg/dL: 33 LDL Cholesterol (mg/dL) Goal = less than 70 mg/dL: 121 Triglycerides (mg/dL) Goal = less than 150 mg/dL: 146 Diabetes Nutrition Referral for Diabetes: No Obesity Height: 5 ft 6 in Weight:: 145 lb Weight in Pounds: 145.0 lbs Weight Source: Stated by Patient Body Mass Index (BMI): 23.3 Nutritional Referral for Obesity: No Physical Inactivity Physical Inactivity: Recreational activity (walking) Risk Stratification Risk Guidelines: Lowest Risk: Risk Factor for Dyslipidemia, Risk Factor for Obesity (BMI 23.3 risk malnutrition sever weight loss regaining weight.), Risk Factor for Hypertension (113/81) and Risk Factor for Sedentary Lifestyle For Smoking Smoking Risk Guidelines For Dyslipidemia Dyslipidemia Risk Guidelines For Diabetes Mellitus Diabetes Risk Guidelines For Obesity/Overweight Obesity/Overweight Risk Guidelines For Hypertension Hypertension Risk Guidelines For Sedentary Lifestyle Sedentary Lifestyle Risk Guidelines For Depression Depression Risk Guidelines Family History Family History Mother , Age 34 Hypertension Heart disease Brother Cancer lung Father Cancer tongue Motivation Motivation to Participate On a scale of 1 to 10, how prepared are you to commit to attending program?: 10 What do you see as barriers to successfully being able to complete the program?: dont see any What do you see as the benefits of succesfully completing the program? In other words, what do you hope to get out of participating in the program?: be stronger, increase endurance level Are there issues you are dealing with that will interfere with completing the program?: no Do you have a spouse or signficant other, family or friends who will help support you to complete the program?: Yes
--- NOTE | 2023-12-26 08:05 | PCM.CR.ITP ---
Diagnosis General Information Admitting Diagnosis: S/P AVR via TAVR by Dr. West at [facility]. Secondary Diagnosis: HFpEF heart failure with preserved EF, Autoimmune Deficiency, HTN, HLD. Personal Learning Style:: Audio/Visual and Written Barriers to Learning: Hearing Impairment and Vision Impairment Stage of change r/t lifestyle modifications:: Action Gave educational material for:: Treating Heart Disease, How The Heart Works, What it means to have Heart Disease, How Coronary Artery Disease is Diagnosed, Heart Procedures, What Heart Medications Do, Risk Factors & Modifications, Living an Active Life, Nutrition, Emotions & Heart Disease, Stress Management & Relaxation and Sleep Disorders & Heart Disease Education/Goals Individual Counseling: Initial Assessment: Abnormal Cholesterol Levels, High Blood Pressure and Overweight/Obesity (Malnutrition Risk, severe weight loss) Cardiac Rehabilitation Goals Personal Goals: Initial Assessment: Improve management of stress and emotions, Improve energy level, Get back to work, or to resume activities faster, Improve knowledge of cardiac disease, Improve muscle strength and endurance, Improve diet and eating habits (eat healthier) and Control risk factors (learn risk factor modification) Scale for measuring improvement of personal goals Diagnosis & Disease Process Outcomes/Goals: Pt IDs own risk factors & lifestyle modifications by Session 10, Verbalizes symptoms of angina & response by session 3. and Pt independently manages Plan/Interventions: Assist Pt to ID & engage in lifestyle modification to reduce CVD risk, Instruct on individual risk factors, Review symptoms of angina & emergency actions and Review secondary diagnosis & identify educational needs. Safety Referral to Physical Therapy: No Referral to [facility] Case Management: No Fall Risk Assessed:: Yes Assistive Devices:: None Exercise - Initial Assessment Visit Date of Eval: 12/26/23 Session #:: 0 (pre-program) Mets: Pre-: >5 METS for 30 minutes by discharge Physician Prescribed Exercise Modalities: Treadmill, Airdyne and NuStep Frequency: 3x/week for 12 weeks [36 sessions] Intensity: 60-80% of age predicted maximum heart rate reserve Duration: 30 - 45 minutes Current METSs:: 3.0 Target Heart Rate:: 90-104 Resting Blood Pressure: 113/81 EKG Type: NSR Current Physical Activity or Exercising minutes: walking daily w/daughter Outcomes & Goals Goals:: Verbalizes understanding of THR, RPE & goal METS by session 6, Documents in home exercise log/reports 30 min aerobic 5 day/wk by DC and Demonstrates accurate pulse taking by DC Intervention & Plan Exercise Program Goals: Instruct on personal THR & RPE, Instruct on MET level & personal MET goal, Show patient to take own pulse /validate performance until accurate and Instruct on home exercise Physical Activity Home Exercise Physical Activity - Home Exercise: Safe Exercise, Warm-up, Self-monitoring, Cool-Down, Home Exercise > 30 min Daily and Sitting Time <3 hours/daily Outcomes & Goals Outcomes/Goals: Demonstrates correct Warm-up/exercise Cool-Down (S3) if = 2.5 METs, Verbalizes symptoms of exercise intolerance by Session 3 (S3) and Demonstrate safe equipment use (S3) & follows exercise prescrition (6) Intervention & Plan Plan/Intervention: Instruct warm-up & cool-down if exercising at > 2 METs, Instruct on symptoms of exercise intolerance & actions to take, Instruct & monitor on saf and Assess intial functional capacity & safety risk Nutrition - Initial Assessment Program Goals Nutrition Program Goals Patient has diagnosis of Hyperlipidemia (ICD E78)?: Yes Visit Date of Eval: 12/26/23 Session #:: 0 (pre-program evaluation) Cholesterol/Lipids (Other Core Measures) Triglycerides (mg/dL): 146 Total Cholesterol (mg/dL): 183 LDL Cholesterol (mg/dL): 121 HDL Cholesterol (mg/dL): 33 Determine presence & major risk factors that modify LDL goal: Hypertension or hypertensive medication, Low HDL cholesterol <40 mg/dL*, Family history of premature CHD in Male < 55 years: female <65 yearsFa and Age men > 45 years; women >/= 55 years Outcomes/Goals: Pt IDs own risk factors & lifestyle modifications by Session 10, Verbalizes symptoms of angina & response by session 3. and Pt independently manages Intervention/Plan: Instruct on personal lipid levels & lipid goals/NCEP guidelines and Instruct on cholesterol Referral to dietitian:: Yes Diabetes (Other Core Measures) Diabetes Type: Not Applicable Weight Mgt (Other Care) Not Applicable: No Height: 5 ft 6 in Weight:: 145 lb BMI: 23.3 Diagnosis Overweight/Obesity BMI> 30% ICD-10 E66: No Diagnosis High BMI/Morbid Obesity BMI> 35% ICD-10 Z68: No Outcomes/Goals: Pt sets, maintains & shows weight loss goal & trend during rehab Intervention/Plan: Instruct on ideal BMI & set weight loss goal w/patient Healthy Eating Habits Will attend diet classes:: Yes Outcomes/Goals:: Consume diet rich in vegs,fruits,whole grain/high fiber,fish,lean meat and Limit sat/trans fats,cholesterol & added salts & sugars Intervention/Plan:: Assess current eating habits Education Gave educational materials for:: Healthy eating Core - Initial Assessment Visit Date of Eval: 12/26/23 Session #:: 0 (pre-program evaluation) Medication Compliance Preventative Medication(s):: Aspirin, Statin/lipid and Beta philippe H/O mental health issues: depression, anxiety, or addiction?: No Doesn?t believe in the benefits of treatment?: No Believes medications are unnecessary or harmful?: No Has a concern about medication side effects?: No Expresses concern over the cost of medications?: No Outcomes/Goals: Verbalizes medications,desired effect & common side effects @ DC, Pt self-reports following medication regimen and Keeps card in wallet w/medications listed by DC Interventions/plans: Instruct on medication effects & side effects, Review medication list w/patient every two weeks and Instruct importance of taking meds as ordered & assist problem solving Tobacco Use Tobacco Use: Non-smoker Hypertension Hypertension Diagnosis:: Hypertension ICD-10 I10 Resting Blood Pressure:: 113/81 [place] [employer] Hypertension Guidelines Outcomes/Goals: Able to verbalize/achieve optimal blood pressure <130/80 and Incorporates diet changes & exercise for blood pressure control by DC Interventions/plan: Instruct on optimal blood pressure, hypertension & medications and Instruct on effects of sodium, alcohol, stress, exercise &hypertension Tobacco Cessation Referral Smoking Cessation Referral:: No Individual Education/Counseling:: No Education Schedule Given:: Yes Psychosocial - Initial Assess VIsit Date of Eval: 12/26/23 Session #:: 0 (pre-program evaluation) Not Applicable: No Target Goals Target Goals Psychosocial Test Tool Used:: [employer] QOL Cardiac and PHQ-9 Questionnaire phq-9 Severity Referral to Behavioral Health PS - Interventions: Yes: Attend Stress Management Classes and No: Referral to Behavioral Health if PHQ-9 score >9:, No: Referral to [facility] and No: Referral to Physician if PHQ-9 if score is 5-9: Outcomes/Goals: See list Psychosocial Outcomes/Goals:: ID's personal stressors & 2 strategies to manage stress by discharge Intervention/Plan: See List Interventions/Plan:: Assess stressors,coping strategies & signs of derpression on admission, Instruct/assist pt to develop coping & personal stress Mgt strategies, Instruct patient to recognize signs & symptoms of depression and Instruct patient to recog Patient Health Questionnaire PHQ-9 Screening Initial Assessment: 1. Little interest or pleasure in doing things: Not at all 2. Feeling down, depressed, or hopeless: Not at all 3. Trouble falling or staying asleep, or sleeping too much: Not at all 4. Feeling tired or having little energy: Not at all 5. Poor appetite or overeating: Not at all 6. Feeling bad about yourself -- or that you are a failure or have let yourself or your family down: Not at all 7. Trouble concentrating on things, such as reading the newspaper or watching television: Not at all 8. Moving or speaking so slowly that other people could have noticed. Or the opposite - being so fidgety or restless that you have been moving around a lot more than usual: Not at all 9. Thoughts that you would be better off , or of hurting yourself in some way: Not at all How difficult have these problems made it for you to do your work, take care of things at home, or get along with other people?: Not difficult at all Total Score: 0 REINALDO-Q SV Test Statements CAD is a disease of the arteries in the heart: True Examples of risk factors for heart disease: True Angina is chest pain or discomfort: True The benefits of resistance training include: True Eating more meat and dairy products: True Anti-platelet medications such as aspirin are important: True The only effective way to manage stress: True An exercise warm-up slowly increases heart rate: True Prepared, processed foods usually have high sodium: True Depression is common after a heart attack: True The statin medications lower cholesterol: True To control blood pressure, lower the amount of sodium: True If someone gets chest discomfort during walking: False Transfats are partially hydrogenated vegetable oils: True Sleep apnea that is not treated increases the risk: True To control cholesterol, one should become a vegetarian: False Someone knows if he/she is exercising at the right level: True Diabetes cannot be prevented with exercise & health eating: False Stress is a large risk for heart attack: True A diet that can help lower blood pressure is rich in: True Total Score Total Correct Responses: 16 Self-Efficacy 6-Item Scale Initial Assessment: We would like to know how confident you are in doing certain activities. Please select your confidence level for: Fatigue Select Number: 8 Physical Discomfort or Pain Select Number: 10 Emotional Distress Select Number: 9 Other Symptoms or Health Problems Select Number: 9 Different Tasks and Activities Select Number: 9 Medication Select Number: 10 Total Score:: 9 Nutrition Survey Nutrition Survey Instructions Scoring Instructions Nutrition Survey Initial: Have you lost >10 lbs over the past 2 months without trying?: Yes Are you following a special diet at home for diabetes, low fat, or low salt?: No Are you interested in meeting with a dietitian for help understanding your diet?: Yes Do you eat less than 3 meals a day?: No Do you eat fatty meats (cuenca, sausage, ribs, etc), fried foods, desserts, large amounts of salad dressings, margarine, butter, or cheese most days?: No Do you have food allergies? [Enter types in comment field]: No Do you eat in restaurants more than 3 times a week?: No Do you season food with salt, seasoning salt, or garlic salt?: No Do you used canned, boxed, frozen meals, or soups, seasoning packets?: No Total Score:: 2 Exercise - Final/Discharge Physician Prescribed Exercise Modalities: Treadmill, Airdyne and NuStep Frequency: 3x/week for 12 weeks [36 sessions] Intensity: 60-80% of age predicted maximum heart rate reserve Current METSs:: 3.0 Target Heart Rate:: 90-104 Nutrition - 30-Day Assessment Weight Mgt (Other Care) Height: 5 ft 6 in Weight:: 145 lb BMI: 23.3 Nutrition - 60-Day Assessment Weight Mgt (Other Care) Height: 5 ft 6 in Weight:: 145 lb BMI: 23.3 Core - 30-Day Assessment Visit Session #:: 0 (pre-program) Core - Final Assessment Hypertension Resting Blood Pressure:: 113/81 [place] [employer] Hypertension Guidelines Core - 60-Day Assessment Hypertension Resting Blood Pressure:: 113/81 [place] [employer] Hypertension Guidelines Psychosocial - 30-Day Assess Target Goals Target Goals Referral to Behavioral Health PS - Interventions: Yes: Attend Stress Management Classes and No: Referral to Behavioral Health if PHQ-9 score >9:, No: Referral to [facility] and No: Referral to Physician if PHQ-9 if score is 5-9: Psychosocial - 60-Day Assess Target Goals Target Goals Referral to Behavioral Health PS - Interventions: Yes: Attend Stress Management Classes and No: Referral to Behavioral Health if PHQ-9 score >9:, No: Referral to [facility] and No: Referral to Physician if PHQ-9 if score is 5-9: Psychosocial - 90-Day Assess Target Goals Target Goals Referral to Behavioral Health PS - Interventions: Yes: Attend Stress Management Classes and No: Referral to Behavioral Health if PHQ-9 score >9:, No: Referral to [facility] and No: Referral to Physician if PHQ-9 if score is 5-9: Psychosocial - Final Assessmen Target Goals Target Goals Referral to Behavioral Health PS - Interventions: Yes: Attend Stress Management Classes and No: Referral to Behavioral Health if PHQ-9 score >9:, No: Referral to [facility] and No: Referral to Physician if PHQ-9 if score is 5-9: Nutrition - 90-Day Assessment Weight Mgt (Other Care) Height: 5 ft 6 in Weight:: 145 lb BMI: 23.3 Nutrition - Final Assessment Program Goals Patient has diagnosis of Hyperlipidemia (ICD E78)?: Yes Weight Mgt (Other Care) Height: 5 ft 6 in Weight:: 145 lb BMI: 23.3
[2023-12-26 08:45] VITALS: BP 113/81; PULSE 81; RESP 16; TEMP 36.6; O2SAT 98; BMI 23.3
[2023-12-26 09:19] VITALS: BP 113/81; BMI 23.3
== END | disposition home or self-care (01) ==
LOC: CR 08:01
PROVIDERS: PCP Family Medicine Geriatric Medicine; Referring Provider Internal Medicine Cardiovascular Disease; Visit Provider Internal Medicine Cardiovascular Disease
DX: I25.10 Atherosclerotic heart disease of native coronary artery without angina pectoris (principal); Z95.2 Presence of prosthetic heart valve

== ENCOUNTER 2024-01-01 14:30 | Outpatient (RCR) | payer MEDICARE, OTHER, SELFPAY ==
[2017-04-19 11:37] VITALS: BMI 26.3
== END 2024-01-02 23:59 ==
LOC: CR 14:30
PROVIDERS: PCP Family Medicine Geriatric Medicine; Referring Provider Internal Medicine Cardiovascular Disease; Visit Provider Internal Medicine Cardiovascular Disease
DX: Z95.3 Presence of xenogenic heart valve (principal)
CPT/HCPCS: 93798

== ENCOUNTER → 2024-01-08 | Outpatient (CLI) | payer MEDICARE, OTHER, SELFPAY ==
[2023-12-26 09:19] VITALS: BMI 23.3
[2024-01-08 10:39] LABS: Absolute Lymphocyte Count 0.82 X10^3/uL (0.83-4.51); Absolute Neutrophil Count 4.4 X10^3/uL (2.0-7.7); Basophil# 0.06 X10^3/uL; Eosinophils% 1.7 % (0-5); Hematocrit 35.9 % (37-47); Hemoglobin 11.1 g/dL (12.0-15.0); Lymphocyte # 0.82 X10^3/ul (0.83-4.51); Lymphocyte % 13.9 % (19-41); Mean Corp Hgb Conc 30.9 g/dL (32-36); Mean Corpuscular Hgb 27.8 pg (27.0-32.0); Mean Corpuscular Volume 89.8 fL (81-99); Monocyte# 0.55 X10^3/uL; Monocyte% 9.3 % (0-10); NRBC Flagged by Analyzer 0 % (0-5); Neutrophil # 4.36 X10^3/uL (2.7-7.7); Neutrophil % 73.6 % (47-70); Platelet Count 111 K/mm3 (150-450); RBC Distribution Width CV 16.3 % (11.6-14.6); RBC Distribution Width SD 53.2 fl (35.1-43.9); White Blood Count 5.9 K/mm3 (4.4-11.0)
[2024-01-08 10:57] LABS: Erythrocyte Sedimentation Rate 40 mm/hr (0-30)
[2024-01-08 11:08] LABS: International Normalized Ratio 1.2; Prothrombin Time (Protime)PT. 15.1 SECONDS (11.7-14.9)
[2024-01-08 11:20] LABS: Hemoglobin A1c 5.7 % (3.8-5.6)
[2024-01-08 11:30] LABS: ALB/GLOB Ratio 0.6 RATIO (0.9-2.4); AST(SGOT) 37 U/L (15-37); Alanine Aminotransfer ALT/SGPT 19 U/L (13-56); Albumin, Serum 3.3 g/dL (3.2-5.0); Alkaline Phosphatase 158 U/L (45-117); Anion Gap 4 (5-15); BUN 12 mg/dL (7-18); BUN/Creat Ratio 14.2 RATIO (10-20); CRP 3.24 mg/L (0.0-3.0); Calcium,Total 8.7 mg/dL (8.5-10.1); Chloride 110 mmol/L (98-107); Creatinine, Serum 0.85 mg/dL (0.55-1.02); EST Glomerular Filtration Rate 68 mL/min (>60); Est Glom Filt Rate - Afr Amer 83 mL/min (>60); GGTP 135 U/L (5-55); Globulin 5.3 g/dL (2.2-4.2); Glucose 105 mg/dL (74-106); Potassium 3.7 mmol/L (3.5-5.1); Protein, Total 8.6 g/dL (6.4-8.2); Sodium Level 138 mmol/L (136-145)
[2024-01-09 15:08] LABS: ANTINUCLEAR ANTIBODIES DIRECT Negative (Negative); Anti-Mitochondrial AB <20.0 Units (0.0-20.0); Anti-Smooth Muscle ABS 83 Units (0-19)
== END | disposition home or self-care (01) ==
LOC: LAB 09:37
PROVIDERS: PCP Family Medicine Geriatric Medicine; Referring Provider Internal Medicine; Visit Provider Internal Medicine
DX: K75.4 Autoimmune hepatitis (principal); K92.2 Gastrointestinal hemorrhage, unspecified; Z95.3 Presence of xenogenic heart valve
CPT/HCPCS: 36415; 80053; 82977; 83036; 83516; 85025; 85610; 85652; 86038; 86140; 86225; 86235

== ENCOUNTER 2024-02-02 14:30 | Outpatient (RCR) | payer MEDICARE, OTHER, SELFPAY ==
[2023-12-26 09:19] VITALS: BMI 23.3
--- NOTE | 2024-01-24 08:03 | PCM.CR.ITP ---
Exercise - Initial Assessment Visit Session #:: 10 Nutrition - Initial Assessment Weight Mgt (Other Care) Height: 5 ft 6 in Weight:: 149 lb BMI: 24.0 Psychosocial - Initial Assess Target Goals Target Goals Patient Health Questionnaire PHQ-9 Screening 30-Day Re-eval Assessment: 1. Little interest or pleasure in doing things: Not at all 2. Feeling down, depressed, or hopeless: Not at all 3. Trouble falling or staying asleep, or sleeping too much: Not at all 4. Feeling tired or having little energy: Not at all 5. Poor appetite or overeating: Not at all 6. Feeling bad about yourself -- or that you are a failure or have let yourself or your family down: Not at all 7. Trouble concentrating on things, such as reading the newspaper or watching television: Not at all 8. Moving or speaking so slowly that other people could have noticed. Or the opposite - being so fidgety or restless that you have been moving around a lot more than usual: Not at all 9. Thoughts that you would be better off , or of hurting yourself in some way: Not at all How difficult have these problems made it for you to do your work, take care of things at home, or get along with other people?: Not difficult at all Total Score: 0 Self-Efficacy 6-Item Scale 30-Day Re-eval Assessment: We would like to know how confident you are in doing certain activities. Please select your confidence level for: Fatigue Select Number: 8 Physical Discomfort or Pain Select Number: 10 Emotional Distress Select Number: 9 Other Symptoms or Health Problems Select Number: 9 Different Tasks and Activities Select Number: 9 Medication Select Number: 10 Total Score:: 9 Nutrition Survey Nutrition Survey Instructions Scoring Instructions Exercise - 30-day Assessment Visit Date of Eval: 01/24/24 Session #:: 10 Physician Prescribed Exercise Modalities: Treadmill, Airdyne and NuStep Frequency: 3x/week for 12 weeks [36 sessions] Intensity: 60-80% of age predicted maximum heart rate reserve Duration: 30 - 45 minutes Current METSs:: 3 Target Heart Rate:: 90-104 Current RPE:: 13-14 Maximum Excercise HR:: 114 Resting Blood Pressure: 108/72 Maximum Exercise Blood Pressure: 142/78 EKG Type: SB to NSR with BBB w/rare pac, pvc. 8 beat run of probable ectopic atrial t Outcomes & Goals Goals:: Verbalizes understanding of THR, RPE & goal METS by session 6, Documents in home exercise log/reports 30 min aerobic 5 day/wk by DC, Demonstrates accurate pulse taking by DC and Other additional outcome/goals: see below Intervention & Plan Exercise Program Goals: Instruct on personal THR & RPE, Instruct on MET level & personal MET goal, Show patient to take own pulse /validate performance until accurate, Instruct on home exercise and Other additional plan/int 30-day Reassessments 30 day Reassessments:: Progressing Reassessment Notes & Comments:: RPE explained Physical Activity Home Exercise Physical Activity - Home Exercise: Safe Exercise, Warm-up, Self-monitoring, Cool-Down, Home Exercise > 30 min Daily and Sitting Time <3 hours/daily Outcomes & Goals Outcomes/Goals: Demonstrates correct Warm-up/exercise Cool-Down (S3) if = 2.5 METs, Verbalizes symptoms of exercise intolerance by Session 3 (S3), Demonstrate safe equipment use (S3) & follows exercise prescrition (6) and Other: See below Intervention & Plan Plan/Intervention: Instruct warm-up & cool-down if exercising at > 2 METs, Instruct on symptoms of exercise intolerance & actions to take, Instruct & monitor on saf, Assess intial functional capacity & safety risk and Other See below 30-day Reassessments 30 day Reassessments:: Progressing Reassessment Notes & Comments:: warm up encouraged Nutrition - 30-Day Assessment Program Goals Nutrition Program Goals Patient has diagnosis of Hyperlipidemia (ICD E78)?: Yes Visit Date of Eval: 01/24/24 Session #:: 10 Cholesterol/Lipids (Other Core Measures) Determine presence & major risk factors that modify LDL goal: Hypertension or hypertensive medication, Low HDL cholesterol <40 mg/dL*, Family history of premature CHD in Male < 55 years: female <65 yearsFa and Age men > 45 years; women >/= 55 years Outcomes/Goals: Pt IDs own risk factors & lifestyle modifications by Session 10, Verbalizes symptoms of angina & response by session 3., Pt independently manages and Other Additional Outcomes/Goals: Intervention/Plan: Advocate for lipid panel cholesterol medication if applicable, Instruct on personal lipid levels & lipid goals/NCEP guidelines, Instruct on cholesterol and Other additional plan/int Referral to dietitian:: Yes 30-day Reassessments:: Progressing Reassessment Notes & Comments:: pt to see dietitian Diabetes (Other Core Measures) Diabetes Type: Not Applicable Weight Mgt (Other Care) Height: 5 ft 6 in Weight:: 149 lb BMI: 24.0 Diagnosis Overweight/Obesity BMI> 30% ICD-10 E66: No Diagnosis High BMI/Morbid Obesity BMI> 35% ICD-10 Z68: No Outcomes/Goals: Pt sets, maintains & shows weight loss goal & trend during rehab and Other additional outcomes/goals Intervention/Plan: Instruct on ideal BMI & set weight loss goal w/patient, Assist pt to ID & incorporate diet changes for weight loss by S9, Refer to Structured Weight Loss program as appropriate, Encourage goal of using 250-300dcal per session for weight loss and Other additional plan/interventions 30 day Reassessments:: Progressing Reassessment Notes & Comments:: pt to attend nutrition class Healthy Eating Habits Will attend diet classes:: Yes Outcomes/Goals:: Consume diet rich in vegs,fruits,whole grain/high fiber,fish,lean meat, Limit sat/trans fats,cholesterol & added salts & sugars and Other additional outcome/goals: Intervention/Plan:: Assess current eating habits and Other Additional plan/interventions 30-day Reassessments:: Progressing Reassessment Notes & Comments:: pt to attend nutrition class Education Gave educational materials for:: Signs & symptoms of hypoglycemia, Signs & symptoms of hyperglycemia, Relate diabetes to coronary artery disease and Healthy eating Nutrition - 60-Day Assessment Weight Mgt (Other Care) Height: 5 ft 6 in Weight:: 149 lb BMI: 24.0 Core - 30-Day Assessment Visit Date of Eval: 01/24/24 Session #:: 10 Medication Compliance Preventative Medication(s):: Aspirin, Statin/lipid and Beta philippe H/O mental health issues: depression, anxiety, or addiction?: No Doesn?t believe in the benefits of treatment?: No Believes medications are unnecessary or harmful?: No Has a concern about medication side effects?: No Expresses concern over the cost of medications?: No Outcomes/Goals: Verbalizes medications,desired effect & common side effects @ DC, Pt self-reports following medication regimen, Keeps card in wallet w/medications listed by DC and Other additional outcome/goals: Interventions/plans: Instruct on medication effects & side effects, Review medication list w/patient every two weeks, Instruct importance of taking meds as ordered & assist problem solving and Other additional 30-day Reassessments:: Progressing Reassessment Notes & Comments:: pt encouraged to take her meds Tobacco Use Tobacco Use: Non-smoker Hypertension Hypertension Diagnosis:: Hypertension ICD-10 I10 Resting Blood Pressure:: 108/72 [place] [employer] Hypertension Guidelines Peak Exercise Blood Pressure:: 142/78 Outcomes/Goals: Able to verbalize/achieve optimal blood pressure <130/80, Incorporates diet changes & exercise for blood pressure control by DC and Other additional outcomes/goals Interventions/plan: Instruct on optimal blood pressure, hypertension & medications, Instruct on effects of sodium, alcohol, stress, exercise &hypertension and Other additional plan/interventions 30 day Reassessments:: Met Tobacco Cessation Referral Smoking Cessation Referral:: No Individual Education/Counseling:: No Education Schedule Given:: Yes Psychosocial - 30-Day Assess VIsit Date of Eval: 01/24/24 Session #:: 10 History of previous Mental disease:: No Target Goals Target Goals Outcomes/Goals: See list Psychosocial Outcomes/Goals:: ID's personal stressors & 2 strategies to manage stress by discharge and Other Additional outcome/goals: Intervention/Plan: See List Interventions/Plan:: Assess stressors,coping strategies & signs of derpression on admission, Instruct/assist pt to develop coping & personal stress Mgt strategies, Refer to Behavioral Health if appropriate, Refer to Physician if appropriate, Instruct patient to recognize signs & symptoms of depression, Instruct patient to recog and Other additional plan/intervention 30-day Reassessments: 30 day Reassessments:: Met Psychosocial - 60-Day Assess Target Goals Target Goals Outcomes/Goals: See list Psychosocial Outcomes/Goals:: ID's personal stressors & 2 strategies to manage stress by discharge and Other Additional outcome/goals: Psychosocial - 90-Day Assess Target Goals Target Goals Psychosocial - Final Assessmen Target Goals Target Goals Nutrition - 90-Day Assessment Weight Mgt (Other Care) Height: 5 ft 6 in Weight:: 149 lb BMI: 24.0 Nutrition - Final Assessment Weight Mgt (Other Care) Height: 5 ft 6 in Weight:: 149 lb BMI: 24.0
[2024-01-24 08:19] VITALS: BP 108/72; BMI 24.0
== END 2024-02-02 23:59 ==
LOC: CR 14:30
PROVIDERS: PCP Family Medicine Geriatric Medicine; Referring Provider Internal Medicine Cardiovascular Disease; Visit Provider Internal Medicine Cardiovascular Disease
DX: Z95.3 Presence of xenogenic heart valve (principal)
CPT/HCPCS: 93798; 97802

== ENCOUNTER 2024-03-01 14:30 | Outpatient (RCR) | payer MEDICARE, OTHER, SELFPAY ==
[2024-01-24 08:19] VITALS: BMI 24.0
[2024-02-03 01:14] VITALS: BP 108/72
--- NOTE | 2024-02-23 05:01 | CR.ITP_ITS ---
Exercise - Initial Assessment Physician Prescribed Exercise Modalities: Treadmill, Schwinn Airdyne AD-7 and SciFit Pro-II Ergometer Nutrition - Initial Assessment Weight Mgt (Other Care) Height: 5 ft 6 in Weight:: 147 lb BMI: 23.7 Psychosocial - Initial Assess Target Goals Target Goals Referral to Behavioral Health PS - Interventions: Yes: Attend Stress Management Classes and No: Referral to Behavioral Health if PHQ-9 score >9:, No: Referral to [facility] and No: Referral to Physician if PHQ-9 if score is 5-9: Patient Health Questionnaire PHQ-9 Screening 60-Day Re-eval Assessment: 1. Little interest or pleasure in doing things: Not at all 2. Feeling down, depressed, or hopeless: Not at all 3. Trouble falling or staying asleep, or sleeping too much: Not at all 4. Feeling tired or having little energy: Not at all 5. Poor appetite or overeating: Not at all 6. Feeling bad about yourself -- or that you are a failure or have let yourself or your family down: Not at all 7. Trouble concentrating on things, such as reading the newspaper or watching television: Not at all 8. Moving or speaking so slowly that other people could have noticed. Or the opposite - being so fidgety or restless that you have been moving around a lot more than usual: Not at all 9. Thoughts that you would be better off , or of hurting yourself in some way: Not at all How difficult have these problems made it for you to do your work, take care of things at home, or get along with other people?: Not difficult at all Total Score: 0 Self-Efficacy 6-Item Scale 60-Day Re-eval Assessment: We would like to know how confident you are in doing certain activities. Please select your confidence level for: Fatigue Select Number: 9 Physical Discomfort or Pain Select Number: 10 Emotional Distress Select Number: 9 Other Symptoms or Health Problems Select Number: 9 Different Tasks and Activities Select Number: 10 Medication Select Number: 10 Total Score:: 9 Nutrition Survey Nutrition Survey Instructions Scoring Instructions Exercise - 30-day Assessment Physician Prescribed Exercise Modalities: Treadmill, Schwinn Airdyne AD-7 and SciFit Pro-II Ergometer Exercise - 60-day Assessment Visit Date of Eval: 02/23/24 Session #:: 22 Physician Prescribed Exercise Modalities: Treadmill, Schwinn Airdyne AD-7 and SciFit Pro-II Ergometer Frequency: 3x/week for 12 weeks [36 sessions] Intensity: 60-80% of age predicted maximum heart rate reserve Duration: 30 - 45 minutes Current METSs:: 3.0 Target Heart Rate:: 90-104 Current RPE:: 13 Maximum Excercise HR:: 101 Resting Blood Pressure: 124/62 Maximum Exercise Blood Pressure: 152/60 EKG Type: NSr with BBB, rare PAC, PVC. Current Physical Activity or Exercising minutes: 36:20 Outcomes & Goals Goals:: Verbalizes understanding of THR, RPE & goal METS by session 6, Documents in home exercise log/reports 30 min aerobic 5 day/wk by DC and Demonstrates accurate pulse taking by DC Intervention & Plan Exercise Program Goals: Instruct on personal THR & RPE, Instruct on MET level & personal MET goal, Show patient to take own pulse /validate performance until accurate and Instruct on home exercise 30-day Reassessments 30 day Reassessments:: Met Physical Activity Home Exercise Physical Activity - Home Exercise: Safe Exercise, Warm-up, Self-monitoring, Cool-Down, Home Exercise > 30 min Daily and Sitting Time <3 hours/daily Outcomes & Goals Outcomes/Goals: Demonstrates correct Warm-up/exercise Cool-Down (S3) if = 2.5 METs, Verbalizes symptoms of exercise intolerance by Session 3 (S3) and Demonstrate safe equipment use (S3) & follows exercise prescrition (6) Intervention & Plan Plan/Intervention: Instruct warm-up & cool-down if exercising at > 2 METs, Instruct on symptoms of exercise intolerance & actions to take, Instruct & monitor on saf and Assess intial functional capacity & safety risk 30-day Reassessments 30 day Reassessments:: Met Exercise - 90-day Assessment Visit Date of Eval: 02/23/24 Session #:: 22 Physician Prescribed Exercise Modalities: Treadmill, Schwinn Airdyne AD-7 and SciFit Pro-II Ergometer Exercise - Final/Discharge Physician Prescribed Exercise Modalities: Treadmill, Schwinn Airdyne AD-7 and SciFit Pro-II Ergometer Nutrition - 30-Day Assessment Weight Mgt (Other Care) Height: 5 ft 6 in Weight:: 147 lb BMI: 23.7 Nutrition - 60-Day Assessment Program Goals Nutrition Program Goals Patient has diagnosis of Hyperlipidemia (ICD E78)?: Yes Visit Date of Eval: 02/23/24 Session #:: 22 Cholesterol/Lipids (Other Core Measures) Total Triglycerides (mg/dL): 146 Total Cholesterol: 183 LDL Cholesterol (mg/dL): 121 HDL Cholesterol (mg/dL): 33 Determine presence & major risk factors that modify LDL goal: Hypertension or hypertensive medication, Low HDL cholesterol <40 mg/dL*, Family history of premature CHD in Male < 55 years: female <65 yearsFa and Age men > 45 years; women >/= 55 years Outcomes/Goals: Pt IDs own risk factors & lifestyle modifications by Session 10, Verbalizes symptoms of angina & response by session 3. and Pt independently manages Intervention/Plan: Instruct on personal lipid levels & lipid goals/NCEP guidelines and Instruct on cholesterol Referral to dietitian:: No (Patient was seen by Nutritional services on 01/08/2024) 30-day Reassessments:: Met Diabetes (Other Core Measures) Diabetes Type: Not Applicable Fasting blood glucose:: 105 Hgb A1C (4.2 -6.3): 5.7 Weight Mgt (Other Care) Not Applicable: Yes Height: 5 ft 6 in Weight:: 147 lb BMI: 23.7 Diagnosis Overweight/Obesity BMI> 30% ICD-10 E66: No Diagnosis High BMI/Morbid Obesity BMI> 35% ICD-10 Z68: No Outcomes/Goals: Pt sets, maintains & shows weight loss goal & trend during rehab 30 day Reassessments:: Met Healthy Eating Habits Will attend diet classes:: Yes Outcomes/Goals:: Consume diet rich in vegs,fruits,whole grain/high fiber,fish,lean meat and Limit sat/trans fats,cholesterol & added salts & sugars Intervention/Plan:: Assess current eating habits 30-day Reassessments:: Met Education Gave educational materials for:: Healthy eating Core - 60-Day Assessment Visit Date of Eval: 02/23/24 Session #:: 22 Medication Compliance Preventative Medication(s):: Aspirin and Beta philippe H/O mental health issues: depression, anxiety, or addiction?: No Doesn?t believe in the benefits of treatment?: No Believes medications are unnecessary or harmful?: No Has a concern about medication side effects?: No Expresses concern over the cost of medications?: No Outcomes/Goals: Verbalizes medications,desired effect & common side effects @ DC, Pt self-reports following medication regimen and Keeps card in wallet w/medications listed by DC Interventions/plans: Instruct on medication effects & side effects 30-day Reassessments:: Met Tobacco Use Tobacco Use: Non-smoker Hypertension Hypertension Diagnosis:: Hypertension ICD-10 I10 Resting Blood Pressure:: 124/62 [place] [employer] Hypertension Guidelines Peak Exercise Blood Pressure:: 152/60 Outcomes/Goals: Able to verbalize/achieve optimal blood pressure <130/80 and Incorporates diet changes & exercise for blood pressure control by DC Interventions/plan: Instruct on optimal blood pressure, hypertension & medications and Instruct on effects of sodium, alcohol, stress, exercise & hypertension 30 day Reassessments:: Met Tobacco Cessation Referral Smoking Cessation Referral:: No Individual Education/Counseling:: No Education Schedule Given:: Yes Psychosocial - 30-Day Assess Target Goals Target Goals Referral to Behavioral Health PS - Interventions: Yes: Attend Stress Management Classes and No: Referral to Behavioral Health if PHQ-9 score >9:, No: Referral to [facility] and No: Referral to Physician if PHQ-9 if score is 5-9: Outcomes/Goals: See list Psychosocial Outcomes/Goals:: ID's personal stressors & 2 strategies to manage stress by discharge Psychosocial - 60-Day Assess VIsit Date of Eval: 02/23/24 Session #:: 22 Not Applicable: Yes History of previous Mental disease:: No Target Goals Target Goals Psychosocial Test Tool Used:: PHQ-9 Questionnaire phq-9 Severity Referral to Behavioral Health PS - Interventions: Yes: Attend Stress Management Classes and No: Referral to Behavioral Health if PHQ-9 score >9:, No: Referral to [facility] and No: Referral to Physician if PHQ-9 if score is 5-9: Outcomes/Goals: See list Psychosocial Outcomes/Goals:: ID's personal stressors & 2 strategies to manage stress by discharge Intervention/Plan: See List Interventions/Plan:: Instruct/assist pt to develop coping & personal stress Mgt strategies, Instruct patient to recognize signs & symptoms of depression and Instruct patient to recog 30-day Reassessments: 30 day Reassessments:: Met Psychosocial - 90-Day Assess Target Goals Target Goals Referral to Behavioral Health PS - Interventions: Yes: Attend Stress Management Classes and No: Referral to Behavioral Health if PHQ-9 score >9:, No: Referral to [facility] and No: Referral to Physician if PHQ-9 if score is 5-9: Psychosocial - Final Assessmen Target Goals Target Goals Referral to Behavioral Health PS - Interventions: Yes: Attend Stress Management Classes and No: Referral to Behavioral Health if PHQ-9 score >9:, No: Referral to [facility] and No: Referral to Physician if PHQ-9 if score is 5-9: Nutrition - 90-Day Assessment Weight Mgt (Other Care) Height: 5 ft 6 in Weight:: 147 lb BMI: 23.7 Nutrition - Final Assessment Weight Mgt (Other Care) Height: 5 ft 6 in Weight:: 147 lb BMI: 23.7
[2024-02-23 05:04] VITALS: BP 124/62
[2024-02-23 05:10] VITALS: BP 124/62; BMI 23.7
== END 2024-03-03 23:59 ==
LOC: CR 14:30
PROVIDERS: PCP Family Medicine Geriatric Medicine; Referring Provider Internal Medicine Cardiovascular Disease; Visit Provider Internal Medicine Cardiovascular Disease
DX: Z95.3 Presence of xenogenic heart valve (principal)
CPT/HCPCS: 93798

== ENCOUNTER → 2024-03-08 | Outpatient (CLI) | payer MEDICARE, OTHER, SELFPAY ==
[2024-02-23 05:10] VITALS: BMI 23.7
[2024-03-08 12:12] LABS: Absolute Lymphocyte Count 0.55 X10^3/uL (0.83-4.51); Absolute Neutrophil Count 2.8 X10^3/uL (2.0-7.7); Basophil# 0.03 X10^3/uL; Basophil% 0.8 % (0-1); Eosinophil# 0.07 X10^3/uL; Eosinophils% 1.8 % (0-5); Hematocrit 34.9 % (37-47); Hemoglobin 11.2 g/dL (12.0-15.0); Lymphocyte # 0.55 X10^3/ul (0.83-4.51); Lymphocyte % 14.4 % (19-41); Mean Corp Hgb Conc 32.1 g/dL (32-36); Mean Corpuscular Hgb 28.9 pg (27.0-32.0); Mean Corpuscular Volume 89.9 fL (81-99); Monocyte% 10.5 % (0-10); NRBC Flagged by Analyzer 0 % (0-5); Neutrophil # 2.75 X10^3/uL (2.7-7.7); POSITIVE COUNT YES; POSITIVE DIFFERENTIAL YES; Platelet Count 74 K/mm3 (150-450); RBC Distribution Width CV 16.4 % (11.6-14.6); RBC Distribution Width SD 53.5 fl (35.1-43.9); Red Blood Count 3.88 M/mm3 (4.2-5.4); White Blood Count 3.8 K/mm3 (4.4-11.0)
[2024-03-08 12:13] LABS: Differential Indicated SCAN CRITERIA MET
[2024-03-08 12:29] LABS: ALB/GLOB Ratio 0.7 RATIO (0.9-2.4); AST(SGOT) 38 U/L (15-37); Alanine Aminotransfer ALT/SGPT 14 U/L (13-56); Albumin, Serum 3.4 g/dL (3.2-5.0); Alkaline Phosphatase 148 U/L (45-117); Anion Gap 8 (5-15); BUN 11 mg/dL (7-18); BUN/Creat Ratio 13.7 RATIO (10-20); Calcium,Total 8.8 mg/dL (8.5-10.1); Chloride 107 mmol/L (98-107); EST Glomerular Filtration Rate 73 mL/min (>60); Est Glom Filt Rate - Afr Amer 88 mL/min (>60); Glucose 94 mg/dL (74-106); Potassium 4.3 mmol/L (3.5-5.1); Protein, Total 8.4 g/dL (6.4-8.2); Sodium Level 138 mmol/L (136-145); Thyroid Stim Hormone (TSH) 3.94 uIU/mL (0.358-3.74)
[2024-03-08 12:30] LABS: Vitamin D,25 Hydroxy 30.4 ng/mL
[2024-03-08 12:38] LABS: Platelet Estimate MOD DEC (ADEQ)
== END | disposition home or self-care (01) ==
LOC: BIMLAB 11:03
PROVIDERS: PCP Internal Medicine; Referring Provider Internal Medicine; Visit Provider Internal Medicine
DX: E06.3 Autoimmune thyroiditis (principal); E78.5 Hyperlipidemia, unspecified; M85.80 Other specified disorders of bone density and structure, unspecified site
CPT/HCPCS: 36415; 80053; 82306; 84443; 85025

== ENCOUNTER → 2024-03-13 | Outpatient (CLI) | payer MEDICARE, OTHER, SELFPAY ==
[2024-02-23 05:10] VITALS: BMI 23.7
--- NOTE | 2024-03-13 15:05 | RAD_ITS ---
STUDY: X-RAY - UNILATERAL RIBS ( LEFT ) WITH CHEST REASON FOR EXAM: Female, 83 years old. Left sided chest pain TECHNIQUE - RIBS: 4 view(s) of the ribs. TECHNIQUE - CHEST: Single PA view of the chest. COMPARISON: None. FINDINGS - RIBS: Normal visualized ribs without a demonstrated fracture. 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 The lungs are clear and expanded. There is no demonstrated pleural abnormality. Normal size heart. Normal mediastinum and raul. Normal visualized pulmonary arteries. Normal visualized aortic arch and descending thoracic aorta. Normal visualized thoracic spine. Normal visualized ribs, clavicles, and shoulders. There is no demonstrated abnormality of the visualized soft tissue structures of the upper abdomen. RAD/Ribs Uni Min 3V w/PA Chest IMPRESSION: RIBS: Normal x-ray examination of the ribs. CHEST: Normal x-ray examination of the chest. Electronically Signed: Casey Huizar MD at 15:29 EDT ,
== END | disposition home or self-care (01) ==
LOC: RAD 15:01
PROVIDERS: PCP Internal Medicine; Referring Provider Internal Medicine; Visit Provider Internal Medicine
DX: R07.81 Pleurodynia (principal)
CPT/HCPCS: 71101

== ENCOUNTER 2024-03-25 02:30 | Outpatient (RCR) | payer MEDICARE, OTHER, SELFPAY ==
[2024-02-23 05:10] VITALS: BMI 23.7
[2024-03-04 00:38] VITALS: BP 108/72; BP 124/62
--- NOTE | 2024-03-25 08:33 | CR.ITP_ITS ---
Exercise - Initial Assessment Physician Prescribed Exercise Modalities: Treadmill, Schwinn Airdyne AD-7 and SciFit Stepper Nutrition - Initial Assessment Weight Mgt (Other Care) Height: 5 ft 6 in Weight:: 145 lb BMI: 23.3 Psychosocial - Initial Assess Target Goals Target Goals Patient Health Questionnaire PHQ-9 Screening 90-Day Re-eval Assessment: 1. Little interest or pleasure in doing things: Not at all 2. Feeling down, depressed, or hopeless: Not at all 3. Trouble falling or staying asleep, or sleeping too much: Not at all 4. Feeling tired or having little energy: Not at all 5. Poor appetite or overeating: Not at all 6. Feeling bad about yourself -- or that you are a failure or have let yourself or your family down: Not at all 7. Trouble concentrating on things, such as reading the newspaper or watching television: Not at all 8. Moving or speaking so slowly that other people could have noticed. Or the opposite - being so fidgety or restless that you have been moving around a lot more than usual: Not at all 9. Thoughts that you would be better off , or of hurting yourself in some way: Not at all How difficult have these problems made it for you to do your work, take care of things at home, or get along with other people?: Not difficult at all Total Score: 0 Self-Efficacy 6-Item Scale 90-Day Re-eval Assessment: We would like to know how confident you are in doing certain activities. Please select your confidence level for: Fatigue Select Number: 9 Physical Discomfort or Pain Select Number: 10 Emotional Distress Select Number: 9 Other Symptoms or Health Problems Select Number: 9 Different Tasks and Activities Select Number: 10 Medication Select Number: 10 Total Score:: 9 Nutrition Survey Nutrition Survey Instructions Scoring Instructions Exercise - 30-day Assessment Physician Prescribed Exercise Modalities: Treadmill, Schwinn Airdyne AD-7 and SciFit Stepper Exercise - 60-day Assessment Physician Prescribed Exercise Modalities: Treadmill, Schwinn Airdyne AD-7 and SciFit Stepper Exercise - 90-day Assessment Visit Date of Eval: 03/25/24 Session #:: 35 Physician Prescribed Exercise Modalities: Treadmill, Schwinn Airdyne AD-7 and SciFit Stepper Frequency: 3x/week for 12 weeks [36 sessions] Intensity: 60-80% of age predicted maximum heart rate reserve Duration: 30 - 45 minutes Current METSs:: 3 Target Heart Rate:: 90-104 Current RPE:: 13 Maximum Excercise HR:: 85 Resting Blood Pressure: 120/60 Maximum Exercise Blood Pressure: 124/62 EKG Type: NSR w/BBB with rare pac/pvc Outcomes & Goals Goals:: Verbalizes understanding of THR, RPE & goal METS by session 6, Documents in home exercise log/reports 30 min aerobic 5 day/wk by DC, Demonstrates accurate pulse taking by DC and Other additional outcome/goals: see below Intervention & Plan Exercise Program Goals: Instruct on personal THR & RPE, Instruct on MET level & personal MET goal, Show patient to take own pulse /validate performance until accurate, Instruct on home exercise and Other additional plan/int 30-day Reassessments 30 day Reassessments:: Met Physical Activity Home Exercise Physical Activity - Home Exercise: Safe Exercise, Warm-up, Self-monitoring, Cool-Down, Home Exercise > 30 min Daily and Sitting Time <3 hours/daily Intervention & Plan Plan/Intervention: Instruct warm-up & cool-down if exercising at > 2 METs, Instruct on symptoms of exercise intolerance & actions to take, Instruct & monitor on saf, Assess intial functional capacity & safety risk and Other See below 30-day Reassessments 30 day Reassessments:: Met Exercise - Final/Discharge Physician Prescribed Exercise Modalities: Treadmill, Schwinn Airdyne AD-7 and SciFit Stepper Nutrition - 30-Day Assessment Weight Mgt (Other Care) Height: 5 ft 6 in Weight:: 145 lb BMI: 23.3 Nutrition - 60-Day Assessment Weight Mgt (Other Care) Height: 5 ft 6 in Weight:: 145 lb BMI: 23.3 Psychosocial - 30-Day Assess Target Goals Target Goals Psychosocial - 60-Day Assess Target Goals Target Goals Psychosocial - 90-Day Assess VIsit Date of Eval: 03/25/24 Session #:: 35 History of previous Mental disease:: No Target Goals Target Goals Outcomes/Goals: See list Psychosocial Outcomes/Goals:: ID's personal stressors & 2 strategies to manage stress by discharge and Other Additional outcome/goals: Intervention/Plan: See List Interventions/Plan:: Assess stressors,coping strategies & signs of derpression on admission, Instruct/assist pt to develop coping & personal stress Mgt strategies, Refer to Behavioral Health if appropriate, Refer to Physician if appropriate, Instruct patient to recognize signs & symptoms of depression, Instruct patient to recog and Other additional plan/intervention 30-day Reassessments: 30 day Reassessments:: Met Psychosocial - Final Assessmen Target Goals Target Goals Nutrition - 90-Day Assessment Program Goals Nutrition Program Goals Patient has diagnosis of Hyperlipidemia (ICD E78)?: Yes Visit Date of Eval: 03/25/24 Session #:: 35 Cholesterol/Lipids (Other Core Measures) Determine presence & major risk factors that modify LDL goal: Hypertension or hypertensive medication, Low HDL cholesterol <40 mg/dL*, Family history of premature CHD in Male < 55 years: female <65 yearsFa and Age men > 45 years; women >/= 55 years Outcomes/Goals: Pt IDs own risk factors & lifestyle modifications by Session 10, Verbalizes symptoms of angina & response by session 3., Pt independently manages and Other Additional Outcomes/Goals: Intervention/Plan: Advocate for lipid panel cholesterol medication if applicable, Instruct on personal lipid levels & lipid goals/NCEP guidelines, Instruct on cholesterol and Other additional plan/int 30-day Reassessments:: Met Diabetes (Other Core Measures) Diabetes Type: Not Applicable Weight Mgt (Other Care) Height: 5 ft 6 in Weight:: 145 lb BMI: 23.3 Diagnosis Overweight/Obesity BMI> 30% ICD-10 E66: No Diagnosis High BMI/Morbid Obesity BMI> 35% ICD-10 Z68: No Outcomes/Goals: Pt sets, maintains & shows weight loss goal & trend during rehab and Other additional outcomes/goals Intervention/Plan: Instruct on ideal BMI & set weight loss goal w/patient, Assist pt to ID & incorporate diet changes for weight loss by S9, Refer to Structured Weight Loss program as appropriate, Encourage goal of using 250- 300dcal per session for weight loss and Other additional plan/interventions 30 day Reassessments:: Met Healthy Eating Habits Will attend diet classes:: Yes Outcomes/Goals:: Consume diet rich in vegs,fruits,whole grain/high fiber,fish,lean meat, Limit sat/trans fats,cholesterol & added salts & sugars and Other additional outcome/goals: Intervention/Plan:: Assess current eating habits and Other Additional plan/interventions 30-day Reassessments:: Met Education Gave educational materials for:: Signs & symptoms of hypoglycemia, Signs & symptoms of hyperglycemia, Relate diabetes to coronary artery disease and Healthy eating Nutrition - Final Assessment Weight Mgt (Other Care) Height: 5 ft 6 in Weight:: 145 lb BMI: 23.3
[2024-03-25 08:41] VITALS: BP 120/60; BMI 23.3
== END 2024-04-03 23:59 ==
LOC: CR 02:30
PROVIDERS: PCP Family Medicine Geriatric Medicine; Referring Provider Internal Medicine Cardiovascular Disease; Visit Provider Internal Medicine Cardiovascular Disease
DX: Z95.3 Presence of xenogenic heart valve (principal)
CPT/HCPCS: 93798

== ENCOUNTER → 2024-04-09 | Outpatient (CLI) | payer MEDICARE, OTHER, SELFPAY ==
[2023-12-26 09:19] VITALS: BMI 23.3
[2024-03-25 08:41] VITALS: BMI 23.3
[2024-04-04 00:19] VITALS: BMI 23.7
--- NOTE | 2024-04-09 09:36 | US_ITS ---
STUDY: ABDOMINAL ULTRASOUND - RIGHT UPPER QUADRANT; ELASTOGRAPHY REASON FOR VISIT: Female, 83 years old. Autoimmune hepatitis. HEDRICK TECHNIQUE: Ultrasound evaluation of the right upper quadrant was performed with real-time and static britton-scale imaging. Point quantification shear wave elastography was performed ([employer]). TECHNICAL QUALITY: Adequate. COMPARISON: Comparison is made with prior study dated September 12, 2023. FINDINGS: Liver: The liver measures 16.1 cm. There is normal echogenicity of the liver. The bile ducts are within normal limits. There is hepatic color flow. The direction of portal flow is hepatopetal. There is no demonstrated mass lesion. Median liver stiffness measured 12.3 kPa. Gallbladder: The patient is status post cholecystectomy. Common Bile Duct (C.B.D.): The common bile duct measures 4 mm. Pancreas: There is normal echogenicity of the visualized pancreas. There is no demonstrated pancreatic mass or cyst. Right Kidney: Normal size of the right kidney. The right kidney measures 9.6 cm x 6.8 cm x 4.6 cm. Normal renal cortex. The right cortex measures 1.1 cm. There is no demonstrated renal mass or cyst. There is no right hydronephrosis. Findings suggestive of splenomegaly. US/ABD Limited w/ Elastography IMPRESSION: 1. Liver stiffness measures 12.3 kPa compatible with F3-F4 (Moderate to severe liver fibrosis) Metavir score. 2. Splenomegaly. Electronically Signed: Asher Donato MD at 11:48 EDT ,
== END | disposition home or self-care (01) ==
LOC: US 09:32
PROVIDERS: PCP Family Medicine Geriatric Medicine; Referring Provider Internal Medicine; Visit Provider Internal Medicine
DX: K75.81 Nonalcoholic steatohepatitis (NASH) (principal); K75.4 Autoimmune hepatitis
CPT/HCPCS: 76705; 76981

== ENCOUNTER → 2024-05-21 | Outpatient (CLI) | payer MEDICARE, OTHER, SELFPAY ==
[2024-02-23 05:10] VITALS: BMI 23.7
[2024-05-17 08:36] VITALS: BMI 23.3
--- NOTE | 2024-05-21 14:33 | BI_ITS ---
MAMMOGRAPHY - BILATERAL SCREENING REASON FOR EXAM: Female, 83 years old. Routine annual screening examination. PERTINENT HISTORY: Non-contributory. TECHNIQUE: Digital bilateral breast arlette (3D mammographic acquisition) in the CC and MLO projections. 2-D mediolateral oblique (MLO) and craniocaudad (CC) views of both breasts were obtained. CAD: Full Field Digital Mammography with Computer Added Detection was performed. COMPARISON: Comparison is made with prior study dated May 16, 2023 and May 06, 2022. FINDINGS: Breast Composition: There are scattered areas of fibroglandular density. There are no dominant masses or suspicious calcifications. Stable secretory calcifications. No other significant abnormalities are identified. There has been no significant change since the prior study. BI/SCRN MAMM (CAD)W/ARLETTE BILAT IMPRESSION: Stable bilateral screening mammogram. Yearly follow-up mammogram recommended. (A) ASSESSMENT CATEGORY: BIRADS Category 2: Benign. A letter regarding these results will be sent to the patient by the facility within 30 days. Approximately 10% of breast cancers are not detected by mammography. A normal mammogram should not delay biopsy of a clinically suspicious abnormality. [id number] Electronically Signed: Asher Donato MD at 15:22 EDT ,
--- NOTE | 2024-05-21 14:34 | BD_ITS ---
STUDY: DUAL ENERGY X-RAY ABSORPTIOMETRY / DXA REASON FOR EXAM: Female, 83 years old. Post- Menopausal TECHNIQUE: Bone Mineral Density (BMD) measurements of lumbar spine and bilateral hips were obtained. COMPARISON: Comparison is made with prior study dated April 03, 2018. FINDINGS: Lumbar Spine (L1-L4): g/cm2 (1.085) / T-score (0.6) / Z-score (3.3) Findings are suggestive of normal bone density with a low fracture risk. Left Femur Total: g/cm2 (0.786) / T-score (-1.3) / Z-score (0.9) Left Femoral Neck: g/cm2 (0.671) / T-score (-1.6) / Z-score (0.8) Right Femur Total: g/cm2 (0.714) / T-score (-1.9) / Z-score (0.3) Right Femoral Neck: g/cm2 (0.613) / T-score (-2.1) / Z-score (0.3) The T-Scores on the most recent prior examination were: Lumbar Spine (L1-L4): There has been improvement of bone density since the previous examination. Left Femur Total: which represents a worsening of 10.3%. Right Femur Total: which represents a worsening of 18.8%. BD/Dexa Bone Density Study IMPRESSION: The patient is considered osteopenic as outlined below according to World Medardo Organization (WHO) criteria with a moderate fracture risk. There has been worsening of bone density since the previous examination. Reference Information: The T-score is the number of standard deviations above or below the standard which is normal for young adults at their peak bone mineral density. The World Health Organization (WHO) interprets the T-scores as follows: Above -1 Normal bone density Between -1 and -2.5 Osteopenia Equal to / or below -2.5 Osteoporosis As a practical clinical guideline, osteopenia may be graded as follows: Mild -1 through -1.5 Moderate -1.6 through -2.0 Severe -2.1 through -2.4 The Z-score is the number of standard deviations above or below age-matched controls. A Z-score of less than -1.5 would be considered abnormal. References: 1. NIH Osteoporosis and Related Bone Diseases www osteo.org 2. International Society for Clinical Densitometry www iscd.org 3. National Osteoporosis Foundation www nof.org Electronically Signed: Asher Donato MD at 15:15 EDT ,
== END | disposition home or self-care (01) ==
LOC: OPBD 14:32
PROVIDERS: PCP Internal Medicine; Referring Provider Internal Medicine; Visit Provider Internal Medicine
DX: Z12.31 Encounter for screening mammogram for malignant neoplasm of breast (principal); Z78.0 Asymptomatic menopausal state
CPT/HCPCS: 77063; 77067; 77080

== ENCOUNTER → 2024-12-13 | Outpatient (CLI) | payer MEDICARE, OTHER, SELFPAY ==
[2024-05-17 08:36] VITALS: BMI 23.3
[2024-12-13 16:26] LABS: Absolute Neutrophil Count 2.8 X10^3/uL (2.0-7.7); Basophil# 0.05 X10^3/uL; Basophil% 1.3 % (0-1); Eosinophils% 2.5 % (0-5); Hematocrit 36.9 % (37-47); Hemoglobin 12.1 g/dL (12.0-15.0); Mean Corp Hgb Conc 32.8 g/dL (32-36); Mean Corpuscular Hgb 30.5 pg (27.0-32.0); Mean Corpuscular Volume 92.9 fL (81-99); Mean Platelet Vol. 12.2 fl (6.2-12.0); Monocyte# 0.45 X10^3/uL; Monocyte% 11.3 % (0-10); NRBC Flagged by Analyzer 0 % (0-5); Neutrophil # 2.78 X10^3/uL (2.7-7.7); Neutrophil % 69.4 % (47-70); POSITIVE COUNT YES; POSITIVE DIFFERENTIAL YES; Platelet Count 74 K/mm3 (150-450); RBC Distribution Width CV 15.8 % (11.6-14.6); RBC Distribution Width SD 54.2 fl (35.1-43.9); Red Blood Count 3.97 M/mm3 (4.2-5.4)
[2024-12-13 16:54] LABS: Erythrocyte Sedimentation Rate 13 mm/hr (0-30)
[2024-12-13 17:20] LABS: ALB/GLOB Ratio 1.2 RATIO (0.9-2.4); AST(SGOT) 31 U/L (<=31); Alanine Aminotransfer ALT/SGPT 10 U/L (<=34); Albumin, Serum 4.3 g/dL (3.4-4.8); Alkaline Phosphatase 97 U/L (35-104); Anion Gap 11 (5-15); BUN 15 mg/dL (4-19); BUN/Creat Ratio 15.7 RATIO (10-20); Calcium,Total 9.6 mg/dL (7.6-11.0); Carbon Dioxide 23.4 mmol/L (21.0-32.0); Chloride 105 mmol/L (98-108); Cholesterol 149 mg/dL (<=200); Creatinine, Serum 0.98 mg/dL (0.70-1.20); EST Glomerular Filtration Rate 58 (>60); Ferritin 34 ng/mL (22-378); Globulin 3.7 g/dL (2.2-4.2); Glucose 112 mg/dL (70-99); High Density Lipoprotein 27 mg/dL; Low Density Lipoprotein Calc. 89 mg/dL; Potassium 4.5 mmol/L (3.3-5.1); Protein, Total 8.1 g/dL (5.9-8.4); Sodium Level 139 mmol/L (133-145); Triglycerides 166 mg/dL; Very Low Density Lipoprotein 33 mg/dL (5-40); Vitamin D,25 Hydroxy 76.7 ng/mL (30-100); cholesterol:hdl ratio screen 5.62
[2024-12-13 17:28] LABS: International Normalized Ratio 1.1; Prothrombin Time (Protime)PT. 14.8 SECONDS (11.7-14.9)
[2024-12-13 17:46] LABS: Iron Binding Capacity,Total 278 ug/dL (250-450)
[2024-12-13 18:03] LABS: CRP < 3.00 mg/L (0.0-3.0); Iron 75 ug/dL (50-170); Iron Binding Capacity,Unsat 203 ug/dL (228-428)
[2024-12-13 20:20] LABS: Differential Indicated SCAN CRITERIA MET
[2024-12-13 20:22] LABS: Platelet Estimate MOD DEC (ADEQ)
[2024-12-16 15:08] LABS: Anti-Mitochondrial AB <20.0 Units (0.0-20.0)
[2024-12-16 16:08] LABS: AFP, Tumor Marker 3.5 ng/mL (0.0-8.7); Angiotensin Convert Enzyme 47 U/L (14-82); Anti-Smooth Muscle ABS 40 Units (0-19)
== END | disposition home or self-care (01) ==
LOC: LAB 15:17
PROVIDERS: PCP Internal Medicine; Referring Provider Internal Medicine; Visit Provider Internal Medicine
DX: Z00.00 Encounter for general adult medical examination without abnormal findings (principal); K75.4 Autoimmune hepatitis; K75.81 Nonalcoholic steatohepatitis (NASH); E55.9 Vitamin D deficiency, unspecified; R73.09 Other abnormal glucose; I35.0 Nonrheumatic aortic (valve) stenosis; K81.1 Chronic cholecystitis; K92.2 Gastrointestinal hemorrhage, unspecified; R63.4 Abnormal weight loss; E06.3 Autoimmune thyroiditis; I25.10 Atherosclerotic heart disease of native coronary artery without angina pectoris; E78.5 Hyperlipidemia, unspecified
CPT/HCPCS: 36415; 80053; 80061; 82105; 82164; 82306; 82728; 83516; 83540; 83550; 85025; 85610; 85652; 86140

== ENCOUNTER → 2025-02-03 | Outpatient (CLI) | payer MEDICARE, OTHER, SELFPAY ==
[2024-05-17 08:36] VITALS: BMI 23.3
[2025-02-03 13:21] LABS: Anion Gap 12 (5-15); BUN 16 mg/dL (4-19); BUN/Creat Ratio 17.4 RATIO (10-20); Calcium,Total 9.5 mg/dL (7.6-11.0); Carbon Dioxide 21.4 mmol/L (21.0-32.0); Chloride 105 mmol/L (98-108); Creatinine, Serum 0.92 mg/dL (0.70-1.20); EST Glomerular Filtration Rate 62 (>60); Glucose 101 mg/dL (70-99); Potassium 4.6 mmol/L (3.3-5.1); Sodium Level 138 mmol/L (133-145)
== END | disposition home or self-care (01) ==
LOC: LAB 11:40
PROVIDERS: PCP Internal Medicine; Referring Provider Internal Medicine; Visit Provider Internal Medicine
DX: E06.3 Autoimmune thyroiditis (principal); I10 Essential (primary) hypertension
CPT/HCPCS: 36415; 80048; 84443

== ENCOUNTER 2025-04-14 08:31 | Outpatient (CLI) | payer MEDICARE, OTHER, SELFPAY ==
[2024-05-17 08:36] VITALS: BMI 23.3
--- NOTE | 2025-04-14 08:38 | US_ITS ---
PROCEDURE: ABD LIMITED W/ ELASTOGRAPHY REASON FOR EXAM: LIVER FIBROSIS, AUTOIMMUNE HEPATITIS. COMPARISON: None. TECHNIQUE: Right upper quadrant abdominal ultrasound. Delvin ElastQ Imaging shear wave elastography for non-invasive assessment of liver tissue stiffness. Delvin EPIQ Elite. FINDINGS: LIVER: Size: Unremarkable Length: 16 cm Echotexture: Normal Contour: Normal Lesions: None identified Elastography: EQI Med: 13.9 kPa EQI Med Johnny: 2.2 m/s IQR/Med: 12.3 %* GALLBLADDER: Surgically absent. COMMON BILE DUCT: Normal measuring 2.5 mm . PANCREAS: Normal Visualized portions of the right kidney are unremarkable. No right upper quadrant ascites. US/ABD Limited w/ Elastography IMPRESSION: MODERATE TO SEVERE HEPATIC FIBROSIS Status post cholecystectomy. Reference Values: SRU <1.37 m/s (5.7kPa): No to mild fibrosis 1.37 m/s - 2.2 m/s: Moderate to severe fibrosis >2.2 m/s (15kPa): Significant fibrosis / cirrhosis METAVIR Score F2 or higher: 1.34 m/s (5.7kPa) F3 or higher: 1.55 m/s (7.3kPa) F4: 1.80 m/s (10kPa) * If the IQR/Med is >30%, the variance in the measurements is a large and the a ccuracy of the measurement may be in question. Reading Location: [place] [id number]
[2025-04-14 09:59] LABS: Hematocrit 38.4 % (37-47); Hemoglobin 12.8 g/dL (12.0-15.0); Immature Granulocytes Count 0.020 X10^3/uL (0.0-0.0); Mean Corp Hgb Conc 33.3 g/dL (32-36); Mean Corpuscular Volume 91.6 fL (81-99); NRBC Flagged by Analyzer 0 % (0-5); POSITIVE COUNT YES; POSITIVE DIFFERENTIAL YES; Platelet Count 67 K/mm3 (150-450); RBC Distribution Width CV 15.3 % (11.6-14.6); RBC Distribution Width SD 51.7 fl (35.1-43.9); Red Blood Count 4.19 M/mm3 (4.2-5.4); White Blood Count 3.7 K/mm3 (4.4-11.0)
[2025-04-14 10:23] LABS: Prothrombin Time (Protime)PT. 14.1 SECONDS (11.7-14.9)
[2025-04-14 11:12] LABS: AST(SGOT) 34 U/L (<=31); Alanine Aminotransfer ALT/SGPT 12 U/L (<=34); Albumin, Serum 4.4 g/dL (3.4-4.8); Alkaline Phosphatase 93 U/L (35-104); Anion Gap 13 (5-15); BUN 17 mg/dL (4-19); BUN/Creat Ratio 18.5 RATIO (10-20); Calcium,Total 9.6 mg/dL (7.6-11.0); Carbon Dioxide 23.1 mmol/L (21.0-32.0); Chloride 105 mmol/L (98-108); Cholesterol 161 mg/dL (<=200); Globulin 3.7 g/dL (2.2-4.2); Glucose 99 mg/dL (70-99); Low Density Lipoprotein Calc. 105 mg/dL; Potassium 4.5 mmol/L (3.3-5.1); Triglycerides 143 mg/dL; Very Low Density Lipoprotein 29 mg/dL (5-40); cholesterol:hdl ratio screen 5.90
[2025-04-14 11:53] LABS: Iron Binding Capacity,Total 293 ug/dL (250-450)
[2025-04-14 11:58] LABS: CRP < 3.00 mg/L (0.0-3.0); Ferritin 41 ng/mL (22-378); Iron 68 ug/dL (50-170); Iron Binding Capacity,Unsat 225 ug/dL (228-428); Vitamin D,25 Hydroxy 83.8 ng/mL (30-100)
[2025-04-18 14:08] LABS: Anti-Smooth Muscle ABS 37 Units (0-19); Immunoglobulin A 165 mg/dL (64-422); Immunoglobulin G 1318 mg/dL (586-1602); Immunoglobulin M 1082 mg/dL (26-217)
== END 2025-04-14 23:59 | disposition home or self-care (01) ==
LOC: US 08:34
PROVIDERS: PCP Internal Medicine; Referring Provider Internal Medicine; Visit Provider Internal Medicine
DX: K76.0 Fatty (change of) liver, not elsewhere classified (principal); K74.69 Other cirrhosis of liver; K75.4 Autoimmune hepatitis; R73.03 Prediabetes; I35.0 Nonrheumatic aortic (valve) stenosis; Z98.890 Other specified postprocedural states
CPT/HCPCS: 36415; 76705; 76981; 80053; 80061; 82105; 82306; 82728; 82784; 82785; 83036; 83516; 83540; 83550; 84443; 85025; 85610; 86140